=== PATIENT | male | born 1960 | race Caucasian/White ===

== ENCOUNTER → 2018-05-11 14:03 | Outpatient (CLI) | payer OTHER, SELFPAY | PROVIDERS: Family Provider Family Medicine; PCP Family Medicine; Visit Provider Orthopaedic Surgery | DX: Z01.818 Encounter for other preprocedural examination (principal) | CPT/HCPCS: 93005 ==

== ENCOUNTER → 2018-05-26 17:20 | Outpatient (CLI) | payer OTHER, SELFPAY ==
--- NOTE | 2018-05-26 17:26 | DI.MRI.S_ITS ---
PROCEDURE: MR KNEE RT WO CON INDICATIONS: Osteoarthritis. TECHNIQUE: Noncontrast sagittal PD fast spin echo and T2 fast spin echo with fat saturation, sagittal 3-D FLASH with fat saturation; coronal T1 spin echo and PD fast spin echo with fat saturation, and axial PD fast spin echo with fat saturation through the knee. COMPARISON: [facility] [place], CR, XR KNEE ARTHRITIC SERIES RT, 11/16/2017, 15:07. FINDINGS: Image quality: Excellent. Menisci: The medial meniscus appears to have been nearly completely resected, with a small suboptimally visualized meniscal remnant. Lateral extrusion of the lateral meniscus is present. Amorphous high signal intensity within the anterior horn lateral meniscus is present, demonstrating superior articular surface extension, indicating degenerative tearing. Degenerative fraying of the free edge of the anterior horn lateral meniscus is present. Cruciate ligaments: Anterior cruciate ligament is not seen. Posterior cruciate ligament is intact. Medial structures: The medial collateral ligament appears intact but demonstrates mild surrounding T2 signal elevation. Visualized portions of the pes anserinus tendons appear normal. Small amount of medial bursal fluid. Lateral structures: The lateral collateral ligament demonstrates mild fluid signal within its femoral insertion site. The long and short heads of the biceps femoris tendon appear intact. The popliteus tendon appears normal. Iliotibial band appears normal. Anterior structures: The quadriceps and patellar tendons appear intact. Mild lateral patellar subluxation. No femoral trochlear dysplasia or ventral trochlear prominence. Mild edema in the infrapatellar fat pad. Bones and cartilage: No bone marrow contusions or fractures. Severe tricompartmental periarticular osteophyte formation. Mild ill-defined degenerative marrow edema within the subchondral aspects of the medial and lateral compartments. Severe diffuse articular cartilage loss overlies the weightbearing aspects of the medial femoral condyle and medial tibial plateau. Severe articular cartilage loss overlies the mid weightbearing aspect of the lateral femoral condyle, as well as the weightbearing aspect of the lateral tibial plateau. A focal 5 mm diameter region of full-thickness articular cartilage loss overlies the lateral patellar facet adjacent to the patellar apex. Joint space: There is a moderate knee joint effusion and a trace Contreras's cyst. Multiple intra-articular loose bodies are present. Ganglion cyst along the popliteus is present, containing intra-articular loose bodies. There is a ganglion cyst at the posterior midportion of the knee joint posterior to the intercondylar notch measuring roughly 50 mm diameter, containing intra-articular loose bodies. Normal appearing synovial plicae are incidentally noted. IMPRESSION: 1. Severe tricompartmental osteoarthritis with associated articular cartilage loss. 2. Presumed postsurgical sequelae involving the medial meniscus. Degenerative tearing of the lateral meniscus. 3. Full-thickness anterior cruciate ligament tear. 4. Partial-thickness lateral collateral ligament tear. MCL strain. 5. Knee joint effusion and multiple intra-articular loose bodies. Ganglion cysts adjacent to the intercondylar notch and along the popliteus. 6. Mild medial bursitis. Dictated by: Edilma Schultz M.D. on 05/27/2018 at 8:45 Approved by: Edilma Schultz M.D. on 05/27/2018 at 8:51
== END ==
PROVIDERS: Family Provider Family Medicine; PCP Family Medicine; Visit Provider Orthopaedic Surgery
DX: S83.511A Sprain of anterior cruciate ligament of right knee, initial encounter (principal); S83.421A Sprain of lateral collateral ligament of right knee, initial encounter; S83.411A Sprain of medial collateral ligament of right knee, initial encounter; M17.11 Unilateral primary osteoarthritis, right knee; M23.241 Derangement of anterior horn of lateral meniscus due to old tear or injury, right knee; M25.461 Effusion, right knee; M67.461 Ganglion, right knee; M71.561 Other bursitis, not elsewhere classified, right knee
CPT/HCPCS: 73721

== ENCOUNTER → 2019-06-13 11:30 | Outpatient (CLI) | payer OTHER, SELFPAY ==
--- NOTE | 2019-06-13 | DI.RAD.S_ITS ---
PROCEDURE: XR FOOT LT MIN 3V INDICATIONS: ACHILLES BUMP TECHNIQUE: 3 views of the foot were acquired. COMPARISON: None. FINDINGS: Bones: No fractures or dislocations but there is a finding of calcific tendinitis at the Achilles tendon insertion and also a significant sized bone spur at the lateral fascia insertion on the posterior calcaneus. No suspicious bony lesions. Soft tissues: No tibiotalar joint effusion. Achilles tendon appears normal. IMPRESSION: Achilles tendon and plantar fascia spurring on the insertion sites for the 2 structures, posterior calcaneus. No acute trauma. Dictated by: Amrit Menendez M.D. on 06/13/2019 at 13:14 Approved by: Amrit Menendez M.D. on 06/13/2019 at 13:15
== END ==
PROVIDERS: PCP Student in an Organized Health Care Education/Training Program; Visit Provider Student in an Organized Health Care Education/Training Program
DX: M76.62 Achilles tendinitis, left leg (principal); M77.32 Calcaneal spur, left foot
CPT/HCPCS: 73630

== ENCOUNTER → 2019-06-23 15:40 | Outpatient (CLI) | payer OTHER, SELFPAY ==
--- NOTE | 2019-06-23 | DI.US.S_ITS ---
PROCEDURE: US EXTREMITY NONVASC LOWER LT INDICATIONS: LOCALIZED SWELLING, MASS AND LUMP, LEFT LOWER EXTR TECHNIQUE: Real-time scanning was performed of the left posterior foot, with image documentation. COMPARISON: None. FINDINGS: 0.9 x 0.5 x 0.8 cm small soft tissue fluid collection is present of unclear etiology. IMPRESSION: Small fluid collection. Etiology is unclear and if indicated MRI could be performed for further assessment. Dictated by: Brent VILLA Interpreted: Amrit Menendez MD on 06/24/2019 at 9:37 Approved by: Amrit Menendez M.D. on 06/24/2019 at 19:46
== END ==
PROVIDERS: PCP Student in an Organized Health Care Education/Training Program; Visit Provider Student in an Organized Health Care Education/Training Program
DX: R22.42 Localized swelling, mass and lump, left lower limb (principal)
CPT/HCPCS: 76882

== ENCOUNTER → 2020-09-28 12:30 | Outpatient (CLI) | payer OTHER, SELFPAY ==
[2020-09-28 12:59] LABS: COVID19 -Nasal RAPID Negative (Negative)
== END ==
PROVIDERS: PCP Student in an Organized Health Care Education/Training Program; Visit Provider Physician Assistant
DX: Z20.822 Contact with and (suspected) exposure to COVID-19 (principal)
CPT/HCPCS: 87635

== ENCOUNTER → 2020-10-30 15:15 | Outpatient (CLI) | payer OTHER, SELFPAY ==
--- NOTE | 2020-10-30 15:20 | DI.RAD.S_ITS ---
PROCEDURE: XR HIP W PEL IF DONE LT 2V INDICATIONS: LT HIP PAIN TECHNIQUE: 2 views of the hip were acquired. COMPARISON: None. FINDINGS: Bones: No fractures or dislocations. No suspicious bony lesions. The visualized pelvic ring appears intact. Soft tissues: No suspicious soft tissue calcifications or masses. IMPRESSION: A small degree of joint space narrowing is present, no trauma is found. Mild osteoarthritis appears present as the underlying cause. Dictated by: Amrit Menendez M.D. on 10/30/2020 at 16:46 Approved by: Amrit Menendez M.D. on 10/30/2020 at 16:46
== END ==
PROVIDERS: PCP Student in an Organized Health Care Education/Training Program; Referring Provider Student in an Organized Health Care Education/Training Program; Visit Provider Student in an Organized Health Care Education/Training Program
DX: M25.552 Pain in left hip (principal)
CPT/HCPCS: 73502

== ENCOUNTER → 2020-11-21 06:38 | Outpatient (CLI) | payer OTHER, SELFPAY ==
--- NOTE | 2020-11-21 | DI.MRI.S_ITS ---
PROCEDURE: MR HIP LT WO CON INDICATIONS: Pain in left hip TECHNIQUE: Noncontrast coronal T1 spin echo and STIR through the bony pelvis. Coronal and axial T2 fast spin echo with fat saturation, sagittal T1 spin echo, and oblique axial T2 fast spin echo with fat saturation through the hip. COMPARISON: None. FINDINGS: Image quality: Excellent. Bones and joints: Bone marrow of the pelvic ring and proximal femurs show normal signal throughout. No intraosseous lesions or fractures. No avascular necrosis of the femoral heads. The visualized lower lumbar spine appears normally aligned. Tendons and ligaments: The gluteus medius and minimus tendons appear intact, without associated muscle atrophy. Mild T2 signal elevation at the femoral origins of the gluteus medius and minimus tendons bilaterally. The nearby proximal iliotibial band also appears intact. The iliopsoas tendon appears intact, without adjacent bursal fluid collections or evidence for impingement syndrome. The origin of the hamstring tendon is intact at the ischial tuberosity, as well as the associated sacrotuberous ligament. There is mild T2 signal elevation within the proximal hamstring tendon at the ischial origin. The straight and reflected heads of the rectus femoris muscle origin appear intact, as well as the conjoint tendon. The ligamentum teres appears intact where visualized. Labrum and cartilage: Amorphous high signal intensity within the superolateral and anterosuperior labrum is present, indicating degenerative tearing. Cartilage surface of the femoral head appears of normal thickness. The alpha angle of the femur is within normal limits at less than 55 degrees. Soft tissues: Visualized muscles demonstrate normal bulk and internal signal. Quadratus femoris muscle demonstrates no internal edema to suggest ischiofemoral impingement. The proximal sciatic neurovascular bundle appears normal adjacent to the hamstring tendons. No free pelvic fluid. Bladder wall thickness is normal. Genitourinary structures and bowel loops appear normal where visualized. IMPRESSION: 1. Mild insertional tendinitis of the bilateral gluteus medius and minimus tendons. 2. Left hip osteoarthritis with associated degenerative labral tearing. 3. Mild left ischitis. Dictated by: Edilma Schultz M.D. on 11/21/2020 at 9:02 Approved by: Edilma Schultz M.D. on 11/21/2020 at 9:16
== END ==
PROVIDERS: PCP Student in an Organized Health Care Education/Training Program; Referring Provider Student in an Organized Health Care Education/Training Program; Visit Provider Student in an Organized Health Care Education/Training Program
DX: M25.552 Pain in left hip (principal); M16.12 Unilateral primary osteoarthritis, left hip; S73.192A Other sprain of left hip, initial encounter
CPT/HCPCS: 73721

== ENCOUNTER → 2021-01-18 12:35 | Outpatient (CLI) | payer OTHER, SELFPAY ==
--- NOTE | 2021-01-18 13:02 | DI.CT.S_ITS ---
PROCEDURE: CT LUMBAR SPINE WO CON INDICATIONS: Spondylosis without myelopathy or radiculopathy TECHNIQUE: Noncontrast 3 mm thick sections acquired from the T12 level to the sacrum. Sagittal and coronal reformats were constructed. For radiation dose reduction, the following was used: automated exposure control. COMPARISON: [facility] [place], CR, XR LUMBAR SPINE WITH OLBIQUES PLUS FLEXION EXTENSION, 11/27/2020, 9:00. [facility] [place], MR, MR LUMBAR SPINE WITHOUT CONTRAST, 12/04/2020, 8:09. FINDINGS: Image quality: Excellent. Bones: No acute vertebral body compression fractures. No suspicious lytic or blastic bony lesions. No pars defects. Mild levoconvex scoliotic curvature is noted. No focal AP alignment abnormality is seen. T12-L1: The disc height is well preserved. Moderate generalized disc bulge is seen. Mild bilateral neural foraminal narrowing is seen. Moderate central canal narrowing is seen. L1-L2: Moderate loss of disc height is seen. Vacuum disc phenomenon is seen at this level. At least moderate disc bulge is seen, which is eccentric to the left. There is moderate to severe bilateral neural foraminal narrowing seen. At least moderate central canal narrowing can be seen. L2-L3: At least moderate loss of disc height is seen. Vacuum disc phenomenon is seen at this level. Bridging endplate osteophytes are seen. At least moderate disc bulge is seen. There is moderate to severe right-sided and at least moderate left-sided neural foraminal narrowing seen. At least moderate central canal narrowing is seen at this level. L3-L4: Agem-si-adkpdedc loss of disc height is seen. At least moderate disc bulge is seen. Moderate facet hypertrophy is seen, right worse than left. There is moderate to severe bilateral neural foraminal narrowing seen, right worse than left. Moderate central canal narrowing is seen. L4-L5: Moderate to severe loss of disc height is seen on the left side. Endplate irregularity and sclerosis can be seen. Vacuum disc phenomenon is seen at this level. Posteriorly projected endplate osteophytes are seen. There is moderate to severe bilateral neural foraminal narrowing seen at this level. Moderate central canal narrowing is seen. L5-S1: There is mild loss of disc height. Mild generalized disc bulge is seen. Mild bilateral neural foraminal narrowing is seen. No significant central canal narrowing is seen. The sacroiliac joints demonstrate bony bridging, left worse than right. Soft tissues: No retroperitoneal masses or hematomas. Visualized aorta is normal in caliber. Atherosclerotic calcification is noted. IMPRESSION: Multiple levels of lumbar spine degenerative change are seen, which are overall worst at the L4-L5 level. The degenerative changes are better seen on the recent prior MRI examination. Dictated by: Donte Tapia M.D. on 01/18/2021 at 14:22 Approved by: Donte Tapia M.D. on 01/18/2021 at 14:25
== END ==
PROVIDERS: PCP Student in an Organized Health Care Education/Training Program; Referring Provider Orthopaedic Surgery Orthopaedic Surgery of the Spine; Visit Provider Orthopaedic Surgery Orthopaedic Surgery of the Spine
DX: M47.816 Spondylosis without myelopathy or radiculopathy, lumbar region (principal); M51.37 Other intervertebral disc degeneration, lumbosacral region; M48.07 Spinal stenosis, lumbosacral region; M51.36 Other intervertebral disc degeneration, lumbar region; M48.061 Spinal stenosis, lumbar region without neurogenic claudication
CPT/HCPCS: 72131

== ENCOUNTER → 2021-01-22 07:43 | Outpatient (CLI) | payer OTHER, SELFPAY ==
[2021-01-22 09:03] LABS: Add Manual Diff / Slide Review NO; Basophils Absolute Auto 0 /uL (0-100); Basophils Percent Auto 0.4 % (0-2); Eosinophils Absolute Auto 200 /uL (0-450); Eosinophils Percent Auto 2.5 % (2-4); Hematocrit 40.8 % (41-53); Hemoglobin 13.9 g/dL (13.5-17.5); Lymphocytes Absolute Auto 1000 /uL (1100-4500); Lymphocytes Percent Auto 15.1 % (25-40); Mean Corpuscular Hemoglobin 31.9 PG (26-34); Mean Corpuscular Volume 93.8 fL (80-100); Monocytes Absolute Auto 400 /uL (0-900); Monocytes Percent Auto 6.4 % (3-14); Neutrophils Absolute Auto 5100 /uL (1500-7000); Neutrophils Percent Auto 75.6 % (50-75); Platelet Count 247 X10^3/uL (150-400); Red Blood Cell Count 4.35 X10^6/uL (4.5-5.9); White Blood Cell Count 6.7 X10^3/uL (4.5-11.0)
[2021-01-22 09:16] LABS: INR 1.1 (0.9-1.3); Prothrombin Time 11.7 SECONDS (10.1-12.7)
[2021-01-22 09:19] LABS: PTT Partial Thromboplastin Tim 33 SECONDS (26.4-36.2)
[2021-01-22 09:31] LABS: Hemoglobin A1C% w Est Avg Glu 5.1 % (4.0-6.0)
[2021-01-22 09:32] LABS: BUN Creatinine Ratio 18.1 (6-22); Blood Urea Nitrogen 15 mg/dL (9-20); Calcium 9.5 mg/dL (8.4-10.2); Carbon Dioxide 28 mmol/L (22-32); Chloride 102 mmol/L (98-107); Estimated Glomerular Filt Rate > 60.0 mL/min (>60); Glucose 157 mg/dL (80-110); HEMOLYSIS < 15 (0-50); Potassium 4.5 mmol/L (3.4-5.1); Sodium 138 mmol/L (137-145)
== END ==
PROVIDERS: PCP Student in an Organized Health Care Education/Training Program; Referring Provider Orthopaedic Surgery Orthopaedic Surgery of the Spine; Visit Provider Orthopaedic Surgery Orthopaedic Surgery of the Spine
DX: Z01.818 Encounter for other preprocedural examination (principal); Z01.812 Encounter for preprocedural laboratory examination; R73.9 Hyperglycemia, unspecified; Z51.81 Encounter for therapeutic drug level monitoring
CPT/HCPCS: 36415; 80048; 83036; 85025; 85610; 85730; 93005

== ENCOUNTER → 2021-02-01 09:18 | Outpatient (CLI) | payer OTHER, SELFPAY ==
[2021-02-01 09:27] LABS: Bacteria Urine None Seen; RBC Urine None Seen (0-5/HPF); WBC Urine None Seen (0-5/HPF)
[2021-02-01 10:02] LABS: Appearance Urine UA CLEAR; Bilirubin Urine UA NEGATIVE (NEGATIVE); Color Urine UA YELLOW; Glucose Urine UA TRACE g/dL (Negative); Ketones Urine UA TRACE (NEGATIVE); Leukocyte Esterase Urine UA NEGATIVE (NEGATIVE); Nitrite Urine UA NEGATIVE (Negative); Occult Blood Urine UA NEGATIVE (Negative); Protein Urine UA TRACE (Negative); Specific Gravity Urine UA 1.025 (1.000-1.035); Urobilinogen Urine UA 0.2 E.U./dL (0.2)
[2021-02-01 10:10] LABS: Culture Indicated Urine Cult Not Indicated; Urine Comments Microscopic Normal
== END ==
PROVIDERS: PCP Student in an Organized Health Care Education/Training Program; Referring Provider Orthopaedic Surgery Orthopaedic Surgery of the Spine; Visit Provider Orthopaedic Surgery Orthopaedic Surgery of the Spine
DX: N39.0 Urinary tract infection, site not specified (principal)
CPT/HCPCS: 81001

== ENCOUNTER → 2021-02-09 09:00 | Outpatient (CLI) | payer OTHER, SELFPAY ==
[2021-02-09 10:14] LABS: COVID19 -Nasal RAPID Negative (Negative)
== END ==
PROVIDERS: PCP Student in an Organized Health Care Education/Training Program; Visit Provider Physician Assistant
DX: Z01.812 Encounter for preprocedural laboratory examination (principal); Z20.822 Contact with and (suspected) exposure to COVID-19
CPT/HCPCS: 87635

== ENCOUNTER 2021-02-12 09:18 | Observation (INO) | payer OTHER, SELFPAY ==
[2021-02-04 08:46] VITALS: BMI 32.5
[2021-02-11] VITALS (14 sets, daily range): BP systolic 113–155; BP diastolic 70–104; PULSE 65–96; RESP 10–18; TEMP 36.1–36.8; O2SAT 92–98; BMI 32.5
[2021-02-11] MEDS: ACETAMINOPHEN 325 MG TABLET 975 MG PO (12:41)
[2021-02-11] MEDS: GABAPENTIN 300 MG CAPSULE PO (12:42)
[2021-02-11] MEDS: LACTATED RINGERS 1,000 ML 42 ML IV ×2 (13:01→15:42)
--- NOTE | 2021-02-11 13:02 | SUR.PREOP ---
Low back clipped. 3 min chlorhexadine wipe done.
--- NOTE | 2021-02-11 13:25 | PM.PREOP ---
Pre-operative Note COVID-19 COVID-19 status: Negative Result date/Date tested (Pos, Neg/Pending): 02/09/21 Interval Note History & Physical reviewed/Exam performed by Physician: Yes Changes to H&P: No
[2021-02-11] MEDS: CEFAZOLIN 1 GM VIAL 2 GM IV ×2 (13:56→21:25)
--- NOTE | 2021-02-11 14:09 | SUR.OPER ---
Prone on spine table, head in foam head support, padded chest and pelvic supports, gel pad at knees, lower legs supported by pillows; nipples, genitalia and toes free of pressure, arms secured on foam padded arm boards at <90 degrees abduction. Tape over blanket at thigh secured to table.
[2021-02-11] MEDS: BUPIVACAINE 0.25% W/ EPI 30 ML VIAL INJ (14:15)
[2021-02-11] MEDS: BUPIVACAINE LIPOSOME 266 MG/20 ML VIAL INJ (14:16)
--- NOTE | 2021-02-11 16:19 | P.OP_ITS ---
Operative Date/Time/Diagnoses Date of procedure: 02/11/21 Time of procedure: 13:00 Pre-op diagnosis: 1. L4-5 spinal stenosis with radiculopathy 2. L4-5 spondylolisthesis Post-op diagnosis: same Procedure & Clinicians Procedure: 1. L4-5 Postero-lateral and posterior interbody fusion 2. L4-5 interbody cage placement. 3. L4-5 decompressive laminectomy with bilateral facetecomies 4. L4-5 Posterior non-segmental instrumentation 5. [place] of bone marrow from iliac crest 6. Utilization of microsurgical technique and operating microscope 7. Robotic navigation assisted surgery Same procedure as scheduled: Yes Indications: Patient has been having chronic back pain and worsening lumbar radiculopathy. Patient failed multiple conservative management with worsening pain weakness and numbness in her lower extremity. Patient has been having difficulty performing activity of daily living. After discussing risks benefits of treatment options, patient elected proceed with surgery. Surgeon: Malachi Whitmore Manuscript Editor: Eric Marina Click Yes if Unassisted: No Anesthesia Type: General Operative Notes Closure Type: primary Specimen(s): none sent Prosthetic devices, grafts, tissues, transplants, or devices: Globus revolve screws, Rise cage Estimated Blood Loss (mL): 50 Blood products transfused: none Procedure in detail: Patient was seen in the preoperative area. Risks and benefits of the surgery was discussed with the patient. Informed consent was obtained from the patient and placed in the chart. Surgical site was marked. Patient was taken to the operative room. General anesthesia was administered. Prophylactic antibiotic was given to the patient less than 30 min before the incision was made. Patient was placed into a prone position on the Dickson table. Patient's back was then prepped and draped in the sterile fashion. Time- out was performed at this time. After patient was prepped and draped, patient's PSIS was palpated and marked bilaterally. Small 1 cm incision was made over the PSIS for placement of the reference probes. Two trocar was placed into the PSIS 1 on each side. The reference probe was attached to the trocar of the reference apparatus. At this time the C-arm imaging was used to confirm AP and lateral of L4-L5 vertebrae and merged the C-arm imaging using the [employer] robotic navigation system with the CT of the lumbar spine. After successful merging was completed and confirmed, skin marker was used to cecilia out the skin incision using the [employer] robotic arm. Bilateral incision was made at this time. Pre templated trajectory was used and guided using the [employer] robotic navigation system for bilateral L4, L5 pedicle screw placement. This was done by using the robotic arm to guide the high-speed bur to make a cortical entry point. Next a drill was placed also using the robotic arm and guided using the navigation system drilling partially through bilateral L4, L5 pedicles. Next L4, L5 pedicle screws it was pre templated and measured was placed onto the power driver lifter of sanitation truck and inserted into the pedicles bilaterally. After all 4 screws were placed C-arm imaging was taken of both AP and lateral to confirm the placement. Excellent placement of the screws were confirmed and a matched precisely with the pre planned screw placement using the navigation system. MARs retractor was inserted using [employer]aker guidence. Globus MARS retractors was placed inside the incision and docked onto the L4 lamina. Using microsurgical technique and operating microscope, a L4 laminectomy and L4-5 facetectomy was performed using a Kerrison rongeur. Patient was found have severe lateral recess and neural foramen stenosis which was fully decompressed after the laminectomy facetectomy. More than 75% of the facets were removed during the process of decompression rendering L4-5 level grossly unstable and required a fusion procedure at the same time. The disc space at L4-5 was identified, and a total diskectomy was performed at L4-5 level. The endplates were decorticated using a rasp and shaver. The total diskectomy and decortication was performed at L4-5 level in order to to accomplish a L4-5 fusion. The local bone from the laminectomy and facetectomy was saved for local bone grafting. After the total diskectomy and decortication was completed, Trifecta bone graft material was combined with local bone that was harvested earlier. At this time, a separate skin is incision was made over the iliac crest. A Jamshidi needle was inserted into the iliac crest through a separate skin incision. 5 cc of bone marrow aspiration was obtained through the separate skin incision using a Jamshidi needle from the iliac crest. The bone marrow aspiration was combined with local bone and the Tr[employer]ect[employer] bone grafting material. The bone grafting material was placed into the L4-5 interbody space along with a expandable cage. The cage was expanded to its maximum height using the torque limiting screwdriver. The disc preparation as well as the cage insertion were also performed under navigation guidance. After the cage was placed, AP and lateral C-arm imaging was taken to confirm placement of the cage and excellent position was confirmed. Globus MARS retractor was inserted and docked onto the L4-5 posterolateral gutter on the right side. Using the power drill, posterior-lateral decortication was performed at L4-5 level until bleeding cortical bone was identified. The remaining bone grafting material was placed into the L4-5 posterior lateral gutter he order to accomplish posterolateral fusion at the L4- 5 level. At this time the tulips were attached to the L4-L5 pedicle screw shanks. After measuring the length of the rods, they were inserted into the tulips of the pedicle screws and locked in place using locking caps and torque limiting screwdriver bilaterally. Total 4 caps and 2 titanium rods was used in order to complete the posterior instrumentation construct. After all the hardware was placed, and confirmed with AP and lateral C-arm imaging, the wound was then irrigated with sterile normal saline and packed with Ray-Wilbert gauze for 3 min to accomplish hemostasis. After the gauze was removed the deep fascia was closed with #1 Vicryl suture. The subcutaneous layer was closed with 2-0 Vicryl. The skin was closed with skin asuncion. Patient tolerated the procedure well. There were no complications. Neuro monitoring system was used to monitor patient's neurologic status throughout entire procedure. There was no disturbance of the neural monitoring signals throughout the case. Complications: none Post-operative Condition: stable Disposition: PACU Plan for aftercare: Admit to inpatient hospital
--- NOTE | 2021-02-11 16:23 | DI.RAD.S_ITS ---
PROCEDURE: XR LUMBAR SPINE 2-3V INDICATIONS: L4-5 TLIF TECHNIQUE: 2 views of the lumbar spine were acquired. COMPARISON: [facility], CT, CT LUMBAR SPINE WO CON, 01/18/2021, 12:55. [facility] [place], CR, XR LUMBAR SPINE 2 OR 3 VIEWS, 01/31/2021, 15:27. FINDINGS: Bones: Postsurgical changes compatible with L4-L5 TLIF. Orthopedic hardware is in expected position. Orthopedic hardware is intact. There is normal bony alignment. No vertebral body compression fractures. No suspicious bony lesions. Soft tissues: Overlying bowel gas pattern is normal. No suspicious soft tissue calcifications. IMPRESSION: Expected postsurgical change for L4-L5 TLIF. Dictated by: Ann-Marie Wong MD, PhD on 02/11/2021 at 16:52 Approved by: Ann-Marie Wong MD, PhD on 02/11/2021 at 16:53
[2021-02-11] MEDS: OXYCODONE IR 5 MG TABLET PO (16:43)
[2021-02-11] MEDS: SODIUM CHLORIDE 0.9% 1,000 ML 100 ML IV (18:50)
[2021-02-11] MEDS: ACETAMINOPHEN 325 MG TABLET 650 MG PO (18:56)
[2021-02-11] MEDS: ONDANSETRON 4 MG/2 ML INJ IV (18:56)
[2021-02-11] MEDS: OXYCODONE IR 5 MG TABLET 10 MG PO ×2 (19:48→23:37)
[2021-02-11] MEDS: hydrOXYzine pamoate 25 MG CAPSULE PO (19:48)
[2021-02-11] MEDS: CARBIDOPA-LEVODOPA 25/100 TABLET 3 EACH PO (20:08)
[2021-02-11] MEDS: SENNOSIDES 8.6 MG TABLET 17.2 MG PO (20:08)
[2021-02-11] MEDS: lisinopriL 20 MG TABLET 40 MG PO (20:09)
[2021-02-11] MEDS: DOCUSATE 100 MG CAPSULE PO (20:11)
[2021-02-11] MEDS: METFORMIN XR 500 MG TABLET 1000 MG PO (21:23)
--- NOTE | 2021-02-11 21:48 | PC.NURSE ---
Pt arrived on unit at 1740 with spouse. Pt denied pain but struggled to find a comfortable position. Later in shift he c/o pain, found good relief with 10 mg oxycodone po and 25 mg Visteril po. His Metformin Xr, comes out of pyxis at Metformin ER and would not scan. [facility] could not correct and explained the two meds are the same. Coordinator Ammy advised to give. Pt had slight nausea initially and decreased appetite. Nausea later resolved but appetites has not returned. Dsg C/D/I. Using urinal and voiding clear yellow qs. A and O x 4.
--- NOTE | 2021-02-12 02:55 | PC.NURSE ---
Patient is alert and oriented. Breath sounds CTA with RA sat of 95%; using home CPAP for sleep. HRR w/BP of 140/78 which is improved from earlier readings. Denies nausea. BT present but denies passing flatus since return from surgery. Denies dysuria, frequency or urgency with urination; using urinal at bedside. Is able to turn with assistance but wanting to sleep on back. Dressing to back is CDI. Medicated earlier with Oxycodone for back pain and repositioned but declined use of ice pack. Has good pedal pulses bilaterally and denies tingling/numbness. CBG checked and was 180. Wearing bilateral foot SCD's. Gait not assessed as has not yet been out of bed since surgery. Fall risk score is moderate and bed alarm is activated.
[2021-02-12 04:20] VITALS: BP 105/60; PULSE 79; RESP 16; TEMP 36.3; O2SAT 97
[2021-02-12] MEDS: SODIUM CHLORIDE 0.9% 1,000 ML 100 ML IV (05:18)
[2021-02-12] MEDS: CEFAZOLIN 1 GM VIAL 2 GM IV (05:51)
--- NOTE | 2021-02-12 07:41 | PM.PNPO.1 ---
Subjective Subjective Date Patient Seen: 02/12/21 Time Patient Seen: 07:41 Interval history: Pain moderate to severe. Denies fever or chills. No nausea vomiting. Patient has not worked with physical therapy yet. Patient does have his home to assist him. Exam Vital Signs (past 8 hours): - 02/12/21 04:20 Temperature 97.4 F L Pulse Rate 79 Respiratory Rate 16 Blood Pressure 105/60 Pulse Oximetry 97 Oxygen Delivery Method Room Air,CPAP Oxygen Flow Rate 0 Narrative Exam Narrative: 60-year-old male resting comfortably in bed in no apparent distress. Lumbar dressing is Clean, dry, intact.. Motor functions intact bilateral lower extremities. Sensation grossly intact to light touch bilateral lower extremities. [facility] Medical History Anesthesia complication Arthritis Diabetes Gout [place], bilateral HLD (hyperlipidemia) HTN (hypertension) TAMI on CPAP Parkinson disease (12/2020) Surgical History History of arthroplasty of right knee Hx of colonoscopy Social History household members: spouse Smoking Status: Never smoker alcohol intake: current Assessment & Plan Post-op Postoperative Procedures: Procedures Operation Date: 02/11/21 14:45 Actual Procedure Side Surgeon p L4-5 TLIF Malachi Whitmore MD Postoperative day: 1 Postoperative status narrative: Stable Postoperative plan narrative: Patient status post lumbar fusion. Mobilize with physical therapy. Limit bending, twisting, lifting. Disposition 1-2 days home. Quality VTE Deep Vein Thrombosis/Pulmonary Embolism Present on Admission: No
[2021-02-12] MEDS: DOCUSATE 100 MG CAPSULE PO ×2 (08:33→21:13)
[2021-02-12] MEDS: CARBIDOPA-LEVODOPA 25/100 TABLET 3 EACH PO ×3 (08:33→17:20)
[2021-02-12] MEDS: hydroCHLOROthiazide 25 MG TABLET 12.5 MG PO (08:34)
[2021-02-12] MEDS: ACETAMINOPHEN 325 MG TABLET 650 MG PO (08:35)
[2021-02-12] MEDS: OXYCODONE IR 5 MG TABLET 10 MG PO ×4 (08:35→21:13)
[2021-02-12] MEDS: glyBURIDE 2.5 MG TABLET PO (08:43)
[2021-02-12] MEDS: METFORMIN XR 500 MG TABLET 1000 MG PO ×2 (08:49→17:20)
--- NOTE | 2021-02-12 09:35 | CM.DANOTE ---
Addendum entered by STEPHANIE Trujillo 02/12/21 15:31: ADD: Msg from An at [facility] at end of shift stating pt seems to have benefits for SNF in and out of network with likely a 10% out of pocket expense and max of 60 days at SNF. An faxing over the insurance coverage to review and discuss with pt and MAYELA Carias will print off for SW tomorrow. No further discussion with pt regarding SNF at this time due to end of shift. BF Addendum entered by STEPHANIE Trujillo 02/12/21 13:54: ADD: SW spoke to PT after initial eval and pt has new recent dx of Parkinsons which is a barrier to quick recovery post surgery and pt currently Max A and PT feels SNF may be likely needed at d/c. Pt with [employer] for insurance and called [facility] admissions An who states she is willing to run his insurance to determine his coverage for SNF but unsure if they will have bed availability when pt stable for d/c but will at least be able to help determine if pt will have any out of pocket expense. MAYELA Carias kindly faxed facesheet and H&P to [facility] to review. BF Original Note: Patient is a 60 yo male who was admitted on 02/11/21 for TLIF. Pt has [employer] for insurance and his PCP is Dr. Lashon Grider. EMR was reviewed. Per Mame HERNANDEZ, pt with some significant pain today and to work with PT and possible d/c in the next 1-2 days pending progress. PT/OT ordered and pending. SW met bedside with pt and explained role and pt confirms he lives in [place] with his spouse and spouse is not working and available for assist if needed. Pt worked at [employer] and is active and independent at baseline and drives and no DME typically for ambulation. Pt has home CPAP at baseline. Pt denies any hx of HH or SNF and his spouse is informally his DPOA. Pt does not anticipate needs at d/c but currently not independent for bed mobility and he is hoping to learn how to properly do bed and chair mobility for safe d/c home. Plan: SW to follow closely for PT/OT eval and recommendations to confirm safe plan of home with spouse at d/c and any further identified needs. STEPHANIE Trujillo Discharge Planning/Care Management Advanced directive, confirm from FAMILY Start: 02/11/21 18:22 Freq: Q24H Status: Active Protocol: Document 02/11/21 18:43 SL (Rec: 02/11/21 18:43 SL [id number]) Advance Directive, confirm on record Time 18:43 Person contacted spouse Copy received No CM Discharge Assessment Start: 02/12/21 09:34 Freq: Status: Active Protocol: Document 02/12/21 09:34 BF (Rec: 02/12/21 09:35 BF [id number]) Discharge Planning Assessment Assigned Sap Technical Architect STEPHANIE Lema DPOA/Assigned Designee Name spouse informally Contact Information [phone] Advance Directives? Yes Advance Directives on File No History Provided By Patient,Medical Record Has Patient been admitted in last 30 No days? Prior Living Arrangements House Household Members spouse Type of transporation used prior to Drives own vehicle admit Independent with ADL's Yes Is patient alert and oriented? Yes Caregiver for Another No Patient/Family Preference OP PT Therapy,OP OT Therapy Barriers to Discharge No Discharge Plan Home Transportation Arrangement Spouse available for transport at d/c Referrals Initiated None needed Additional Comment Pending PT/OT eval and recommendations Whiteboard Updated in Patient Room with Yes name and ext. # of Sap Technical Architect Review Status In Process Please Provide Date Initial DC 02/12/21 Assessment Was Performed Next Review Type Continued Stay Review Pre-Anesthesia Assessment Start: 02/04/21 08:46 Freq: Status: Complete Protocol: Document 02/04/21 08:46 CAB (Rec: 02/04/21 09:26 CAB [id number]) Pre-Anesthesia Assessment Preferred Name Enrique Vaz Patient Information Reviewed Via Phone Assessment Assessment Completed With Patient Diagnostic Results BMP/CMP,CBC,EKG,Urinalysis Comment Labs/EKG @ [facility] COVID screen @ [facility] 02/09/21 Primary Care Provider Lashon Grider Seen Specialist in Last 12 Months Yes Specialist Seen Orthopedist,Refining Machine Operator,Other Comment Neurology Primary Language Wolof Software Tester Required No Height 182.88 cm Weight 108.862 kg Body Mass Index (BMI) 32.5 Hearing Ability Normal Visual Assist Magnifying Glass Dentition Type Teeth, Natural Present Barriers to Learning None Other Aids Yes: CPAP Hx Anesthesia Reactions Yes: PONV Hx Family Anesthesia Reaction Unknown, pt is adopted Hx Malignant Hyperthermia No Hx Blood Transfusions No Anesthesia Review Requested No alcohol intake current alcohol intake frequency a few times a week Smoking Status Never smoker Substance Use Type does not use Pain Present Pain Reported Musculoskeletal Symptoms Abnormal Gait,Back Pain, Difficulty Walking History of Falling (Recent or History of No ) Patient is completely paralyzed or No completely immobile Prosthesis or Orthotic Device Cane Mental Status Oriented to own ability Is patient on oxygen? No Does patient have MOY/SOB No Hx Sleep Apnea Yes CPAP/BIPAP use prescribed and used routinely Will Bring CPAP/BIPAP DOS Yes Currently Taking a Beta [place] No Can You Climb a Flight of Stairs Without Yes SOB Hx Chest Pain No Hx SOB No Hx Syncope or Dizziness No Anti-Coagulant Therapy No Has a Trucker Hand No Cardiac Testing No Hx Pacemaker/ICD No Pacemaker Rep Required? No Cardiac Clearance Received Not Applicable Diet Type At Home Low Carb dysphagia No Gastrointestinal Symptoms Constipation Bladder Pattern Frequency,Urgency Urinary Catheter Present No Hx Urinary Self Catheterization No Diabetes Yes HgbA1C 5.1 Date 01/22/21 Hx Drug Resistant Organism No Presence of External or Internal Medical Yes: CPAP, right knee Devices Have you had any close contact with No someone diagnosed with COVID-19? Marital Status Lives With spouse Prior Living Arrangements House Number of Floors (Floors) One Floor Support System Spouse Does the Patient Have Assistance After Yes Surgery Patient Discharge Plan Description Return Home Comment Pt advised 1 day length of stay per surgeon Feels Safe in Current Environment Yes Been Physically Hurt or Threatened By a No Person in Current Environment Do you have thoughts of harming yourself None or others? Are you currently considering suicide? No Do you have a plan to hurt yourself or No Plan others? Do You Have Any Spiritual Beliefs That No May Affect Your HC Choices? Do You Have Any Cultural Practices That No May Affect Your HC Choices? Comment Spiritism Who Can We Speak to About Patient's Care Family, friends Identifying Code for Release of Patient Declines to issue Information Health Care Proxy/Next of Kin Destinee Grady () Health Care Proxy Emergency Contact Name Destinee Grady () Emergency Contact Advance Directives? Yes Power of Heating And Ventilation Engineer Yes Power of Heating And Ventilation Engineer Name Destinee Grady () Power of Heating And Ventilation Engineer PAC Instructions Bring CPAP/BIPAP,Diabetes instructions,Durable medical equipment,Medications to take/ avoid,Nasal antibiotic,No ETOH /petroleum product on skin DOS ,NPO,Post-op transportation, Pre-surgical wash,Sturdy shoes /comfortable clothes,Do not bring valuables and remove jewelry
--- NOTE | 2021-02-12 09:48 | OT.IP.EVAL ---
Current Diagnoses Foot drop, left foot (02/12/21) Other spondylosis with radiculopathy, lumbosacral region (02/12/21) Spinal stenosis, lumbar region with neurogenic claudication (02/12/21) Surgery Performed Operation Date: 02/11/21 14:45 Actual Procedures p L4-5 TLIF - Malachi Whitmore MD Past Medical History (Last Reviewed 02/12/21 @ 07:42 by Camron Berrios PA-C) Anesthesia complication Arthritis Diabetes Gout Hammertoe, bilateral History of arthroplasty of right knee HLD (hyperlipidemia) HTN (hypertension) Hx of colonoscopy TAMI on CPAP Parkinson disease (12/2020) Surgical History (Last Reviewed 02/12/21 @ 07:42 by Camron Berrios PA-C) History of arthroplasty of right knee Hx of colonoscopy Occupational Therapy Inpatient Evaluation/Re-Eval M1 PT/OT-IP Prior Functional Status Start: 02/12/21 12:00 Freq: NEEDED Status: Active Protocol: Document 02/12/21 12:03 CCC (Rec: 02/12/21 12:23 [facility] [id number]) Medical Review Prior Functional Status Communication Independent to state his needs . Mobility and Gait Per pt had to use a shopping cart to help get around the store. Pt states could only stand for 5-10 minutes before having to sit down due to his pain. Activities of Daily Living and IADL's Pt states was completely independent with all his ADl and IADL needs. Pt took his own medications and paid the bills. Prior Functional Level (Other details) Per pt , his will only be able to physically assist him minimally. Social History Household Members spouse Living Arrangements House Number of Floors (Floors) One Floor Number of Stairs To Enter/Railing? 2 steps with left hand rail going into the house. Home Environment Standard Height Toilet,Tub/ Shower Home Equipment Front Wheel Walker,Quad Cane, Shower Seat without Backrest, Long Handled Sponge,Long Handled Shoe Horn,Lacemaker,Sock Aid,Grab Bars In Shower Additional Social History Comment Pt states has recently been diagnosed with Parkinson's. Pt states also has a toilet paper aid at home. M2 OT-IP Current Condition Start: 02/12/21 12:02 Freq: Status: Active Protocol: Document 02/12/21 12:03 [facility] (Rec: 02/12/21 12:23 [facility] [id number]) Occupational Therapy Current Condition Current Condition Evaluation Date 02/12/21 Treatment Diagnosis S/p L4-5 TLIF, decreased mobility Diagnosis Onset Date 02/11/21 Post Operative Precautions Lumbar Precautions Log Roll,No Twisting,Limit Bending,Lifting Restriction of 10 lbs,Gait Belt above Incisional Area M3 OT- IP Subjective and Pain Start: 02/12/21 12:02 Freq: Status: Active Protocol: Document 02/12/21 12:03 [facility] (Rec: 02/12/21 12:23 [facility] [id number]) OT- Subjective Occupational Therapy Visit Type Type Initial Evaluation Visit Start Time 09:10 Visit Stop Time 09:48 Total Visit Minutes 38 Occupational Therapy Visit Comments Patient Comments Pt agreed to get up for OT eval. Patient/Caregiver Goals TO go home. OT Pain Assessment Pain When Pain Assessed At Rest Pain Present Pain Present Pain Reported Location Back Intensity 2 M4 OT- IP ADL's Start: 02/12/21 12:02 Freq: Status: Active Protocol: Document 02/12/21 12:03 [facility] (Rec: 02/12/21 12:23 [facility] [id number]) OT LHD-Mwlb-Azgbpau Comments OT Self-Feeding Comments Not at meal time. OT ADL-Grooming Comments OT Grooming Comments NOt performed. Able to educate pt best to sip into a cup versus bend at his back to spit. OT ADL-Dressing General Eval Lower Body Dressing Ability Maximum Assistance Comments OT Dressing Comments Assist for socks and assist to help pull up his shorts while pt using FWW to stand with. Able to practice use of grain sacker and sock aid for needs . OT ADL-Toileting General Evaluation Toileting Ability Standby Assistance Devices Toileting Assistive Devices Urinal Comments OT Toileting Comments Pt able to use urinal while seated on the edge of the bed. Suggested would be beneficial to use urinal at night. Pt's sleeps in the next room over. OT ADL-Bathing Comments OT Bathing Comments Not at this time. M5 OT- IP IADL's Start: 02/12/21 12:02 Freq: Status: Active Protocol: Document 02/12/21 12:03 [facility] (Rec: 02/12/21 12:23 [facility] [id number]) OT-Instrumental Activities of Daily Living Home Safety Awareness Awareness of Need for Assistance at Home Good Awareness Ability to Problem Solve Emergency Able to Problem Solve Situations Medication Management Medication Management Comments Pt's able to assist for IADl needs as needed. Money Management Money Management Comments Pt's able to assist for IADl needs as needed. Meal Preparation Meal Preparation Comments Pt's able to assist for IADl needs as needed. Medical Office Scheduler Medical Office Scheduler Comments Pt's able to assist for IADl needs as needed. M6 OT- IP Functional Cognition Start: 02/12/21 12:02 Freq: Status: Active Protocol: Document 02/12/21 12:03 [facility] (Rec: 02/12/21 12:23 [facility] [id number]) Cognitive Factors Limiting Selfcare Function Cognitive Ability Level of Alertness Alert Patient Orientation Name,Age,Birthday,Month,Date, Year,Day of Week,Place, Situation Attention Span Ability Capable of Focused Attention, Capable of Sustained Attention Ability to Follow Commands Able to Follow One Step Commands with Increased Time, Able to Follow One Step Commands with Repetition Cognitive Comments Cognitive Assessment Comments Pt able to follow commands for bed mobility and ADL needs during OT eval. Continue to assess cognition needs. OT- Vision and Hearing OT- Hearing Assessment OT- Hearing Assessment WFL OT- Vision Assessment Visual Acuity Glasses For Reading M7 OT- IP Mobility and Balance Start: 02/12/21 12:02 Freq: Status: Active Protocol: Document 02/12/21 12:03 [facility] (Rec: 02/12/21 12:23 [facility] [id number]) OT- Bed Mobility Assessment Rolling Level of Assistance Minimal Assistance Supine to Sit Supine to Sit Assist Minimal Assistance OT-Transfer Assessment Sit to and From Stand Sit to and from Stand Minimal Assistance,Moderate Assistance Transfers Transfer Ability Minimal Assistance Technique Transfer Destination Bed,Chair Transfer Technique Stand Step Pivot Devices Transfer Assistive Devices Gait Belt,Front Wheeled Walker Comments Mobility Comments Pt KRISTA to help roll and assist to get up to sidelying. Pt having to use grab bar to assist at this time. Sit to stand from KRISTA to MODA x1 to FWW. Pt tends to walk to grab the FWW in order to stand. KRISTA with FWW to walk around to the bed to the recliner and GILBERT to help lower to the recliner. OT- Balance Assessment Sitting Balance and Reactions Static Sitting Balance Ability Normal Dynamic Sitting Balance Ability Good Standing Balance and Reactions Static Standing Balance Ability Fair M8 OT- IP Objective Assessments Start: 02/12/21 12:02 Freq: Status: Active Protocol: Document 02/12/21 12:03 [facility] (Rec: 02/12/21 12:23 [facility] [id number]) OT Gross Range of Motion Upper Extremity Range of Motion ROM Impairments AROM limited by back pain per pt. OT Strength Upper Extremity Strength Assessment Within Functional Limits M9 OT- IP Assessment and Plan Start: 02/12/21 12:02 Freq: Status: Active Protocol: Document 02/12/21 12:03 [facility] (Rec: 02/12/21 12:23 [facility] [id number]) OT Summary Assessment and Plan Potential Rehabilitation Potential Good Analytic Complexity at Evaluation Low Summary OT Impairments Pain,Strength,Balance, Functional Mobility,Grooming, Dressing,Toileting,Bathing, Toilet Transfers,Shower Transfers,Activity Tolerance Progress Towards Goals Slow Progress due to Pain Assessment Summary Pt low complexity and main barriers are steps, pain, and now relying on assist and use of LB dressing equipment to assist for ADl needs. Pt's able to provide minimal physical assist. Therefore pending caregiver training home with assist versus SNF. Goals Grooming Goal Independent Dressing Goal Independent Toileting Goal Independent Bathing Goal Independent Toilet Transfer Goal Independent Shower Transfer Goal Independent Patient/Caregiver Education Goal Demonstrate Post-Op Precautions,Caregiver Independent Assisting Patient Days to Meet Goals 10 Frequency of Treatment Frequency Of Treatment Once a Day Treatment Plan OT Treatment Plan ADL Training,Functional Mobility,Patient/Family Education,Discharge Planning Other Treatment Recommendations and Next traffic coordinator front of sink for Treatment Focus grooming/ shower if appropriate Discharge Recommendations OT Discharge Recommendations Home with Assistance,SNF Rehab ,Home vs SNF Transportation Needs at Discharge Private Vehicle,Wheelchair/ Cabulance
--- NOTE | 2021-02-12 09:50 | PT.IIE ---
Current Diagnoses Foot drop, left foot (02/12/21) Other spondylosis with radiculopathy, lumbosacral region (02/12/21) Spinal stenosis, lumbar region with neurogenic claudication (02/12/21) Surgery Performed Operation Date: 02/11/21 14:45 Actual Procedures p L4-5 TLIF - Malachi Whitmore MD Medical History (Last Reviewed 02/12/21 @ 07:42 by Camron Berrios PA-C) Anesthesia complication Arthritis Diabetes Gout Hammertoe, bilateral HLD (hyperlipidemia) HTN (hypertension) TAMI on CPAP Parkinson disease (12/2020) Physical Therapy Inpatient Evaluation/Re-Eval M1 PT/OT-IP Prior Functional Status Start: 02/12/21 12:00 Freq: NEEDED Status: Active Protocol: Document 02/12/21 12:03 [facility] (Rec: 02/12/21 12:23 [facility] [id number]) Medical Review Prior Functional Status Communication Independent to state his needs . Mobility and Gait Per pt had to use a shopping cart to help get around the store. Pt states could only stand for 5-10 minutes before having to sit down due to his pain. Activities of Daily Living and IADL's Pt states was completely independent with all his ADl and IADL needs. Pt took his own medicaitons and paid the bills. Prior Functional Level (Other details) Per pt , his will only be able to physically assist him minimally. Social History Household Members spouse Living Arrangements House Number of Floors (Floors) One Floor Number of Stairs To Enter/Railing? 2 steps with left hand rail going into the house. Home Environment Standard Height Toilet,Tub/ Shower Home Equipment Front Wheel Walker,Quad Cane, Shower Seat without Backrest, Long Handled Sponge,Long Handled Shoe Horn,Heel Boom Operator,Sock Aid,Grab Bars In Shower Additional Social History Comment Pt states has recently been diagnosed with Parkinson's. Pt states also has a toilet paper aid at home. M2 PT-IP Current Condition Start: 02/12/21 12:00 Freq: NEEDED Status: Active Protocol: Document 02/12/21 09:50 AB (Rec: 02/12/21 12:38 AB [id number]) Physical Therapy Current Condition Current Condition Evaluation Date 02/12/21 Treatment Diagnosis s/p L4-5 fusion/lami; difficulty in walking Onset Date 02/11/21 Precautions Lumbar Precautions Log Roll,No Twisting,Limit Bending,Lifting Restriction of 10 lbs,Gait Belt above Incisional Area M3 PT-IP Subjective Start: 02/12/21 12:00 Freq: NEEDED Status: Active Protocol: Document 02/12/21 09:50 AB (Rec: 02/12/21 12:38 AB [id number]) Subjective Physical Therapy Visit Type Type Initial Evaluation Visit Start Time 09:50 Visit Stop Time 10:20 Total Visit Minutes 30 Number of NEEDLE GRINDER Visits 0 Physical Therapy Visit Comments Patient Comments agreeable to do PT Therapy Pain Assessment Pain When Pain Assessed At Rest Pain Present Pain Present Pain Reported Location Back Intensity 4 Scale Used increases with mobility Pain Behaviors Guarding,Wincing Pain Management Techniques Distraction,Modification of Treatment,Re-positioning, Timing of Activity with Medications M4 PT-IP Mobility and Gait Start: 02/12/21 12:00 Freq: NEEDED Status: Active Protocol: Document 02/12/21 09:50 AB (Rec: 02/12/21 12:38 AB [id number]) PT-Bed Mobility Assessment Sit to Supine Sit to Supine Maximum Assistance,1 Person Assistance PT-Transfer Assessment Sit to and From Stand Sit to and from Stand Maximum Assistance,1 Person Assistance,Use of Upper Extremities Equipment Transfer Assistive Device Gait Belt,Front Wheeled Walker Orthotic/Prosthetic Devices or Brace: No Transfers Transfer Destination Bed Transfer Technique ambulated Transfer Ability Level of Assist Maximum Assistance,1 Person Assistance,Use of Upper Extremities Comments Mobility Comments pt sitting on chair. requires cues to recall back precautions. completed sit to stand from the chair x 2 attempts max A and max cues. ambulated ~ 10 ft using FWW and has to sit down. pt sat on EOB. presents with R knee slight buckling and dragging gait requiring assist stabilize and weight shift. pt also has forward head/trunk posture. pt stated that he has early onset PD. pt completed sit to stand from EOB max A and cues and ambulated ~ 10 ft again using FWW max A and max cues. pt requested to go back to bed. completed log roll sit to supine max A and max cues. positioned pt in bed. call light and table placed wtihin reach. informed NAC regarding pt's mobility and assistance needed. Gait Assessment Gait Gait Assistance Required: Maximum Assistance Distance (Feet) 10 Able to Maintain Weight Bearing Status Yes During Gait Assistive Devices Assistive Device Gait Belt,Front Wheeled Walker Orthotic/Prosthetic Devices or Brace: No Gait Deviations General Gait Pattern Antalgic,Decreased Stride Length,Decreased Feet Clearance,Flexed Trunk,Step-to Gait Factors Limiting Gait Function Factors Limiting Gait Function Decreased Activity Tolerance, Decreased Strength,Difficulty Following Directions,Limited Range of Motion,Pain,Poor Balance,Poor Safety Awareness PT-Balance Assessment Sitting Balance and Reactions Static Sitting Balance Ability Good Dynamic Sitting Balance Ability Fair Standing Balance and Reactions Static Standing Balance Ability Poor Dynamic Standing Balance Ability Poor Device Used FWW M5 PT-IP Objective Assessments Start: 02/12/21 12:00 Freq: NEEDED Status: Active Protocol: Document 02/12/21 09:50 AB (Rec: 02/12/21 12:38 AB [id number]) Orientation Orientation/Cognition Level of Alertness Alert Orientation Name,Situation Safety Awareness Decreased Safety Awareness Memory Description Short Term Impaired Gross Range of Motion Lower Extremity ROM Assessment Within Functional Limits Strength Lower Extremity Strength Assessment Bilaterally Impaired Comments Strength Comments LLE: 4-/5 RLE: 3+/5 Muscle Tone Muscle Tone WNL Yes M6 PT-IP Treatment Start: 02/12/21 12:00 Freq: NEEDED Status: Active Protocol: Document 02/12/21 09:50 AB (Rec: 02/12/21 12:38 AB [id number]) Physical Therapy Treatment Education Education Provided Precautions,Weight Bearing Status,Safety M7 PT-IP Assessment and Plan Start: 02/12/21 12:00 Freq: NEEDED Status: Active Protocol: Document 02/12/21 09:50 AB (Rec: 02/12/21 12:38 AB [id number]) PT Summary Assessment and Plan Potential Rehabilitation Potential Fair Status of Condition at Evaluation Evolving Summary Impairments Pain,ROM,Strength,Balance, Coordination,Sensation,Tone, Cognition,Bed Mobility, Transfers,Gait,Activity Tolerance Assessment Summary pt requiring max A with mobility using FWW. pt has PD limiting mobility and progress. Will assess progress but at this time, pt will require SNF rehab. pt stated that his spouse can assist him but also will be limited on assistance she can provide to pt. will conduct caregiver training when appropriate. Goals Bed Mobility Goal Standby Assistance Transfer Goal Standby Assistance,Front Wheeled Walker Gait Goal Standby Assistance,Front Wheel Walker Gait Distance 150 Other Goals up/down 2 steps L rail SBA Days to Meet Goals 10 Frequency of Treatment Frequency Of Treatment Twice a Day Treatment Plan Physical Therapy Treatment Plan Bed Mobility Training,Transfer Training,Gait Training, Therapeutic Exercise,Balance Retraining,Post Op Education, Discharge Planning,Hot or Cold Pack,Neuromuscular Re-ed, Coordination Retraining,Manual Therapy Precautions Lumbar Precautions Log Roll,No Twisting,Limit Bending,Lifting Restriction of 10 lbs,Gait Belt above Incisional Area Recommendations To Nursing Amount of Assist Needed 1 Person Assist Discharge Recommendations PT Discharge Recommendations Home Health,SNF Rehab,Home vs SNF Transportation Needs at Discharge Private Vehicle,Wheelchair/ Cabulance
[2021-02-12 11:43] VITALS: BP 110/70; PULSE 95; RESP 16; TEMP 36.5; O2SAT 94
--- NOTE | 2021-02-12 13:00 | PT.IPTN ---
Current Diagnoses Foot drop, left foot (02/12/21) Other spondylosis with radiculopathy, lumbosacral region (02/12/21) Spinal stenosis, lumbar region with neurogenic claudication (02/12/21) Surgery Performed Operation Date: 02/11/21 14:45 Actual Procedures p L4-5 TLIF - Malachi Whitmore MD Physical Therapy Treatment Note M2 PT-IP Current Condition Start: 02/12/21 12:00 Freq: NEEDED Status: Active Protocol: Document 02/12/21 09:50 AB (Rec: 02/12/21 12:38 AB [id number]) Physical Therapy Current Condition Current Condition Evaluation Date 02/12/21 Treatment Diagnosis s/p L4-5 fusion/lami; difficulty in walking Onset Date 02/11/21 Precautions Lumbar Precautions Log Roll,No Twisting,Limit Bending,Lifting Restriction of 10 lbs,Gait Belt above Incisional Area M3 PT-IP Subjective Start: 02/12/21 12:00 Freq: NEEDED Status: Active Protocol: Document 02/12/21 13:00 AB (Rec: 02/12/21 15:13 AB [id number]) Subjective Physical Therapy Visit Type Type Treatment Note Visit Start Time 13:00 Visit Stop Time 13:25 Total Visit Minutes 25 Number of DIRECTOR DIGITAL STRATEGY Visits 0 Physical Therapy Visit Comments Patient Comments pt is agreeable to do PT Therapy Pain Assessment Pain When Pain Assessed At Rest Pain Present Pain Present Pain Reported Location Back Intensity 4 Scale Used increases with mobility Pain Management Techniques Modification of Treatment,Re- positioning,Timing of Activity with Medications M4 PT-IP Mobility and Gait Start: 02/12/21 12:00 Freq: NEEDED Status: Active Protocol: Document 02/12/21 13:00 AB (Rec: 02/12/21 15:13 AB [id number]) PT-Bed Mobility Assessment Rolling Type of Rolling Log Rolling Level of Assist Maximal Assistance Sit to Supine Sit to Supine Maximum Assistance PT-Transfer Assessment Sit to and From Stand Sit to and from Stand Moderate Assistance,Maximum Assistance,1 Person Assistance ,Use of Upper Extremities Equipment Transfer Assistive Device Gait Belt,Front Wheeled Walker Orthotic/Prosthetic Devices or Brace: No Transfers Transfer Technique ambulated Transfer Ability Level of Assist Moderate Assistance,Maximum Assistance,1 Person Assistance ,Use of Upper Extremities Comments Mobility Comments pt sitting on chair. completed sit to stand max A and cues. instructed to sit back down. educated pt on sit <>stand techniques. pt completed sit<>stand x 3 reps and max cues requiring mod to max A and max cues. pt ambulated ~ 20 ft using FWW mod to max A and max cues. requires due for R quads activation with slight buckling requiring assist to stabilize, also tends to drag RLE and requires cues to increase LE elevation . pt rested and agreed to walk again and completed another 20 ft using FWW mod to max A and max cues. requested to go back to bed. completed log roll sit to supine max A and max cues. positioned pt in bed. call light and table placed within reach. informed pt to obtain a taller FWW and agreed. informed shoe caser regarding pt's current mobility and possibility of needing SNF. Gait Assessment Gait Gait Assistance Required: Moderate Assistance,Maximum Assistance,1 Person Assist Distance (Feet) 20 Able to Maintain Weight Bearing Status Yes During Gait Assistive Devices Assistive Device Gait Belt,Front Wheeled Walker Orthotic/Prosthetic Devices or Brace: No Gait Deviations General Gait Pattern Decreased Stride Length, Decreased Feet Clearance, Flexed Trunk,Step-to Gait Factors Limiting Gait Function Factors Limiting Gait Function Decreased Activity Tolerance, Decreased Strength,Difficulty Following Directions,Pain,Poor Balance,Poor Safety Awareness M5 PT-IP Objective Assessments Start: 02/12/21 12:00 Freq: NEEDED Status: Active Protocol: Document 02/12/21 09:50 AB (Rec: 02/12/21 12:38 AB [id number]) Orientation Orientation/Cognition Level of Alertness Alert Orientation Name,Situation Safety Awareness Decreased Safety Awareness Memory Description Short Term Impaired Gross Range of Motion Lower Extremity ROM Assessment Within Functional Limits Strength Lower Extremity Strength Assessment Bilaterally Impaired Comments Strength Comments LLE: 4-/5 RLE: 3+/5 Muscle Tone Muscle Tone WNL Yes M6 PT-IP Treatment Start: 02/12/21 12:00 Freq: NEEDED Status: Active Protocol: Document 02/12/21 13:00 AB (Rec: 02/12/21 15:13 AB [id number]) Physical Therapy Treatment Education Education Provided Precautions,Safety M7 PT-IP Assessment and Plan Start: 02/12/21 12:00 Freq: NEEDED Status: Active Protocol: Document 02/12/21 13:00 AB (Rec: 02/12/21 15:13 AB [id number]) PT Summary Assessment and Plan Potential Rehabilitation Potential Fair Summary Impairments Pain,ROM,Strength,Balance, Coordination,Sensation,Tone, Cognition,Bed Mobility, Transfers,Gait,Activity Tolerance Progress Towards Goals Slow Progress due to Pain,Slow Progress due to Medical Issues Assessment Summary pt requiring mod to max A and max cues with all tasks and unable to tolerate much activity. Pt will require SNF rehab at this time. will continue to assess progress for safe d/c plan. Goals Bed Mobility Goal Standby Assistance Transfer Goal Standby Assistance,Front Wheeled Walker Gait Goal Standby Assistance,Front Wheel Walker Gait Distance 150 Other Goals up/down 2 steps L rail SBA Days to Meet Goals 10 Frequency of Treatment Frequency Of Treatment Twice a Day Treatment Plan Physical Therapy Treatment Plan Bed Mobility Training,Transfer Training,Gait Training, Therapeutic Exercise,Balance Retraining,Post Op Education, Discharge Planning,Hot or Cold Pack,Neuromuscular Re-ed, Coordination Retraining,Manual Therapy Precautions Lumbar Precautions Log Roll,No Twisting,Limit Bending,Lifting Restriction of 10 lbs,Gait Belt above Incisional Area Recommendations To Nursing Amount of Assist Needed 1 Person Assist Discharge Recommendations PT Discharge Recommendations SNF Rehab Transportation Needs at Discharge Wheelchair/Cabulance
--- NOTE | 2021-02-12 14:01 | CM.DPNOTE ---
Faxed H&P & FS to [facility] at [facility]'s request. Received fax conf. Aretha Murcia CM Asst.
[2021-02-12 15:30] VITALS: BP 116/60; PULSE 96; RESP 16; TEMP 36.8; O2SAT 92
[2021-02-12 19:45] VITALS: BP 105/58; RESP 18; TEMP 36.4; O2SAT 94
[2021-02-12] MEDS: SENNOSIDES 8.6 MG TABLET 17.2 MG PO (21:21)
[2021-02-12 21:22] VITALS: BP 105/58; PULSE 96
[2021-02-12 23:35] VITALS: BP 102/59; PULSE 80; RESP 16; TEMP 36.4; O2SAT 96
[2021-02-13] MEDS: OXYCODONE IR 5 MG TABLET 10 MG PO ×3 (04:28→13:05)
[2021-02-13] MEDS: ACETAMINOPHEN 325 MG TABLET 650 MG PO (04:28)
[2021-02-13 04:48] VITALS: BP 122/68; PULSE 93; RESP 16; TEMP 36.6; O2SAT 94
[2021-02-13 07:07] VITALS: BP 111/61; PULSE 85; RESP 15; TEMP 36.6; O2SAT 96
--- NOTE | 2021-02-13 08:18 | PM.PNPO.1 ---
Subjective Subjective Date Patient Seen: 02/13/21 Time Patient Seen: 08:18 Interval history: Patient's pain is moderate to severe this morning. Denies fever or chills. No nausea or vomiting. Exam Vital Signs (past 8 hours): - 02/13/21 04:48 Temperature 97.8 F Pulse Rate 93 H Respiratory Rate 16 Blood Pressure 122/68 Pulse Oximetry 94 Oxygen Delivery Method Room Air,CPAP Oxygen Flow Rate 0 Narrative Exam Narrative: Pleasant 60-year-old male resting comfortably in bed in no apparent distress. Dressing is Clean, dry, intact.. Motor functions intact distally bilateral lower extremities. Sensation grossly intact bilateral lower extremities. [facility] Medical History Anesthesia complication Arthritis Diabetes Gout Hammertoe, bilateral HLD (hyperlipidemia) HTN (hypertension) TAMI on CPAP Parkinson disease (12/2020) Surgical History History of arthroplasty of right knee Hx of colonoscopy Social History household members: spouse Smoking Status: Never smoker alcohol intake: current Assessment & Plan Post-op Postoperative Procedures: Procedures Operation Date: 02/11/21 14:45 Actual Procedure Side Surgeon p L4-5 TLIF Malachi Whitmore MD Postoperative plan narrative: Patient progressing as expected. Patient will mobilize with physical therapy this morning. Expected disposition home later this morning or this afternoon. Quality VTE Deep Vein Thrombosis/Pulmonary Embolism Present on Admission: No
[2021-02-13] MEDS: glyBURIDE 2.5 MG TABLET PO (09:00)
[2021-02-13] MEDS: DOCUSATE 100 MG CAPSULE PO (09:07)
[2021-02-13] MEDS: CARBIDOPA-LEVODOPA 25/100 TABLET 3 EACH PO ×2 (09:07→13:15)
[2021-02-13] MEDS: hydroCHLOROthiazide 25 MG TABLET 12.5 MG PO (09:08)
[2021-02-13] MEDS: METFORMIN XR 500 MG TABLET 1000 MG PO (09:08)
--- NOTE | 2021-02-13 11:21 | PT.IPTN ---
Current Diagnoses Foot drop, left foot (02/12/21) Other spondylosis with radiculopathy, lumbosacral region (02/12/21) Spinal stenosis, lumbar region with neurogenic claudication (02/12/21) Surgery Performed Operation Date: 02/11/21 14:45 Actual Procedures p L4-5 TLIF - Malachi Whitmore MD Physical Therapy Treatment Note M2 PT-IP Current Condition Start: 02/12/21 12:00 Freq: NEEDED Status: Active Protocol: Document 02/12/21 09:50 AB (Rec: 02/12/21 12:38 AB [id number]) Physical Therapy Current Condition Current Condition Evaluation Date 02/12/21 Treatment Diagnosis s/p L4-5 fusion/lami; difficulty in walking Onset Date 02/11/21 Precautions Lumbar Precautions Log Roll,No Twisting,Limit Bending,Lifting Restriction of 10 lbs,Gait Belt above Incisional Area M3 PT-IP Subjective Start: 02/12/21 12:00 Freq: NEEDED Status: Active Protocol: Document 02/13/21 10:34 SP (Rec: 02/13/21 15:24 SP [id number]) Subjective Physical Therapy Visit Type Type Treatment Note Visit Start Time 10:34 Visit Stop Time 11:21 Total Visit Minutes 47 Number of RN OUTPATIENT SURGERY Visits 1 Physical Therapy Visit Comments Patient Comments pt is agreeable to do PT Therapy Pain Assessment Pain When Pain Assessed At Rest Pain Present Pain Present Pain Reported Location Back Intensity 3 Scale Used 3/10 at rest, 6/10 with mobility, premedicated Description With Movement Pain Behaviors Facial Grimacing Pain Management Techniques Distraction,Re-positioning, Timing of Activity with Medications M4 PT-IP Mobility and Gait Start: 02/12/21 12:00 Freq: NEEDED Status: Active Protocol: Document 02/13/21 10:34 SP (Rec: 02/13/21 15:24 SP [id number]) PT-Bed Mobility Assessment Rolling Type of Rolling Log Rolling,Roll to Left Level of Assist Contact Guard Assistance,1 Person Assistance Supine to Sit Supine to Sit Moderate Assistance,1 Person Assistance,Bedrails Sit to Supine Sit to Supine Moderate Assistance,1 Person Assistance Scooting Scooting to Edge of Bed Standby Assistance PT-Transfer Assessment Sit to and From Stand Sit to and from Stand Minimal Assistance,Moderate Assistance,1 Person Assistance ,Use of Upper Extremities Equipment Transfer Assistive Device Gait Belt,Front Wheeled Walker Orthotic/Prosthetic Devices or Brace: No Transfers Transfer Destination Bed,Chair,Wheelchair Transfer Technique Stand Step Pivot Transfer Ability Level of Assist Contact Guard Assistance, Minimal Assistance,1 Person Assistance,Use of Upper Extremities Comments Mobility Comments Pt recalled 3/3 back precautions and maintained throughout tx. Pt able to don shorts over LEs while supine in bed, required assist for pulling up rest way while rolling side to side use of bed rails. Completed LR L and R using bed rail CGA no twisting. L SR>sitting Mod A x1 for trunk righting support, scoot to EOB SBA. Pt able to sit EOB unsupported and self use of urinal and RN OUTPATIENT SURGERY emptied substancial amount. Sit>stand with cues for proper hand placement push from bed x1 during tx, Mod A initially to stand from EOB cues for B quad facilitation and heavy UE WB on FWW. SPT bed > chair with cues for foot clearance and centering back up to chair, MIn> CGA, stand>sit Min A slow descent hip hinge straight back. Pt rested in chair 2 min . Sit>stand 1 UE on FWW one push from chair Mod A, noted B knees bent and able to straighten with cues. Pt able to walk further into hallway approx 25 ft w/c follow CGA cues for tall posture increase foot clearance and stride length to decrease noted shuffle gait around end of bed in room, as distance progressed into hallway improved receiprocal patterning and foot clearance pt tired w/c follow required sit rest, slow descent into wc Min A. RN OUTPATIENT SURGERY pushed pt to stairs. Sit>stand Min A pushing from wc chair arms, few steps to stairs. Ascended/ descended 3 stairs L HR and SPC in RUE, CG- Min A with support for stabilizing SPCon R, cues for sequencing SPC and LE positioning as needed. Post stairs pt walked further back to room 100ft and returned to bed with improved step over step wc follow not needed. Pt good side step EOB closer to pillow, stand>sit CGA with good hand placement, Sit> L SL>supine holding mattress Mod A for LEs into bed support then able to LR self and center self in bed using BUE mattress and LE bridging locomotion. Pt in bed with call light and all needs in reach. RN OUTPATIENT SURGERY asked if available for caregiver training in afternoon to assess if able to assist him. Pt called and she will be here for 130 pm caregiver training. Will continue to assess progress pm tx. Gait Assessment Gait Gait Assistance Required: Contact Guard Assist,1 Person Assist Distance (Feet) 100 Able to Maintain Weight Bearing Status Yes During Gait Assistive Devices Assistive Device Gait Belt,Front Wheeled Walker Orthotic/Prosthetic Devices or Brace: No Gait Deviations General Gait Pattern Decreased Stride Length, Decreased Feet Clearance, Flexed Trunk,Step-to Gait Factors Limiting Gait Function Factors Limiting Gait Function Decreased Activity Tolerance, Decreased Strength,Difficulty Following Directions,Pain,Poor Balance,Poor Safety Awareness Comments Gait Comments See mobility comments Stair Climbing Assessment Evaluation Level of Assist On Stairs Contact Guard Assistance, Minimal Assistance,1 Person Assistance Devices Stair Climbing Assistive Devices Straight Cane,Left Railing Technique/Endurance Stair Climbing Direction Ascend and Descend Stair Climbing Technique Step to Step Number of Steps Climbed 3 Stair Climbing Set # Repetitions (reps) 1 Comments Stair Climbing Comments See mobility comments PT-Balance Assessment Sitting Balance and Reactions Static Sitting Balance Ability Good Dynamic Sitting Balance Ability Good Standing Balance and Reactions Static Standing Balance Ability Fair Dynamic Standing Balance Ability Fair Device Used FWW M5 PT-IP Objective Assessments Start: 02/12/21 12:00 Freq: NEEDED Status: Active Protocol: Document 02/12/21 09:50 AB (Rec: 02/12/21 12:38 AB [id number]) Orientation Orientation/Cognition Level of Alertness Alert Orientation Name,Situation Safety Awareness Decreased Safety Awareness Memory Description Short Term Impaired Gross Range of Motion Lower Extremity ROM Assessment Within Functional Limits Strength Lower Extremity Strength Assessment Bilaterally Impaired Comments Strength Comments LLE: 4-/5 RLE: 3+/5 Muscle Tone Muscle Tone WNL Yes M6 PT-IP Treatment Start: 02/12/21 12:00 Freq: NEEDED Status: Active Protocol: Document 02/13/21 10:34 SP (Rec: 02/13/21 15:24 SP [id number]) Physical Therapy Treatment Education Education Provided Precautions,Safety M7 PT-IP Assessment and Plan Start: 02/12/21 12:00 Freq: NEEDED Status: Active Protocol: Document 02/13/21 10:34 SP (Rec: 02/13/21 15:24 SP [id number]) PT Summary Assessment and Plan Potential Rehabilitation Potential Fair Status of Condition at Evaluation Evolving Summary Impairments Pain,ROM,Strength,Balance, Coordination,Sensation,Tone, Cognition,Bed Mobility, Transfers,Gait,Activity Tolerance Progress Towards Goals Progressing Toward Goals,Slow Progress due to Pain,Slow Progress due to Activity Tolerance Assessment Summary Pt required increased time to mobilize due to pain and decreased strength/activitiy tolerance. Mod A for bed mobility, Mod>Min A sit<> stand, gait CGA wc follow using fWW 25 ft, 100ft. Completed 3 stair mgt CG-Min A L HR and SPC on R. Pt would benefit from continued acute therapy, set up caregiver training with for 130 this afternoon to assist if she is able to assist pt at home. Will continue to assess progress. Goals Bed Mobility Goal Standby Assistance Transfer Goal Standby Assistance,Front Wheeled Walker Gait Goal Standby Assistance,Front Wheel Walker Gait Distance 150 Other Goals up/down 2 steps L rail SBA Days to Meet Goals 10 Frequency of Treatment Frequency Of Treatment Twice a Day Treatment Plan Physical Therapy Treatment Plan Bed Mobility Training,Transfer Training,Gait Training, Therapeutic Exercise,Balance Retraining,Post Op Education, Discharge Planning,Hot or Cold Pack,Neuromuscular Re-ed, Coordination Retraining,Manual Therapy Other Recommendations and Next Treatment bed mob, transfers, gait, Focus stair mgt and caregiver traininng at 130 with . Precautions Lumbar Precautions Log Roll,No Twisting,Limit Bending,Lifting Restriction of 10 lbs,Gait Belt above Incisional Area Recommendations To Nursing Amount of Assist Needed 1 Person Assist Discharge Recommendations PT Discharge Recommendations Home with 24/7 Assist Available,Home Health,SNF Rehab,Home vs SNF Transportation Needs at Discharge Wheelchair/Cabulance
--- NOTE | 2021-02-13 12:08 | OT.IP.TRT ---
Current Diagnoses Foot drop, left foot (02/12/21) Other spondylosis with radiculopathy, lumbosacral region (02/12/21) Spinal stenosis, lumbar region with neurogenic claudication (02/12/21) Surgery Performed Operation Date: 02/11/21 14:45 Actual Procedures p L4-5 TLIF - Malachi Whitmore MD Occupational Therapy Treatment Note M2 OT-IP Current Condition Start: 02/12/21 12:02 Freq: Status: Active Protocol: Document 02/12/21 12:03 [facility] (Rec: 02/12/21 12:23 [facility] [id number]) Occupational Therapy Current Condition Current Condition Evaluation Date 02/12/21 Treatment Diagnosis S/p L4-5 TLIF, decreased mobility Diagnosis Onset Date 02/11/21 Post Operative Precautions Lumbar Precautions Log Roll,No Twisting,Limit Bending,Lifting Restriction of 10 lbs,Gait Belt above Incisional Area M3 OT- IP Subjective and Pain Start: 02/12/21 12:02 Freq: Status: Active Protocol: Document 02/13/21 12:13 [facility] (Rec: 02/13/21 12:23 [facility] [id number]) OT- Subjective Occupational Therapy Visit Type Type Treatment Note Visit Start Time 11:52 Visit Stop Time 12:08 Total Visit Minutes 16 Occupational Therapy Visit Comments Patient Comments Pt agreed to get up to the recliner for lunch. Patient/Caregiver Goals TO go home. OT Pain Assessment Pain When Pain Assessed At Rest Pain Present Pain Present Denied Pain M6 OT- IP Functional Cognition Start: 02/12/21 12:02 Freq: Status: Active Protocol: Document 02/13/21 12:13 [facility] (Rec: 02/13/21 12:23 [facility] [id number]) Cognitive Factors Limiting Selfcare Function Cognitive Ability Level of Alertness Alert Patient Orientation Name,Age,Birthday,Month,Date, Year,Day of Week,Place, Situation Attention Span Ability Capable of Focused Attention, Capable of Sustained Attention Ability to Follow Commands Able to Follow One Step Commands with Increased Time, Able to Follow One Step Commands with Repetition Safety Awareness Decreased Ability to Apply Precautions,Underestimates Need for Assistance Cognitive Comments Cognitive Assessment Comments Pt a little groggy and needing step by step commands to follow for bed mobility needs. In addition pt needing vc to incorporate his back precautions for needs. M7 OT- IP Mobility and Balance Start: 02/12/21 12:02 Freq: Status: Active Protocol: Document 02/13/21 12:13 [facility] (Rec: 02/13/21 12:23 [facility] [id number]) OT- Bed Mobility Assessment Rolling Type of Rolling Roll to Left Supine to Sit Supine to Sit Assist Standby Assistance,Minimal Assistance,Bedrails OT-Transfer Assessment Sit to and From Stand Sit to and from Stand Contact Guard Assistance Transfers Transfer Ability Contact Guard Assistance Technique Transfer Destination Bed,Chair Transfer Technique Stand Step Pivot Devices Transfer Assistive Devices Gait Belt,Front Wheeled Walker Comments Mobility Comments If not using bed rail, pt needing KRISTA from supine to sit. Educated may be easier to sleep in a recliner initially , or but a bed rail of that his is able to hold the FWW in place so that he can us it to help get up easier. Pt prefers to press up from the FWW to stand and therefore his will have to be present to assist to hold the FWW in place. OT- Gait Assessment Comments Gait Ability Comments CGA with FWW transfer to the recliner. OT- Balance Assessment Sitting Balance and Reactions Static Sitting Balance Ability Normal Dynamic Sitting Balance Ability Good Standing Balance and Reactions Static Standing Balance Ability Fair M8 OT- IP Objective Assessments Start: 02/12/21 12:02 Freq: Status: Active Protocol: Document 02/12/21 12:03 [facility] (Rec: 02/12/21 12:23 [facility] [id number]) OT Gross Range of Motion Upper Extremity Range of Motion ROM Impairments AROM limited by back pain per pt. OT Strength Upper Extremity Strength Assessment Within Functional Limits M9 OT- IP Assessment and Plan Start: 02/12/21 12:02 Freq: Status: Active Protocol: Document 02/13/21 12:13 [facility] (Rec: 02/13/21 12:23 [facility] [id number]) OT Summary Assessment and Plan Potential Rehabilitation Potential Good Analytic Complexity at Evaluation Low Summary OT Impairments Pain,Strength,Balance, Functional Mobility,Grooming, Dressing,Toileting,Bathing, Toilet Transfers,Shower Transfers,Activity Tolerance Progress Towards Goals Progressing Toward Goals Assessment Summary Pt moving much better today and feels would be able to go home. Pt's to come in for caregiver training with [employer] this afternoon. Suggested for pt to either sleep in a recliner initially or buy a bed rail or have his hold the FWW in place to increased his ease to get up. When medically stable pending caregiver training home with or short skilled rehab. Goals Grooming Goal Independent Dressing Goal Independent Toileting Goal Independent Bathing Goal Independent Toilet Transfer Goal Independent Shower Transfer Goal Independent Patient/Caregiver Education Goal Demonstrate Post-Op Precautions,Caregiver Independent Assisting Patient Days to Meet Goals 9 Frequency of Treatment Frequency Of Treatment Once a Day Treatment Plan OT Treatment Plan ADL Training,Functional Mobility,Patient/Family Education,Discharge Planning Discharge Recommendations OT Discharge Recommendations Home with Assistance, ,SNF Rehab ,Home vs SNF Transportation Needs at Discharge Private Vehicle,Wheelchair/ Cabulance
--- NOTE | 2021-02-13 12:21 | P.DS_ITS ---
History of Present Illness History of Present Illness Date Patient Seen: 02/13/21 Time Patient Seen: 12:21 Chief complaint: Back pain Narrative: See progress note Discharge Providers Provider Date of admission: 02/12/21 09:18 Discharge Date: 02/13/21 Primary care physician: Lashon Grider MD Consults: 02/11/21 17:23 Consult to Occupational Therapy Evaluate & Treat Comment: Physician Instructions: Evaluate and treat Consult to Physical Therapy Evaluate & Treat Comment: Physician Instructions: Evaluate and Treat Discharge provider: Camron Berrios PA-C Summary Hospital Course Discharge Diagnosis: 1. L4-5 spinal stenosis with radiculopathy 2. L4-5 spondylolisthesis Hospital Course: Procedure & Clinicians Procedure: 1. L4-5 Postero-lateral and posterior interbody fusion 2. L4-5 interbody cage placement. 3. L4-5 decompressive laminectomy with bilateral facetecomies 4. L4-5 Posterior non-segmental instrumentation 5. [place] of bone marrow from iliac crest 6. Utilization of microsurgical technique and operating microscope 7. Robotic navigation assisted surgery Same procedure as scheduled: Yes Indications: Patient has been having chronic back pain and worsening lumbar radiculopathy. Patient failed multiple conservative management with worsening pain weakness and numbness in her lower extremity. Patient has been having difficulty performing activity of daily living. After discussing risks benefits of treatment options, patient elected proceed with surgery. Surgeon: Malachi Whitmore Director Of Cardiac Rehabilitation: Eric Marina Click Yes if Unassisted: No Anesthesia Type: General Operative Notes Closure Type: primary Specimen(s): none sent Prosthetic devices, grafts, tissues, transplants, or devices: Globus revolve screws, Rise cage Estimated Blood Loss (mL): 50 Blood products transfused: none Patient admitted the above-mentioned procedure. Patient consented to the same. Patient taken to the operating room underwent lumbar fusion. Patient back in his room recovering well as in stable condition. Patient to be discharged home today in stable condition. Status at Discharge Cognitive/behavioral status at discharge: at baseline, oriented Functional status at discharge: uses cane/walker Overall status at discharge: patient is progressing back to baseline Exam Vital Signs (past 8 hours): - 02/13/21 04:48 02/13/21 07:07 Temperature 97.8 F 97.8 F Pulse Rate 93 H 85 Respiratory Rate 16 15 Blood Pressure 122/68 111/61 Pulse Oximetry 94 96 Oxygen Delivery Method Room Air,CPAP Oxygen Flow Rate 0 Narrative Exam Narrative: See progress note [facility] Medical History Anesthesia complication Arthritis Diabetes Gout [place], bilateral HLD (hyperlipidemia) HTN (hypertension) TAMI on CPAP Parkinson disease (12/2020) Surgical History History of arthroplasty of right knee Hx of colonoscopy Social History household members: spouse Smoking Status: Never smoker alcohol intake: current Discharge Assessment & Plan Assessment and Plan Assessment: Progressing as expected status post lumbar fusion Plan of Treatment: Limit bending, twisting, lifting. Discharge home today in stable condition. Discharge Plan Discharge Plan Patient Disposition: Home Discharge orders & Medications Prescriptions: New acetaminophen 325 mg Tablet 650 mg PO Q6HR PRN (Reason: Pain, Mild (1-3)) Qty: 60 RF: 0 sennosides [senna] 8.6 mg Tablet 17.2 mg PO BEDTIME Qty: 20 RF: 0 oxycodone 5 mg Tablet 10 mg PO Q3HR PRN (Reason: Pain, Severe (7-10)) Qty: 60 RF: 0 Continued ondansetron 4 mg tablet,disintegrating 4 mg PO Q6-8H PRN (Reason: nausea and vomiting) Qty: 30 RF: 0 metformin [Glucophage XR] 500 MG tablet extended release 24 hr 1,000 mg PO BID Qty: 0 RF: 0 aspirin 325 MG tablet,delayed release (DR/EC) 325 mg PO QDAY Qty: 0 RF: 0 glyburide 5 MG tablet 2.5 mg PO QDAY Qty: 0 RF: 0 carbidopa-levodopa 25-100 mg Tablet 3 tab PO TID RF: 0 lisinopril 40 mg Tablet 40 mg PO BEDTIME RF: 0 hydrochlorothiazide 12.5 mg Tablet 12.5 mg PO QAM RF: 0 Follow up/Referrals: Lashon Grider MD [Primary Care Provider] - Malachi Whitmore MD [Physician] - (Two weeks) Diet/Activity/Treatments Diet: Diet as Tolerated and Carb-consistent/Diabetic Activity: Limit bending, twisting, lifting Cold/Heat Therapy: Ice to low back as needed Skin/Wound/Dressing Care Report to your healthcare provider any signs of infection, such as:: chills, fever, increased pain, unusual drainage and unusual redness Dressing: Keep clean and dry Visit Report/Discharge Packet Instructions: DI for Prescription Opioid Use, DI for Transforaminal Lumbar Interbody Fusion Stand Alone Forms: Surgery Discharge Discharge Data Primary Care Provider: Lashon Grider Attending Provider: Malachi Whitmore VTE Deep Vein Thrombosis/Pulmonary Embolism Present on Admission: No
[2021-02-13 13:22] VITALS: BP 125/65; PULSE 84; RESP 15; TEMP 36.6; O2SAT 95
--- NOTE | 2021-02-13 14:02 | PT.IPTN ---
Current Diagnoses Foot drop, left foot (02/12/21) Other spondylosis with radiculopathy, lumbosacral region (02/12/21) Spinal stenosis, lumbar region with neurogenic claudication (02/12/21) Surgery Performed Operation Date: 02/11/21 14:45 Actual Procedures p L4-5 TLIF - Malachi Whitmore MD Physical Therapy Treatment Note M2 PT-IP Current Condition Start: 02/12/21 12:00 Freq: NEEDED Status: Active Protocol: Document 02/12/21 09:50 [facility] (Rec: 02/12/21 12:38 AB [id number]) Physical Therapy Current Condition Current Condition Evaluation Date 02/12/21 Treatment Diagnosis s/p L4-5 fusion/lami; difficulty in walking Onset Date 02/11/21 Precautions Lumbar Precautions Log Roll,No Twisting,Limit Bending,Lifting Restriction of 10 lbs,Gait Belt above Incisional Area M3 PT-IP Subjective Start: 02/12/21 12:00 Freq: NEEDED Status: Active Protocol: Document 02/13/21 13:32 [facility] (Rec: 02/13/21 16:03 SP [id number]) Subjective Physical Therapy Visit Type Type Treatment Note Visit Start Time 13:32 Visit Stop Time 14:02 Total Visit Minutes 30 Notes completed caregiver training including donning gait belt and physical assist required throughout tx. Number of PLATE STACKER Visits 2 Physical Therapy Visit Comments Patient Comments pt is agreeable to do PT Patient Goals To return home with to assist him. Therapy Pain Assessment Pain When Pain Assessed During Mobility Pain Present Pain Present Pain Reported Location Back Intensity 4 Scale Used Numeric (0 - 10) Description With Movement Pain Behaviors Facial Grimacing Pain Management Techniques Distraction,Re-positioning, Timing of Activity with Medications M4 PT-IP Mobility and Gait Start: 02/12/21 12:00 Freq: NEEDED Status: Active Protocol: Document 02/13/21 13:32 [facility] (Rec: 02/13/21 16:03 SP [id number]) PT-Bed Mobility Assessment Rolling Type of Rolling Log Rolling,Roll to Left Level of Assist Standby Assistance Supine to Sit Supine to Sit Contact Guard Assistance, Minimal Assistance,1 Person Assistance Scooting Scooting to Edge of Bed Standby Assistance PT-Transfer Assessment Sit to and From Stand Sit to and from Stand Contact Guard Assistance, Minimal Assistance,1 Person Assistance,Use of Upper Extremities Equipment Transfer Assistive Device Gait Belt,Front Wheeled Walker Orthotic/Prosthetic Devices or Brace: No Transfers Transfer Destination Chair Transfer Technique pt ambulated using FWW Transfer Ability Level of Assist Contact Guard Assistance,1 Person Assistance,Use of Upper Extremities Comments Mobility Comments Pt completed LR L using mattress and FWW stabilized by at side of bed for self mobility assist, L SL> supine 5%A for trunk righting support at L shld and use stabilized FWW. Scoot to EOB SBA. donned gait belt. Sit>stand Min A by w/ cue x1 for 1 UE on FWW and pushing from bed , cued for B quad facilitation then stable tall upright posture. Pt ambulated further distance to stairs w/c follow, seated rest 3 min at stairs in w/c CGA for slow descent to w/c. sit>stand CGA with proper hand placement use of FWW. Pt walked 2 ft to stairs, repositioned fWW CGA and provided SPC in RUE and pt use of L HR ascended and descended 3 stairs CGA at trunk and occasional stabililzation support [place] on SPC for stability. Pt required occasional cuing for body and hand placement for safe support and giving pt sequencing cues for LEs and SPC. Pt walked back to room using fWW wc follow but not needed 100ft x2 total, occasional cues for body closer and foot clearance and increase stride L>RLE. Pt returned to chair when arrived in room. Gait Assessment Gait Gait Assistance Required: Contact Guard Assist,1 Person Assist Distance (Feet) 100 Able to Maintain Weight Bearing Status Yes During Gait Assistive Devices Assistive Device Gait Belt,Front Wheeled Walker Orthotic/Prosthetic Devices or Brace: No Gait Deviations General Gait Pattern Decreased Stride Length, Decreased Feet Clearance, Flexed Trunk,Step-to Gait Factors Limiting Gait Function Factors Limiting Gait Function Decreased Activity Tolerance, Decreased Strength,Pain,Poor Balance,Poor Safety Awareness Comments Gait Comments see mobility comments Stair Climbing Assessment Evaluation Level of Assist On Stairs Contact Guard Assistance, Minimal Assistance,1 Person Assistance Devices Stair Climbing Assistive Devices Straight Cane,Left Railing Technique/Endurance Stair Climbing Direction Ascend and Descend Stair Climbing Technique Step to Step Number of Steps Climbed 3 Stair Climbing Set # Repetitions (reps) 1 Comments Stair Climbing Comments See mobility comments PT-Balance Assessment Sitting Balance and Reactions Static Sitting Balance Ability Normal Dynamic Sitting Balance Ability Good Standing Balance and Reactions Static Standing Balance Ability Fair Dynamic Standing Balance Ability Fair Device Used FWW M5 PT-IP Objective Assessments Start: 02/12/21 12:00 Freq: NEEDED Status: Active Protocol: Document 02/12/21 09:50 [facility] (Rec: 02/12/21 12:38 [facility] [id number]) Orientation Orientation/Cognition Level of Alertness Alert Orientation Name,Situation Safety Awareness Decreased Safety Awareness Memory Description Short Term Impaired Gross Range of Motion Lower Extremity ROM Assessment Within Functional Limits Strength Lower Extremity Strength Assessment Bilaterally Impaired Comments Strength Comments LLE: 4-/5 RLE: 3+/5 Muscle Tone Muscle Tone WNL Yes M6 PT-IP Treatment Start: 02/12/21 12:00 Freq: NEEDED Status: Active Protocol: Document 02/13/21 13:32 SP (Rec: 02/13/21 16:03 SP [id number]) Physical Therapy Treatment Education Education Provided Precautions,Safety M7 PT-IP Assessment and Plan Start: 02/12/21 12:00 Freq: NEEDED Status: Active Protocol: Document 02/13/21 13:32 SP (Rec: 02/13/21 16:03 SP [id number]) PT Summary Assessment and Plan Potential Rehabilitation Potential Fair Status of Condition at Evaluation Evolving Summary Impairments Pain,ROM,Strength,Balance, Coordination,Sensation,Tone, Cognition,Bed Mobility, Transfers,Gait,Activity Tolerance Progress Towards Goals Progressing Toward Goals,Slow Progress due to Pain,Slow Progress due to Activity Tolerance Assessment Summary Pt required Min A during sup> sit, Min>CGA during sit>stand and CGA during transfers, gait using FWW, completed caregiver training with with statement and ability to assist at home. Pt stated has a reclined and might sleep in recliner for few days until builds up strength to use bed again with improved strength. Pt is ok to return home with to assist him 19/01 when medically cleared. PLATE STACKER recommending pt would benefit from HHPT to progress strength and functional mobility with pt and in agreement. PLATE STACKER discussed progress and DC plan HHPT with nurse and care mgt. Goals Bed Mobility Goal Standby Assistance Transfer Goal Standby Assistance,Front Wheeled Walker Gait Goal Standby Assistance,Front Wheel Walker Gait Distance 150 Other Goals up/down 2 steps L rail SBA Days to Meet Goals 10 Frequency of Treatment Frequency Of Treatment Twice a Day Treatment Plan Physical Therapy Treatment Plan Bed Mobility Training,Transfer Training,Gait Training, Therapeutic Exercise,Balance Retraining,Post Op Education, Discharge Planning,Hot or Cold Pack,Neuromuscular Re-ed, Coordination Retraining,Manual Therapy Other Recommendations and Next Treatment bed mob, transfers, gait Focus distance, stair mgt for strengthening. Precautions Lumbar Precautions Log Roll,No Twisting,Limit Bending,Lifting Restriction of 10 lbs,Gait Belt above Incisional Area Recommendations To Nursing Amount of Assist Needed 1 Person Assist Discharge Recommendations PT Discharge Recommendations Home with 24/7 Assist Available,Home Health Other Discharge Recommendations Pt has borrowed FWW, to low for him but stated can get longer extensions from pharmacy store. Transportation Needs at Discharge Private Vehicle
--- NOTE | 2021-02-13 14:53 | OT.IP.TRT ---
Current Diagnoses Foot drop, left foot (02/12/21) Other spondylosis with radiculopathy, lumbosacral region (02/12/21) Spinal stenosis, lumbar region with neurogenic claudication (02/12/21) Surgery Performed Operation Date: 02/11/21 14:45 Actual Procedures p L4-5 TLIF - Malachi Whitmore MD Occupational Therapy Treatment Note M2 OT-IP Current Condition Start: 02/12/21 12:02 Freq: Status: Active Protocol: Document 02/12/21 12:03 [facility] (Rec: 02/12/21 12:23 [facility] [id number]) Occupational Therapy Current Condition Current Condition Evaluation Date 02/12/21 Treatment Diagnosis S/p L4-5 TLIF, decreased mobility Diagnosis Onset Date 02/11/21 Post Operative Precautions Lumbar Precautions Log Roll,No Twisting,Limit Bending,Lifting Restriction of 10 lbs,Gait Belt above Incisional Area M3 OT- IP Subjective and Pain Start: 02/12/21 12:02 Freq: Status: Active Protocol: Document 02/13/21 15:01 [facility] (Rec: 02/13/21 15:10 [facility] [id number]) OT- Subjective Occupational Therapy Visit Type Type Treatment Note Visit Start Time 14:15 Visit Stop Time 14:53 Total Visit Minutes 38 Notes Pt seen a second time due to caregiver training with as pt now wanting to go home. Occupational Therapy Visit Comments Patient Comments Pt's wanting pt to shower . Patient/Caregiver Goals TO go home. OT Pain Assessment Pain When Pain Assessed At Rest Pain Present Pain Present Denied Pain M4 OT- IP ADL's Start: 02/12/21 12:02 Freq: Status: Active Protocol: Document 02/13/21 15:01 [facility] (Rec: 02/13/21 15:10 [facility] [id number]) OT ADL-Dressing General Eval Lower Body Dressing Ability Moderate Assistance Comments OT Dressing Comments Per pt able to comfortable cross his legs over in order to do LB dressing needs. Pt encouraged him to use LB dressing equipment to increase his ease. OT ADL-Toileting General Evaluation Toileting Ability Standby Assistance Comments OT Toileting Comments Pt will need assist from his to wipe after a bowel movement. OT ADL-Bathing Bathing Type Bathing Type Shower General Evaluation Bathing Ability Moderate Assistance Areas Needing Assistance Wash/Dry Back,Wash/Dry Perineal Area,Wash/Dry Lower Extremities Comments OT Bathing Comments Pt needing assist to wash/dry his bottom and assist for LE. Pt's not wanting to assist but agreed that she will assist pt at home. M5 OT- IP IADL's Start: 02/12/21 12:02 Freq: Status: Active Protocol: Document 02/12/21 12:03 [facility] (Rec: 02/12/21 12:23 [facility] [id number]) OT-Instrumental Activities of Daily Living Home Safety Awareness Awareness of Need for Assistance at Home Good Awareness Ability to Problem Solve Emergency Able to Problem Solve Situations Medication Management Medication Management Comments Pt's able to assist for IADl needs as needed. Money Management Money Management Comments Pt's able to assist for IADl needs as needed. Meal Preparation Meal Preparation Comments Pt's able to assist for IADl needs as needed. Office Helper Clerical Office Helper Clerical Comments Pt's able to assist for IADl needs as needed. M6 OT- IP Functional Cognition Start: 02/12/21 12:02 Freq: Status: Active Protocol: Document 02/13/21 15:01 [facility] (Rec: 02/13/21 15:10 [facility] [id number]) Cognitive Factors Limiting Selfcare Function Cognitive Comments Cognitive Assessment Comments Pt still needing safety cues for back precautions. M7 OT- IP Mobility and Balance Start: 02/12/21 12:02 Freq: Status: Active Protocol: Document 02/13/21 15:01 [facility] (Rec: 02/13/21 15:10 [facility] [id number]) OT-Transfer Assessment Sit to and From Stand Sit to and from Stand Contact Guard Assistance, Minimal Assistance Transfers Transfer Ability Contact Guard Assistance, Minimal Assistance Technique Transfer Destination Bed,Chair,Shower Stall Devices Transfer Assistive Devices Gait Belt,Front Wheeled Walker Comments Mobility Comments pt's able to jaycob/doff the gait belt and able to assist pt safely to walk into the bathroom. Educated his that is is okay to change hands and hand placement on the belt as needed. Educated if pt using fww to stand to be sure to hold it in place, otherwise pt need occasional KRISTA to MODA to stand. Pt has a tendency to shuttle his right LE and needing cues to slat pickler and move his RLE at times. His Parkinson's may be affecting his movements. OT- Balance Assessment Sitting Balance and Reactions Static Sitting Balance Ability Normal Dynamic Sitting Balance Ability Good Standing Balance and Reactions Static Standing Balance Ability Fair M8 OT- IP Objective Assessments Start: 02/12/21 12:02 Freq: Status: Active Protocol: Document 02/12/21 12:03 [facility] (Rec: 02/12/21 12:23 [facility] [id number]) OT Gross Range of Motion Upper Extremity Range of Motion ROM Impairments AROM limited by back pain per pt. OT Strength Upper Extremity Strength Assessment Within Functional Limits M9 OT- IP Assessment and Plan Start: 02/12/21 12:02 Freq: Status: Active Protocol: Document 02/13/21 15:01 [facility] (Rec: 02/13/21 15:10 [facility] [id number]) OT Summary Assessment and Plan Potential Rehabilitation Potential Good Analytic Complexity at Evaluation Low Summary OT Impairments Pain,Strength,Balance, Functional Mobility,Grooming, Dressing,Toileting,Bathing, Toilet Transfers,Shower Transfers,Activity Tolerance Progress Towards Goals Progressing Toward Goals Assessment Summary Pt's present for caregiver training and able to assist for mobility needs with FWW, however not wanting to assist for showering needs. Therefore OT assisted pt and able to educated pt's how to best help. Pt's states feels comfortable to be able to assist pt at home. Therefore pt to go home with assist. Goals Grooming Goal Independent Dressing Goal Independent Toileting Goal Independent Bathing Goal Independent Toilet Transfer Goal Independent Shower Transfer Goal Independent Patient/Caregiver Education Goal Demonstrate Post-Op Precautions,Caregiver Independent Assisting Patient Days to Meet Goals 7 Frequency of Treatment Frequency Of Treatment twice a Day Treatment Plan OT Treatment Plan ADL Training,Functional Mobility,Patient/Family Education,Discharge Planning Discharge Recommendations OT Discharge Recommendations Home with Assistance,SNF Rehab ,Home vs SNF Transportation Needs at Discharge Private Vehicle,Wheelchair/ Cabulance
--- NOTE | 2021-02-13 14:56 | CM.DPNOTE ---
Faxed referral packet to [facility] per Elli and received fax conf. Aretha Murcia CM Asst.
--- NOTE | 2021-02-14 09:05 | CM.DPNOTE ---
DC Note Late Entry DC order home placed yesterday; patient cleared from a therapy standpoint, therapy recommended HH to assist patient and spouse. Discussed w/patient who was agreeable w/no agency preference. [facility] was able to f/u the soonest and was given the referral for RN/PT/OT Patient/spouse provided w/ [facility] brochure and both appeared appreciative Requested KEYONNA Carias fax this referral w/completed HH order and completed and signed (Dr Whitmore) F2F, Aretha kindly agreed Plan: DC home yesterday w/spouse and [facility] RN/PT/OT JW
== END 2021-02-13 15:09 | disposition home or self-care (01) ==
LOC: OR 09:23 → AC 09:23
PROVIDERS: Admitting Provider Orthopaedic Surgery Orthopaedic Surgery of the Spine; PCP Student in an Organized Health Care Education/Training Program; Referring Provider Student in an Organized Health Care Education/Training Program; Visit Provider Orthopaedic Surgery Orthopaedic Surgery of the Spine
PROC: (CPT 22633; principal; 2021-02-11 14:45)
DX: M48.062 Spinal stenosis, lumbar region with neurogenic claudication (principal); M43.16 Spondylolisthesis, lumbar region; M21.372 Foot drop, left foot; G47.33 Obstructive sleep apnea (adult) (pediatric); E78.5 Hyperlipidemia, unspecified; I10 Essential (primary) hypertension; G20 Parkinson's disease; E11.9 Type 2 diabetes mellitus without complications; Z79.84 Long term (current) use of oral hypoglycemic drugs; E66.9 Obesity, unspecified; Z68.33 Body mass index [BMI] 33.0-33.9, adult; M54.16 Radiculopathy, lumbar region
CPT/HCPCS: 22633; 63047; 22853; 20939; 22840; 72100; 76000; 82962; 97116; 97162; 97165; 97530; 97535; C1776; G0378; C9290; J0330; J0690; J2405; J2704; J3010

== ENCOUNTER 2022-04-29 14:15 | Outpatient (RCR) | payer OTHER, SELFPAY ==
[2021-02-11 12:26] VITALS: BMI 32.5
--- NOTE | 2022-03-25 20:53 | PT.OIE ---
Current Diagnoses Parkinson's disease (03/25/22) Past Medical History (Last Reviewed 02/12/21 @ 07:42 by Camron Berrois PA-C) Anesthesia complication Arthritis Diabetes Gout Hammertoe, bilateral HLD (hyperlipidemia) HTN (hypertension) TAMI on CPAP Parkinson disease (12/2020) Past Surgical History (Last Reviewed 02/12/21 @ 07:42 by Camron Berrios PA-C) History of arthroplasty of right knee Hx of colonoscopy Visit Care Team Role Provider Type Thee Lanza MD Family Provider Physician Primary Care Provider Specialty: Family Practice Address: [address] [place] [address], [facility] [place], [address] Email: [email or web address] Dwight Olivares MD Attending Provider Non-Staff Referring Provider Specialty: Neurology Address: [address] [place] [address], [phone] Email: Physical Therapy Initial Evaluation PT-OP-A Visit Information Start: 03/23/22 19:06 Freq: Status: Active Protocol: Document 03/25/22 09:45 AMB (Rec: 03/25/22 10:02 AMB [id number]) Out-Patient Physical Therapy Visit Information Visit Information Visit Type Initial Evaluation Visit Start Time 09:45 Visit Stop Time 10:30 Total Visit Minutes 45 Visit Number 1 PT-OP-B Current Condition Start: 03/23/22 19:06 Freq: Status: Active Protocol: Document 03/25/22 09:45 AMB (Rec: 03/25/22 10:02 AMB [id number]) Current Condition History of Current Condition Onset Date October 2020 Current Complaints Parkinsons History of Current Condition Was working at the [employer], now retired. Walks on the [place] does use walking sticks, and sits on the benches. 3 steps to enter single level home with a railing lives with his . No falls in last 6 months, did fall when working. Has given up riding his bike due to PD sx. Reports he does 98% of the cooking and cleaning, does yardwork. Before medication would freeze when walking through doorways, getting out of chairs, but that has improved. Treatment Goals Patient/Caregiver Goals Difficulty describing goals of PT, wants to keep moving as much as possible. Personal Factors Other Personal Factors That May Effect L45 fusion in January 2021. R Therapy/Recovery TKA 2017. L achiles tendon tear (not surgically fixed 2019). Diabetic neuropathy in bilateral feet PT-OP-D Balance Start: 03/23/22 19:06 Freq: Status: Active Protocol: Document 03/25/22 09:45 AMB (Rec: 03/29/22 20:52 AMB [id number]-) Balance Tests mCTSIB mCTSIB Position 1 30 sec mCTSIB Position 2 15 sec- ankle sway uncomfortable PT-OP-E Functional Tests Start: 03/23/22 19:06 Freq: Status: Active Protocol: Document 03/25/22 09:45 AMB (Rec: 03/28/22 13:00 AMB [id number]) Functional Tests 6 Minute Walk Test Distance 1,289 Device Used no AD Comments no R UE swing, trendelenburg, reduced dorsiflexion on R 10 Meter Walk Test Distance 8 sec. 1.25m/sec Device Used no AD Five Times Sit to Stand Test Score 16 Comments standard height chair, no UE PT-OP-G Mobility & Gait Start: 03/23/22 19:06 Freq: Status: Active Protocol: Document 03/25/22 09:45 AMB (Rec: 03/29/22 20:52 AMB [id number]) OP Mobility Evaluation Bed Mobility Rolling Denies difficulty with bed mobility, transfers including car and floor transfers but these could be assessed at a later date OP Gait Assessment Comments Gait Comments Ambulates with reduced arm swing and ankle dorsiflexion R moreso than left. Reduced trunk rotation, WBOS, trendelenburg gait. PT-OP-H Neuro Start: 03/23/22 19:06 Freq: Status: Active Protocol: Document 03/25/22 09:45 AMB (Rec: 03/29/22 20:52 AMB [id number]) Sensation Evaluation Comments Summary Comments Reduced light touch sensation throughout bilateral feet into ankles PT-OP-J Posture/Palpation/Skin Start: 03/23/22 19:06 Freq: Status: Active Protocol: Document 03/25/22 09:45 AMB (Rec: 03/29/22 20:52 AMB [id number]) Posture Evaluation Comments Posture Comments Flat spine PT-OP-T Assessment and Plan Start: 03/23/22 19:06 Freq: Status: Active Protocol: Document 03/25/22 09:45 [facility] (Rec: 03/29/22 20:52 [facility] [id number]) Physical Therapy Assessment Rehab Potential Rehabilitation Potential Good Evaluation Complexity Number of Personal Factors/Comorbidities 3 or More Number of Body Systems Impaired 3 Clinical Presentation at Evaluation Evolving Impairments Impairments Balance,Functional Activities, Gait Goals Balance Short Term Goal (STG) Enrique will show improved balance by balancing with a NBOS and eyes closed for 30 seconds. STG Duration 2 weeks Long-Term Goal (LTG) Enrique will ambulate over grass , gravel and hills with trekking poles without being uncomfortable or having a fear of falling. LTG Duration 5 weeks Gait Short Term Goal (STG) Enrique will improve his 10MWT score to 10 seconds or less to meet age/gender norms. STG Duration 2 weeks Sales Representative Cash Registers Goal (LTG) Enrique will ambulate 1,600 feet or greater in 6 minutes. LTG Duration 5 weeks Assessment Summary Assessment Enrique attends physical therapy with 1.5 year history of Parkinsons diagnosis with comorbidities of diabetic neuropathy and history of lumbar fusion. He is motivated to maintain his community mobility and currently ambulates in the community with trekking poles multiple times per week. His gait speed is not equal to age /gender norms, and he displays reduced amplitude more significantly on the right. He will benefit from physical therapy to improve his gait and functional mobility. Physical Therapy Plan Frequency and Duration Frequency of Treatment 4x/Week Duration of treatment (weeks) 5 Plan of Care Start Date 03/25/22 Plan of Care End Date 04/29/22 Therapeutic Interventions Therapeutic Interventions Balance Training,Gait Training ,Home Exercise Program,Manual Therapy,Neuromuscular Re- education,Self-Care/Home Management,Therapeutic Activities,Therapeutic Exercises Next Visit Focus/Plan Next Note Type Treatment Note Next Visit Plan Begin standard LSVT, may need to adapt some exercises for safety at home, review functional activity list.
--- NOTE | 2022-03-25 20:54 | PT.OPPOC ---
Physical, Occupational & Speech Therapy At [facility] Current Diagnoses Parkinson's disease (03/25/22) Visit Care Team Role Provider Type Thee Lanza MD Family Provider Physician Primary Care Provider Specialty: Family Practice Address: [address] [place] [address], [place], [address] Email: [email or web address] Dwight Olivares MD Attending Provider Non-Staff Referring Provider Specialty: Neurology Address: [address] [place], [address] Email: Plan Of Care PT-OP-T Assessment and Plan Start: 03/23/22 19:06 Freq: Status: Active Protocol: Document 03/25/22 09:45 AMB (Rec: 03/29/22 20:52 AMB [id number]) Physical Therapy Assessment Rehab Potential Rehabilitation Potential Good Evaluation Complexity Number of Personal Factors/Comorbidities 3 or More Number of Body Systems Impaired 3 Clinical Presentation at Evaluation Evolving Impairments Impairments Balance,Functional Activities, Gait Goals Balance Short Term Goal (STG) Enrique will show improved balance by balancing with a NBOS and eyes closed for 30 seconds. STG Duration 2 weeks Mexican Food Maker Goal (LTG) Enrique will ambulate over grass , gravel and hills with trekking poles without being uncomfortable or having a fear of falling. LTG Duration 5 weeks Gait Short Term Goal (STG) Enrique will improve his 10MWT score to 10 seconds or less to meet age/gender norms. STG Duration 2 weeks Mexican Food Maker Goal (LTG) Enrique will ambulate 1,600 feet or greater in 6 minutes. LTG Duration 5 weeks Assessment Summary Assessment Enrique attends physical therapy with 1.5 year history of Parkinsons diagnosis with comorbidities of diabetic neuropathy and history of lumbar fusion. He is motivated to maintain his community mobility and currently ambulates in the community with trekking poles multiple times per week. His gait speed is not equal to age /gender norms, and he displays reduced amplitude more significantly on the right. He will benefit from physical therapy to improve his gait and functional mobility. Physical Therapy Plan Frequency and Duration Frequency of Treatment 4x/Week Duration of treatment (weeks) 5 Plan of Care Start Date 03/25/22 Plan of Care End Date 04/29/22 Therapeutic Interventions Therapeutic Interventions Balance Training,Gait Training ,Home Exercise Program,Manual Therapy,Neuromuscular Re- education,Self-Care/Home Management,Therapeutic Activities,Therapeutic Exercises Next Visit Focus/Plan Next Note Type Treatment Note Next Visit Plan Begin standard LSVT, may need to adapt some exercises for safety at home, review functional activity list. Plan of Care Dates Plan of Care Start Date 03/25/22 Plan of Care End Date 04/29/22 Electronically Signed by: Rachell Holder, PT 03/29/222053 If you are in agreement with this Plan of Care, please return a signed and dated copy. I have reviewed this Plan of Care and certify that the skilled therapy services above are required to meet the patient?s needs. Physician Signature Date Printed Name and Credentials Clinical Instructor Signature Printed Name and Credentials
--- NOTE | 2022-03-31 16:09 | PT.OTN ---
Current Diagnoses Parkinson's disease (03/31/22) Physical Therapy Treatment Note PT-OP-A Visit Information Start: 03/23/22 19:06 Freq: Status: Active Protocol: Document 03/31/22 11:00 AMB (Rec: 03/31/22 12:06 AMB [id number]) Out-Patient Physical Therapy Visit Information Visit Information Visit Type Treatment Note Visit Start Time 11:00 Visit Stop Time 12:00 Total Visit Minutes 60 Visit Number 2 PT-OP-B Current Condition Start: 03/23/22 19:06 Freq: Status: Active Protocol: Document 03/25/22 09:45 AMB (Rec: 03/25/22 10:02 AMB [id number]) Current Condition History of Current Condition Onset Date October 2020 Current Complaints Parkinsons History of Current Condition Was working at the [employer], now retired. Walks on the [place] does use walking sticks, and sits on the benches. 3 steps to enter single level home with a railing lives with his . No falls in last 6 months, did fall when working. Has given up riding his bike due to PD sx. Reports he does 98% of the cooking and cleaning, does yardwork. Before medication would freeze when walking through doorways, getting out of chairs, but that has improved. Treatment Goals Patient/Caregiver Goals Difficulty describing goals of PT, wants to keep moving as much as possible. Personal Factors Other Personal Factors That May Effect L45 fusion in January 2021. R Therapy/Recovery TKA 2017. L achiles tendon tear (not surgically fixed 2019). Diabetic neuropathy in bilateral feet PT-OP-C Subjective Start: 03/23/22 19:06 Freq: Status: Active Protocol: Document 03/31/22 11:00 AMB (Rec: 03/31/22 16:07 AMB [id number]) OP-PT Subjective Patient Comments Patient Comments Pt brings in functional task form: sit to stand, walking, balance, standing all rated at 2 PT-OP-D Balance Start: 03/23/22 19:06 Freq: Status: Active Protocol: Document 03/25/22 09:45 AMB (Rec: 03/29/22 20:52 AMB [id number]) Balance Tests mCTSIB mCTSIB Position 1 30 sec mCTSIB Position 2 15 sec- ankle sway uncomfortable PT-OP-E Functional Tests Start: 03/23/22 19:06 Freq: Status: Active Protocol: Document 03/25/22 09:45 AMB (Rec: 03/28/22 13:00 AMB [id number]) Functional Tests 6 Minute Walk Test Distance 1,289 Device Used no AD Comments no R UE swing, trendelenburg, reduced dorsiflexion on R 10 Meter Walk Test Distance 8 sec. 1.25m/sec Device Used no AD Five Times Sit to Stand Test Score 16 Comments standard height chair, no UE PT-OP-G Mobility & Gait Start: 03/23/22 19:06 Freq: Status: Active Protocol: Document 03/25/22 09:45 AMB (Rec: 03/29/22 20:52 AMB [id number]) OP Mobility Evaluation Bed Mobility Rolling Denies difficulty with bed mobility, transfers including car and floor transfers but these could be assessed at a later date OP Gait Assessment Comments Gait Comments Ambulates with reduced arm swing and ankle dorsiflexion R moreso than left. Reduced trunk rotation, WBOS, trendelenburg gait. PT-OP-H Neuro Start: 03/23/22 19:06 Freq: Status: Active Protocol: Document 03/25/22 09:45 AMB (Rec: 03/29/22 20:52 AMB [id number]) Sensation Evaluation Comments Summary Comments Reduced light touch sensation throughout bilateral feet into ankles PT-OP-J Posture/Palpation/Skin Start: 03/23/22 19:06 Freq: Status: Active Protocol: Document 03/25/22 09:45 AMB (Rec: 03/29/22 20:52 AMB [id number]) Posture Evaluation Comments Posture Comments Flat spine PT-OP-Q Treatments Start: 03/23/22 19:06 Freq: Status: Active Protocol: Document 03/31/22 11:00 AMB (Rec: 03/31/22 12:06 AMB [id number]) Gait Training Gait Activity 1 Description outdoor Device Used none Treatment Focus R arm swing Comments pavement, up hill Neuro Re-Education Treatment Other Activities Sit to stand Details blue foam under feet Reps/Duration 2x5 Comments cued forward lean Sideways rock and reach Details 10 Comments standard no UE support, alternating sides Forward rock and reach Reps/Duration 10 Comments cued upright posture, bigger weightshift Backward step Details intermittent CGA Reps/Duration 10 Comments cued hip hinge Sideways Step Details standard Reps/Duration 10 Forward step Details standard Reps/Duration 10 Comments cued stomp Side to side Details 10 Floor to ceiling Details 10 PT-OP-T Assessment and Plan Start: 03/23/22 19:06 Freq: Status: Active Protocol: Document 03/31/22 11:00 AMB (Rec: 03/31/22 12:06 AMB [id number]) Physical Therapy Assessment Goals Balance Short Term Goal (STG) Enrique will show improved balance by balancing with a NBOS and eyes closed for 30 seconds. STG Duration 2 weeks Environmental Engineering Technician Goal (LTG) Enrique will ambulate over grass , gravel and hills with trekking poles without being uncomfortable or having a fear of falling. LTG Duration 5 weeks Gait Short Term Goal (STG) Enrique will improve his 10MWT score to 10 seconds or less to meet age/gender norms. STG Duration 2 weeks Environmental Engineering Technician Goal (LTG) Enrique will ambulate 1,600 feet or greater in 6 minutes. LTG Duration 5 weeks Assessment Summary Assessment Enrique notes that when he is aware of his R UE he is able to swing it more. Liked sit to stands on foam. Did well with standard BIG exercises, did need occ. CGA with backward stepping Physical Therapy Plan Frequency and Duration Frequency of Treatment 4x/Week Duration of treatment (weeks) 5 Plan of Care Start Date 03/25/22 Plan of Care End Date 04/29/22 Next Visit Focus/Plan Next Note Type Treatment Note Next Visit Plan Progress challenge with standard exercise, focus on gait/balance per pt request
--- NOTE | 2022-04-01 14:06 | PT.OTN ---
Current Diagnoses Parkinson's disease (04/01/22) Physical Therapy Treatment Note PT-OP-A Visit Information Start: 03/23/22 19:06 Freq: Status: Active Protocol: Document 03/31/22 11:00 AMB (Rec: 03/31/22 12:06 AMB [id number]) Out-Patient Physical Therapy Visit Information Visit Information Visit Type Treatment Note Visit Start Time 11:00 Visit Stop Time 12:00 Total Visit Minutes 60 Visit Number 2 PT-OP-B Current Condition Start: 03/23/22 19:06 Freq: Status: Active Protocol: Document 03/25/22 09:45 AMB (Rec: 03/25/22 10:02 AMB [id number]) Current Condition History of Current Condition Onset Date October 2020 Current Complaints Parkinsons History of Current Condition Was working at the [employer], now retired. Walks on the [place] does use walking sticks, and sits on the benches. 3 steps to enter single level home with a railing lives with his . No falls in last 6 months, did fall when working. Has given up riding his bike due to PD sx. Reports he does 98% of the cooking and cleaning, does yardwork. Before medication would freeze when walking through doorways, getting out of chairs, but that has improved. Treatment Goals Patient/Caregiver Goals Difficulty describing goals of PT, wants to keep moving as much as possible. Personal Factors Other Personal Factors That May Effect L45 fusion in January 2021. R Therapy/Recovery TKA 2017. L achiles tendon tear (not surgically fixed 2019). Diabetic neuropathy in bilateral feet PT-OP-C Subjective Start: 03/23/22 19:06 Freq: Status: Active Protocol: Document 03/31/22 11:00 AMB (Rec: 03/31/22 16:07 AMB [id number]) OP-PT Subjective Patient Comments Patient Comments Pt brings in functional task form: sit to stand, walking, balance, standing all rated at 2 PT-OP-D Balance Start: 03/23/22 19:06 Freq: Status: Active Protocol: Document 03/25/22 09:45 AMB (Rec: 03/29/22 20:52 AMB [id number]) Balance Tests mCTSIB mCTSIB Position 1 30 sec mCTSIB Position 2 15 sec- ankle sway uncomfortable PT-OP-E Functional Tests Start: 03/23/22 19:06 Freq: Status: Active Protocol: Document 03/25/22 09:45 AMB (Rec: 03/28/22 13:00 AMB [id number]) Functional Tests 6 Minute Walk Test Distance 1,289 Device Used no AD Comments no R UE swing, trendelenburg, reduced dorsiflexion on R 10 Meter Walk Test Distance 8 sec. 1.25m/sec Device Used no AD Five Times Sit to Stand Test Score 16 Comments standard height chair, no UE PT-OP-G Mobility & Gait Start: 03/23/22 19:06 Freq: Status: Active Protocol: Document 03/25/22 09:45 AMB (Rec: 03/29/22 20:52 AMB [id number]) OP Mobility Evaluation Bed Mobility Rolling Denies difficulty with bed mobility, transfers including car and floor transfers but these could be assessed at a later date OP Gait Assessment Comments Gait Comments Ambulates with reduced arm swing and ankle dorsiflexion R moreso than left. Reduced trunk rotation, WBOS, trendelenburg gait. PT-OP-H Neuro Start: 03/23/22 19:06 Freq: Status: Active Protocol: Document 03/25/22 09:45 AMB (Rec: 03/29/22 20:52 AMB [id number]) Sensation Evaluation Comments Summary Comments Reduced light touch sensation throughout bilateral feet into ankles PT-OP-J Posture/Palpation/Skin Start: 03/23/22 19:06 Freq: Status: Active Protocol: Document 03/25/22 09:45 AMB (Rec: 03/29/22 20:52 AMB [id number]) Posture Evaluation Comments Posture Comments Flat spine PT-OP-Q Treatments Start: 03/23/22 19:06 Freq: Status: Active Protocol: Document 03/31/22 11:00 AMB (Rec: 03/31/22 12:06 AMB [id number]) Gait Training Gait Activity 1 Description outdoor Device Used none Treatment Focus R arm swing Comments pavement, up hill Neuro Re-Education Treatment Other Activities Sit to stand Details blue foam under feet Reps/Duration 2x5 Comments cued forward lean Sideways rock and reach Details 10 Comments standard no UE support, alternating sides Forward rock and reach Reps/Duration 10 Comments cued upright posture, bigger weightshift Backward step Details intermittent CGA Reps/Duration 10 Comments cued hip hinge Sideways Step Details standard Reps/Duration 10 Forward step Details standard Reps/Duration 10 Comments cued stomp Side to side Details 10 Floor to ceiling Details 10 PT-OP-T Assessment and Plan Start: 03/23/22 19:06 Freq: Status: Active Protocol: Document 03/31/22 11:00 AMB (Rec: 03/31/22 12:06 AMB [id number]) Physical Therapy Assessment Goals Balance Short Term Goal (STG) Enrique will show improved balance by balancing with a NBOS and eyes closed for 30 seconds. STG Duration 2 weeks Cap Maker Goal (LTG) Enrique will ambulate over grass , gravel and hills with trekking poles without being uncomfortable or having a fear of falling. LTG Duration 5 weeks Gait Short Term Goal (STG) Enrique will improve his 10MWT score to 10 seconds or less to meet age/gender norms. STG Duration 2 weeks Cap Maker Goal (LTG) Enrique will ambulate 1,600 feet or greater in 6 minutes. LTG Duration 5 weeks Assessment Summary Assessment Enrique notes that when he is aware of his R UE he is able to swing it more. Liked sit to stands on foam. Did well with standard BIG exercises, did need occ. CGA with backward stepping Physical Therapy Plan Frequency and Duration Frequency of Treatment 4x/Week Duration of treatment (weeks) 5 Plan of Care Start Date 03/25/22 Plan of Care End Date 04/29/22 Next Visit Focus/Plan Next Note Type Treatment Note Next Visit Plan Progress challenge with standard exercise, focus on gait/balance per pt request
--- NOTE | 2022-04-01 15:14 | PT.OTN ---
Current Diagnoses Parkinson's disease (04/01/22) Physical Therapy Treatment Note PT-OP-A Visit Information Start: 03/23/22 19:06 Freq: Status: Active Protocol: Document 04/01/22 12:56 AW (Rec: 04/01/22 15:14 AW [id number]) Out-Patient Physical Therapy Visit Information Visit Information Visit Type Treatment Note Visit Start Time 14:15 Visit Stop Time 15:15 Total Visit Minutes 60 Visit Number 3 PT-OP-B Current Condition Start: 03/23/22 19:06 Freq: Status: Active Protocol: Document 03/25/22 09:45 AMB (Rec: 03/25/22 10:02 AMB [id number]) Current Condition History of Current Condition Onset Date October 2020 Current Complaints Parkinsons History of Current Condition Was working at the [employer], now retired. Walks on the [place] does use walking sticks, and sits on the benches. 3 steps to enter single level home with a railing lives with his . No falls in last 6 months, did fall when working. Has given up riding his bike due to PD sx. Reports he does 98% of the cooking and cleaning, does yardwork. Before medication would freeze when walking through doorways, getting out of chairs, but that has improved. Treatment Goals Patient/Caregiver Goals Difficulty describing goals of PT, wants to keep moving as much as possible. Personal Factors Other Personal Factors That May Effect L45 fusion in January 2021. R Therapy/Recovery TKA 2017. L achiles tendon tear (not surgically fixed 2019). Diabetic neuropathy in bilateral feet PT-OP-C Subjective Start: 03/23/22 19:06 Freq: Status: Active Protocol: Document 04/01/22 12:56 AW (Rec: 04/01/22 15:14 AW [id number]) OP-PT Subjective Patient Comments Patient Comments Went to the [employer] football game last night. Did not do exercises. I forgot. PT-OP-D Balance Start: 03/23/22 19:06 Freq: Status: Active Protocol: Document 03/25/22 09:45 AMB (Rec: 03/29/22 20:52 AMB [id number]) Balance Tests mCTSIB mCTSIB Position 1 30 sec mCTSIB Position 2 15 sec- ankle sway uncomfortable PT-OP-E Functional Tests Start: 03/23/22 19:06 Freq: Status: Active Protocol: Document 03/25/22 09:45 AMB (Rec: 03/28/22 13:00 AMB [id number]) Functional Tests 6 Minute Walk Test Distance 1,289 Device Used no AD Comments no R UE swing, trendelenburg, reduced dorsiflexion on R 10 Meter Walk Test Distance 8 sec. 1.25m/sec Device Used no AD Five Times Sit to Stand Test Score 16 Comments standard height chair, no UE PT-OP-G Mobility & Gait Start: 03/23/22 19:06 Freq: Status: Active Protocol: Document 03/25/22 09:45 AMB (Rec: 03/29/22 20:52 AMB [id number]) OP Mobility Evaluation Bed Mobility Rolling Denies difficulty with bed mobility, transfers including car and floor transfers but these could be assessed at a later date OP Gait Assessment Comments Gait Comments Ambulates with reduced arm swing and ankle dorsiflexion R moreso than left. Reduced trunk rotation, WBOS, trendelenburg gait. PT-OP-H Neuro Start: 03/23/22 19:06 Freq: Status: Active Protocol: Document 03/25/22 09:45 AMB (Rec: 03/29/22 20:52 AMB [id number]) Sensation Evaluation Comments Summary Comments Reduced light touch sensation throughout bilateral feet into ankles PT-OP-J Posture/Palpation/Skin Start: 03/23/22 19:06 Freq: Status: Active Protocol: Document 03/25/22 09:45 AMB (Rec: 03/29/22 20:52 AMB [id number]) Posture Evaluation Comments Posture Comments Flat spine PT-OP-Q Treatments Start: 03/23/22 19:06 Freq: Status: Active Protocol: Document 04/01/22 12:56 AW (Rec: 04/01/22 15:14 AW [id number]) Gait Training Gait Activity indoor Description indoor Device Used none Treatment Focus R arm swing, R foot clearance Comments tile, carpet 1 Description outdoor Device Used none Treatment Focus R arm swing, R foot clearance Comments pavement, up hill, grass, crosswalks Neuro Re-Education Treatment Other Activities Sit to stand Details blue foam under feet Reps/Duration 2x5 Comments cued forward lean, tall posture in standing Sideways rock and reach Details 10 Comments standard no UE support, alternating sides Forward rock and reach Reps/Duration 10 Comments cued upright posture, bigger weightshift Backward step Details intermittent CGA Reps/Duration 10 Comments cued hip hinge, big arm swing Sideways Step Details standard Reps/Duration 10 Forward step Details standard Reps/Duration 10 Comments cued stomp Side to side Details 10 Comments cued bigger hip extension Floor to ceiling Details 10 PT-OP-T Assessment and Plan Start: 03/23/22 19:06 Freq: Status: Active Protocol: Document 04/01/22 12:56 AW (Rec: 04/01/22 15:14 AW [id number]) Physical Therapy Assessment Goals Balance Short Term Goal (STG) Enrique will show improved balance by balancing with a NBOS and eyes closed for 30 seconds. STG Duration 2 weeks Law Professor Goal (LTG) Enrique will ambulate over grass , gravel and hills with trekking poles without being uncomfortable or having a fear of falling. LTG Duration 5 weeks Gait Short Term Goal (STG) Enrique will improve his 10MWT score to 10 seconds or less to meet age/gender norms. STG Duration 2 weeks Law Professor Goal (LTG) Enrique will ambulate 1,600 feet or greater in 6 minutes. LTG Duration 5 weeks Assessment Summary Assessment Enrique tends to keep his weight in his heels during exercises , requires cues for better weight shifting. Reinforced education on dose for BIG therapy and importance of doing exercises independently at home. Physical Therapy Plan Frequency and Duration Frequency of Treatment 4x/Week Duration of treatment (weeks) 5 Plan of Care Start Date 03/25/22 Plan of Care End Date 04/29/22 Therapeutic Interventions Therapeutic Interventions Balance Training,Gait Training ,Home Exercise Program,Manual Therapy,Neuromuscular Re- education,Self-Care/Home Management,Therapeutic Activities,Therapeutic Exercises Next Visit Focus/Plan Next Note Type Treatment Note Next Visit Plan Progress challenge with standard exercise, focus on gait/balance per pt request
--- NOTE | 2022-04-02 12:45 | PT.OTN ---
Current Diagnoses Parkinson's disease (04/02/22) Physical Therapy Treatment Note PT-OP-A Visit Information Start: 03/23/22 19:06 Freq: Status: Active Protocol: Document 04/02/22 10:46 AMB (Rec: 04/02/22 11:31 AMB [id number]) Out-Patient Physical Therapy Visit Information Visit Information Visit Type Treatment Note Visit Start Time 11:00 Visit Stop Time 12:00 Total Visit Minutes 60 Visit Number 4 PT-OP-B Current Condition Start: 03/23/22 19:06 Freq: Status: Active Protocol: Document 03/25/22 09:45 AMB (Rec: 03/25/22 10:02 AMB [id number]) Current Condition History of Current Condition Onset Date October 2020 Current Complaints Parkinsons History of Current Condition Was working at the [employer], now retired. Walks on the [place] does use walking sticks, and sits on the benches. 3 steps to enter single level home with a railing lives with his . No falls in last 6 months, did fall when working. Has given up riding his bike due to PD sx. Reports he does 98% of the cooking and cleaning, does yardwork. Before medication would freeze when walking through doorways, getting out of chairs, but that has improved. Treatment Goals Patient/Caregiver Goals Difficulty describing goals of PT, wants to keep moving as much as possible. Personal Factors Other Personal Factors That May Effect L45 fusion in January 2021. R Therapy/Recovery TKA 2017. L achiles tendon tear (not surgically fixed 2019). Diabetic neuropathy in bilateral feet PT-OP-C Subjective Start: 03/23/22 19:06 Freq: Status: Active Protocol: Document 04/02/22 10:46 AMB (Rec: 04/02/22 11:31 AMB [id number]) OP-PT Subjective Patient Comments Patient Comments Yesterday did the exercises at home. Put the exercises on the TV tray so he could see them as he was doing them. PT-OP-D Balance Start: 03/23/22 19:06 Freq: Status: Active Protocol: Document 03/25/22 09:45 AMB (Rec: 03/29/22 20:52 AMB [id number]) Balance Tests mCTSIB mCTSIB Position 1 30 sec mCTSIB Position 2 15 sec- ankle sway uncomfortable PT-OP-E Functional Tests Start: 03/23/22 19:06 Freq: Status: Active Protocol: Document 03/25/22 09:45 AMB (Rec: 03/28/22 13:00 AMB [id number]) Functional Tests 6 Minute Walk Test Distance 1,289 Device Used no AD Comments no R UE swing, trendelenburg, reduced dorsiflexion on R 10 Meter Walk Test Distance 8 sec. 1.25m/sec Device Used no AD Five Times Sit to Stand Test Score 16 Comments standard height chair, no UE PT-OP-G Mobility & Gait Start: 03/23/22 19:06 Freq: Status: Active Protocol: Document 03/25/22 09:45 AMB (Rec: 03/29/22 20:52 AMB [id number]) OP Mobility Evaluation Bed Mobility Rolling Denies difficulty with bed mobility, transfers including car and floor transfers but these could be assessed at a later date OP Gait Assessment Comments Gait Comments Ambulates with reduced arm swing and ankle dorsiflexion R moreso than left. Reduced trunk rotation, WBOS, trendelenburg gait. PT-OP-H Neuro Start: 03/23/22 19:06 Freq: Status: Active Protocol: Document 03/25/22 09:45 AMB (Rec: 03/29/22 20:52 AMB [id number]) Sensation Evaluation Comments Summary Comments Reduced light touch sensation throughout bilateral feet into ankles PT-OP-J Posture/Palpation/Skin Start: 03/23/22 19:06 Freq: Status: Active Protocol: Document 03/25/22 09:45 AMB (Rec: 03/29/22 20:52 AMB [id number]) Posture Evaluation Comments Posture Comments Flat spine PT-OP-Q Treatments Start: 03/23/22 19:06 Freq: Status: Active Protocol: Document 04/02/22 10:46 AMB (Rec: 04/02/22 11:31 AMB [id number]) Gait Training Gait Activity indoor Description indoor Device Used none Treatment Focus R arm swing, R foot clearance Comments tile, carpet Neuro Re-Education Treatment Other Activities Sit to stand Details blue foam under feet Reps/Duration 2x5 Comments cued forward lean, tall posture in standing Sideways rock and reach Details 10 Comments standard no UE support, alternating sides Forward rock and reach Reps/Duration 10 Comments cued upright posture, bigger weightshift Backward step Details with UE support Reps/Duration 10 Comments cued hip hinge, big arm swing Sideways Step Details standard Reps/Duration 10 Forward step Details with UE support Reps/Duration 10 Comments cued stomp Side to side Details 10 Comments cued bigger hip extension Floor to ceiling Details 10 PT-OP-T Assessment and Plan Start: 03/23/22 19:06 Freq: Status: Active Protocol: Document 04/02/22 11:45 AMB (Rec: 04/02/22 12:02 [facility] [id number]) Physical Therapy Assessment Assessment Summary Assessment Did adjust a couple exercises to be more adapted with UE support to allow pt to have bigger step. Pt was able to display more amplitude with this adaptation. Physical Therapy Plan Next Visit Focus/Plan Next Note Type Treatment Note Next Visit Plan Progress challenge with standard exercise, focus on gait/balance per pt request.
--- NOTE | 2022-04-03 15:16 | PT.OTN ---
Current Diagnoses Parkinson's disease (04/03/22) Physical Therapy Treatment Note PT-OP-A Visit Information Start: 03/23/22 19:06 Freq: Status: Active Protocol: Document 04/03/22 14:14 AW (Rec: 04/03/22 15:16 AW [id number]) Out-Patient Physical Therapy Visit Information Visit Information Visit Type Treatment Note Visit Start Time 14:15 Visit Stop Time 15:15 Total Visit Minutes 60 Visit Number 5 PT-OP-B Current Condition Start: 03/23/22 19:06 Freq: Status: Active Protocol: Document 03/25/22 09:45 AMB (Rec: 03/25/22 10:02 AMB [id number]) Current Condition History of Current Condition Onset Date October 2020 Current Complaints Parkinsons History of Current Condition Was working at the [employer], now retired. Walks on the [place] does use walking sticks, and sits on the benches. 3 steps to enter single level home with a railing lives with his . No falls in last 6 months, did fall when working. Has given up riding his bike due to PD sx. Reports he does 98% of the cooking and cleaning, does yardwork. Before medication would freeze when walking through doorways, getting out of chairs, but that has improved. Treatment Goals Patient/Caregiver Goals Difficulty describing goals of PT, wants to keep moving as much as possible. Personal Factors Other Personal Factors That May Effect L45 fusion in January 2021. R Therapy/Recovery TKA 2017. L achiles tendon tear (not surgically fixed 2019). Diabetic neuropathy in bilateral feet PT-OP-C Subjective Start: 03/23/22 19:06 Freq: Status: Active Protocol: Document 04/03/22 14:14 AW (Rec: 04/03/22 15:16 AW [id number]) OP-PT Subjective Patient Comments Patient Comments Just came from foot PT and [facility]. PT-OP-D Balance Start: 03/23/22 19:06 Freq: Status: Active Protocol: Document 03/25/22 09:45 AMB (Rec: 03/29/22 20:52 AMB [id number]) Balance Tests mCTSIB mCTSIB Position 1 30 sec mCTSIB Position 2 15 sec- ankle sway uncomfortable PT-OP-E Functional Tests Start: 03/23/22 19:06 Freq: Status: Active Protocol: Document 03/25/22 09:45 AMB (Rec: 03/28/22 13:00 AMB [id number]) Functional Tests 6 Minute Walk Test Distance 1,289 Device Used no AD Comments no R UE swing, trendelenburg, reduced dorsiflexion on R 10 Meter Walk Test Distance 8 sec. 1.25m/sec Device Used no AD Five Times Sit to Stand Test Score 16 Comments standard height chair, no UE PT-OP-G Mobility & Gait Start: 03/23/22 19:06 Freq: Status: Active Protocol: Document 03/25/22 09:45 AMB (Rec: 03/29/22 20:52 AMB [id number]) OP Mobility Evaluation Bed Mobility Rolling Denies difficulty with bed mobility, transfers including car and floor transfers but these could be assessed at a later date OP Gait Assessment Comments Gait Comments Ambulates with reduced arm swing and ankle dorsiflexion R moreso than left. Reduced trunk rotation, WBOS, trendelenburg gait. PT-OP-H Neuro Start: 03/23/22 19:06 Freq: Status: Active Protocol: Document 03/25/22 09:45 AMB (Rec: 03/29/22 20:52 AMB [id number]) Sensation Evaluation Comments Summary Comments Reduced light touch sensation throughout bilateral feet into ankles PT-OP-J Posture/Palpation/Skin Start: 03/23/22 19:06 Freq: Status: Active Protocol: Document 03/25/22 09:45 AMB (Rec: 03/29/22 20:52 AMB [id number]) Posture Evaluation Comments Posture Comments Flat spine PT-OP-Q Treatments Start: 03/23/22 19:06 Freq: Status: Active Protocol: Document 04/03/22 14:14 AW (Rec: 04/03/22 15:16 AW [id number]) Gait Training Gait Activity hurdles Description hurdles Device Used none Level of Assistance SBA Treatment Focus foot clearance Comments fwd and lateral. More success with lateral indoor Description indoor Device Used none Treatment Focus R arm swing, R foot clearance Comments tile, carpet. Trialed 2# wrist weights for arm swing with minimal appreciable difference 1 Description outdoor Device Used none Treatment Focus R arm swing, R foot clearance Comments pavement, up hill, grass, crosswalks Neuro Re-Education Treatment Other Activities Sit to stand Details blue foam under feet Reps/Duration 2x5 Comments cued forward lean, tall posture in standing Sideways rock and reach Details 10 Comments standard no UE support, alternating sides Forward rock and reach Reps/Duration 10 Comments cued upright posture, bigger weightshift Backward step Details with UE support Reps/Duration 10 Comments cued hip hinge, big arm swing Sideways Step Details standard Reps/Duration 10 Forward step Details with UE support Reps/Duration 10 Comments cued weight shift Side to side Details 10 Comments cued bigger hip extension Floor to ceiling Details 10 PT-OP-T Assessment and Plan Start: 03/23/22 19:06 Freq: Status: Active Protocol: Document 04/03/22 14:14 AW (Rec: 04/03/22 15:16 AW [id number]) Physical Therapy Assessment Goals Balance Short Term Goal (STG) Enrique will show improved balance by balancing with a NBOS and eyes closed for 30 seconds. STG Duration 2 weeks Human Resources Project Manager Goal (LTG) Enrique will ambulate over grass , gravel and hills with trekking poles without being uncomfortable or having a fear of falling. LTG Duration 5 weeks Gait Short Term Goal (STG) Enrique will improve his 10MWT score to 10 seconds or less to meet age/gender norms. STG Duration 2 weeks Human Resources Project Manager Goal (LTG) Enrique will ambulate 1,600 feet or greater in 6 minutes. LTG Duration 5 weeks Assessment Summary Assessment Rocaels on board with using UE support for some of his stepping exercises. He does have better amplitude with this modification. Educated pt to continue with exercises twice daily over the weekend. Physical Therapy Plan Frequency and Duration Frequency of Treatment 4x/Week Duration of treatment (weeks) 5 Plan of Care Start Date 03/25/22 Plan of Care End Date 04/29/22 Therapeutic Interventions Therapeutic Interventions Balance Training,Gait Training ,Home Exercise Program,Manual Therapy,Neuromuscular Re- education,Self-Care/Home Management,Therapeutic Activities,Therapeutic Exercises Next Visit Focus/Plan Next Note Type Treatment Note Next Visit Plan Progress challenge with standard exercise, focus on gait/balance per pt request.
--- NOTE | 2022-04-07 12:04 | PT.OTN ---
Current Diagnoses Parkinson's disease (04/07/22) Physical Therapy Treatment Note PT-OP-A Visit Information Start: 03/23/22 19:06 Freq: Status: Active Protocol: Document 04/07/22 10:23 AMB (Rec: 04/07/22 12:03 AMB [id number]) Out-Patient Physical Therapy Visit Information Visit Information Visit Type Treatment Note Visit Start Time 11:00 Visit Stop Time 12:00 Total Visit Minutes 60 Visit Number 6 PT-OP-B Current Condition Start: 03/23/22 19:06 Freq: Status: Active Protocol: Document 03/25/22 09:45 AMB (Rec: 03/25/22 10:02 AMB [id number]) Current Condition History of Current Condition Onset Date October 2020 Current Complaints Parkinsons History of Current Condition Was working at the [employer], now retired. Walks on the [place] does use walking sticks, and sits on the benches. 3 steps to enter single level home with a railing lives with his . No falls in last 6 months, did fall when working. Has given up riding his bike due to PD sx. Reports he does 98% of the cooking and cleaning, does yardwork. Before medication would freeze when walking through doorways, getting out of chairs, but that has improved. Treatment Goals Patient/Caregiver Goals Difficulty describing goals of PT, wants to keep moving as much as possible. Personal Factors Other Personal Factors That May Effect L45 fusion in January 2021. R Therapy/Recovery TKA 2017. L achiles tendon tear (not surgically fixed 2019). Diabetic neuropathy in bilateral feet PT-OP-C Subjective Start: 03/23/22 19:06 Freq: Status: Active Protocol: Document 04/07/22 10:23 AMB (Rec: 04/07/22 12:03 AMB [id number]) OP-PT Subjective Patient Comments Patient Comments Milind did his exercises 2x/ day all weekend except . PT-OP-D Balance Start: 03/23/22 19:06 Freq: Status: Active Protocol: Document 03/25/22 09:45 AMB (Rec: 03/29/22 20:52 AMB [id number]) Balance Tests mCTSIB mCTSIB Position 1 30 sec mCTSIB Position 2 15 sec- ankle sway uncomfortable PT-OP-E Functional Tests Start: 03/23/22 19:06 Freq: Status: Active Protocol: Document 03/25/22 09:45 AMB (Rec: 03/28/22 13:00 AMB [id number]) Functional Tests 6 Minute Walk Test Distance 1,289 Device Used no AD Comments no R UE swing, trendelenburg, reduced dorsiflexion on R 10 Meter Walk Test Distance 8 sec. 1.25m/sec Device Used no AD Five Times Sit to Stand Test Score 16 Comments standard height chair, no UE PT-OP-G Mobility & Gait Start: 03/23/22 19:06 Freq: Status: Active Protocol: Document 03/25/22 09:45 AMB (Rec: 03/29/22 20:52 AMB [id number]) OP Mobility Evaluation Bed Mobility Rolling Denies difficulty with bed mobility, transfers including car and floor transfers but these could be assessed at a later date OP Gait Assessment Comments Gait Comments Ambulates with reduced arm swing and ankle dorsiflexion R moreso than left. Reduced trunk rotation, WBOS, trendelenburg gait. PT-OP-H Neuro Start: 03/23/22 19:06 Freq: Status: Active Protocol: Document 03/25/22 09:45 AMB (Rec: 03/29/22 20:52 AMB [id number]) Sensation Evaluation Comments Summary Comments Reduced light touch sensation throughout bilateral feet into ankles PT-OP-J Posture/Palpation/Skin Start: 03/23/22 19:06 Freq: Status: Active Protocol: Document 03/25/22 09:45 AMB (Rec: 03/29/22 20:52 AMB [id number]) Posture Evaluation Comments Posture Comments Flat spine PT-OP-Q Treatments Start: 03/23/22 19:06 Freq: Status: Active Protocol: Document 04/07/22 10:23 AMB (Rec: 04/07/22 12:03 AMB [id number]) Gait Training Gait Activity hurdles Description hurdles Device Used none Level of Assistance SBA Treatment Focus foot clearance Comments fwd and lateral. More success with lateral 1 Description outdoor Device Used none Distance/Duration 15 min Treatment Focus R arm swing, R foot clearance Comments pavement, up hill, grass, crosswalks, gravel Neuro Re-Education Treatment Other Activities Sit to stand Details blue foam under feet Reps/Duration 2x5 Comments cued forward lean, tall posture in standing Sideways rock and reach Details 10 Comments standard no UE support, alternating sides Forward rock and reach Reps/Duration 10 Comments cued upright posture, bigger weightshift Backward step Details with UE support Reps/Duration 10 Comments cued hip hinge, big arm swing Sideways Step Details standard Reps/Duration 10 Forward step Details without UE support Reps/Duration 10 Comments cued weight shift Side to side Details 10 Comments cued bigger hip extension Floor to ceiling Details 10 PT-OP-T Assessment and Plan Start: 03/23/22 19:06 Freq: Status: Active Protocol: Document 04/07/22 10:23 AMB (Rec: 04/07/22 12:03 AMB [id number]) Physical Therapy Assessment Goals Balance Short Term Goal (STG) Enrique will show improved balance by balancing with a NBOS and eyes closed for 30 seconds. STG Duration 2 weeks Reg[employer] Intern Goal (LTG) Enrique will ambulate over grass , gravel and hills with trekking poles without being uncomfortable or having a fear of falling. LTG Duration 5 weeks Gait Short Term Goal (STG) Enrique will improve his 10MWT score to 10 seconds or less to meet age/gender norms. STG Duration 2 weeks Regulatory Intern Goal (LTG) Enrique will ambulate 1,600 feet or greater in 6 minutes. LTG Duration 5 weeks Assessment Summary Assessment Enrique is wanting to do exercises without UE support, did encourage UE support with backwards stepping, but was able to maintain amplitude with forward and side stepping . Did need repeat cues for R sided amplitude with gait outdoors. Better hurdles today. Physical Therapy Plan Next Visit Focus/Plan Next Note Type Treatment Note Next Visit Plan Progress challenge with standard exercise, focus on gait/balance per pt request.
--- NOTE | 2022-04-08 15:14 | PT.OTN ---
Current Diagnoses Parkinson's disease (04/08/22) Physical Therapy Treatment Note PT-OP-A Visit Information Start: 03/23/22 19:06 Freq: Status: Active Protocol: Document 04/08/22 14:15 AW (Rec: 04/08/22 15:14 AW [id number]) Out-Patient Physical Therapy Visit Information Visit Information Visit Type Treatment Note Visit Start Time 14:15 Visit Stop Time 15:15 Total Visit Minutes 60 Visit Number 7 PT-OP-B Current Condition Start: 03/23/22 19:06 Freq: Status: Active Protocol: Document 03/25/22 09:45 AMB (Rec: 03/25/22 10:02 AMB [id number]) Current Condition History of Current Condition Onset Date October 2020 Current Complaints Parkinsons History of Current Condition Was working at the [employer], now retired. Walks on the [place] does use walking sticks, and sits on the benches. 3 steps to enter single level home with a railing lives with his . No falls in last 6 months, did fall when working. Has given up riding his bike due to PD sx. Reports he does 98% of the cooking and cleaning, does yardwork. Before medication would freeze when walking through doorways, getting out of chairs, but that has improved. Treatment Goals Patient/Caregiver Goals Difficulty describing goals of PT, wants to keep moving as much as possible. Personal Factors Other Personal Factors That May Effect L45 fusion in January 2021. R Therapy/Recovery TKA 2017. L achiles tendon tear (not surgically fixed 2019). Diabetic neuropathy in bilateral feet PT-OP-C Subjective Start: 03/23/22 19:06 Freq: Status: Active Protocol: Document 04/08/22 14:15 AW (Rec: 04/08/22 15:14 AW [id number]) OP-PT Subjective Patient Comments Patient Comments Just feeling ok today. Finds the exercises are like a little meditation. PT-OP-D Balance Start: 03/23/22 19:06 Freq: Status: Active Protocol: Document 03/25/22 09:45 AMB (Rec: 03/29/22 20:52 AMB [id number]) Balance Tests mCTSIB mCTSIB Position 1 30 sec mCTSIB Position 2 15 sec- ankle sway uncomfortable PT-OP-E Functional Tests Start: 03/23/22 19:06 Freq: Status: Active Protocol: Document 03/25/22 09:45 AMB (Rec: 03/28/22 13:00 AMB [id number]) Functional Tests 6 Minute Walk Test Distance 1,289 Device Used no AD Comments no R UE swing, trendelenburg, reduced dorsiflexion on R 10 Meter Walk Test Distance 8 sec. 1.25m/sec Device Used no AD Five Times Sit to Stand Test Score 16 Comments standard height chair, no UE PT-OP-G Mobility & Gait Start: 03/23/22 19:06 Freq: Status: Active Protocol: Document 03/25/22 09:45 AMB (Rec: 03/29/22 20:52 AMB [id number]) OP Mobility Evaluation Bed Mobility Rolling Denies difficulty with bed mobility, transfers including car and floor transfers but these could be assessed at a later date OP Gait Assessment Comments Gait Comments Ambulates with reduced arm swing and ankle dorsiflexion R moreso than left. Reduced trunk rotation, WBOS, trendelenburg gait. PT-OP-H Neuro Start: 03/23/22 19:06 Freq: Status: Active Protocol: Document 03/25/22 09:45 AMB (Rec: 03/29/22 20:52 AMB [id number]) Sensation Evaluation Comments Summary Comments Reduced light touch sensation throughout bilateral feet into ankles PT-OP-J Posture/Palpation/Skin Start: 03/23/22 19:06 Freq: Status: Active Protocol: Document 03/25/22 09:45 AMB (Rec: 03/29/22 20:52 AMB [id number]) Posture Evaluation Comments Posture Comments Flat spine PT-OP-Q Treatments Start: 03/23/22 19:06 Freq: Status: Active Protocol: Document 04/08/22 14:15 AW (Rec: 04/08/22 15:14 AW [id number]) Gait Training Gait Activity hurdles Description 4 hurdles Device Used none Level of Assistance SBA Surface firm, yoga mat Treatment Focus foot clearance Comments 6 passes on firm, 6 passes with yoga mat under hurdles 1 Description outdoor Device Used none Treatment Focus R arm swing, R foot clearance Comments pavement, up hill, grass, crosswalks, gravel Neuro Re-Education Treatment Other Activities Sit to stand Details rocker board under feet Reps/Duration 2x5 Comments 1 - A/P 2 - lateral Sideways rock and reach Details 10 Comments standard no UE support, alternating sides Forward rock and reach Reps/Duration 10 Comments cued upright posture, bigger weightshift Backward step Details with UE support Reps/Duration 10 Comments cued hip hinge, big arm swing Sideways Step Details standard Reps/Duration 10 Forward step Details without UE support Reps/Duration 10 Comments cued weight shift Side to side Details 10 Comments improved posture/hip extension . Floor to ceiling Details 10 PT-OP-T Assessment and Plan Start: 03/23/22 19:06 Freq: Status: Active Protocol: Document 04/08/22 14:15 AW (Rec: 04/08/22 15:14 AW [id number]) Physical Therapy Assessment Goals Balance Short Term Goal (STG) Enrique will show improved balance by balancing with a NBOS and eyes closed for 30 seconds. STG Duration 2 weeks Formula Checker Goal (LTG) Enrique will ambulate over grass , gravel and hills with trekking poles without being uncomfortable or having a fear of falling. LTG Duration 5 weeks Gait Short Term Goal (STG) Enrique will improve his 10MWT score to 10 seconds or less to meet age/gender norms. STG Duration 2 weeks Fpc Goal (LTG) Enrique will ambulate 1,600 feet or greater in 6 minutes. LTG Duration 5 weeks Assessment Summary Assessment Milidn's weight shifting is improving in stepping exercises. He has good movement strategies/amplitude with sit to stand challenges ( rocker board under feet). He improved his foot clearance over hurdles on firm and yoga mat surfaces but needs better carry over to gait. Physical Therapy Plan Frequency and Duration Frequency of Treatment 4x/Week Duration of treatment (weeks) 5 Plan of Care Start Date 03/25/22 Plan of Care End Date 04/29/22 Therapeutic Interventions Therapeutic Interventions Balance Training,Gait Training ,Home Exercise Program,Manual Therapy,Neuromuscular Re- education,Self-Care/Home Management,Therapeutic Activities,Therapeutic Exercises Next Visit Focus/Plan Next Note Type Treatment Note Next Visit Plan Progress challenge with standard exercise, focus on gait/balance per pt request.
--- NOTE | 2022-04-09 12:35 | PT.OTN ---
Current Diagnoses Parkinson's disease (04/09/22) Physical Therapy Treatment Note PT-OP-A Visit Information Start: 03/23/22 19:06 Freq: Status: Active Protocol: Document 04/09/22 11:00 AMB (Rec: 04/09/22 12:29 AMB [id number]) Out-Patient Physical Therapy Visit Information Visit Information Visit Type Treatment Note Visit Start Time 11:00 Visit Stop Time 12:00 Total Visit Minutes 60 Visit Number 8 PT-OP-B Current Condition Start: 03/23/22 19:06 Freq: Status: Active Protocol: Document 03/25/22 09:45 AMB (Rec: 03/25/22 10:02 AMB [id number]) Current Condition History of Current Condition Onset Date October 2020 Current Complaints Parkinsons History of Current Condition Was working at the [employer], now retired. Walks on the [place] does use walking sticks, and sits on the benches. 3 steps to enter single level home with a railing lives with his . No falls in last 6 months, did fall when working. Has given up riding his bike due to PD sx. Reports he does 98% of the cooking and cleaning, does yardwork. Before medication would freeze when walking through doorways, getting out of chairs, but that has improved. Treatment Goals Patient/Caregiver Goals Difficulty describing goals of PT, wants to keep moving as much as possible. Personal Factors Other Personal Factors That May Effect L45 fusion in January 2021. R Therapy/Recovery TKA 2017. L achiles tendon tear (not surgically fixed 2019). Diabetic neuropathy in bilateral feet PT-OP-C Subjective Start: 03/23/22 19:06 Freq: Status: Active Protocol: Document 04/09/22 11:00 AMB (Rec: 04/09/22 12:29 AMB [id number]) OP-PT Subjective Patient Comments Patient Comments Feeling good, wants to continue with exercises at least once a day for a long time. PT-OP-D Balance Start: 03/23/22 19:06 Freq: Status: Active Protocol: Document 03/25/22 09:45 AMB (Rec: 03/29/22 20:52 AMB [id number]) Balance Tests mCTSIB mCTSIB Position 1 30 sec mCTSIB Position 2 15 sec- ankle sway uncomfortable PT-OP-E Functional Tests Start: 03/23/22 19:06 Freq: Status: Active Protocol: Document 03/25/22 09:45 AMB (Rec: 03/28/22 13:00 AMB [id number]) Functional Tests 6 Minute Walk Test Distance 1,289 Device Used no AD Comments no R UE swing, trendelenburg, reduced dorsiflexion on R 10 Meter Walk Test Distance 8 sec. 1.25m/sec Device Used no AD Five Times Sit to Stand Test Score 16 Comments standard height chair, no UE PT-OP-G Mobility & Gait Start: 03/23/22 19:06 Freq: Status: Active Protocol: Document 03/25/22 09:45 AMB (Rec: 03/29/22 20:52 AMB [id number]) OP Mobility Evaluation Bed Mobility Rolling Denies difficulty with bed mobility, transfers including car and floor transfers but these could be assessed at a later date OP Gait Assessment Comments Gait Comments Ambulates with reduced arm swing and ankle dorsiflexion R moreso than left. Reduced trunk rotation, WBOS, trendelenburg gait. PT-OP-H Neuro Start: 03/23/22 19:06 Freq: Status: Active Protocol: Document 03/25/22 09:45 AMB (Rec: 03/29/22 20:52 AMB [id number]) Sensation Evaluation Comments Summary Comments Reduced light touch sensation throughout bilateral feet into ankles PT-OP-J Posture/Palpation/Skin Start: 03/23/22 19:06 Freq: Status: Active Protocol: Document 03/25/22 09:45 AMB (Rec: 03/29/22 20:52 AMB [id number]) Posture Evaluation Comments Posture Comments Flat spine PT-OP-Q Treatments Start: 03/23/22 19:06 Freq: Status: Active Protocol: Document 04/09/22 11:17 AMB (Rec: 04/09/22 11:59 AMB [id number]) Gym Equipment Shuttle Balance BLUE Details a/p and m/l Reps/Duration 10 Comments mini squats, modified tandem stance Gait Training Gait Activity hurdles Description 4 hurdles Device Used none Level of Assistance SBA Surface firm, blue balance pods Treatment Focus foot clearance Comments 6 passes forward, 4 m/l without pods 1 Description outdoor Device Used none Treatment Focus R arm swing, R foot clearance Comments pavement, up hill, grass, crosswalks, gravel Neuro Re-Education Treatment Other Activities Sit to stand Details rocker board under feet Reps/Duration 2x5 Comments 1 - A/P 2 - lateral on yoga mat Sideways rock and reach Details 10 Comments standard no UE support, alternating sides on yoga mat Forward rock and reach Reps/Duration 10 Comments cued upright posture, bigger weightshift on yoga mat Backward step Details with UE support Reps/Duration 10 Comments cued hip hinge, big arm swing on yoga mat Sideways Step Details standard Reps/Duration 10 Comments on yoga mat Forward step Details without UE support Reps/Duration 10 Comments cued weight shift on yoga mat Side to side Details 10 Comments 1# weights on wrists Floor to ceiling Details 10 Comments 1# weights on wrists PT-OP-T Assessment and Plan Start: 03/23/22 19:06 Freq: Status: Active Protocol: Document 04/09/22 11:17 AMB (Rec: 04/09/22 11:59 AMB [id number]) Physical Therapy Assessment Goals Balance Short Term Goal (STG) Enrique will show improved balance by balancing with a NBOS and eyes closed for 30 seconds. STG Duration 2 weeks Care Home Goal (LTG) Enrique will ambulate over grass , gravel and hills with trekking poles without being uncomfortable or having a fear of falling. LTG Duration 5 weeks Gait Short Term Goal (STG) Enrique will improve his 10MWT score to 10 seconds or less to meet age/gender norms. STG Duration 2 weeks Care Home Goal (LTG) Enrique will ambulate 1,600 feet or greater in 6 minutes. LTG Duration 5 weeks Assessment Summary Assessment Milind continues to need cues for attention to R side with gait, but was able to tolerate increased challenge with uneven surfaces well, especially considering neuropathy. Physical Therapy Plan Frequency and Duration Frequency of Treatment 4x/Week Duration of treatment (weeks) 5 Plan of Care Start Date 03/25/22 Plan of Care End Date 04/29/22 Therapeutic Interventions Therapeutic Interventions Balance Training,Gait Training ,Home Exercise Program,Manual Therapy,Neuromuscular Re- education,Self-Care/Home Management,Therapeutic Activities,Therapeutic Exercises Next Visit Focus/Plan Next Note Type Progress Note Next Visit Plan Recheck gait speed for progress
--- NOTE | 2022-04-10 15:17 | PT.OTN ---
Current Diagnoses Parkinson's disease (04/10/22) Physical Therapy Treatment Note PT-OP-A Visit Information Start: 03/23/22 19:06 Freq: Status: Active Protocol: Document 04/10/22 13:46 AW (Rec: 04/10/22 15:16 AW [id number]) Out-Patient Physical Therapy Visit Information Visit Information Visit Type Progress Note Visit Start Time 14:15 Visit Stop Time 15:15 Total Visit Minutes 60 Visit Number 9 PT-OP-B Current Condition Start: 03/23/22 19:06 Freq: Status: Active Protocol: Document 03/25/22 09:45 AMB (Rec: 03/25/22 10:02 AMB [id number]) Current Condition History of Current Condition Onset Date October 2020 Current Complaints Parkinsons History of Current Condition Was working at the [employer], now retired. Walks on the [place] does use walking sticks, and sits on the benches. 3 steps to enter single level home with a railing lives with his . No falls in last 6 months, did fall when working. Has given up riding his bike due to PD sx. Reports he does 98% of the cooking and cleaning, does yardwork. Before medication would freeze when walking through doorways, getting out of chairs, but that has improved. Treatment Goals Patient/Caregiver Goals Difficulty describing goals of PT, wants to keep moving as much as possible. Personal Factors Other Personal Factors That May Effect L45 fusion in January 2021. R Therapy/Recovery TKA 2017. L achiles tendon tear (not surgically fixed 2019). Diabetic neuropathy in bilateral feet PT-OP-C Subjective Start: 03/23/22 19:06 Freq: Status: Active Protocol: Document 04/10/22 13:46 AW (Rec: 04/10/22 15:16 AW [id number]) OP-PT Subjective Patient Comments Patient Comments Starting to feel more benefit from therapy. PT-OP-D Balance Start: 03/23/22 19:06 Freq: Status: Active Protocol: Document 03/25/22 09:45 AMB (Rec: 03/29/22 20:52 AMB [id number]) Balance Tests mCTSIB mCTSIB Position 1 30 sec mCTSIB Position 2 15 sec- ankle sway uncomfortable PT-OP-E Functional Tests Start: 03/23/22 19:06 Freq: Status: Active Protocol: Document 03/25/22 09:45 AMB (Rec: 03/28/22 13:00 AMB [id number]) Functional Tests 6 Minute Walk Test Distance 1,289 Device Used no AD Comments no R UE swing, trendelenburg, reduced dorsiflexion on R 10 Meter Walk Test Distance 8 sec. 1.25m/sec Device Used no AD Five Times Sit to Stand Test Score 16 Comments standard height chair, no UE PT-OP-G Mobility & Gait Start: 03/23/22 19:06 Freq: Status: Active Protocol: Document 03/25/22 09:45 AMB (Rec: 03/29/22 20:52 AMB [id number]) OP Mobility Evaluation Bed Mobility Rolling Denies difficulty with bed mobility, transfers including car and floor transfers but these could be assessed at a later date OP Gait Assessment Comments Gait Comments Ambulates with reduced arm swing and ankle dorsiflexion R moreso than left. Reduced trunk rotation, WBOS, trendelenburg gait. PT-OP-H Neuro Start: 03/23/22 19:06 Freq: Status: Active Protocol: Document 03/25/22 09:45 AMB (Rec: 03/29/22 20:52 AMB [id number]) Sensation Evaluation Comments Summary Comments Reduced light touch sensation throughout bilateral feet into ankles PT-OP-J Posture/Palpation/Skin Start: 03/23/22 19:06 Freq: Status: Active Protocol: Document 03/25/22 09:45 AMB (Rec: 03/29/22 20:52 AMB [id number]) Posture Evaluation Comments Posture Comments Flat spine PT-OP-Q Treatments Start: 03/23/22 19:06 Freq: Status: Active Protocol: Document 04/10/22 13:46 AW (Rec: 04/10/22 15:16 AW [id number]) Gym Equipment Shuttle Balance BLUE Details a/p and m/l Reps/Duration 10 Comments mini squats, modified tandem stance, NBOS EO and EC Gait Training Gait Activity hurdles Description 6 hurdles Device Used none Level of Assistance SBA Surface yoga mat Treatment Focus foot clearance Comments 6 passes forward, 6 passes m/l with yoga mat under hurdles 1 Description outdoor Device Used none Treatment Focus R arm swing, R foot clearance Comments pavement, up hill, grass, gravel Neuro Re-Education Treatment Other Activities Sit to stand Details rocker board under feet Reps/Duration 2x5 Comments 1 - A/P 2 - lateral on yoga mat Sideways rock and reach Details 10 Comments standard no UE support, alternating sides on yoga mat Forward rock and reach Reps/Duration 10 Comments cued upright posture, bigger weightshift on yoga mat Backward step Details with UE support Reps/Duration 10 Comments cued hip hinge, big arm swing on yoga mat Sideways Step Details standard Reps/Duration 10 Comments on yoga mat; alternating Forward step Details without UE support Reps/Duration 10 Comments cued weight shift on yoga mat Side to side Details 10 Comments 1# weights on wrists Floor to ceiling Details 10 Comments 1# weights on wrists PT-OP-T Assessment and Plan Start: 03/23/22 19:06 Freq: Status: Active Protocol: Document 04/10/22 13:46 AW (Rec: 04/10/22 15:16 AW [id number]) Physical Therapy Assessment Goals Balance Short Term Goal (STG) Enrique will show improved balance by balancing with a NBOS and eyes closed for 30 seconds. 04/10 - Goal met. Slight sway, no LOB STG Duration 2 weeks GOAL MET Recyclable Materials Collector Goal (LTG) Enrique will ambulate over grass , gravel and hills with trekking poles without being uncomfortable or having a fear of falling. LTG Duration 5 weeks Gait Short Term Goal (STG) Enrique will improve his 10MWT score to 10 seconds or less to meet age/gender norms. 04/10 - Multiple trials pt completes 10MWT in 9.4-9.6 seconds STG Duration 2 weeks GOAL MET Mcfp Goal (LTG) Enrique will ambulate 1,600 feet or greater in 6 minutes. LTG Duration 5 weeks Progress Towards Goals Progress Towards Goals Progressing Toward Goals Progress Comments Milind's met short term goals. Gait speed on 10MWT is 1.05 m /s and pt is able to maintain balance in NBOS with eyes closed for >30 seconds. Pt feels he is making good progress with gait and balance . Will continue toward ferry terminal agent goals with focus on improving amplitude in RUE which continues to lag. Assessment Summary Assessment Milind does well with uneven surfaces for gait and sit to stand. Single leg stance is > 10 seconds bilaterally. Physical Therapy Plan Frequency and Duration Frequency of Treatment 4x/Week Duration of treatment (weeks) 5 Plan of Care Start Date 03/25/22 Plan of Care End Date 04/29/22 Therapeutic Interventions Therapeutic Interventions Balance Training,Gait Training ,Home Exercise Program,Manual Therapy,Neuromuscular Re- education,Self-Care/Home Management,Therapeutic Activities,Therapeutic Exercises Next Visit Focus/Plan Next Note Type Treatment Note Next Visit Plan Progress challenge with standard exercise, focus on gait/balance per pt request.
--- NOTE | 2022-04-14 12:07 | PT.OTN ---
Current Diagnoses Parkinson's disease (04/14/22) Physical Therapy Treatment Note PT-OP-A Visit Information Start: 03/23/22 19:06 Freq: Status: Active Protocol: Document 04/14/22 11:05 AMB (Rec: 04/14/22 12:07 AMB [id number]) Out-Patient Physical Therapy Visit Information Visit Information Visit Type Treatment Note Visit Start Time 11:00 Visit Stop Time 12:00 Total Visit Minutes 60 Visit Number 10 PT-OP-B Current Condition Start: 03/23/22 19:06 Freq: Status: Active Protocol: Document 03/25/22 09:45 AMB (Rec: 03/25/22 10:02 AMB [id number]) Current Condition History of Current Condition Onset Date October 2020 Current Complaints Parkinsons History of Current Condition Was working at the [employer], now retired. Walks on the [place] does use walking sticks, and sits on the benches. 3 steps to enter single level home with a railing lives with his . No falls in last 6 months, did fall when working. Has given up riding his bike due to PD sx. Reports he does 98% of the cooking and cleaning, does yardwork. Before medication would freeze when walking through doorways, getting out of chairs, but that has improved. Treatment Goals Patient/Caregiver Goals Difficulty describing goals of PT, wants to keep moving as much as possible. Personal Factors Other Personal Factors That May Effect L45 fusion in January 2021. R Therapy/Recovery TKA 2017. L achiles tendon tear (not surgically fixed 2019). Diabetic neuropathy in bilateral feet PT-OP-C Subjective Start: 03/23/22 19:06 Freq: Status: Active Protocol: Document 04/14/22 11:05 AMB (Rec: 04/14/22 12:07 AMB [id number]) OP-PT Subjective Patient Comments Patient Comments Pt states he likes the exercises PT-OP-D Balance Start: 03/23/22 19:06 Freq: Status: Active Protocol: Document 03/25/22 09:45 AMB (Rec: 03/29/22 20:52 AMB [id number]) Balance Tests mCTSIB mCTSIB Position 1 30 sec mCTSIB Position 2 15 sec- ankle sway uncomfortable PT-OP-E Functional Tests Start: 03/23/22 19:06 Freq: Status: Active Protocol: Document 03/25/22 09:45 AMB (Rec: 03/28/22 13:00 AMB [id number]) Functional Tests 6 Minute Walk Test Distance 1,289 Device Used no AD Comments no R UE swing, trendelenburg, reduced dorsiflexion on R 10 Meter Walk Test Distance 8 sec. 1.25m/sec Device Used no AD Five Times Sit to Stand Test Score 16 Comments standard height chair, no UE PT-OP-G Mobility & Gait Start: 03/23/22 19:06 Freq: Status: Active Protocol: Document 03/25/22 09:45 AMB (Rec: 03/29/22 20:52 AMB [id number]) OP Mobility Evaluation Bed Mobility Rolling Denies difficulty with bed mobility, transfers including car and floor transfers but these could be assessed at a later date OP Gait Assessment Comments Gait Comments Ambulates with reduced arm swing and ankle dorsiflexion R moreso than left. Reduced trunk rotation, WBOS, trendelenburg gait. PT-OP-H Neuro Start: 03/23/22 19:06 Freq: Status: Active Protocol: Document 03/25/22 09:45 AMB (Rec: 03/29/22 20:52 AMB [id number]) Sensation Evaluation Comments Summary Comments Reduced light touch sensation throughout bilateral feet into ankles PT-OP-J Posture/Palpation/Skin Start: 03/23/22 19:06 Freq: Status: Active Protocol: Document 03/25/22 09:45 AMB (Rec: 03/29/22 20:52 AMB [id number]) Posture Evaluation Comments Posture Comments Flat spine PT-OP-Q Treatments Start: 03/23/22 19:06 Freq: Status: Active Protocol: Document 04/14/22 11:05 AMB (Rec: 04/14/22 12:07 AMB [id number]) Gym Equipment Shuttle Balance BLUE Details a/p and m/l Reps/Duration 10 Comments mini squats, modified tandem stance, NBOS EO and EC Gait Training Gait Activity 1 Description outdoor Device Used none Treatment Focus R arm swing, R foot clearance Comments pavement, up hill, grass, gravel, cross walks, curbs, curb cuts Neuro Re-Education Treatment Other Activities Sit to stand Details rocker board under feet Reps/Duration 2x5 Comments 1 - A/P 2 - lateral on yoga mat Sideways rock and reach Details 10 Comments standard no UE support, alternating sides on yoga mat Forward rock and reach Reps/Duration 10 Comments cued upright posture, bigger weightshift on yoga mat Backward step Details standard Reps/Duration 10 Comments cued hip hinge, big arm swing on yoga mat Sideways Step Details standard Reps/Duration 10 Comments on yoga mat; alternating Forward step Details without UE support Reps/Duration 10 Comments cued weight shift on yoga mat Side to side Details 10 Floor to ceiling Details 10 PT-OP-T Assessment and Plan Start: 03/23/22 19:06 Freq: Status: Active Protocol: Document 04/14/22 11:05 AMB (Rec: 04/14/22 12:07 [facility] [id number]) Physical Therapy Assessment Goals Balance Short Term Goal (STG) Enrique will show improved balance by balancing with a NBOS and eyes closed for 30 seconds. 04/10 - Goal met. Slight sway, no LOB STG Duration 2 weeks GOAL MET Figure Skater Goal (LTG) Enrique will ambulate over grass , gravel and hills with trekking poles without being uncomfortable or having a fear of falling. LTG Duration 5 weeks Gait Short Term Goal (STG) Enrique will improve his 10MWT score to 10 seconds or less to meet age/gender norms. 04/10 - Multiple trials pt completes 10MWT in 9.4-9.6 seconds STG Duration 2 weeks GOAL MET Figure Skater Goal (LTG) Enrique will ambulate 1,600 feet or greater in 6 minutes. LTG Duration 5 weeks Assessment Summary Assessment Milind is doing well with dynamic balance activities, continues to have more difficulty with R UE/LE but attention is improving.
--- NOTE | 2022-04-15 15:16 | PT.OTN ---
Current Diagnoses Parkinson's disease (04/15/22) Physical Therapy Treatment Note PT-OP-A Visit Information Start: 03/23/22 19:06 Freq: Status: Active Protocol: Document 04/15/22 14:00 AW (Rec: 04/15/22 15:16 AW [id number]) Out-Patient Physical Therapy Visit Information Visit Information Visit Type Treatment Note Visit Start Time 14:15 Visit Stop Time 15:15 Total Visit Minutes 60 Visit Number 11 PT-OP-B Current Condition Start: 03/23/22 19:06 Freq: Status: Active Protocol: Document 03/25/22 09:45 AMB (Rec: 03/25/22 10:02 AMB [id number]) Current Condition History of Current Condition Onset Date October 2020 Current Complaints Parkinsons History of Current Condition Was working at the [employer], now retired. Walks on the [place] does use walking sticks, and sits on the benches. 3 steps to enter single level home with a railing lives with his . No falls in last 6 months, did fall when working. Has given up riding his bike due to PD sx. Reports he does 98% of the cooking and cleaning, does yardwork. Before medication would freeze when walking through doorways, getting out of chairs, but that has improved. Treatment Goals Patient/Caregiver Goals Difficulty describing goals of PT, wants to keep moving as much as possible. Personal Factors Other Personal Factors That May Effect L45 fusion in January 2021. R Therapy/Recovery TKA 2017. L achiles tendon tear (not surgically fixed 2019). Diabetic neuropathy in bilateral feet PT-OP-C Subjective Start: 03/23/22 19:06 Freq: Status: Active Protocol: Document 04/15/22 14:00 AW (Rec: 04/15/22 15:16 AW [id number]) OP-PT Subjective Patient Comments Patient Comments Was able to plant some bulbs over the weekend and felt good about his balance. PT-OP-D Balance Start: 03/23/22 19:06 Freq: Status: Active Protocol: Document 03/25/22 09:45 AMB (Rec: 03/29/22 20:52 AMB [id number]) Balance Tests mCTSIB mCTSIB Position 1 30 sec mCTSIB Position 2 15 sec- ankle sway uncomfortable PT-OP-E Functional Tests Start: 03/23/22 19:06 Freq: Status: Active Protocol: Document 03/25/22 09:45 AMB (Rec: 03/28/22 13:00 AMB [id number]) Functional Tests 6 Minute Walk Test Distance 1,289 Device Used no AD Comments no R UE swing, trendelenburg, reduced dorsiflexion on R 10 Meter Walk Test Distance 8 sec. 1.25m/sec Device Used no AD Five Times Sit to Stand Test Score 16 Comments standard height chair, no UE PT-OP-G Mobility & Gait Start: 03/23/22 19:06 Freq: Status: Active Protocol: Document 03/25/22 09:45 AMB (Rec: 03/29/22 20:52 AMB [id number]) OP Mobility Evaluation Bed Mobility Rolling Denies difficulty with bed mobility, transfers including car and floor transfers but these could be assessed at a later date OP Gait Assessment Comments Gait Comments Ambulates with reduced arm swing and ankle dorsiflexion R moreso than left. Reduced trunk rotation, WBOS, trendelenburg gait. PT-OP-H Neuro Start: 03/23/22 19:06 Freq: Status: Active Protocol: Document 03/25/22 09:45 AMB (Rec: 03/29/22 20:52 AMB [id number]) Sensation Evaluation Comments Summary Comments Reduced light touch sensation throughout bilateral feet into ankles PT-OP-J Posture/Palpation/Skin Start: 03/23/22 19:06 Freq: Status: Active Protocol: Document 03/25/22 09:45 AMB (Rec: 03/29/22 20:52 AMB [id number]) Posture Evaluation Comments Posture Comments Flat spine PT-OP-Q Treatments Start: 03/23/22 19:06 Freq: Status: Active Protocol: Document 04/15/22 14:00 AW (Rec: 04/15/22 15:16 AW [id number]) Therapeutic Activity Therapeutic Activity floor recovery Name floor recovery Comments assessment: Pt able to descend to floor with use of UE on chair. Able to ascend without external support. Gait Training Gait Activity hurdles Description 6 hurdles Device Used none Level of Assistance SBA Surface 6 step, blue foam, rocker board Treatment Focus foot clearance Comments 1. multiple passes with hurdles only and added cog load (counting bwd by 3's) 2. multiple passes with unstable elements; emphasis on smooth transition from surface to surface 1 Description outdoor Device Used none Treatment Focus R arm swing, R foot clearance Comments pavement, up hill, grass, gravel, cross walks, curbs, curb cuts Neuro Re-Education Treatment Other Activities Sit to stand Details rocker board under feet Reps/Duration 3x5 Comments 1 - A/P 2 - lateral 3 - perturbations at pelvis Sideways rock and reach Details 10 Comments standard no UE support, alternating sideson blue tumbling mat Forward rock and reach Reps/Duration 10 Comments cued upright posture, bigger weightshift on blue tumbling mat Backward step Details standard Reps/Duration 10 Comments cued hip hinge, big arm swing on blue tumbling mat Sideways Step Details standard Reps/Duration 10 Comments on blue tumbling mat; alternating Forward step Details without UE support Reps/Duration 10 Comments cued weight shift on blue tumbling mat Side to side Details 10 Comments 1# weights on wrists. Improved hip extension noted today Floor to ceiling Details 10 Comments 1# weights on wrists PT-OP-T Assessment and Plan Start: 03/23/22 19:06 Freq: Status: Active Protocol: Document 04/15/22 14:00 AW (Rec: 04/15/22 15:16 AW [id number]) Physical Therapy Assessment Goals Balance Short Term Goal (STG) Enrique will show improved balance by balancing with a NBOS and eyes closed for 30 seconds. 04/10 - Goal met. Slight sway, no LOB STG Duration 2 weeks GOAL MET Custodial Goal (LTG) Enrique will ambulate over grass , gravel and hills with trekking poles without being uncomfortable or having a fear of falling. LTG Duration 5 weeks Gait Short Term Goal (STG) Enrique will improve his 10MWT score to 10 seconds or less to meet age/gender norms. 04/10 - Multiple trials pt completes 10MWT in 9.4-9.6 seconds STG Duration 2 weeks GOAL MET Custodial Goal (LTG) Enrique will ambulate 1,600 feet or greater in 6 minutes. LTG Duration 5 weeks Assessment Summary Assessment Milind is meeting balance challenges well but definitely loses amplitude with addition of cognitive task. Physical Therapy Plan Frequency and Duration Frequency of Treatment 4x/Week Duration of treatment (weeks) 5 Plan of Care Start Date 03/25/22 Plan of Care End Date 04/29/22 Therapeutic Interventions Therapeutic Interventions Balance Training,Gait Training ,Home Exercise Program,Manual Therapy,Neuromuscular Re- education,Self-Care/Home Management,Therapeutic Activities,Therapeutic Exercises Next Visit Focus/Plan Next Note Type Treatment Note Next Visit Plan Progress challenge with standard exercise, focus on gait/balance per pt request. Increase cog load as able.
--- NOTE | 2022-04-16 12:55 | PT.OTN ---
Current Diagnoses Parkinson's disease (04/16/22) Physical Therapy Treatment Note PT-OP-A Visit Information Start: 03/23/22 19:06 Freq: Status: Active Protocol: Document 04/16/22 11:01 AMB (Rec: 04/16/22 11:59 AMB [id number]) Out-Patient Physical Therapy Visit Information Visit Information Visit Type Treatment Note Visit Start Time 11:00 Visit Stop Time 11:55 Total Visit Minutes 55 Visit Number 12 PT-OP-B Current Condition Start: 03/23/22 19:06 Freq: Status: Active Protocol: Document 03/25/22 09:45 AMB (Rec: 03/25/22 10:02 AMB [id number]) Current Condition History of Current Condition Onset Date October 2020 Current Complaints Parkinsons History of Current Condition Was working at the [email or web address], now retired. Walks on the [place] does use walking sticks, and sits on the benches. 3 steps to enter single level home with a railing lives with his . No falls in last 6 months, did fall when working. Has given up riding his bike due to PD sx. Reports he does 98% of the cooking and cleaning, does yardwork. Before medication would freeze when walking through doorways, getting out of chairs, but that has improved. Treatment Goals Patient/Caregiver Goals Difficulty describing goals of PT, wants to keep moving as much as possible. Personal Factors Other Personal Factors That May Effect L45 fusion in January 2021. R Therapy/Recovery TKA 2017. L achiles tendon tear (not surgically fixed 2019). Diabetic neuropathy in bilateral feet PT-OP-C Subjective Start: 03/23/22 19:06 Freq: Status: Active Protocol: Document 04/15/22 14:00 AW (Rec: 04/15/22 15:16 AW [id number]) OP-PT Subjective Patient Comments Patient Comments Was able to plant some bulbs over the weekend and felt good about his balance. PT-OP-D Balance Start: 03/23/22 19:06 Freq: Status: Active Protocol: Document 03/25/22 09:45 AMB (Rec: 03/29/22 20:52 AMB [id number]) Balance Tests mCTSIB mCTSIB Position 1 30 sec mCTSIB Position 2 15 sec- ankle sway uncomfortable PT-OP-E Functional Tests Start: 03/23/22 19:06 Freq: Status: Active Protocol: Document 03/25/22 09:45 AMB (Rec: 03/28/22 13:00 AMB [id number]) Functional Tests 6 Minute Walk Test Distance 1,289 Device Used no AD Comments no R UE swing, trendelenburg, reduced dorsiflexion on R 10 Meter Walk Test Distance 8 sec. 1.25m/sec Device Used no AD Five Times Sit to Stand Test Score 16 Comments standard height chair, no UE PT-OP-G Mobility & Gait Start: 03/23/22 19:06 Freq: Status: Active Protocol: Document 03/25/22 09:45 AMB (Rec: 03/29/22 20:52 AMB [id number]) OP Mobility Evaluation Bed Mobility Rolling Denies difficulty with bed mobility, transfers including car and floor transfers but these could be assessed at a later date OP Gait Assessment Comments Gait Comments Ambulates with reduced arm swing and ankle dorsiflexion R moreso than left. Reduced trunk rotation, WBOS, trendelenburg gait. PT-OP-H Neuro Start: 03/23/22 19:06 Freq: Status: Active Protocol: Document 03/25/22 09:45 AMB (Rec: 03/29/22 20:52 AMB [id number]) Sensation Evaluation Comments Summary Comments Reduced light touch sensation throughout bilateral feet into ankles PT-OP-J Posture/Palpation/Skin Start: 03/23/22 19:06 Freq: Status: Active Protocol: Document 03/25/22 09:45 AMB (Rec: 03/29/22 20:52 AMB [id number]) Posture Evaluation Comments Posture Comments Flat spine PT-OP-Q Treatments Start: 03/23/22 19:06 Freq: Status: Active Protocol: Document 04/16/22 11:01 AMB (Rec: 04/16/22 11:59 AMB [id number]) Gait Training Gait Activity hurdles Description 6 hurdles Device Used none Level of Assistance SBA Surface 6 step, blue foam, Treatment Focus foot clearance Comments 1. multiple passes with hurdles only and added cog load (remembering grocery list , 7-8 items before challenged by memory) 2. multiple passes with unstable elements; emphasis on smooth transition from surface to surface indoor Description 6MWT Comments Decreased R amplitude increases throughout testing Neuro Re-Education Treatment Other Activities Sit to stand Details rocker board under feet Reps/Duration 3x5 Comments 1 - A/P 2 - lateral 3 - perturbations at pelvis Sideways rock and reach Details 10 Comments standard no UE support, alternating sideson blue tumbling mat Forward rock and reach Reps/Duration 10 Comments cued upright posture, bigger weightshift on blue tumbling mat Backward step Details standard Reps/Duration 10 Comments cued hip hinge, big arm swing on blue tumbling mat Sideways Step Details standard Reps/Duration 10 Comments on blue tumbling mat; alternating Forward step Details without UE support Reps/Duration 10 Comments cued weight shift on blue tumbling mat Side to side Details 10 Comments 1# weights on wrists. Improved hip extension noted today Floor to ceiling Details 10 PT-OP-T Assessment and Plan Start: 03/23/22 19:06 Freq: Status: Active Protocol: Document 04/16/22 11:01 AMB (Rec: 04/16/22 11:59 [facility] [id number]) Physical Therapy Assessment Goals Balance Short Term Goal (STG) Enrique will show improved balance by balancing with a NBOS and eyes closed for 30 seconds. 04/10 - Goal met. Slight sway, no LOB STG Duration 2 weeks GOAL MET [employer]isher Goal (LTG) Enrique will ambulate over grass , gravel and hills with trekking poles without being uncomfortable or having a fear of falling. LTG Duration 5 weeks Gait Short Term Goal (STG) Enrique will improve his 10MWT score to 10 seconds or less to meet age/gender norms. 04/10 - Multiple trials pt completes 10MWT in 9.4-9.6 seconds STG Duration 2 weeks GOAL MET [employer] Finisher Goal (LTG) Enrique will ambulate 1,600 feet or greater in 6 minutes. LTG Duration 5 weeks Assessment Summary Assessment 1,357-- does feel L side of low back with 6MWT. Slight improvement since eval. Does feel like gait speed is difficult to improve. Did better today with dual tasking , but amplitude does decrease. Physical Therapy Plan Frequency and Duration Frequency of Treatment 4x/Week Duration of treatment (weeks) 5 Plan of Care Start Date 03/25/22 Plan of Care End Date 04/29/22 Next Visit Focus/Plan Next Note Type Treatment Note Next Visit Plan Progress challenge with standard exercise, focus on gait/balance per pt request. Increase cog load as able.
--- NOTE | 2022-04-17 15:15 | PT.OTN ---
Current Diagnoses Parkinson's disease (04/17/22) Physical Therapy Treatment Note PT-OP-A Visit Information Start: 03/23/22 19:06 Freq: Status: Active Protocol: Document 04/17/22 14:23 AW (Rec: 04/17/22 15:15 AW [id number]) Out-Patient Physical Therapy Visit Information Visit Information Visit Type Treatment Note Visit Start Time 14:20 Visit Stop Time 15:15 Total Visit Minutes 55 Visit Number 13 PT-OP-B Current Condition Start: 03/23/22 19:06 Freq: Status: Active Protocol: Document 03/25/22 09:45 AMB (Rec: 03/25/22 10:02 AMB [id number]) Current Condition History of Current Condition Onset Date October 2020 Current Complaints Parkinsons History of Current Condition Was working at the [employer], now retired. Walks on the [place] does use walking sticks, and sits on the benches. 3 steps to enter single level home with a railing lives with his . No falls in last 6 months, did fall when working. Has given up riding his bike due to PD sx. Reports he does 98% of the cooking and cleaning, does yardwork. Before medication would freeze when walking through doorways, getting out of chairs, but that has improved. Treatment Goals Patient/Caregiver Goals Difficulty describing goals of PT, wants to keep moving as much as possible. Personal Factors Other Personal Factors That May Effect L45 fusion in January 2021. R Therapy/Recovery TKA 2017. L achiles tendon tear (not surgically fixed 2019). Diabetic neuropathy in bilateral feet PT-OP-C Subjective Start: 03/23/22 19:06 Freq: Status: Active Protocol: Document 04/17/22 14:23 AW (Rec: 04/17/22 15:15 AW [id number]) OP-PT Subjective Patient Comments Patient Reported Progress Improving PT-OP-D Balance Start: 03/23/22 19:06 Freq: Status: Active Protocol: Document 03/25/22 09:45 AMB (Rec: 03/29/22 20:52 AMB [id number]) Balance Tests mCTSIB mCTSIB Position 1 30 sec mCTSIB Position 2 15 sec- ankle sway uncomfortable PT-OP-E Functional Tests Start: 03/23/22 19:06 Freq: Status: Active Protocol: Document 03/25/22 09:45 AMB (Rec: 03/28/22 13:00 AMB [id number]) Functional Tests 6 Minute Walk Test Distance 1,289 Device Used no AD Comments no R UE swing, trendelenburg, reduced dorsiflexion on R 10 Meter Walk Test Distance 8 sec. 1.25m/sec Device Used no AD Five Times Sit to Stand Test Score 16 Comments standard height chair, no UE PT-OP-G Mobility & Gait Start: 03/23/22 19:06 Freq: Status: Active Protocol: Document 03/25/22 09:45 AMB (Rec: 03/29/22 20:52 AMB [id number]) OP Mobility Evaluation Bed Mobility Rolling Denies difficulty with bed mobility, transfers including car and floor transfers but these could be assessed at a later date OP Gait Assessment Comments Gait Comments Ambulates with reduced arm swing and ankle dorsiflexion R moreso than left. Reduced trunk rotation, WBOS, trendelenburg gait. PT-OP-H Neuro Start: 03/23/22 19:06 Freq: Status: Active Protocol: Document 03/25/22 09:45 AMB (Rec: 03/29/22 20:52 AMB [id number]) Sensation Evaluation Comments Summary Comments Reduced light touch sensation throughout bilateral feet into ankles PT-OP-J Posture/Palpation/Skin Start: 03/23/22 19:06 Freq: Status: Active Protocol: Document 03/25/22 09:45 AMB (Rec: 03/29/22 20:52 AMB [id number]) Posture Evaluation Comments Posture Comments Flat spine PT-OP-Q Treatments Start: 03/23/22 19:06 Freq: Status: Active Protocol: Document 04/17/22 14:23 AW (Rec: 04/17/22 15:15 AW [id number]) Gym Equipment Sport Cord fwd, bwd, lateral Exercise Details fwd, bwd, lateral, step up Cord/Resistance red Comments focus on maintaining amplitude under load Gait Training Gait Activity 1 Description outdoor Device Used none Treatment Focus R arm swing, R foot clearance Comments pavement, up hill, grass, gravel, cross walks, curbs, curb cuts Neuro Re-Education Treatment Balance Activities SLS Details SLS Surface firm Equipment balance pods - red, ylw, green Comments PT calls out sequence right - yellow - green - red and pt taps pods in sequence with the correct limb. Other Activities Sit to stand Details 16 block Reps/Duration 3x5 Sideways rock and reach Details 10 Comments standard no UE support, alternating sideson blue tumbling mat Forward rock and reach Reps/Duration 10 Comments on blue tumbling mat Backward step Details standard Reps/Duration 10 Comments cued hip hinge, big arm swing on blue tumbling mat; 1# weights on wrists Sideways Step Details standard Reps/Duration 10 Comments on blue tumbling mat; alternating; 1# weights on wrists Forward step Details without UE support Reps/Duration 10 Comments cued weight shift on blue tumbling mat. 1# weights on wrists Side to side Details 10 Comments 1# weights on wrists. Floor to ceiling Details 10 Comments 1# weights on wrists PT-OP-T Assessment and Plan Start: 03/23/22 19:06 Freq: Status: Active Protocol: Document 04/17/22 14:23 AW (Rec: 04/17/22 15:15 AW [id number]) Physical Therapy Assessment Goals Balance Short Term Goal (STG) Enrique will show improved balance by balancing with a NBOS and eyes closed for 30 seconds. 04/10 - Goal met. Slight sway, no LOB STG Duration 2 weeks GOAL MET Phot[employer] Screwmaker Goal (LTG) Enrique will ambulate over grass , gravel and hills with trekking poles without being uncomfortable or having a fear of falling. LTG Duration 5 weeks Gait Short Term Goal (STG) Enrique will improve his 10MWT score to 10 seconds or less to meet age/gender norms. 04/10 - Multiple trials pt completes 10MWT in 9.4-9.6 seconds STG Duration 2 weeks GOAL MET [employer] Goal (LTG) Enrique will ambulate 1,600 feet or greater in 6 minutes. LTG Duration 5 weeks Assessment Summary Assessment Added cognitive load to single -leg balance work today and pt did show increased bradykinesia with this challenge. Milind did well with sit to stand from lower surface. Physical Therapy Plan Frequency and Duration Frequency of Treatment 4x/Week Duration of treatment (weeks) 5 Plan of Care Start Date 03/25/22 Plan of Care End Date 04/29/22 Therapeutic Interventions Therapeutic Interventions Balance Training,Gait Training ,Home Exercise Program,Manual Therapy,Neuromuscular Re- education,Self-Care/Home Management,Therapeutic Activities,Therapeutic Exercises Next Visit Focus/Plan Next Note Type Treatment Note Next Visit Plan Progress challenge with standard exercise, focus on gait/balance per pt request. Increase cog load as able.
--- NOTE | 2022-04-21 12:40 | PT.OTN ---
Current Diagnoses Parkinson's disease (04/21/22) Physical Therapy Treatment Note PT-OP-A Visit Information Start: 03/23/22 19:06 Freq: Status: Active Protocol: Document 04/21/22 11:07 AMB (Rec: 04/21/22 12:00 AMB [id number]) Out-Patient Physical Therapy Visit Information Visit Information Visit Type Treatment Note Visit Start Time 11:00 Visit Stop Time 12:00 Total Visit Minutes 60 Visit Number 14 PT-OP-B Current Condition Start: 03/23/22 19:06 Freq: Status: Active Protocol: Document 03/25/22 09:45 AMB (Rec: 03/25/22 10:02 AMB [id number]) Current Condition History of Current Condition Onset Date October 2020 Current Complaints Parkinsons History of Current Condition Was working at the [employer], now retired. Walks on the [place] does use walking sticks, and sits on the benches. 3 steps to enter single level home with a railing lives with his . No falls in last 6 months, did fall when working. Has given up riding his bike due to PD sx. Reports he does 98% of the cooking and cleaning, does yardwork. Before medication would freeze when walking through doorways, getting out of chairs, but that has improved. Treatment Goals Patient/Caregiver Goals Difficulty describing goals of PT, wants to keep moving as much as possible. Personal Factors Other Personal Factors That May Effect L45 fusion in January 2021. R Therapy/Recovery TKA 2017. L achiles tendon tear (not surgically fixed 2019). Diabetic neuropathy in bilateral feet PT-OP-C Subjective Start: 03/23/22 19:06 Freq: Status: Active Protocol: Document 04/21/22 11:07 AMB (Rec: 04/21/22 12:00 AMB [id number]) OP-PT Subjective Patient Comments Patient Comments Pt head a headache yesterday so didn't do as much. PT-OP-D Balance Start: 03/23/22 19:06 Freq: Status: Active Protocol: Document 03/25/22 09:45 AMB (Rec: 03/29/22 20:52 AMB [id number]) Balance Tests mCTSIB mCTSIB Position 1 30 sec mCTSIB Position 2 15 sec- ankle sway uncomfortable PT-OP-E Functional Tests Start: 03/23/22 19:06 Freq: Status: Active Protocol: Document 03/25/22 09:45 AMB (Rec: 03/28/22 13:00 AMB [id number]) Functional Tests 6 Minute Walk Test Distance 1,289 Device Used no AD Comments no R UE swing, trendelenburg, reduced dorsiflexion on R 10 Meter Walk Test Distance 8 sec. 1.25m/sec Device Used no AD Five Times Sit to Stand Test Score 16 Comments standard height chair, no UE PT-OP-G Mobility & Gait Start: 03/23/22 19:06 Freq: Status: Active Protocol: Document 03/25/22 09:45 AMB (Rec: 03/29/22 20:52 AMB [id number]) OP Mobility Evaluation Bed Mobility Rolling Denies difficulty with bed mobility, transfers including car and floor transfers but these could be assessed at a later date OP Gait Assessment Comments Gait Comments Ambulates with reduced arm swing and ankle dorsiflexion R moreso than left. Reduced trunk rotation, WBOS, trendelenburg gait. PT-OP-H Neuro Start: 03/23/22 19:06 Freq: Status: Active Protocol: Document 03/25/22 09:45 AMB (Rec: 03/29/22 20:52 AMB [id number]) Sensation Evaluation Comments Summary Comments Reduced light touch sensation throughout bilateral feet into ankles PT-OP-J Posture/Palpation/Skin Start: 03/23/22 19:06 Freq: Status: Active Protocol: Document 03/25/22 09:45 AMB (Rec: 03/29/22 20:52 AMB [id number]) Posture Evaluation Comments Posture Comments Flat spine PT-OP-Q Treatments Start: 03/23/22 19:06 Freq: Status: Active Protocol: Document 04/21/22 11:07 AMB (Rec: 04/21/22 12:00 AMB [id number]) Gait Training Gait Activity 1 Description outdoor Device Used none Treatment Focus R arm swing, R foot clearance Comments pavement, up hill, grass, gravel, cross walks, curbs, curb cuts Neuro Re-Education Treatment Balance Activities SLS Details SLS Surface firm Equipment balance pods - red, ylw, green Comments PT calls out sequence right - yellow - green - red and pt taps pods in sequence with the correct limb. Other Activities Sit to stand Details 16 block Reps/Duration 3x5 Sideways rock and reach Details 10 Comments standard no UE support, alternating sideson blue tumbling mat Forward rock and reach Reps/Duration 10 Comments on blue tumbling mat Backward step Details standard Reps/Duration 10 Comments cued hip hinge, big arm swing on blue tumbling mat; Sideways Step Details standard Reps/Duration 10 Comments on blue tumbling mat; alternating; Forward step Details without UE support Reps/Duration 10 Comments cued weight shift on blue tumbling mat. Side to side Details 10 Floor to ceiling Details 10 PT-OP-T Assessment and Plan Start: 03/23/22 19:06 Freq: Status: Active Protocol: Document 04/21/22 11:07 AMB (Rec: 04/21/22 12:00 AMB [id number]) Physical Therapy Assessment Goals Balance Short Term Goal (STG) Enrique will show improved balance by balancing with a NBOS and eyes closed for 30 seconds. 04/10 - Goal met. Slight sway, no LOB STG Duration 2 weeks GOAL MET Asset Manager Goal (LTG) Enrique will ambulate over grass , gravel and hills with trekking poles without being uncomfortable or having a fear of falling. LTG Duration 5 weeks Gait Short Term Goal (STG) Enrique will improve his 10MWT score to 10 seconds or less to meet age/gender norms. 04/10 - Multiple trials pt completes 10MWT in 9.4-9.6 seconds STG Duration 2 weeks GOAL MET Asset Manager Goal (LTG) Enrique will ambulate 1,600 feet or greater in 6 minutes. LTG Duration 5 weeks Assessment Summary Assessment Continues to do well with sit to stand, needed cues for attention to R UE/LE during gait with cognitive tasks. Didn't use weights today due to increased UT tension yesterday. Physical Therapy Plan Frequency and Duration Frequency of Treatment 4x/Week Duration of treatment (weeks) 5 Plan of Care Start Date 03/25/22 Plan of Care End Date 04/29/22 Therapeutic Interventions Therapeutic Interventions Balance Training,Gait Training ,Home Exercise Program,Manual Therapy,Neuromuscular Re- education,Self-Care/Home Management,Therapeutic Activities,Therapeutic Exercises Next Visit Focus/Plan Next Note Type Treatment Note Next Visit Plan Progress challenge with standard exercise, focus on gait/balance per pt request. Increase cog load as able.
--- NOTE | 2022-04-22 15:14 | PT.OTN ---
Current Diagnoses Parkinson's disease (04/22/22) Physical Therapy Treatment Note PT-OP-A Visit Information Start: 03/23/22 19:06 Freq: Status: Active Protocol: Document 04/22/22 13:28 AW (Rec: 04/22/22 15:14 AW [id number]) Out-Patient Physical Therapy Visit Information Visit Information Visit Type Treatment Note Visit Start Time 14:15 Visit Stop Time 15:15 Total Visit Minutes 60 Visit Number 15 PT-OP-B Current Condition Start: 03/23/22 19:06 Freq: Status: Active Protocol: Document 03/25/22 09:45 AMB (Rec: 03/25/22 10:02 AMB [id number]) Current Condition History of Current Condition Onset Date October 2020 Current Complaints Parkinsons History of Current Condition Was working at the [employer], now retired. Walks on the [place] does use walking sticks, and sits on the benches. 3 steps to enter single level home with a railing lives with his . No falls in last 6 months, did fall when working. Has given up riding his bike due to PD sx. Reports he does 98% of the cooking and cleaning, does yardwork. Before medication would freeze when walking through doorways, getting out of chairs, but that has improved. Treatment Goals Patient/Caregiver Goals Difficulty describing goals of PT, wants to keep moving as much as possible. Personal Factors Other Personal Factors That May Effect L45 fusion in January 2021. R Therapy/Recovery TKA 2017. L achiles tendon tear (not surgically fixed 2019). Diabetic neuropathy in bilateral feet PT-OP-C Subjective Start: 03/23/22 19:06 Freq: Status: Active Protocol: Document 04/22/22 13:28 AW (Rec: 04/22/22 15:14 AW [id number]) OP-PT Subjective Patient Comments Patient Comments Pt stood on a stepstool to change a lightbulb in the ceiling last weekend. [place] ~70 % confident with the task. PT-OP-D Balance Start: 03/23/22 19:06 Freq: Status: Active Protocol: Document 03/25/22 09:45 AMB (Rec: 03/29/22 20:52 AMB [id number]) Balance Tests mCTSIB mCTSIB Position 1 30 sec mCTSIB Position 2 15 sec- ankle sway uncomfortable PT-OP-E Functional Tests Start: 03/23/22 19:06 Freq: Status: Active Protocol: Document 03/25/22 09:45 AMB (Rec: 03/28/22 13:00 AMB [id number]) Functional Tests 6 Minute Walk Test Distance 1,289 Device Used no AD Comments no R UE swing, trendelenburg, reduced dorsiflexion on R 10 Meter Walk Test Distance 8 sec. 1.25m/sec Device Used no AD Five Times Sit to Stand Test Score 16 Comments standard height chair, no UE PT-OP-G Mobility & Gait Start: 03/23/22 19:06 Freq: Status: Active Protocol: Document 03/25/22 09:45 AMB (Rec: 03/29/22 20:52 AMB [id number]-) OP Mobility Evaluation Bed Mobility Rolling Denies difficulty with bed mobility, transfers including car and floor transfers but these could be assessed at a later date OP Gait Assessment Comments Gait Comments Ambulates with reduced arm swing and ankle dorsiflexion R moreso than left. Reduced trunk rotation, WBOS, trendelenburg gait. PT-OP-H Neuro Start: 03/23/22 19:06 Freq: Status: Active Protocol: Document 03/25/22 09:45 AMB (Rec: 03/29/22 20:52 AMB [id number]-) Sensation Evaluation Comments Summary Comments Reduced light touch sensation throughout bilateral feet into ankles PT-OP-J Posture/Palpation/Skin Start: 03/23/22 19:06 Freq: Status: Active Protocol: Document 03/25/22 09:45 AMB (Rec: 03/29/22 20:52 AMB [id number]-) Posture Evaluation Comments Posture Comments Flat spine PT-OP-Q Treatments Start: 03/23/22 19:06 Freq: Status: Active Protocol: Document 04/22/22 13:28 AW (Rec: 04/22/22 15:14 AW [id number]) Gait Training Gait Activity hurdles Description 6 hurdles Device Used none Level of Assistance SBA Surface 6 step, blue foam, Treatment Focus foot clearance Comments 1. multiple passes with hurdles only and added cog load (remembering grocery list , 7-8 items before challenged by memory) 2. multiple passes with unstable elements; emphasis on smooth transition from surface to surface indoor Comments stairs and multiple passes through [place] with cog load (grocery list game) Neuro Re-Education Treatment Balance Activities step-up - uneven Details step-up - uneven Equipment BOSU, rails prn SLS Details SLS Surface firm Equipment balance pods - red, ylw, green Comments PT calls out sequence right - yellow - green - red and pt taps pods in sequence with the correct limb. Other Activities Sit to stand Details 16 block Reps/Duration 2x10 Comments 2nd set with oval blue pads under feet Sideways rock and reach Details 10 Comments standard no UE support, alternating sideson blue tumbling mat Forward rock and reach Reps/Duration 10 Comments on blue tumbling mat Backward step Details standard Reps/Duration 10 Comments cued hip hinge, big arm swing on blue tumbling mat; Sideways Step Details standard Reps/Duration 10 Comments on blue tumbling mat; alternating; Forward step Details without UE support Reps/Duration 10 Comments cued weight shift on blue tumbling mat. Side to side Details 10 Floor to ceiling Details 10 PT-OP-T Assessment and Plan Start: 03/23/22 19:06 Freq: Status: Active Protocol: Document 04/22/22 13:28 AW (Rec: 04/22/22 15:14 AW [id number]) Physical Therapy Assessment Goals Balance Short Term Goal (STG) Enriqeu will show improved balance by balancing with a NBOS and eyes closed for 30 seconds. 04/10 - Goal met. Slight sway, no LOB STG Duration 2 weeks GOAL MET Trade Sales Assistant Goal (LTG) Enrique will ambulate over grass , gravel and hills with trekking poles without being uncomfortable or having a fear of falling. LTG Duration 5 weeks Gait Short Term Goal (STG) Enrique will improve his 10MWT score to 10 seconds or less to meet age/gender norms. 04/10 - Multiple trials pt completes 10MWT in 9.4-9.6 seconds STG Duration 2 weeks GOAL MET Trade Sales Assistant Goal (LTG) Enrique will ambulate 1,600 feet or greater in 6 minutes. LTG Duration 5 weeks Assessment Summary Assessment Amplitude with sit to stand is maintained with all sorts of challenges. During gait, however, Milind continues to need regular cues for right side amplitude. He is observed walking out of the clinic with better arm swing than before therapy. Physical Therapy Plan Frequency and Duration Frequency of Treatment 4x/Week Duration of treatment (weeks) 5 Plan of Care Start Date 03/25/22 Plan of Care End Date 04/29/22 Therapeutic Interventions Therapeutic Interventions Balance Training,Gait Training ,Home Exercise Program,Manual Therapy,Neuromuscular Re- education,Self-Care/Home Management,Therapeutic Activities,Therapeutic Exercises Next Visit Focus/Plan Next Note Type Discharge Summary Next Visit Plan Progress challenge with standard exercise, focus on gait/balance per pt request. Increase cog load as able.
--- NOTE | 2022-04-24 15:14 | PT.OTN ---
Current Diagnoses Parkinson's disease (04/24/22) Physical Therapy Treatment Note PT-OP-A Visit Information Start: 03/23/22 19:06 Freq: Status: Active Protocol: Document 04/24/22 13:58 AW (Rec: 04/24/22 15:12 AW [id number]) Out-Patient Physical Therapy Visit Information Visit Information Visit Type Treatment Note Visit Start Time 14:15 Visit Stop Time 15:10 Total Visit Minutes 55 Visit Number 16 PT-OP-B Current Condition Start: 03/23/22 19:06 Freq: Status: Active Protocol: Document 03/25/22 09:45 AMB (Rec: 03/25/22 10:02 AMB [id number]) Current Condition History of Current Condition Onset Date October 2020 Current Complaints Parkinsons History of Current Condition Was working at the [employer], now retired. Walks on the [place] does use walking sticks, and sits on the benches. 3 steps to enter single level home with a railing lives with his . No falls in last 6 months, did fall when working. Has given up riding his bike due to PD sx. Reports he does 98% of the cooking and cleaning, does yardwork. Before medication would freeze when walking through doorways, getting out of chairs, but that has improved. Treatment Goals Patient/Caregiver Goals Difficulty describing goals of PT, wants to keep moving as much as possible. Personal Factors Other Personal Factors That May Effect L45 fusion in January 2021. R Therapy/Recovery TKA 2017. L achiles tendon tear (not surgically fixed 2019). Diabetic neuropathy in bilateral feet PT-OP-C Subjective Start: 03/23/22 19:06 Freq: Status: Active Protocol: Document 04/24/22 13:58 AW (Rec: 04/24/22 15:14 AW [id number]) OP-PT Subjective Patient Comments Patient Reported Progress Improving PT-OP-D Balance Start: 03/23/22 19:06 Freq: Status: Active Protocol: Document 03/25/22 09:45 AMB (Rec: 03/29/22 20:52 AMB [id number]) Balance Tests mCTSIB mCTSIB Position 1 30 sec mCTSIB Position 2 15 sec- ankle sway uncomfortable PT-OP-E Functional Tests Start: 03/23/22 19:06 Freq: Status: Active Protocol: Document 03/25/22 09:45 AMB (Rec: 03/28/22 13:00 AMB [id number]) Functional Tests 6 Minute Walk Test Distance 1,289 Device Used no AD Comments no R UE swing, trendelenburg, reduced dorsiflexion on R 10 Meter Walk Test Distance 8 sec. 1.25m/sec Device Used no AD Five Times Sit to Stand Test Score 16 Comments standard height chair, no UE PT-OP-G Mobility & Gait Start: 03/23/22 19:06 Freq: Status: Active Protocol: Document 03/25/22 09:45 AMB (Rec: 03/29/22 20:52 AMB [id number]) OP Mobility Evaluation Bed Mobility Rolling Denies difficulty with bed mobility, transfers including car and floor transfers but these could be assessed at a later date OP Gait Assessment Comments Gait Comments Ambulates with reduced arm swing and ankle dorsiflexion R moreso than left. Reduced trunk rotation, WBOS, trendelenburg gait. PT-OP-H Neuro Start: 03/23/22 19:06 Freq: Status: Active Protocol: Document 03/25/22 09:45 AMB (Rec: 03/29/22 20:52 AMB [id number]) Sensation Evaluation Comments Summary Comments Reduced light touch sensation throughout bilateral feet into ankles PT-OP-J Posture/Palpation/Skin Start: 03/23/22 19:06 Freq: Status: Active Protocol: Document 03/25/22 09:45 AMB (Rec: 03/29/22 20:52 AMB [id number]) Posture Evaluation Comments Posture Comments Flat spine PT-OP-Q Treatments Start: 03/23/22 19:06 Freq: Status: Active Protocol: Document 04/24/22 13:58 AW (Rec: 04/24/22 15:12 AW [id number]) Gym Equipment Shuttle Balance BLUE Details RED: a/p and m/l Reps/Duration 10 Comments modified tandem stance, NBOS EO and EC Gait Training Gait Activity indoor Comments stairs and multiple passes through ED breezeway with cog load (grocery list game) 1 Description outdoor Device Used none Treatment Focus R arm swing, R foot clearance Comments pavement, up hill Neuro Re-Education Treatment Balance Activities step-up - uneven Details step-up - uneven Equipment BOSU, rails prn Other Activities Sit to stand Details 16 block Reps/Duration 2x10 Comments 2nd set with oval blue pads under feet Sideways rock and reach Details 10 Comments standard no UE support, alternating sides on blue tumbling mat Forward rock and reach Reps/Duration 10 Comments on blue tumbling mat Backward step Details standard Reps/Duration 10 Comments cued hip hinge, big arm swing on blue tumbling mat with 2# ankle weights Sideways Step Details standard Reps/Duration 10 Comments on blue tumbling mat with 2# ankle weights; alternating; Forward step Details without UE support Reps/Duration 10 Comments alternating; on blue tumbling mat with 2# ankle weights Side to side Details 10 Comments on kwabena stool Floor to ceiling Details 10 Comments on kwabena stool PT-OP-T Assessment and Plan Start: 03/23/22 19:06 Freq: Status: Active Protocol: Document 04/24/22 13:58 AW (Rec: 04/24/22 15:12 AW [id number]) Physical Therapy Assessment Goals Balance Short Term Goal (STG) Enrique will show improved balance by balancing with a NBOS and eyes closed for 30 seconds. 04/10 - Goal met. Slight sway, no LOB STG Duration 2 weeks GOAL MET Insole Department Worker Goal (LTG) Enrique will ambulate over grass , gravel and hills with trekking poles without being uncomfortable or having a fear of falling. LTG Duration 5 weeks Gait Short Term Goal (STG) Enrique will improve his 10MWT score to 10 seconds or less to meet age/gender norms. 04/10 - Multiple trials pt completes 10MWT in 9.4-9.6 seconds STG Duration 2 weeks GOAL MET Insole Department Worker Goal (LTG) Enrique will ambulate 1,600 feet or greater in 6 minutes. LTG Duration 5 weeks Assessment Summary Assessment Enrique maintained RUE amplitude better today during gait with cognitive task. Carryover and recalibration appears good when observing pt walking in and out of clinic. Physical Therapy Plan Frequency and Duration Frequency of Treatment 4x/Week Duration of treatment (weeks) 5 Plan of Care Start Date 03/25/22 Plan of Care End Date 04/29/22 Therapeutic Interventions Therapeutic Interventions Balance Training,Gait Training ,Home Exercise Program,Manual Therapy,Neuromuscular Re- education,Self-Care/Home Management,Therapeutic Activities,Therapeutic Exercises Next Visit Focus/Plan Next Note Type Discharge Summary
--- NOTE | 2022-04-29 15:12 | PT.OTN ---
Current Diagnoses Parkinson's disease (04/29/22) Physical Therapy Treatment Note PT-OP-A Visit Information Start: 03/23/22 19:06 Freq: Status: Active Protocol: Document 04/29/22 14:18 AW (Rec: 04/29/22 15:12 AW [id number]) Out-Patient Physical Therapy Visit Information Visit Information Visit Type Discharge Summary Visit Start Time 14:15 Visit Stop Time 15:15 Total Visit Minutes 60 Visit Number 17 PT-OP-B Current Condition Start: 03/23/22 19:06 Freq: Status: Active Protocol: Document 03/25/22 09:45 AMB (Rec: 03/25/22 10:02 AMB [id number]) Current Condition History of Current Condition Onset Date October 2020 Current Complaints Parkinsons History of Current Condition Was working at the [employer], now retired. Walks on the [place] does use walking sticks, and sits on the benches. 3 steps to enter single level home with a railing lives with his . No falls in last 6 months, did fall when working. Has given up riding his bike due to PD sx. Reports he does 98% of the cooking and cleaning, does yardwork. Before medication would freeze when walking through doorways, getting out of chairs, but that has improved. Treatment Goals Patient/Caregiver Goals Difficulty describing goals of PT, wants to keep moving as much as possible. Personal Factors Other Personal Factors That May Effect L45 fusion in January 2021. R Therapy/Recovery TKA 2017. L achiles tendon tear (not surgically fixed 2019). Diabetic neuropathy in bilateral feet PT-OP-C Subjective Start: 03/23/22 19:06 Freq: Status: Active Protocol: Document 04/29/22 14:18 AW (Rec: 04/29/22 15:12 AW [id number]) OP-PT Subjective Patient Comments Patient Comments Pleased with progress. Feels looser after doing exercises. Will follow up with neurologist today. PT-OP-D Balance Start: 03/23/22 19:06 Freq: Status: Active Protocol: Document 03/25/22 09:45 AMB (Rec: 03/29/22 20:52 AMB [id number]) Balance Tests mCTSIB mCTSIB Position 1 30 sec mCTSIB Position 2 15 sec- ankle sway uncomfortable PT-OP-E Functional Tests Start: 03/23/22 19:06 Freq: Status: Active Protocol: Document 03/25/22 09:45 AMB (Rec: 03/28/22 13:00 AMB [id number]) Functional Tests 6 Minute Walk Test Distance 1,289 Device Used no AD Comments no R UE swing, trendelenburg, reduced dorsiflexion on R 10 Meter Walk Test Distance 8 sec. 1.25m/sec Device Used no AD Five Times Sit to Stand Test Score 16 Comments standard height chair, no UE PT-OP-G Mobility & Gait Start: 03/23/22 19:06 Freq: Status: Active Protocol: Document 03/25/22 09:45 AMB (Rec: 03/29/22 20:52 AMB [id number]) OP Mobility Evaluation Bed Mobility Rolling Denies difficulty with bed mobility, transfers including car and floor transfers but these could be assessed at a later date OP Gait Assessment Comments Gait Comments Ambulates with reduced arm swing and ankle dorsiflexion R moreso than left. Reduced trunk rotation, WBOS, trendelenburg gait. PT-OP-H Neuro Start: 03/23/22 19:06 Freq: Status: Active Protocol: Document 03/25/22 09:45 AMB (Rec: 03/29/22 20:52 AMB [id number]) Sensation Evaluation Comments Summary Comments Reduced light touch sensation throughout bilateral feet into ankles PT-OP-J Posture/Palpation/Skin Start: 03/23/22 19:06 Freq: Status: Active Protocol: Document 03/25/22 09:45 AMB (Rec: 03/29/22 20:52 AMB [id number]-) Posture Evaluation Comments Posture Comments Flat spine PT-OP-Q Treatments Start: 03/23/22 19:06 Freq: Status: Active Protocol: Document 04/29/22 14:18 AW (Rec: 04/29/22 15:12 AW [id number]) Gait Training Gait Activity indoor Description 6MWT Device Used none Level of Assistance IND Surface tile, carpet Distance/Duration 1448 feet/6 min Treatment Focus assessment Comments Average gait speed 1.23 m/s. Good consistency in lap times. 1 Description outdoor Device Used B trek poles Level of Assistance SBA Treatment Focus R arm swing, R foot clearance Comments pavement, up hill, grassy hills, cross walks, curbs, curb cuts. Assessing comfort on varied terrain with poles Neuro Re-Education Treatment Other Activities Sit to stand Details 16 block Reps/Duration 2x10 Comments 2nd set with oval blue pads under feet Sideways rock and reach Details 10 Comments standard no UE support, alternating sides on blue tumbling mat Forward rock and reach Reps/Duration 10 Comments on blue tumbling mat Backward step Details standard Reps/Duration 10 Comments cued hip hinge, big arm swing on blue tumbling mat with 2# ankle weights Sideways Step Details standard Reps/Duration 10 Comments on blue tumbling mat with 2# ankle weights; alternating; Forward step Details without UE support Reps/Duration 10 Comments alternating; on blue tumbling mat with 2# ankle weights Side to side Details 10 Floor to ceiling Details 10 PT-OP-T Assessment and Plan Start: 03/23/22 19:06 Freq: Status: Active Protocol: Document 04/29/22 14:18 AW (Rec: 04/29/22 15:12 AW [id number]) Physical Therapy Assessment Goals Balance Short Term Goal (STG) Enrique will show improved balance by balancing with a NBOS and eyes closed for 30 seconds. 04/10 - Goal met. Slight sway, no LOB STG Duration 2 weeks GOAL MET Precise Winder Goal (LTG) Enrique will ambulate over grass , gravel and hills with trekking poles without being uncomfortable or having a fear of falling. 04/29/22 PROGRESSING LTG Duration 5 weeks Gait Short Term Goal (STG) Ernique will improve his 10MWT score to 10 seconds or less to meet age/gender norms. 04/10 - Multiple trials pt completes 10MWT in 9.4-9.6 seconds STG Duration 2 weeks GOAL MET Precise Winder Goal (LTG) Enrique will ambulate 1,600 feet or greater in 6 minutes. 04/29/22 - 1448 feet today = 1. 23 m/s LTG Duration 5 weeks Progress Towards Goals Progress Comments Milind progressed his gait speed from 1 m/s two weeks ago to 1.23 m/s today and was able to maintain speed during 6MWT. His comfort with trekking poles has increased even on uneven terrain. Assessment Summary Assessment Discussed outcomes with pt who agrees he has improved his balance and gait. Discussed potential referral to BIG for [employer] program once up and running; pt is interested. Pt is agreeable to continuing with daily exercises and understands that his level of recalibration depends on regular activity and continued engagement with BIG exercises . Physical Therapy Plan Frequency and Duration Frequency of Treatment 4x/Week Duration of treatment (weeks) 5 Plan of Care Start Date 03/25/22 Plan of Care End Date 04/29/22 Therapeutic Interventions Therapeutic Interventions Balance Training,Gait Training ,Home Exercise Program,Manual Therapy,Neuromuscular Re- education,Self-Care/Home Management,Therapeutic Activities,Therapeutic Exercises Discharge Physical Therapy Discharge Reasons Goals Met Discharge Comments Pt has completed the prescribed dose of LSVT BIG and understands the importance of continued engagement with BIG daily exercises and regular activity. He will be discharged from PT at this time.
== END 2022-04-30 14:23 | disposition home or self-care (01) ==
LOC: PHYS 14:15
PROVIDERS: Family Provider Family Medicine; PCP Family Medicine; Referring Provider Psychiatry & Neurology Neurology; Visit Provider Psychiatry & Neurology Neurology
DX: G20 Parkinson's disease (principal)
CPT/HCPCS: 97112; 97116; 97161; 97530

== ENCOUNTER → 2023-05-08 07:56 | Outpatient (CLI) | payer MEDICARE, OTHER, SELFPAY ==
[2021-02-11 12:26] VITALS: BMI 32.5
[2023-05-18 15:38] LABS: 1,25-Dihydroxy, Vitamin D-2 <10 pg/mL (.)
== END ==
PROVIDERS: Family Provider Family Medicine; PCP Family Medicine; Referring Provider Psychiatry & Neurology Neurology; Visit Provider Psychiatry & Neurology Neurology
DX: E55.9 Vitamin D deficiency, unspecified (principal)
CPT/HCPCS: 36415; 82652

== ENCOUNTER → 2023-09-18 09:23 | Outpatient (CLI) | payer MEDICARE, OTHER, SELFPAY ==
[2021-02-11 12:26] VITALS: BMI 32.5
[2023-10-04 15:10] LABS: 1,25-Dihydroxy, Vitamin D-2 <10 pg/mL (.)
== END ==
PROVIDERS: Family Provider Family Medicine; PCP Family Medicine; Referring Provider Psychiatry & Neurology Neurology; Visit Provider Psychiatry & Neurology Neurology
DX: E55.9 Vitamin D deficiency, unspecified (principal)
CPT/HCPCS: 36415; 82652

== ENCOUNTER → 2023-09-25 08:34 | Outpatient (CLI) | payer MEDICARE, OTHER, SELFPAY ==
[2021-02-11 12:26] VITALS: BMI 32.5
--- NOTE | 2023-09-25 08:36 | DI.US.S_ITS ---
PROCEDURE: US ABD AORTA ANEURYSM SCREEN INDICATIONS: SCREENING TECHNIQUE: Real-time scanning was performed of the aorta and proximal common iliac arteries, with image documentation. COMPARISON: None. FINDINGS: Aorta: Proximal aorta measures 2.6 cm. Somewhat limited visualization due to bowel gas. Mid aorta measures 2.4 cm. Distal aorta measures 2.1 cm. Iliacs: Proximal common iliac arteries are normal in caliber. Right common iliac artery measures 1.7 cm. Left common iliac artery measures 1.8 cm. Incidental mobile gallstone. Liver appears echogenic. IMPRESSION: No abdominal aortic aneurysm. Proximal aorta measures 2.6 cm. Gallstone. Increased hepatic echogenicity most consistent with hepatic steatosis. Other forms of hepatocellular disease could have similar appearance. Dictated by: Deejay Coon M.D. on 09/25/2023 at 12:38 Approved by: Deejay Coon M.D. on 09/25/2023 at 12:41
== END ==
PROVIDERS: Family Provider Family Medicine; PCP Family Medicine; Referring Provider Family Medicine; Visit Provider Family Medicine
DX: Z13.6 Encounter for screening for cardiovascular disorders (principal); K80.20 Calculus of gallbladder without cholecystitis without obstruction
CPT/HCPCS: 76706

== ENCOUNTER → 2024-01-29 11:09 | Outpatient (CLI) | payer MEDICARE, OTHER, SELFPAY ==
[2021-02-11 12:26] VITALS: BMI 32.5
== END ==
PROVIDERS: Family Provider Family Medicine; PCP Family Medicine; Referring Provider Psychiatry & Neurology Neurology; Visit Provider Psychiatry & Neurology Neurology
DX: E55.9 Vitamin D deficiency, unspecified (principal)
CPT/HCPCS: 36415; 82652

== ENCOUNTER 2024-05-23 08:15 | Outpatient (RCR) | payer MEDICARE, OTHER, SELFPAY ==
[2021-02-11 12:26] VITALS: BMI 32.5
--- NOTE | 2024-03-22 12:51 | PT.OIE ---
Current Diagnoses Other intervertebral disc degeneration, lumbar region (03/22/24) Past Medical History (Last Reviewed 02/12/21 @ 07:42 by Camron Berrios PA-C) Anesthesia complication Arthritis Diabetes Gout Hammertoe, bilateral HLD (hyperlipidemia) HTN (hypertension) TAMI on CPAP Parkinson disease (12/2020) Past Surgical History (Last Reviewed 02/12/21 @ 07:42 by Camron Berrios PA-C) History of arthroplasty of right knee Hx of colonoscopy Visit Care Team Role Provider Type Thee Lanza MD Family Provider Physician Primary Care Provider Specialty: Family Practice Address: [address] [place] [address], [facility] [place] [place], [address] Email: [email or web address] Malachi Whitmore MD Attending Provider Physician Referring Provider Specialty: Orthopedics Orthopedic Surgery Address: [address] [place] [address], [address] Email: [email or web address] [facility] Initial Evaluation PT-OP-A Visit Information Start: 03/21/24 13:59 Freq: Status: Active Protocol: Document 03/22/24 11:15 MB (Rec: 03/22/24 11:56 MB [id number]) Out-Patient Physical Therapy Visit Information Visit Information Visit Type Initial Evaluation Visit Note Medicare Visit Start Time 11:15 Visit Stop Time 11:55 Visit Number 1 Number of LIQUID SUGAR FORTIFIER Visits 0 Evaluation Information Evaluation Date 03/22/24 PT-OP-B Current Condition Start: 03/21/24 13:59 Freq: Status: Active Protocol: Document 03/22/24 11:15 MB (Rec: 03/22/24 11:56 MB [id number]) Current Condition History of Current Condition Onset Date 1 year Current Complaints L LBP History of Current Condition Pt has L LBP after 15 minutes of standing doing dishes and after walking about 10 minutes . He can tolerate 10-15 minutes on his feet before he needs a sitting rest break. Pt denies paresthesias and pain down the leg. He is sleeping okay. PMH includes L4-5 PLIF 02/16, LSVT BIG in 2021 for PD, left achilles and plantar fascia spurring, right knee with many changes and s/p TKA 06/15, left hip tendinitis and OA, abdominal hepatic steatosis/ hepatocellular disease found on aterial US, B foot neuropathy and hammer toes, DM . Pt had previous back pain symptoms before his back surgery. He will have another injection 04/04/24. Pt is doing [employer] once a week, was doing [place] and did not sign up again, and walks once a week with friend. Prior Treatments and Tests See above Treatment Goals Patient/Caregiver Goals Decrease pain and improve endurance PT-OP-C Subjective Start: 03/21/24 13:59 Freq: Status: Active Protocol: Document 03/22/24 11:15 MB (Rec: 03/22/24 11:56 MB [id number]) OP-PT Subjective Patient Comments Patient Comments See history of current condition Patient Questionnaires Oswestry Low Back Index Oswestry Score 14 Oswestry Impairment 20 to 39% Impaired (Score 20- 39) PT-OP-G Mobility & Gait Start: 03/21/24 13:59 Freq: Status: Active Protocol: Document 03/22/24 11:15 MB (Rec: 03/22/24 11:56 MB [id number]) OP Gait Assessment Comments Gait Comments Right lean and right leg tends to hit hard and have flexion at hip and knee and adduction with stepping and appears less stable and functionally shorter than left with gait. Added short full length cork wedge for shoe and gait is better. PT-OP-J Posture/Palpation/Skin Start: 03/21/24 13:59 Freq: Status: Active Protocol: Document 03/22/24 11:15 MB (Rec: 03/22/24 11:56 MB [id number]) Posture Evaluation Comments Posture Comments Standing posture with shoes and socks off: head rests in mild right SB, left shoulder higher than the right, mild Dowager's hump, straightened spine from posterior view and spinal column pronounced on left, possibly d/t rotated vertebrae, left iliac crest higher than the right, right knee flexion and increased functional Q ankle in standing with weight shifted to functionally longer left leg. Forward head. Standing posture: flexion with fingers 10 from floor, hip flexion pattern in standing and extension with hands on hips to neutral, limited lumbar SB B in standing, more to the left. Overall stiffness in spine. L SI joint stiffer than the right in standing with SB and with overpressure in supine. B SLR tight and grossly equal to 70 deg. PT-OP-K Range of Motion Start: 03/21/24 13:59 Freq: Status: Active Protocol: Document 03/22/24 11:15 MB (Rec: 03/22/24 11:56 MB [id number]) Ankle and Foot Goniometric Range of Motion Ankle and Foot ROM Limitations Comments Right ankle DF and knee extension are reduced in supine and he has increased hip flexor shortening on the right compared to left as well . Decreased right great toe extension. PT-OP-M Strength Start: 03/21/24 13:59 Freq: Status: Active Protocol: Document 03/22/24 11:15 MB (Rec: 03/22/24 11:56 MB [id number]) Hip Strength Hip Manual Muscle Testing Left Flexion (L2) 4+ Good+ Abduction 4 Good Right Flexion (L2) 4+ Good+ Abduction 4+ Good+ Knee Strength Knee Manual Muscle Testing Left Flexion (S2) 5 Normal Extension (L3) 5 Normal Right Flexion (S2) 5 Normal Extension (L3) 5 Normal Ankle/Foot Strength Ankle and Foot Manual Muscle Testing Left Dorsiflexion (L4) 4+ Good+ Right Dorsiflexion (L4) 4- Good- Toe Strength Toe Manual Muscle Testing Left Great Toe Extension 4 Good Right Great Toe Extension 4- Good- PT-OP-Q Treatments Start: 03/21/24 13:59 Freq: Status: Active Protocol: Document 03/22/24 11:15 MB (Rec: 03/22/24 11:56 MB [id number]) Therapeutic Exercises Supine Exercises Pelvic realignment exercises Side bilateral Equipment Used Blue ball Reps/Minutes 5 reps, 3 sec hold all exercises Comments Feet together ball squeeze iso , knee opp ankle iso, thigh press down iso Self-Care/Home Management Treatment Education Other Education Benefits of pillow between knees in side lying, cut out cork to put under shoe liner to help with right leg functionally shorter and ed to wear in shoes at home PT-OP-T Assessment and Plan Start: 03/21/24 13:59 Freq: Status: Active Protocol: Document 03/22/24 11:15 MB (Rec: 03/22/24 12:49 MB [id number]) Physical Therapy Assessment Rehab Potential Rehabilitation Potential Fair Evaluation Complexity Number of Personal Factors/Comorbidities 1-2 Number of Body Systems Impaired 3 Clinical Presentation at Evaluation Evolving Impairments Impairments Activity Tolerance,Balance, Coordination,Functional Activities,Functional Mobility ,Gait,Pain,Posture,ROM, Sensation,Soft Tissue Mobility ,Strength,Transfers Goals 4 Impairment Evidence of imbalance Fpc Goal (LTG) Pt will perform TUG without AD in no more than 10 sec to improve balance and decrease fall risk. LTG Duration 8 weeks 3 Impairment Lack of HEP Fpc Goal (LTG) Pt will perform progressive HEP with I including pelvic realignment, flexibility, breathing, balance and strengthening exercises to improve movement and pain. LTG Duration 8 weeks 2 Impairment LE weakness Tool And Die Repairer Goal (LTG) Pt will present with B hip flexion and abduction to at least 4+/5 to improve functional mobility and gait pattern. LTG Duration 8 weeks 1 Impairment Oswestry score 14/50, reflecting 28% impairment Tool And Die Repairer Goal (LTG) Pt will present with an Oswestry score reflecting no more than 20% impairment to improve pain and quality of life. LTG Duration 8 weeks Assessment Summary Assessment Pt is a 63 y/o male presenting with history of PD, DM, neuropathy in feet and toe changes, long history of back pain and s/p spinal injection and L4-5 PLIF. Pt has experienced worsening left sided back and SI pain over the past year that starts after 10-15 minutes of standing or walking and requires him to sit down. He has an injection scheduled for 04/04/24. Pt prefers flexion and presents with spinal changes that are severe in his lumbar spine with left side of spine very pronounced, possibly d/t rotated vertebrae . He presents with right LE changes including functional weakness with weight acceptance with gait and knee falls into valgus and flexion with each step. Right leg appears functionally shorter with gait and PT adds small cork lift to full shoe today and gait improves mildly and pt states he likes it. Initiated pelvic realignment exercises today to improve pelvic oliquities. Pt will benefit from ongoing PT for manual interventions and progressive exercises. Physical Therapy Plan Frequency and Duration Frequency of Treatment 2x/Week Duration of treatment (weeks) 8 Plan of Care Start Date 03/22/24 Plan of Care End Date 05/23/24 Therapeutic Interventions Therapeutic Interventions Balance Training,Canalithic Repositioning,Coordination Training,Gait Training,Home Exercise Program,Joint Mobilizations,Manual Therapy, Neuromuscular Re-education, Patient/Caregiver Education, Self-Care/Home Management,Soft Tissue Mobilization,Taping, Therapeutic Activities, Therapeutic Exercises, Vestibular Rehabilitation Modalities Cold Pack/Ice Massage,Electric Stimulation,Hot Packs, Ultrasound Next Visit Focus/Plan Next Note Type Treatment Note Next Visit Plan Review pelvic realignment exercises and check in about cork lift to see how it feels Initiate thoracic mobility such as sitting rotation and/ or open book Initiate manual work Progress flexibility for hip flexors, hamstrings, hip rotators and PFs of ankles Progress core progression, balance and strengthening Will want to work on hip strengthening
--- NOTE | 2024-03-22 12:51 | PT.OPPOC ---
Physical, Occupational & Speech Therapy At [facility] Current Diagnoses Other intervertebral disc degeneration, lumbar region (03/22/24) Visit Care Team Role Provider Type Thee Lanza MD Family Provider Physician Primary Care Provider Specialty: Family Practice Address: [address] [place] [address], [facility] [place], [address] Email: [email or web address] Malachi Whitmore MD Attending Provider Physician Referring Provider Specialty: Orthopedics Orthopedic Surgery Address: [address] [place] [address], [address] Email: [email or web address] Plan Of Care PT-OP-B Current Condition Start: 03/21/24 13:59 Freq: Status: Active Protocol: Document 03/22/24 11:15 MB (Rec: 03/22/24 11:56 MB [id number]) Current Condition History of Current Condition Onset Date 1 year Current Complaints L LBP History of Current Condition Pt has L LBP after 15 minutes of standing doing dishes and after walking about 10 minutes . He can tolerate 10-15 minutes on his feet before he needs a sitting rest break. Pt denies paresthesias and pain down the leg. He is sleeping okay. PMH includes L4-5 PLIF 02/16, LSVT [facility] in 2021 for PD, left achilles and plantar fascia spurring, right knee with many changes and s/p TKA 06/15, left hip tendinitis and OA, abdominal hepatic steatosis/ hepatocellular disease found on aterial US, B foot neuropathy and hammer toes, DM . Pt had previous back pain symptoms before his back surgery. He will have another injection 04/04/24. Pt is doing [facility] [employer] [facility] once a week, was doing [place] and did not sign up again, and walks once a week with friend. Prior Treatments and Tests See above Treatment Goals Patient/Caregiver Goals Decrease pain and improve endurance PT-OP-T Assessment and Plan Start: 03/21/24 13:59 Freq: Status: Active Protocol: Document 03/22/24 11:15 MB (Rec: 03/22/24 12:49 MB [id number]) Physical Therapy Assessment Rehab Potential Rehabilitation Potential Fair Evaluation Complexity Number of Personal Factors/Comorbidities 1-2 Number of Body Systems Impaired 3 Clinical Presentation at Evaluation Evolving Impairments Impairments Activity Tolerance,Balance, Coordination,Functional Activities,Functional Mobility ,Gait,Pain,Posture,ROM, Sensation,Soft Tissue Mobility ,Strength,Transfers Goals 4 Impairment Evidence of imbalance Assisted Goal (LTG) Pt will perform TUG without AD in no more than 10 sec to improve balance and decrease fall risk. LTG Duration 8 weeks 3 Impairment Lack of HEP Assisted Goal (LTG) Pt will perform progressive HEP with I including pelvic realignment, flexibility, breathing, balance and strengthening exercises to improve movement and pain. LTG Duration 8 weeks 2 Impairment LE weakness Assisted Goal (LTG) Pt will present with B hip flexion and abduction to at least 4+/5 to improve functional mobility and gait pattern. 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 LTG Duration 8 weeks Assessment Summary Assessment Pt is a 63 y/o male presenting with history of PD, DM, neuropathy in feet and toe changes, long history of back pain and s/p spinal injection and L4-5 PLIF. Pt has experienced worsening left sided back and SI pain over the past year that starts after 10-15 minutes of standing or walking and requires him to sit down. He has an injection scheduled for 04/04/24. Pt prefers flexion and presents with spinal changes that are severe in his lumbar spine with left side of spine very pronounced, possibly d/t rotated vertebrae . He presents with right LE changes including functional weakness with weight acceptance with gait and knee falls into valgus and flexion with each step. Right leg appears functionally shorter with gait and PT adds small cork lift to full shoe today and gait improves mildly and pt states he likes it. Initiated pelvic realignment exercises today to improve pelvic oliquities. Pt will benefit from ongoing PT for manual interventions and progressive exercises. Physical Therapy Plan Frequency and Duration Frequency of Treatment 2x/Week Duration of treatment (weeks) 8 Plan of Care Start Date 03/22/24 Plan of Care End Date 05/23/24 Therapeutic Interventions Therapeutic Interventions Balance Training,Canalithic Repositioning,Coordination Training,Gait Training,Home Exercise Program,Joint Mobilizations,Manual Therapy, Neuromuscular Re-education, Patient/Caregiver Education, Self-Care/Home Management,Soft Tissue Mobilization,Taping, Therapeutic Activities, Therapeutic Exercises, Vestibular Rehabilitation Modalities Cold Pack/Ice Massage,Electric Stimulation,Hot Packs, Ultrasound Next Visit Focus/Plan Next Note Type Treatment Note Next Visit Plan Review pelvic realignment exercises and check in about cork lift to see how it feels Initiate thoracic mobility such as sitting rotation and/ or open book Initiate manual work Progress flexibility for hip flexors, hamstrings, hip rotators and PFs of ankles Progress core progression, balance and strengthening Will want to work on hip strengthening Plan of Care Dates Plan of Care Start Date 03/22/24 Plan of Care End Date 05/23/24 Electronically Signed by: Yazmin Escobedo, PT 03/22/24 1181 If you are in agreement with this Plan of Care, please return a signed and dated copy. I have reviewed this Plan of Care and certify that the skilled therapy services above are required to meet the patient?s needs. Physician Signature Date Printed Name and Credentials Clinical Instructor Signature Printed Name and Credentials
--- NOTE | 2024-03-30 08:15 | PT.OTN ---
Current Diagnoses Other intervertebral disc degeneration, lumbar region (03/30/24) Physical Therapy Treatment Note PT-OP-A Visit Information Start: 03/21/24 13:59 Freq: Status: Active Protocol: Document 03/30/24 07:33 MB (Rec: 03/30/24 07:54 MB [id number]) Out-Patient Physical Therapy Visit Information Visit Information Visit Type Treatment Note Visit Note Medicare Visit Start Time 07:33 Visit Stop Time 08:13 Visit Number 2 Number of BANDER HAND Visits 0 Evaluation Information Evaluation Date 03/22/24 PT-OP-B Current Condition Start: 03/21/24 13:59 Freq: Status: Active Protocol: Document 03/22/24 11:15 MB (Rec: 03/22/24 11:56 MB [id number]) Current Condition History of Current Condition Onset Date 1 year Current Complaints L LBP History of Current Condition Pt has L LBP after 15 minutes of standing doing dishes and after walking about 10 minutes . He can tolerate 10-15 minutes on his feet before he needs a sitting rest break. Pt denies paresthesias and pain down the leg. He is sleeping okay. PMH includes L4-5 PLIF 02/16, LSVT BIG in 2021 for PD, left achilles and plantar fascia spurring, right knee with many changes and s/p TKA 06/15, left hip tendinitis and OA, abdominal hepatic steatosis/ hepatocellular disease found on aterial US, B foot neuropathy and hammer toes, DM . Pt had previous back pain symptoms before his back surgery. He will have another injection 04/04/24. Pt is doing [employer] [facility] once a week, was doing [place] and did not sign up again, and walks once a week with friend. Prior Treatments and Tests See above Treatment Goals Patient/Caregiver Goals Decrease pain and improve endurance PT-OP-C Subjective Start: 03/21/24 13:59 Freq: Status: Active Protocol: Document 03/30/24 07:33 MB (Rec: 03/30/24 07:54 MB [id number]) OP-PT Subjective Patient Comments Patient Comments Pt added a little more more cork to his right shoe with an insert from [employer]. He went for a walk on [address] for 1.5 to 2 miles and he stopped 5 times. He stopped a couple of times for standing. PT-OP-G Mobility & Gait Start: 03/21/24 13:59 Freq: Status: Active Protocol: Document 03/22/24 11:15 MB (Rec: 03/22/24 11:56 MB [id number]) OP Gait Assessment Comments Gait Comments Right lean and right leg tends to hit hard and have flexion at hip and knee and adduction with stepping and appears less stable and functionally shorter than left with gait. Added short full length cork wedge for shoe and gait is better. PT-OP-J Posture/Palpation/Skin Start: 03/21/24 13:59 Freq: Status: Active Protocol: Document 03/22/24 11:15 MB (Rec: 03/22/24 11:56 MB [id number]) Posture Evaluation Comments Posture Comments Standing posture with shoes and socks off: head rests in mild right SB, left shoulder higher than the right, mild Dowager's hump, straightened spine from posterior view and spinal column pronounced on left, possibly d/t rotated vertebrae, left iliac crest higher than the right, right knee flexion and increased functional Q ankle in standing with weight shifted to functionally longer left leg. Forward head. Standing posture: flexion with fingers 10 from floor, hip flexion pattern in standing and extension with hands on hips to neutral, limited lumbar SB B in standing, more to the left. Overall stiffness in spine. L SI joint stiffer than the right in standing with SB and with overpressure in supine. B SLR tight and grossly equal to 70 deg. PT-OP-K Range of Motion Start: 03/21/24 13:59 Freq: Status: Active Protocol: Document 03/22/24 11:15 MB (Rec: 03/22/24 11:56 MB [id number]) Ankle and Foot Goniometric Range of Motion Ankle and Foot ROM Limitations Comments Right ankle DF and knee extension are reduced in supine and he has increased hip flexor shortening on the right compared to left as well . Decreased right great toe extension. PT-OP-M Strength Start: 03/21/24 13:59 Freq: Status: Active Protocol: Document 03/22/24 11:15 MB (Rec: 03/22/24 11:56 MB [id number]) Hip Strength Hip Manual Muscle Testing Left Flexion (L2) 4+ Good+ Abduction 4 Good Right Flexion (L2) 4+ Good+ Abduction 4+ Good+ Knee Strength Knee Manual Muscle Testing Left Flexion (S2) 5 Normal Extension (L3) 5 Normal Right Flexion (S2) 5 Normal Extension (L3) 5 Normal Ankle/Foot Strength Ankle and Foot Manual Muscle Testing Left Dorsiflexion (L4) 4+ Good+ Right Dorsiflexion (L4) 4- Good- Toe Strength Toe Manual Muscle Testing Left Great Toe Extension 4 Good Right Great Toe Extension 4- Good- PT-OP-Q Treatments Start: 03/21/24 13:59 Freq: Status: Active Protocol: Document 03/30/24 07:33 MB (Rec: 03/30/24 07:54 MB [id number]) Therapeutic Exercises Supine Exercises Pelvic realignment exercises Supine Exercise Name HEP Side bilateral Equipment Used Blue ball Reps/Minutes 5 reps, 3 sec hold all exercises Comments Feet together ball squeeze iso , knee opp ankle iso, thigh press down iso Sidelying Exercises Open book Sidelying Exercise Name HEP Side bilateral Equipment Used Pillow between knees Reps/Minutes 10 reps Standing Exercises Pect, hip flexor and QL stretches doorway Standing Exercise Name HEP Side bilateral Comments Several seconds and move from one stretch to the next, one side at a time Manual Therapy Treatment Consent Patient gave verbal consent for manual Yes treatment Other Other Manual Treatments Pt kneeling on wedge and leaning over the bed: STM B glutes, hip rotators, QL and thoracolumbar paraspinals PT-OP-T Assessment and Plan Start: 03/21/24 13:59 Freq: Status: Active Protocol: Document 03/30/24 07:33 MB (Rec: 03/30/24 07:54 MB [id number]) Physical Therapy Assessment Rehab Potential Rehabilitation Potential Fair Evaluation Complexity Number of Personal Factors/Comorbidities 1-2 Number of Body Systems Impaired 3 Clinical Presentation at Evaluation Evolving Impairments Impairments Activity Tolerance,Balance, Coordination,Functional Activities,Functional Mobility ,Gait,Pain,Posture,ROM, Sensation,Soft Tissue Mobility ,Strength,Transfers Goals 4 Impairment Evidence of imbalance Alf Goal (LTG) Pt will perform TUG without AD in no more than 10 sec to improve balance and decrease fall risk. 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 LTG Duration 8 weeks 2 Impairment LE weakness Alf Goal (LTG) Pt will present with B hip flexion and abduction to at least 4+/5 to improve functional mobility and gait pattern. LTG Duration 8 weeks 1 Impairment Oswestry score 14/50, reflecting 28% impairment Alf Goal (LTG) Pt will present with an Oswestry score reflecting no more than 20% impairment to improve pain and quality of life. LTG Duration 8 weeks Assessment Summary Assessment Progressed rib and thoracic mobility today and initiated manual work. Con't per plan. Physical Therapy Plan Frequency and Duration Frequency of Treatment 2x/Week Duration of treatment (weeks) 8 Plan of Care Start Date 03/22/24 Plan of Care End Date 05/23/24 Therapeutic Interventions Therapeutic Interventions Balance Training,Canalithic Repositioning,Coordination Training,Gait Training,Home Exercise Program,Joint Mobilizations,Manual Therapy, Neuromuscular Re-education, Patient/Caregiver Education, Self-Care/Home Management,Soft Tissue Mobilization,Taping, Therapeutic Activities, Therapeutic Exercises, Vestibular Rehabilitation Modalities Cold Pack/Ice Massage,Electric Stimulation,Hot Packs, Ultrasound Next Visit Focus/Plan Next Note Type Treatment Note Next Visit Plan Con't manual work Consider sitting thoracic rotation Progress core progression, balance and strengthening Will want to work on hip strengthening
--- NOTE | 2024-04-06 08:13 | PT.OTN ---
Current Diagnoses Other intervertebral disc degeneration, lumbar region without mention of lumbar back pain or lower extremity pain (04/06/24) Physical Therapy Treatment Note PT-OP-A Visit Information Start: 03/21/24 13:59 Freq: Status: Active Protocol: Document 04/06/24 07:33 SP (Rec: 04/06/24 08:15 SP [id number]) Out-Patient Physical Therapy Visit Information Visit Information Visit Type Treatment Note Visit Note Medicare 09/05 Visit Start Time 07:33 Visit Stop Time 08:13 Visit Number 3 Number of DOUGHNUT ICER Visits 1 Evaluation Information Evaluation Date 03/22/24 PT-OP-B Current Condition Start: 03/21/24 13:59 Freq: Status: Active Protocol: Document 03/22/24 11:15 MB (Rec: 03/22/24 11:56 MB [id number]) Current Condition History of Current Condition Onset Date 1 year Current Complaints L LBP History of Current Condition Pt has L LBP after 15 minutes of standing doing dishes and after walking about 10 minutes . He can tolerate 10-15 minutes on his feet before he needs a sitting rest break. Pt denies paresthesias and pain down the leg. He is sleeping okay. PMH includes L4-5 PLIF 02/16, LSVT BIG in 2021 for PD, left achilles and plantar fascia spurring, right knee with many changes and s/p TKA 06/15, left hip tendinitis and OA, abdominal hepatic steatosis/ hepatocellular disease found on aterial US, B foot neuropathy and hammer toes, DM . Pt had previous back pain symptoms before his back surgery. He will have another injection 04/04/24. Pt is doing [employer] [facility] once a week, was doing [place] and did not sign up again, and walks once a week with friend. Prior Treatments and Tests See above Treatment Goals Patient/Caregiver Goals Decrease pain and improve endurance PT-OP-C Subjective Start: 03/21/24 13:59 Freq: Status: Active Protocol: Document 04/06/24 07:33 SP (Rec: 04/06/24 08:15 SP [id number]) OP-PT Subjective Patient Comments Patient Comments Pt reports the manual and stretching helps. Still can only stand for 10-15 min in kitchen or walking with friends before back tightens and irritation so has to sit down for 10 min then ok to continue. Uses bilateral trek poles and can go about 1.5-2 miles total. PT-OP-G Mobility & Gait Start: 03/21/24 13:59 Freq: Status: Active Protocol: Document 03/22/24 11:15 MB (Rec: 03/22/24 11:56 MB [id number]) OP Gait Assessment Comments Gait Comments Right lean and right leg tends to hit hard and have flexion at hip and knee and adduction with stepping and appears less stable and functionally shorter than left with gait. Added short full length cork wedge for shoe and gait is better. PT-OP-J Posture/Palpation/Skin Start: 03/21/24 13:59 Freq: Status: Active Protocol: Document 03/22/24 11:15 MB (Rec: 03/22/24 11:56 MB [id number]) Posture Evaluation Comments Posture Comments Standing posture with shoes and socks off: head rests in mild right SB, left shoulder higher than the right, mild Dowager's hump, straightened spine from posterior view and spinal column pronounced on left, possibly d/t rotated vertebrae, left iliac crest higher than the right, right knee flexion and increased functional Q ankle in standing with weight shifted to functionally longer left leg. Forward head. Standing posture: flexion with fingers 10 from floor, hip flexion pattern in standing and extension with hands on hips to neutral, limited lumbar SB B in standing, more to the left. Overall stiffness in spine. L SI joint stiffer than the right in standing with SB and with overpressure in supine. B SLR tight and grossly equal to 70 deg. PT-OP-K Range of Motion Start: 03/21/24 13:59 Freq: Status: Active Protocol: Document 03/22/24 11:15 MB (Rec: 03/22/24 11:56 MB [id number]) Ankle and Foot Goniometric Range of Motion Ankle and Foot ROM Limitations Comments Right ankle DF and knee extension are reduced in supine and he has increased hip flexor shortening on the right compared to left as well . Decreased right great toe extension. PT-OP-M Strength Start: 03/21/24 13:59 Freq: Status: Active Protocol: Document 03/22/24 11:15 MB (Rec: 03/22/24 11:56 MB [id number]) Hip Strength Hip Manual Muscle Testing Left Flexion (L2) 4+ Good+ Abduction 4 Good Right Flexion (L2) 4+ Good+ Abduction 4+ Good+ Knee Strength Knee Manual Muscle Testing Left Flexion (S2) 5 Normal Extension (L3) 5 Normal Right Flexion (S2) 5 Normal Extension (L3) 5 Normal Ankle/Foot Strength Ankle and Foot Manual Muscle Testing Left Dorsiflexion (L4) 4+ Good+ Right Dorsiflexion (L4) 4- Good- Toe Strength Toe Manual Muscle Testing Left Great Toe Extension 4 Good Right Great Toe Extension 4- Good- PT-OP-Q Treatments Start: 03/21/24 13:59 Freq: Status: Active Protocol: Document 04/06/24 07:33 SP (Rec: 04/06/24 08:15 SP [id number]) Therapeutic Exercises Sitting Exercises TS Rotation Sitting Exercise Name added to HEP Side bilateral Equipment Used arms across chest vs locked finger front chest then rotation pnfreerange Reps/Minutes 2x10, Comments Cued for set up and Standing Exercises Pect, hip flexor and QL stretches doorway Standing Exercise Name reviewedpec, hip flexor, QL, added calf /c HO Side bilateral Reps/Minutes 30 seconds and move from one stretch to the next, one side at a time Comments cues for set up each, tall posture and head retracted neutral Manual Therapy Treatment Consent Patient gave verbal consent for manual Yes treatment Other Other Manual Treatments Pt kneeling on wedge and leaning over the bed: STM B glutes, hip rotators, QL and thoracolumbar paraspinals Hookyling: TFL, prox quad, psoas. Self-Care/Home Management Treatment Education Other Education Discussed use pillows under thighs sleeping in supine and between BLEs and BUEs sidesleeping. ALso eccentric heel strike for decreased foot slap awareness LLE. PT-OP-T Assessment and Plan Start: 03/21/24 13:59 Freq: Status: Active Protocol: Document 04/06/24 07:33 SP (Rec: 04/06/24 08:15 SP [id number]) Physical Therapy Assessment Goals 4 Impairment Evidence of imbalance Longterm Goal (LTG) Pt will perform TUG without AD in no more than 10 sec to improve balance and decrease fall risk. LTG Duration 8 weeks 3 Impairment Lack of HEP Longterm Goal (LTG) Pt will perform progressive HEP with I including pelvic realignment, flexibility, breathing, balance and strengthening exercises to improve movement and pain. LTG Duration 8 weeks 2 Impairment LE weakness Longterm Goal (LTG) Pt will present with B hip flexion and abduction to at least 4+/5 to improve functional mobility and gait pattern. LTG Duration 8 weeks 1 Impairment Oswestry score 14/50, reflecting 28% impairment [employer] Goal (LTG) Pt will present with an Oswestry score reflecting no more than 20% impairment to improve pain and quality of life. LTG Duration 8 weeks Assessment Summary Assessment Pt improved thoracic and lumbar mobility post manual and stretching. Requires cues for set up and proper alignment during stretching ther ex. Incorporated hipflexor manual to assist facilitate hip extension. Cued slower heel LLE eccentric heel strike. Physical Therapy Plan Frequency and Duration Frequency of Treatment 2x/Week Duration of treatment (weeks) 8 Plan of Care Start Date 03/22/24 Plan of Care End Date 05/23/24 Therapeutic Interventions Therapeutic Interventions Balance Training,Canalithic Repositioning,Coordination Training,Gait Training,Home Exercise Program,Joint Mobilizations,Manual Therapy, Neuromuscular Re-education, Patient/Caregiver Education, Self-Care/Home Management,Soft Tissue Mobilization,Taping, Therapeutic Activities, Therapeutic Exercises, Vestibular Rehabilitation Modalities Cold Pack/Ice Massage,Electric Stimulation,Hot Packs, Ultrasound Next Visit Focus/Plan Next Note Type Treatment Note Next Visit Plan Recheck thoracic rotation seated and form stretches. POC: Con't manual work Progress core progression, balance and strengthening Will want to work on hip strengthening
--- NOTE | 2024-04-08 10:35 | PT.OTN ---
Current Diagnoses Other intervertebral disc degeneration, lumbar region without mention of lumbar back pain or lower extremity pain (04/08/24) Physical Therapy Treatment Note PT-OP-A Visit Information Start: 03/21/24 13:59 Freq: Status: Active Protocol: Document 04/08/24 09:55 SP (Rec: 04/08/24 10:42 SP [id number]) Out-Patient Physical Therapy Visit Information Visit Information Visit Type Treatment Note Visit Note Medicare 10/06 Visit Start Time 09:55 Visit Stop Time 10:35 Visit Number 4 Number of CLOTH MERCERIZER OPERATOR Visits 2 Evaluation Information Evaluation Date 03/22/24 PT-OP-B Current Condition Start: 03/21/24 13:59 Freq: Status: Active Protocol: Document 03/22/24 11:15 MB (Rec: 03/22/24 11:56 MB [id number]) Current Condition History of Current Condition Onset Date 1 year Current Complaints L LBP History of Current Condition Pt has L LBP after 15 minutes of standing doing dishes and after walking about 10 minutes . He can tolerate 10-15 minutes on his feet before he needs a sitting rest break. Pt denies paresthesias and pain down the leg. He is sleeping okay. PMH includes L4-5 PLIF 02/16, LSVT [facility] in 2021 for PD, left achilles and plantar fascia spurring, right knee with many changes and s/p TKA 06/15, left hip tendinitis and OA, abdominal hepatic steatosis/ hepatocellular disease found on aterial US, B foot neuropathy and hammer toes, DM . Pt had previous back pain symptoms before his back surgery. He will have another injection 04/04/24. Pt is doing [employer] [facility] once a week, was doing [place] and did not sign up again, and walks once a week with friend. Prior Treatments and Tests See above Treatment Goals Patient/Caregiver Goals Decrease pain and improve endurance PT-OP-C Subjective Start: 03/21/24 13:59 Freq: Status: Active Protocol: Document 04/08/24 09:55 SP (Rec: 04/08/24 10:42 SP [id number]) OP-PT Subjective Patient Comments Patient Comments Pt reports he felt ok after last tx. But still gets the pain, stiffness, achiness after standing still and walking activities for 10-20 min needs then ok. His walking group good with him stopping and sitting but wants to get better at longer distance. PT-OP-G Mobility & Gait Start: 03/21/24 13:59 Freq: Status: Active Protocol: Document 03/22/24 11:15 MB (Rec: 03/22/24 11:56 MB [id number]) OP Gait Assessment Comments Gait Comments Right lean and right leg tends to hit hard and have flexion at hip and knee and adduction with stepping and appears less stable and functionally shorter than left with gait. Added short full length cork wedge for shoe and gait is better. PT-OP-J Posture/Palpation/Skin Start: 03/21/24 13:59 Freq: Status: Active Protocol: Document 03/22/24 11:15 MB (Rec: 03/22/24 11:56 MB [id number]) Posture Evaluation Comments Posture Comments Standing posture with shoes and socks off: head rests in mild right SB, left shoulder higher than the right, mild Dowager's hump, straightened spine from posterior view and spinal column pronounced on left, possibly d/t rotated vertebrae, left iliac crest higher than the right, right knee flexion and increased functional Q ankle in standing with weight shifted to functionally longer left leg. Forward head. Standing posture: flexion with fingers 10 from floor, hip flexion pattern in standing and extension with hands on hips to neutral, limited lumbar SB B in standing, more to the left. Overall stiffness in spine. L SI joint stiffer than the right in standing with SB and with overpressure in supine. B SLR tight and grossly equal to 70 deg. PT-OP-K Range of Motion Start: 03/21/24 13:59 Freq: Status: Active Protocol: Document 03/22/24 11:15 MB (Rec: 03/22/24 11:56 MB [id number]) Ankle and Foot Goniometric Range of Motion Ankle and Foot ROM Limitations Comments Right ankle DF and knee extension are reduced in supine and he has increased hip flexor shortening on the right compared to left as well . Decreased right great toe extension. PT-OP-M Strength Start: 03/21/24 13:59 Freq: Status: Active Protocol: Document 03/22/24 11:15 MB (Rec: 03/22/24 11:56 MB [id number]) Hip Strength Hip Manual Muscle Testing Left Flexion (L2) 4+ Good+ Abduction 4 Good Right Flexion (L2) 4+ Good+ Abduction 4+ Good+ Knee Strength Knee Manual Muscle Testing Left Flexion (S2) 5 Normal Extension (L3) 5 Normal Right Flexion (S2) 5 Normal Extension (L3) 5 Normal Ankle/Foot Strength Ankle and Foot Manual Muscle Testing Left Dorsiflexion (L4) 4+ Good+ Right Dorsiflexion (L4) 4- Good- Toe Strength Toe Manual Muscle Testing Left Great Toe Extension 4 Good Right Great Toe Extension 4- Good- PT-OP-Q Treatments Start: 03/21/24 13:59 Freq: Status: Active Protocol: Document 04/08/24 09:55 SP (Rec: 04/08/24 10:42 SP [id number]) Therapeutic Exercises Supine Exercises Pelvic realignment exercises Supine Exercise Name HEP Side bilateral Equipment Used Blue ball Reps/Minutes 5 reps, 3 sec hold all exercises Comments Feet together ball squeeze iso , knee opp ankle iso, thigh press down iso Sidelying Exercises Open book Sidelying Exercise Name HEP Side bilateral Equipment Used Pillow between knees Reps/Minutes 10 reps Sitting Exercises TS Rotation Sitting Exercise Name HEP Side bilateral Equipment Used arms across chest vs locked finger front chest then rotation pnfreerange Reps/Minutes x15 Comments Cued for lead with breast bone , TS rotation, pnfree range Standing Exercises Anti-Rotation resisted press out Standing Exercise Name paloff press initiated for HEP /c HO: core/back strengthening Side bilateral Resistance Tb #2 teal double Reps/Minutes x15 each side Comments Ed athletic stance, soft knee, neutral pelvis, good trunk effort reported Pect, hip flexor and QL stretches doorway Standing Exercise Name reviewedpec, hip flexor, QL, Calf Side bilateral Reps/Minutes 30 seconds and move from one stretch to the next, one side at a time Comments cues for set up each, tall posture and head retracted neutral Manual Therapy Treatment Consent Patient gave verbal consent for manual Yes treatment Other Other Manual Treatments Pt kneeling on wedge and leaning over the bed: STM B glutes, hip rotators, QL and thoracolumbar paraspinals PT-OP-T Assessment and Plan Start: 03/21/24 13:59 Freq: Status: Active Protocol: Document 04/08/24 09:55 SP (Rec: 04/08/24 10:42 SP [id number]) Physical Therapy Assessment Goals 4 Impairment Evidence of imbalance [employer] Goal (LTG) Pt will perform TUG without AD in no more than 10 sec to improve balance and decrease fall risk. LTG Duration 8 weeks 3 Impairment Lack of HEP Longterm Goal (LTG) Pt will perform progressive HEP with I including pelvic realignment, flexibility, breathing, balance and strengthening exercises to improve movement and pain. LTG Duration 8 weeks 2 Impairment LE weakness Longterm Goal (LTG) Pt will present with B hip flexion and abduction to at least 4+/5 to improve functional mobility and gait pattern. LTG Duration 8 weeks 1 Impairment Oswestry score 14/50, reflecting 28% impairment Longterm Goal (LTG) Pt will present with an Oswestry score reflecting no more than 20% impairment to improve pain and quality of life. LTG Duration 8 weeks Assessment Summary Assessment Pt reports improved back and hip mobility post manual and stretching. Cues for proper form seated TS rotation lead with breast bone to painfree fluid range comfortable. Initiated core/back contraction antirotation against resistance with improvement in posture corrections with occasional cues needed. Pt reports feel pretty good mobility end tx. Discussed briefly at end tx to incorporate standing hip flexor and calf stretch when stop at benches out for walk for improved elongated posture and hip extension ROM for progressed mobility. CLOTH MERCERIZER OPERATOR discussed will PT will focus on TrP soft tissue mobility with her next tx with pt. Physical Therapy Plan Frequency and Duration Frequency of Treatment 2x/Week Duration of treatment (weeks) 8 Plan of Care Start Date 03/22/24 Plan of Care End Date 05/23/24 Therapeutic Interventions Therapeutic Interventions Balance Training,Canalithic Repositioning,Coordination Training,Gait Training,Home Exercise Program,Joint Mobilizations,Manual Therapy, Neuromuscular Re-education, Patient/Caregiver Education, Self-Care/Home Management,Soft Tissue Mobilization,Taping, Therapeutic Activities, Therapeutic Exercises, Vestibular Rehabilitation Modalities Cold Pack/Ice Massage,Electric Stimulation,Hot Packs, Ultrasound Next Visit Focus/Plan Next Note Type Treatment Note Next Visit Plan Recheck HEP thoracic rotation seated and initiated resistaed antirotation core/back ex. Next start balance activities. POC: Con't manual work Progress core progression, balance and strengthening Will want to work on hip strengthening
--- NOTE | 2024-04-13 08:10 | PT.OTN ---
Current Diagnoses Other intervertebral disc degeneration, lumbar region without mention of lumbar back pain or lower extremity pain (04/13/24) Physical Therapy Treatment Note PT-OP-A Visit Information Start: 03/21/24 13:59 Freq: Status: Active Protocol: Document 04/13/24 07:27 MB (Rec: 04/13/24 08:10 MB [id number]) Out-Patient Physical Therapy Visit Information Visit Information Visit Type Treatment Note Visit Note Medicare Progress note by 04/21/24 Visit Start Time 07:27 Visit Stop Time 08:07 Visit Number 5 Number of CONTINUOUS IMPROVEMENT ANALYST Visits 0 Evaluation Information Evaluation Date 03/22/24 PT-OP-B Current Condition Start: 03/21/24 13:59 Freq: Status: Active Protocol: Document 03/22/24 11:15 MB (Rec: 03/22/24 11:56 MB [id number]) Current Condition History of Current Condition Onset Date 1 year Current Complaints L LBP History of Current Condition Pt has L LBP after 15 minutes of standing doing dishes and after walking about 10 minutes . He can tolerate 10-15 minutes on his feet before he needs a sitting rest break. Pt denies paresthesias and pain down the leg. He is sleeping okay. PMH includes L4-5 PLIF 02/16, LSVT BIG in 2021 for PD, left achilles and plantar fascia spurring, right knee with many changes and s/p TKA 06/15, left hip tendinitis and OA, abdominal hepatic steatosis/ hepatocellular disease found on aterial US, B foot neuropathy and hammer toes, DM . Pt had previous back pain symptoms before his back surgery. He will have another injection 04/04/24. Pt is doing [facility] once a week, was doing [place] and did not sign up again, and walks once a week with friend. Prior Treatments and Tests See above Treatment Goals Patient/Caregiver Goals Decrease pain and improve endurance PT-OP-C Subjective Start: 03/21/24 13:59 Freq: Status: Active Protocol: Document 04/13/24 07:27 MB (Rec: 04/13/24 08:10 MB [id number]) OP-PT Subjective Patient Comments Patient Comments Pt states his exercises are good and that he has 50% less pain after the injection. He walked yesterday and was able to walk slightly further without a sitting rest break. PT-OP-G Mobility & Gait Start: 03/21/24 13:59 Freq: Status: Active Protocol: Document 03/22/24 11:15 MB (Rec: 03/22/24 11:56 MB [id number]) OP Gait Assessment Comments Gait Comments Right lean and right leg tends to hit hard and have flexion at hip and knee and adduction with stepping and appears less stable and functionally shorter than left with gait. Added short full length cork wedge for shoe and gait is better. PT-OP-J Posture/Palpation/Skin Start: 03/21/24 13:59 Freq: Status: Active Protocol: Document 03/22/24 11:15 MB (Rec: 03/22/24 11:56 MB [id number]) Posture Evaluation Comments Posture Comments Standing posture with shoes and socks off: head rests in mild right SB, left shoulder higher than the right, mild Dowager's hump, straightened spine from posterior view and spinal column pronounced on left, possibly d/t rotated vertebrae, left iliac crest higher than the right, right knee flexion and increased functional Q ankle in standing with weight shifted to functionally longer left leg. Forward head. Standing posture: flexion with fingers 10 from floor, hip flexion pattern in standing and extension with hands on hips to neutral, limited lumbar SB B in standing, more to the left. Overall stiffness in spine. L SI joint stiffer than the right in standing with SB and with overpressure in supine. B SLR tight and grossly equal to 70 deg. PT-OP-K Range of Motion Start: 03/21/24 13:59 Freq: Status: Active Protocol: Document 03/22/24 11:15 MB (Rec: 03/22/24 11:56 MB [id number]) Ankle and Foot Goniometric Range of Motion Ankle and Foot ROM Limitations Comments Right ankle DF and knee extension are reduced in supine and he has increased hip flexor shortening on the right compared to left as well . Decreased right great toe extension. PT-OP-M Strength Start: 03/21/24 13:59 Freq: Status: Active Protocol: Document 03/22/24 11:15 MB (Rec: 03/22/24 11:56 MB [id number]) Hip Strength Hip Manual Muscle Testing Left Flexion (L2) 4+ Good+ Abduction 4 Good Right Flexion (L2) 4+ Good+ Abduction 4+ Good+ Knee Strength Knee Manual Muscle Testing Left Flexion (S2) 5 Normal Extension (L3) 5 Normal Right Flexion (S2) 5 Normal Extension (L3) 5 Normal Ankle/Foot Strength Ankle and Foot Manual Muscle Testing Left Dorsiflexion (L4) 4+ Good+ Right Dorsiflexion (L4) 4- Good- Toe Strength Toe Manual Muscle Testing Left Great Toe Extension 4 Good Right Great Toe Extension 4- Good- PT-OP-Q Treatments Start: 03/21/24 13:59 Freq: Status: Active Protocol: Document 04/13/24 07:27 MB (Rec: 04/13/24 08:10 MB [id number]) Therapeutic Exercises Sitting Exercises TS Rotation Sitting Exercise Name HEP Side bilateral Equipment Used Arms across chest Reps/Minutes 10 reps each side Standing Exercises Calf stretch Standing Exercise Name HEP Side bilateral Reps/Minutes 30 sec x2 reps Comments Gastroc stretch with leg straight Anti-Rotation resisted press out Standing Exercise Name Core and multifidi press out Side bilateral Resistance Tb #2 teal Reps/Minutes 5 each side Comments Cues to wind up tension, draw belly button in Manual Therapy Treatment Consent Patient gave verbal consent for manual Yes treatment Other Other Manual Treatments Pt side lying with head and legs supported and pillow between ribs and pelvis: STM and positional release B PFs, hip rotators, QL and ilipsoas, also rib recoil, MWM B PFs, TrP treatment B QL, iliospoas and PFs PT-OP-T Assessment and Plan Start: 03/21/24 13:59 Freq: Status: Active Protocol: Document 04/13/24 07:27 MB (Rec: 04/13/24 08:10 [id number]) Physical Therapy Assessment Goals 4 Impairment Evidence of imbalance Mcfp Goal (LTG) Pt will perform TUG without AD in no more than 10 sec to improve balance and decrease fall risk. LTG Duration 8 weeks 3 Impairment Lack of HEP Mcfp Goal (LTG) Pt will perform progressive HEP with I including pelvic realignment, flexibility, breathing, balance and strengthening exercises to improve movement and pain. LTG Duration 8 weeks 2 Impairment LE weakness Mcfp Goal (LTG) Pt will present with B hip flexion and abduction to at least 4+/5 to improve functional mobility and gait pattern. LTG Duration 8 weeks 1 Impairment Oswestry score 14/50, reflecting 28% impairment Mcfp Goal (LTG) Pt will present with an Oswestry score reflecting no more than 20% impairment to improve pain and quality of life. LTG Duration 8 weeks Assessment Summary Assessment Increased myofascial tension left calf, right hip flexor and quad and further manual work today. Reviewed exercises and con't per plan below. Physical Therapy Plan Frequency and Duration Frequency of Treatment 2x/Week Duration of treatment (weeks) 8 Plan of Care Start Date 03/22/24 Plan of Care End Date 05/23/24 Therapeutic Interventions Therapeutic Interventions Balance Training,Canalithic Repositioning,Coordination Training,Gait Training,Home Exercise Program,Joint Mobilizations,Manual Therapy, Neuromuscular Re-education, Patient/Caregiver Education, Self-Care/Home Management,Soft Tissue Mobilization,Taping, Therapeutic Activities, Therapeutic Exercises, Vestibular Rehabilitation Modalities Cold Pack/Ice Massage,Electric Stimulation,Hot Packs, Ultrasound Next Visit Focus/Plan Next Note Type Treatment Note Next Visit Plan Recheck press outs in standing . Consider adding Cliff stretch and hook lying hamstring stretch with AP POC: Con't manual work Progress core progression, balance and strengthening including glute strengthening and quad strengthening, check SLS and other static standing balance.
--- NOTE | 2024-04-18 08:13 | PT.OTN ---
Current Diagnoses Other intervertebral disc degeneration, lumbar region without mention of lumbar back pain or lower extremity pain (04/18/24) Physical Therapy Treatment Note PT-OP-A Visit Information Start: 03/21/24 13:59 Freq: Status: Active Protocol: Document 04/18/24 07:33 SP (Rec: 04/18/24 08:16 SP [id number]) Out-Patient Physical Therapy Visit Information Visit Information Visit Type Treatment Note Visit Note Medicare Progress note by 04/21/24 Visit Start Time 07:33 Visit Stop Time 08:13 Visit Number 6 Number of DIRECTOR OF ACADEMIC SUPPORT Visits 1 Evaluation Information Evaluation Date 03/22/24 PT-OP-B Current Condition Start: 03/21/24 13:59 Freq: Status: Active Protocol: Document 03/22/24 11:15 MB (Rec: 03/22/24 11:56 MB [id number]) Current Condition History of Current Condition Onset Date 1 year Current Complaints L LBP History of Current Condition Pt has L LBP after 15 minutes of standing doing dishes and after walking about 10 minutes . He can tolerate 10-15 minutes on his feet before he needs a sitting rest break. Pt denies paresthesias and pain down the leg. He is sleeping okay. PMH includes L4-5 PLIF 02/16, LSVT [facility] in 2021 for PD, left achilles and plantar fascia spurring, right knee with many changes and s/p TKA 06/15, left hip tendinitis and OA, abdominal hepatic steatosis/ hepatocellular disease found on aterial US, B foot neuropathy and hammer toes, DM . Pt had previous back pain symptoms before his back surgery. He will have another injection 04/04/24. Pt is doing [employer] [facility] once a week, was doing [place] and did not sign up again, and walks once a week with friend. Prior Treatments and Tests See above Treatment Goals Patient/Caregiver Goals Decrease pain and improve endurance PT-OP-C Subjective Start: 03/21/24 13:59 Freq: Status: Active Protocol: Document 04/18/24 07:33 SP (Rec: 04/18/24 08:16 SP [id number]) OP-PT Subjective Patient Comments Patient Comments Pt reports felt little sore after TrP manual tx but went away next day. Compliant with HEP. Arrives decreased stance time on RLE, wearing heel lift in R shoe to help with walking. PT-OP-G Mobility & Gait Start: 03/21/24 13:59 Freq: Status: Active Protocol: Document 03/22/24 11:15 MB (Rec: 03/22/24 11:56 MB [id number]) OP Gait Assessment Comments Gait Comments Right lean and right leg tends to hit hard and have flexion at hip and knee and adduction with stepping and appears less stable and functionally shorter than left with gait. Added short full length cork wedge for shoe and gait is better. PT-OP-J Posture/Palpation/Skin Start: 03/21/24 13:59 Freq: Status: Active Protocol: Document 03/22/24 11:15 MB (Rec: 03/22/24 11:56 MB [id number]) Posture Evaluation Comments Posture Comments Standing posture with shoes and socks off: head rests in mild right SB, left shoulder higher than the right, mild Dowager's hump, straightened spine from posterior view and spinal column pronounced on left, possibly d/t rotated vertebrae, left iliac crest higher than the right, right knee flexion and increased functional Q ankle in standing with weight shifted to functionally longer left leg. Forward head. Standing posture: flexion with fingers 10 from floor, hip flexion pattern in standing and extension with hands on hips to neutral, limited lumbar SB B in standing, more to the left. Overall stiffness in spine. L SI joint stiffer than the right in standing with SB and with overpressure in supine. B SLR tight and grossly equal to 70 deg. PT-OP-K Range of Motion Start: 03/21/24 13:59 Freq: Status: Active Protocol: Document 03/22/24 11:15 MB (Rec: 03/22/24 11:56 MB [id number]) Ankle and Foot Goniometric Range of Motion Ankle and Foot ROM Limitations Comments Right ankle DF and knee extension are reduced in supine and he has increased hip flexor shortening on the right compared to left as well . Decreased right great toe extension. PT-OP-M Strength Start: 03/21/24 13:59 Freq: Status: Active Protocol: Document 03/22/24 11:15 MB (Rec: 03/22/24 11:56 MB [id number]) Hip Strength Hip Manual Muscle Testing Left Flexion (L2) 4+ Good+ Abduction 4 Good Right Flexion (L2) 4+ Good+ Abduction 4+ Good+ Knee Strength Knee Manual Muscle Testing Left Flexion (S2) 5 Normal Extension (L3) 5 Normal Right Flexion (S2) 5 Normal Extension (L3) 5 Normal Ankle/Foot Strength Ankle and Foot Manual Muscle Testing Left Dorsiflexion (L4) 4+ Good+ Right Dorsiflexion (L4) 4- Good- Toe Strength Toe Manual Muscle Testing Left Great Toe Extension 4 Good Right Great Toe Extension 4- Good- PT-OP-Q Treatments Start: 03/21/24 13:59 Freq: Status: Active Protocol: Document 04/18/24 07:33 SP (Rec: 04/18/24 08:16 SP [id number]) Therapeutic Exercises Supine Exercises Cliff stretch Supine Exercise Name added to HEP Side bilateral Reps/Minutes 60SH Active HS stretch /c AP Supine Exercise Name initiated in PT- added to HEP Side bilateral Equipment Used strap on foot Reps/Minutes x30 AP Comments cued TKE tolerant range with slow ankle pumps Sitting Exercises TS Rotation Sitting Exercise Name HEP Side bilateral Resistance Arms across chest- [place] TB Equipment Used seated on 65cm tball Reps/Minutes 10 reps each side Comments Cued posture TA, elbows tucked at side, rotation pnfree range Standing Exercises Anti-Rotation resisted press out Standing Exercise Name Core and multifidi press out Side bilateral Resistance Tb #3 [place] nonlatex in PT Reps/Minutes 15 each side Comments Cues to wind up tension, draw belly button in Manual Therapy Treatment Other Other Manual Treatments Pt side lying with head and legs supported and pillow between ribs and pelvis: STM and positional release B PFs, hip rotators, QL. PNF AAROM and against resistance anterior elevation, posterior depression for pelvic mobility with improved AROM post cues. PT-OP-T Assessment and Plan Start: 03/21/24 13:59 Freq: Status: Active Protocol: Document 04/18/24 07:33 SP (Rec: 04/18/24 08:16 SP [id number]) Physical Therapy Assessment Goals 4 Impairment Evidence of imbalance Solar Systems Designer Goal (LTG) Pt will perform TUG without AD in no more than 10 sec to improve balance and decrease fall risk. LTG Duration 8 weeks 3 Impairment Lack of HEP Correction Goal (LTG) Pt will perform progressive HEP with I including pelvic realignment, flexibility, breathing, balance and strengthening exercises to improve movement and pain. LTG Duration 8 weeks 2 Impairment LE weakness Correction Goal (LTG) Pt will present with B hip flexion and abduction to at least 4+/5 to improve functional mobility and gait pattern. LTG Duration 8 weeks 1 Impairment Oswestry score 14/50, reflecting 28% impairment Correction Goal (LTG) Pt will present with an Oswestry score reflecting no more than 20% impairment to improve pain and quality of life. LTG Duration 8 weeks Assessment Summary Assessment Pt improved low back and pelvic mobility post manual and ther ex. Not as tight in my back as when came in. Cues for TA engagement during resisted TS rotation small range, improved eccentric return with no reports of pain but good core engagement. Cues for TA, slight slower pacing with awareness of arm swing, R foot DF swing phase and eccentric heel strike and eccentric PF during gait end tx for safety. Physical Therapy Plan Frequency and Duration Frequency of Treatment 2x/Week Duration of treatment (weeks) 8 Plan of Care Start Date 03/22/24 Plan of Care End Date 05/23/24 Therapeutic Interventions Therapeutic Interventions Balance Training,Canalithic Repositioning,Coordination Training,Gait Training,Home Exercise Program,Joint Mobilizations,Manual Therapy, Neuromuscular Re-education, Patient/Caregiver Education, Self-Care/Home Management,Soft Tissue Mobilization,Taping, Therapeutic Activities, Therapeutic Exercises, Vestibular Rehabilitation Modalities Cold Pack/Ice Massage,Electric Stimulation,Hot Packs, Ultrasound Next Visit Focus/Plan Next Note Type Treatment Note Next Visit Plan Recheck added Cliff stretch and active HS /c APs. Next add core progression, balance and consider reintroduction [place] ex. POC: Con't manual work, including glute strengthening and quad strengthening, check SLS and other static standing balance.
--- NOTE | 2024-04-20 08:24 | PT.OTN ---
Current Diagnoses Other intervertebral disc degeneration, lumbar region without mention of lumbar back pain or lower extremity pain (04/20/24) Physical Therapy Treatment Note PT-OP-A Visit Information Start: 03/21/24 13:59 Freq: Status: Active Protocol: Document 04/20/24 07:29 MB (Rec: 04/20/24 08:23 MB [id number]) Out-Patient Physical Therapy Visit Information Visit Information Visit Type Progress Note Visit Note Medicare Next progress note by 05/21/24 Visit Start Time 07:29 Visit Stop Time 08:22 Visit Number 7 Number of DEV MANAGER Visits 0 Evaluation Information Evaluation Date 03/22/24 PT-OP-B Current Condition Start: 03/21/24 13:59 Freq: Status: Active Protocol: Document 03/22/24 11:15 MB (Rec: 03/22/24 11:56 MB [id number]) Current Condition History of Current Condition Onset Date 1 year Current Complaints L LBP History of Current Condition Pt has L LBP after 15 minutes of standing doing dishes and after walking about 10 minutes . He can tolerate 10-15 minutes on his feet before he needs a sitting rest break. Pt denies paresthesias and pain down the leg. He is sleeping okay. PMH includes L4-5 PLIF 02/16, LSVT BIG in 2021 for PD, left achilles and plantar fascia spurring, right knee with many changes and s/p TKA 06/15, left hip tendinitis and OA, abdominal hepatic steatosis/ hepatocellular disease found on aterial US, B foot neuropathy and hammer toes, DM . Pt had previous back pain symptoms before his back surgery. He will have another injection 04/04/24. Pt is doing [employer] once a week, was doing [place] and did not sign up again, and walks once a week with friend. Prior Treatments and Tests See above Treatment Goals Patient/Caregiver Goals Decrease pain and improve endurance PT-OP-C Subjective Start: 03/21/24 13:59 Freq: Status: Active Protocol: Document 04/20/24 07:29 MB (Rec: 04/20/24 08:23 MB [id number]) OP-PT Subjective Patient Comments Patient Comments Pt states that he saw Dr. Whitmore yesterday and he does think the back pain is some better. He con't to walk for exercise with friends and does stop. He is standing a little longer with the dishes before sitting . PT-OP-G Mobility & Gait Start: 03/21/24 13:59 Freq: Status: Active Protocol: Document 03/22/24 11:15 MB (Rec: 03/22/24 11:56 MB [id number]) OP Gait Assessment Comments Gait Comments Right lean and right leg tends to hit hard and have flexion at hip and knee and adduction with stepping and appears less stable and functionally shorter than left with gait. Added short full length cork wedge for shoe and gait is better. PT-OP-J Posture/Palpation/Skin Start: 03/21/24 13:59 Freq: Status: Active Protocol: Document 03/22/24 11:15 MB (Rec: 03/22/24 11:56 MB [id number]) Posture Evaluation Comments Posture Comments Standing posture with shoes and socks off: head rests in mild right SB, left shoulder higher than the right, mild Dowager's hump, straightened spine from posterior view and spinal column pronounced on left, possibly d/t rotated vertebrae, left iliac crest higher than the right, right knee flexion and increased functional Q ankle in standing with weight shifted to functionally longer left leg. Forward head. Standing posture: flexion with fingers 10 from floor, hip flexion pattern in standing and extension with hands on hips to neutral, limited lumbar SB B in standing, more to the left. Overall stiffness in spine. L SI joint stiffer than the right in standing with SB and with overpressure in supine. B SLR tight and grossly equal to 70 deg. PT-OP-K Range of Motion Start: 03/21/24 13:59 Freq: Status: Active Protocol: Document 03/22/24 11:15 MB (Rec: 03/22/24 11:56 MB [id number]) Ankle and Foot Goniometric Range of Motion Ankle and Foot ROM Limitations Comments Right ankle DF and knee extension are reduced in supine and he has increased hip flexor shortening on the right compared to left as well . Decreased right great toe extension. PT-OP-M Strength Start: 03/21/24 13:59 Freq: Status: Active Protocol: Document 03/22/24 11:15 MB (Rec: 03/22/24 11:56 MB [id number]) Hip Strength Hip Manual Muscle Testing Left Flexion (L2) 4+ Good+ Abduction 4 Good Right Flexion (L2) 4+ Good+ Abduction 4+ Good+ Knee Strength Knee Manual Muscle Testing Left Flexion (S2) 5 Normal Extension (L3) 5 Normal Right Flexion (S2) 5 Normal Extension (L3) 5 Normal Ankle/Foot Strength Ankle and Foot Manual Muscle Testing Left Dorsiflexion (L4) 4+ Good+ Right Dorsiflexion (L4) 4- Good- Toe Strength Toe Manual Muscle Testing Left Great Toe Extension 4 Good Right Great Toe Extension 4- Good- PT-OP-Q Treatments Start: 03/21/24 13:59 Freq: Status: Active Protocol: Document 04/20/24 07:29 MB (Rec: 04/20/24 08:23 MB [id number]) Therapeutic Exercises Supine Exercises Hip rotator stretch Supine Exercise Name HEP Side bilateral Equipment Used Towel behind opp knee Comments Several reps and 30 sec hold Cliff stretch Supine Exercise Name HEP Side bilateral Reps/Minutes 60SH Active HS stretch /c AP Supine Exercise Name HEP Side bilateral Equipment Used strap on foot Reps/Minutes x30 AP Comments [place] leg bent Pelvic realignment exercises Supine Exercise Name HEP Comments Verbally reviewed today Sidelying Exercises Open book Sidelying Exercise Name HEP Comments Verbally reviewed today Sitting Exercises TS Rotation Sitting Exercise Name HEP Comments Verbally reviewed today Standing Exercises Racquet ball massage Standing Exercise Name HEP Comments Massage glute against the wall Calf stretch Standing Exercise Name HEP Comments Verbally reviewed today Anti-Rotation resisted press out Standing Exercise Name HEP Comments Verbally reviewed today Pect, hip flexor and QL stretches doorway Standing Exercise Name HEP Comments Verbally reviewed today Manual Therapy Treatment Consent Patient gave verbal consent for manual Yes treatment Other Other Manual Treatments Pt supine with head and legs supported with pillow: STM left greater than right gastroc, hamstrings (middle hamstring more tight), vastus lateralis, hip rotators and QL , TFL PT-OP-T Assessment and Plan Start: 03/21/24 13:59 Freq: Status: Active Protocol: Document 04/20/24 07:29 MB (Rec: 04/20/24 08:23 MB [id number]) Physical Therapy Assessment Goals 4 Impairment Evidence of imbalance Dairy Lab Technician Goal (LTG) Pt will perform TUG without AD in no more than 10 sec to improve balance and decrease fall risk. 04/20/24: TUG in 10 sec, goal met LTG Duration 8 weeks 3 Impairment Lack of HEP Dairy Lab Technician Goal (LTG) Pt will perform progressive HEP with I including pelvic realignment, flexibility, breathing, balance and strengthening exercises to improve movement and pain. 04/20/24: Pt is performing exercises in folder, walking and going to community BIG class LTG Duration 8 weeks 2 Impairment LE weakness Half-Way Goal (LTG) Pt will present with B hip flexion and abduction to at least 4+/5 to improve functional mobility and gait pattern. 04/20/24: B hip flexion in supine 5/5 LTG Duration Met 1 Impairment Oswestry score 14/50, reflecting 28% impairment Dairy Lab Technician Goal (LTG) Pt will present with an Oswestry score reflecting no more than 20% impairment to improve pain and quality of life. 04/20/24 Oswestry score reflects 32% impairment and is slightly higher than the eval but PT suspects this is d/t doing together with pt today and he tends to under-report LTG Duration 8 weeks Assessment Summary Assessment Pt met TUG and hip flexion goals since starting PT and he is progressing with HEP. Oswestry score has not improved but pt reports feeling some better. Con't PT to maximize flexibility, strengthening and manual work. Physical Therapy Plan Frequency and Duration Frequency of Treatment 2x/Week Duration of treatment (weeks) 8 Plan of Care Start Date 03/22/24 Plan of Care End Date 05/23/24 Therapeutic Interventions Therapeutic Interventions Balance Training,Canalithic Repositioning,Coordination Training,Gait Training,Home Exercise Program,Joint Mobilizations,Manual Therapy, Neuromuscular Re-education, Patient/Caregiver Education, Self-Care/Home Management,Soft Tissue Mobilization,Taping, Therapeutic Activities, Therapeutic Exercises, Vestibular Rehabilitation Modalities Cold Pack/Ice Massage,Electric Stimulation,Hot Packs, Ultrasound Next Visit Focus/Plan Next Note Type Treatment Note Next Visit Plan Con't manual work, initiate gentle core progression in hook lying, then glute strengthening and quad strengthening (could do both with band in sitting), check SLS and add it or tandem for balance exercise at home
--- NOTE | 2024-04-25 08:12 | PT.OTN ---
Current Diagnoses Other intervertebral disc degeneration, lumbar region without mention of lumbar back pain or lower extremity pain (04/25/24) Physical Therapy Treatment Note PT-OP-A Visit Information Start: 03/21/24 13:59 Freq: Status: Active Protocol: Document 04/25/24 07:32 SP (Rec: 04/25/24 08:17 SP [id number]) Out-Patient Physical Therapy Visit Information Visit Information Visit Type Progress Note Visit Note Medicare Next progress note by 05/21/24 Visit Start Time 07:32 Visit Stop Time 08:12 Visit Number 8 Number of SPRING FORMER Visits 1 Evaluation Information Evaluation Date 03/22/24 PT-OP-B Current Condition Start: 03/21/24 13:59 Freq: Status: Active Protocol: Document 03/22/24 11:15 MB (Rec: 03/22/24 11:56 MB [id number]) Current Condition History of Current Condition Onset Date 1 year Current Complaints L LBP History of Current Condition Pt has L LBP after 15 minutes of standing doing dishes and after walking about 10 minutes . He can tolerate 10-15 minutes on his feet before he needs a sitting rest break. Pt denies paresthesias and pain down the leg. He is sleeping okay. PMH includes L4-5 PLIF 02/16, LSVT [facility] in 2021 for PD, left achilles and plantar fascia spurring, right knee with many changes and s/p TKA 06/15, left hip tendinitis and OA, abdominal hepatic steatosis/ hepatocellular disease found on aterial US, B foot neuropathy and hammer toes, DM . Pt had previous back pain symptoms before his back surgery. He will have another injection 04/04/24. Pt is doing [employer] once a week, was doing [place] and did not sign up again, and walks once a week with friend. Prior Treatments and Tests See above Treatment Goals Patient/Caregiver Goals Decrease pain and improve endurance PT-OP-C Subjective Start: 03/21/24 13:59 Freq: Status: Active Protocol: Document 04/25/24 07:32 SP (Rec: 04/25/24 08:17 SP [id number]) OP-PT Subjective Patient Comments Patient Comments Pt reports compliant with HEP, pain 07/08, doing better. The ball on wall is interesting. He reports is wearing the 2 cork lifts in his shoe but still has limp, increased R foot strike during advancement . PT-OP-G Mobility & Gait Start: 03/21/24 13:59 Freq: Status: Active Protocol: Document 03/22/24 11:15 MB (Rec: 03/22/24 11:56 MB [id number]) OP Gait Assessment Comments Gait Comments Right lean and right leg tends to hit hard and have flexion at hip and knee and adduction with stepping and appears less stable and functionally shorter than left with gait. Added short full length cork wedge for shoe and gait is better. PT-OP-J Posture/Palpation/Skin Start: 03/21/24 13:59 Freq: Status: Active Protocol: Document 03/22/24 11:15 MB (Rec: 03/22/24 11:56 MB [id number]) Posture Evaluation Comments Posture Comments Standing posture with shoes and socks off: head rests in mild right SB, left shoulder higher than the right, mild Dowager's hump, straightened spine from posterior view and spinal column pronounced on left, possibly d/t rotated vertebrae, left iliac crest higher than the right, right knee flexion and increased functional Q ankle in standing with weight shifted to functionally longer left leg. Forward head. Standing posture: flexion with fingers 10 from floor, hip flexion pattern in standing and extension with hands on hips to neutral, limited lumbar SB B in standing, more to the left. Overall stiffness in spine. L SI joint stiffer than the right in standing with SB and with overpressure in supine. B SLR tight and grossly equal to 70 deg. PT-OP-K Range of Motion Start: 03/21/24 13:59 Freq: Status: Active Protocol: Document 03/22/24 11:15 MB (Rec: 03/22/24 11:56 MB [id number]) Ankle and Foot Goniometric Range of Motion Ankle and Foot ROM Limitations Comments Right ankle DF and knee extension are reduced in supine and he has increased hip flexor shortening on the right compared to left as well . Decreased right great toe extension. PT-OP-M Strength Start: 03/21/24 13:59 Freq: Status: Active Protocol: Document 03/22/24 11:15 MB (Rec: 03/22/24 11:56 MB [id number]) Hip Strength Hip Manual Muscle Testing Left Flexion (L2) 4+ Good+ Abduction 4 Good Right Flexion (L2) 4+ Good+ Abduction 4+ Good+ Knee Strength Knee Manual Muscle Testing Left Flexion (S2) 5 Normal Extension (L3) 5 Normal Right Flexion (S2) 5 Normal Extension (L3) 5 Normal Ankle/Foot Strength Ankle and Foot Manual Muscle Testing Left Dorsiflexion (L4) 4+ Good+ Right Dorsiflexion (L4) 4- Good- Toe Strength Toe Manual Muscle Testing Left Great Toe Extension 4 Good Right Great Toe Extension 4- Good- PT-OP-Q Treatments Start: 03/21/24 13:59 Freq: Status: Active Protocol: Document 04/25/24 07:32 SP (Rec: 04/25/24 08:17 SP [id number]) Therapeutic Exercises Supine Exercises TA SLR Supine Exercise Name initiated in PT Side bilateral Resistance AROM 5 off table, opp LE bent Reps/Minutes 2x10 Comments cued TKE Cliff stretch Supine Exercise Name HEP Side bilateral Resistance LE off table, opp LE bent on table Reps/Minutes 60SH Active HS stretch /c AP Supine Exercise Name HEP Side bilateral Equipment Used strap on foot Reps/Minutes x30 AP Comments [place] leg bent Sidelying Exercises Open book Sidelying Exercise Name HEP Side bilateral Resistance AROM Reps/Minutes x10 reps Comments pnfree range reported feels good on his back Sitting Exercises LAQ Sitting Exercise Name reviewed a past [place] HEP Side bilateral Resistance 5 # leg wt Reps/Minutes 30 reps alternating Manual Therapy Treatment Consent Patient gave verbal consent for manual Yes treatment Other Other Manual Treatments Pt sidelying with head and legs supported with pillows: STM right gastroc, hamstrings (middle hamstring more tight), vastus lateralis, R>L hip rotators and QL, TFL, PNF pelvis anterior elevation and posterior depression for lumbar and pelvis mobility Neuro Re-Education Treatment Balance Activities Tandem stance Equipment contact chair set up Comments R ft fwd 60 L ft fwd 10, 37 SLS Comments R 10, 14 L 19, 15 PT-OP-T Assessment and Plan Start: 03/21/24 13:59 Freq: Status: Active Protocol: Document 04/25/24 07:32 SP (Rec: 04/25/24 08:17 SP [id number]) Physical Therapy Assessment Goals 3 Impairment 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 04/20/24: Pt is performing exercises in folder, walking and going to community BIG class LTG Duration 8 weeks 1 Impairment Oswestry score 14/50, reflecting 28% impairment Half-Way Goal (LTG) Pt will present with an Oswestry score reflecting no more than 20% impairment to improve pain and quality of life. 04/20/24 Oswestry score reflects 32% impairment and is slightly higher than the eval but PT suspects this is d/t doing together with pt today and he tends to under-report LTG Duration 8 weeks Assessment Summary Assessment Pt reports improved hip and back tension reduction post manual and stretching. Initiated SLR during tx for progression of core strengthening and reviewed a past resisted LAQ for quad strengthening to support gait, no significant reduction in limp end tx. Physical Therapy Plan Frequency and Duration Frequency of Treatment 2x/Week Duration of treatment (weeks) 8 Plan of Care Start Date 03/22/24 Plan of Care End Date 05/23/24 Therapeutic Interventions Therapeutic Interventions Balance Training,Canalithic Repositioning,Coordination Training,Gait Training,Home Exercise Program,Joint Mobilizations,Manual Therapy, Neuromuscular Re-education, Patient/Caregiver Education, Self-Care/Home Management,Soft Tissue Mobilization,Taping, Therapeutic Activities, Therapeutic Exercises, Vestibular Rehabilitation Modalities Cold Pack/Ice Massage,Electric Stimulation,Hot Packs, Ultrasound Next Visit Focus/Plan Next Note Type Treatment Note Next Visit Plan Con't manual work, recheck initiated TA SLR and resisted quad strengthening, continue initiate gentle core progression in hook lying, next tx start glute strengthening and continue quad strengthening (could do both with band in sitting), check SLS and add it or tandem for balance exercise at home
--- NOTE | 2024-04-27 08:08 | PT.OTN ---
Current Diagnoses Other intervertebral disc degeneration, lumbar region without mention of lumbar back pain or lower extremity pain (04/27/24) Physical Therapy Treatment Note PT-OP-A Visit Information Start: 03/21/24 13:59 Freq: Status: Active Protocol: Document 04/27/24 07:25 MB (Rec: 04/27/24 07:52 MB [id number]) Out-Patient Physical Therapy Visit Information Visit Information Visit Type Treatment Note Visit Note Medicare Next progress note by 05/21/24 Visit Start Time 07:25 Visit Stop Time 08:05 Visit Number 9 Number of ALLERGY SPECIALIST Visits 0 Evaluation Information Evaluation Date 03/22/24 PT-OP-B Current Condition Start: 03/21/24 13:59 Freq: Status: Active Protocol: Document 03/22/24 11:15 MB (Rec: 03/22/24 11:56 MB [id number]) Current Condition History of Current Condition Onset Date 1 year Current Complaints L LBP History of Current Condition Pt has L LBP after 15 minutes of standing doing dishes and after walking about 10 minutes . He can tolerate 10-15 minutes on his feet before he needs a sitting rest break. Pt denies paresthesias and pain down the leg. He is sleeping okay. PMH includes L4-5 PLIF 02/16, LSVT [employer] in 2021 for PD, left achilles and plantar fascia spurring, right knee with many changes and s/p TKA 06/15, left hip tendinitis and OA, abdominal hepatic steatosis/ hepatocellular disease found on aterial US, B foot neuropathy and hammer toes, DM . Pt had previous back pain symptoms before his back surgery. He will have another injection 04/04/24. Pt is doing [employer] [facility] once a week, was doing [place] and did not sign up again, and walks once a week with friend. Prior Treatments and Tests See above Treatment Goals Patient/Caregiver Goals Decrease pain and improve endurance PT-OP-C Subjective Start: 03/21/24 13:59 Freq: Status: Active Protocol: Document 04/27/24 07:25 MB (Rec: 04/27/24 07:52 MB [id number]) OP-PT Subjective Patient Comments Patient Comments Pt is doing his home exercises and he con't with walks. PT-OP-G Mobility & Gait Start: 03/21/24 13:59 Freq: Status: Active Protocol: Document 03/22/24 11:15 MB (Rec: 03/22/24 11:56 MB [id number]) OP Gait Assessment Comments Gait Comments Right lean and right leg tends to hit hard and have flexion at hip and knee and adduction with stepping and appears less stable and functionally shorter than left with gait. Added short full length cork wedge for shoe and gait is better. PT-OP-J Posture/Palpation/Skin Start: 03/21/24 13:59 Freq: Status: Active Protocol: Document 03/22/24 11:15 MB (Rec: 03/22/24 11:56 MB [id number]) Posture Evaluation Comments Posture Comments Standing posture with shoes and socks off: head rests in mild right SB, left shoulder higher than the right, mild Dowager's hump, straightened spine from posterior view and spinal column pronounced on left, possibly d/t rotated vertebrae, left iliac crest higher than the right, right knee flexion and increased functional Q ankle in standing with weight shifted to functionally longer left leg. Forward head. Standing posture: flexion with fingers 10 from floor, hip flexion pattern in standing and extension with hands on hips to neutral, limited lumbar SB B in standing, more to the left. Overall stiffness in spine. L SI joint stiffer than the right in standing with SB and with overpressure in supine. B SLR tight and grossly equal to 70 deg. PT-OP-K Range of Motion Start: 03/21/24 13:59 Freq: Status: Active Protocol: Document 03/22/24 11:15 MB (Rec: 03/22/24 11:56 MB [id number]) Ankle and Foot Goniometric Range of Motion Ankle and Foot ROM Limitations Comments Right ankle DF and knee extension are reduced in supine and he has increased hip flexor shortening on the right compared to left as well . Decreased right great toe extension. PT-OP-M Strength Start: 03/21/24 13:59 Freq: Status: Active Protocol: Document 03/22/24 11:15 MB (Rec: 03/22/24 11:56 MB [id number]) Hip Strength Hip Manual Muscle Testing Left Flexion (L2) 4+ Good+ Abduction 4 Good Right Flexion (L2) 4+ Good+ Abduction 4+ Good+ Knee Strength Knee Manual Muscle Testing Left Flexion (S2) 5 Normal Extension (L3) 5 Normal Right Flexion (S2) 5 Normal Extension (L3) 5 Normal Ankle/Foot Strength Ankle and Foot Manual Muscle Testing Left Dorsiflexion (L4) 4+ Good+ Right Dorsiflexion (L4) 4- Good- Toe Strength Toe Manual Muscle Testing Left Great Toe Extension 4 Good Right Great Toe Extension 4- Good- PT-OP-Q Treatments Start: 03/21/24 13:59 Freq: Status: Active Protocol: Document 04/27/24 07:25 MB (Rec: 04/27/24 07:52 MB [id number]) Therapeutic Exercises Supine Exercises Gentle core progression Supine Exercise Name HEP set position ed today: pelvic tilt, abd drawing in Comments Several reps today Clam with band Supine Exercise Name HEP Abd drawing in, pelvic tilt first Side bilateral Resistance Level 2 band Comments 10 reps Manual Therapy Treatment Consent Patient gave verbal consent for manual Yes treatment Other Other Manual Treatments Pt kneeling over wedge and STM B thoracolumbar paraspinals with cream, STM glutes through clothing and TFL PT-OP-T Assessment and Plan Start: 03/21/24 13:59 Freq: Status: Active Protocol: Document 04/27/24 07:25 MB (Rec: 04/27/24 07:52 MB [id number]) Physical Therapy Assessment Goals 3 Impairment Lack of HEP Mcc Goal (LTG) Pt will perform progressive HEP with I including pelvic realignment, flexibility, breathing, balance and strengthening exercises to improve movement and pain. 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 04/20/24 Oswestry score reflects 32% impairment and is slightly higher than the eval but PT suspects this is d/t doing together with pt today and he tends to under-report LTG Duration 8 weeks Assessment Summary Assessment D/cd SLR today and started core progression ed for gentle progression and added hook lying clam today for glute strengthening. Since pt has already done a lot of [place], he does not wish to perform this in this PT course and PT agrees to this. Physical Therapy Plan Frequency and Duration Frequency of Treatment 2x/Week Duration of treatment (weeks) 8 Plan of Care Start Date 03/22/24 Plan of Care End Date 05/23/24 Therapeutic Interventions Therapeutic Interventions Balance Training,Canalithic Repositioning,Coordination Training,Gait Training,Home Exercise Program,Joint Mobilizations,Manual Therapy, Neuromuscular Re-education, Patient/Caregiver Education, Self-Care/Home Management,Soft Tissue Mobilization,Taping, Therapeutic Activities, Therapeutic Exercises, Vestibular Rehabilitation Modalities Cold Pack/Ice Massage,Electric Stimulation,Hot Packs, Ultrasound Next Visit Focus/Plan Next Note Type Treatment Note Next Visit Plan Progress gentle core progression and DO NOT but in SLR. Con't manual work. In future, add hip extension training in standing and check SLS and other static standing . Pt does not feel like he needs to review [place].
--- NOTE | 2024-05-04 10:26 | PT.OTN ---
Current Diagnoses Other intervertebral disc degeneration, lumbar region without mention of lumbar back pain or lower extremity pain (05/04/24) Physical Therapy Treatment Note PT-OP-A Visit Information Start: 03/21/24 13:59 Freq: Status: Active Protocol: Document 05/04/24 09:41 MB (Rec: 05/04/24 10:26 MB [id number]) Out-Patient Physical Therapy Visit Information Visit Information Visit Type Treatment Note Visit Note Medicare Next progress note by 05/21/24 Visit Start Time 09:41 Visit Stop Time 10:21 Visit Number 10 Number of INTERNATIONAL SALES REPRESENTATIVE Visits 0 Evaluation Information Evaluation Date 03/22/24 PT-OP-B Current Condition Start: 03/21/24 13:59 Freq: Status: Active Protocol: Document 03/22/24 11:15 MB (Rec: 03/22/24 11:56 MB [id number]) Current Condition History of Current Condition Onset Date 1 year Current Complaints L LBP History of Current Condition Pt has L LBP after 15 minutes of standing doing dishes and after walking about 10 minutes . He can tolerate 10-15 minutes on his feet before he needs a sitting rest break. Pt denies paresthesias and pain down the leg. He is sleeping okay. PMH includes L4-5 PLIF 02/16, LSVT BIG in 2021 for PD, left achilles and plantar fascia spurring, right knee with many changes and s/p TKA 06/15, left hip tendinitis and OA, abdominal hepatic steatosis/ hepatocellular disease found on aterial US, B foot neuropathy and hammer toes, DM . Pt had previous back pain symptoms before his back surgery. He will have another injection 04/04/24. Pt is doing [employer] once a week, was doing [place] and did not sign up again, and walks once a week with friend. Prior Treatments and Tests See above Treatment Goals Patient/Caregiver Goals Decrease pain and improve endurance PT-OP-C Subjective Start: 03/21/24 13:59 Freq: Status: Active Protocol: Document 05/04/24 09:41 MB (Rec: 05/04/24 10:26 MB [id number]) OP-PT Subjective Patient Comments Patient Comments Pt notices a little needle stab pain in anterior distal right leg over the past couple of days. PT-OP-G Mobility & Gait Start: 03/21/24 13:59 Freq: Status: Active Protocol: Document 03/22/24 11:15 MB (Rec: 03/22/24 11:56 MB [id number]) OP Gait Assessment Comments Gait Comments Right lean and right leg tends to hit hard and have flexion at hip and knee and adduction with stepping and appears less stable and functionally shorter than left with gait. Added short full length cork wedge for shoe and gait is better. PT-OP-J Posture/Palpation/Skin Start: 03/21/24 13:59 Freq: Status: Active Protocol: Document 03/22/24 11:15 MB (Rec: 03/22/24 11:56 MB [id number]) Posture Evaluation Comments Posture Comments Standing posture with shoes and socks off: head rests in mild right SB, left shoulder higher than the right, mild Dowager's hump, straightened spine from posterior view and spinal column pronounced on left, possibly d/t rotated vertebrae, left iliac crest higher than the right, right knee flexion and increased functional Q ankle in standing with weight shifted to functionally longer left leg. Forward head. Standing posture: flexion with fingers 10 from floor, hip flexion pattern in standing and extension with hands on hips to neutral, limited lumbar SB B in standing, more to the left. Overall stiffness in spine. L SI joint stiffer than the right in standing with SB and with overpressure in supine. B SLR tight and grossly equal to 70 deg. PT-OP-K Range of Motion Start: 03/21/24 13:59 Freq: Status: Active Protocol: Document 03/22/24 11:15 MB (Rec: 03/22/24 11:56 MB [id number]) Ankle and Foot Goniometric Range of Motion Ankle and Foot ROM Limitations Comments Right ankle DF and knee extension are reduced in supine and he has increased hip flexor shortening on the right compared to left as well . Decreased right great toe extension. PT-OP-M Strength Start: 03/21/24 13:59 Freq: Status: Active Protocol: Document 03/22/24 11:15 MB (Rec: 03/22/24 11:56 MB [id number]) Hip Strength Hip Manual Muscle Testing Left Flexion (L2) 4+ Good+ Abduction 4 Good Right Flexion (L2) 4+ Good+ Abduction 4+ Good+ Knee Strength Knee Manual Muscle Testing Left Flexion (S2) 5 Normal Extension (L3) 5 Normal Right Flexion (S2) 5 Normal Extension (L3) 5 Normal Ankle/Foot Strength Ankle and Foot Manual Muscle Testing Left Dorsiflexion (L4) 4+ Good+ Right Dorsiflexion (L4) 4- Good- Toe Strength Toe Manual Muscle Testing Left Great Toe Extension 4 Good Right Great Toe Extension 4- Good- PT-OP-Q Treatments Start: 03/21/24 13:59 Freq: Status: Active Protocol: Document 05/04/24 09:41 MB (Rec: 05/04/24 10:26 MB [id number]) Manual Therapy Treatment Consent Patient gave verbal consent for manual Yes treatment Other Other Manual Treatments Pt hook lying with head supported and legs up on plinth: abdomen is not very tight and STM and positional release B iliopsoas, glutes, hamstrings, hip rotators, PFs and knee extensors and most tension medial right PFs and right rectus femoris, TrP right medial distal gastroc and rectus; right PF tone and tremor right ankle. Self-Care/Home Management Treatment Education Other Education Discussion about benefits of TENS for pain as a non- medicine and conservative self -treatment for pain management and PT shows pt photo o TENS 7000 as an example and pt to consider. Pt denies neurogenic overactive bladder and constipation in PD PT-OP-T Assessment and Plan Start: 03/21/24 13:59 Freq: Status: Active Protocol: Document 05/04/24 09:41 MB (Rec: 05/04/24 10:26 MB [id number]) Physical Therapy Assessment Goals 3 Impairment Lack of HEP B[employer] Goal (LTG) Pt will perform progressive HEP with I including pelvic realignment, flexibility, breathing, balance and strengthening exercises to improve movement and pain. 04/20/24: Pt is performing exercises in folder, walking and going to community BIG class LTG Duration 8 weeks 1 Impairment Oswestry score 14/50, reflecting 28% impairment Longterm Goal (LTG) Pt will present with an Oswestry score reflecting no more than 20% impairment to improve pain and quality of life. 04/20/24 Oswestry score reflects 32% impairment and is slightly higher than the eval but PT suspects this is d/t doing together with pt today and he tends to under-report LTG Duration 8 weeks Assessment Summary Assessment TENS discussion for pain management at home and will revisit after pt thinks about it. Pt has a few more PT treatments and then will d/c. Will progress gentle core progression and check hip strengthening and SLS in standing. Physical Therapy Plan Frequency and Duration Frequency of Treatment 2x/Week Duration of treatment (weeks) 8 Plan of Care Start Date 03/22/24 Plan of Care End Date 05/23/24 Therapeutic Interventions Therapeutic Interventions Balance Training,Canalithic Repositioning,Coordination Training,Gait Training,Home Exercise Program,Joint Mobilizations,Manual Therapy, Neuromuscular Re-education, Patient/Caregiver Education, Self-Care/Home Management,Soft Tissue Mobilization,Taping, Therapeutic Activities, Therapeutic Exercises, Vestibular Rehabilitation Modalities Cold Pack/Ice Massage,Electric Stimulation,Hot Packs, Ultrasound Next Visit Focus/Plan Next Note Type Treatment Note Next Visit Plan Revisit discussion about TENS. Progress gentle core progression and DO NOT but in SLR. Con't manual work. In future, add hip extension training in standing and check SLS and other static standing . Pt does not feel like he needs to review [place].
--- NOTE | 2024-05-10 11:28 | PT.OTN ---
Current Diagnoses Other intervertebral disc degeneration, lumbar region without mention of lumbar back pain or lower extremity pain (05/10/24) Physical Therapy Treatment Note PT-OP-A Visit Information Start: 03/21/24 13:59 Freq: Status: Active Protocol: Document 05/10/24 10:47 MB (Rec: 05/10/24 11:24 MB [id number]) Out-Patient Physical Therapy Visit Information Visit Information Visit Type Treatment Note Visit Note Medicare Next progress note by 05/21/24 Visit Start Time 10:47 Visit Stop Time 11:27 Visit Number 11 Number of CHILD CARE PROVIDER Visits 0 Evaluation Information Evaluation Date 03/22/24 PT-OP-B Current Condition Start: 03/21/24 13:59 Freq: Status: Active Protocol: Document 03/22/24 11:15 MB (Rec: 03/22/24 11:56 MB [id number]) Current Condition History of Current Condition Onset Date 1 year Current Complaints L LBP History of Current Condition Pt has L LBP after 15 minutes of standing doing dishes and after walking about 10 minutes . He can tolerate 10-15 minutes on his feet before he needs a sitting rest break. Pt denies paresthesias and pain down the leg. He is sleeping okay. PMH includes L4-5 PLIF 02/16, LSVT BIG in 2021 for PD, left achilles and plantar fascia spurring, right knee with many changes and s/p TKA 06/15, left hip tendinitis and OA, abdominal hepatic steatosis/ hepatocellular disease found on aterial US, B foot neuropathy and hammer toes, DM . Pt had previous back pain symptoms before his back surgery. He will have another injection 04/04/24. Pt is doing [employer] once a week, was doing [place] and did not sign up again, and walks once a week with friend. Prior Treatments and Tests See above Treatment Goals Patient/Caregiver Goals Decrease pain and improve endurance PT-OP-C Subjective Start: 03/21/24 13:59 Freq: Status: Active Protocol: Document 05/10/24 10:47 MB (Rec: 05/10/24 11:24 MB [id number]) OP-PT Subjective Patient Comments Patient Comments Pt states that he is about the same and he might be a little better. He is standing and walking a little longer. He bought a TENS and will bring in next treatment to go over use. PT-OP-G Mobility & Gait Start: 03/21/24 13:59 Freq: Status: Active Protocol: Document 03/22/24 11:15 MB (Rec: 03/22/24 11:56 MB [id number]) OP Gait Assessment Comments Gait Comments Right lean and right leg tends to hit hard and have flexion at hip and knee and adduction with stepping and appears less stable and functionally shorter than left with gait. Added short full length cork wedge for shoe and gait is better. PT-OP-J Posture/Palpation/Skin Start: 03/21/24 13:59 Freq: Status: Active Protocol: Document 03/22/24 11:15 MB (Rec: 03/22/24 11:56 MB [id number]) Posture Evaluation Comments Posture Comments Standing posture with shoes and socks off: head rests in mild right SB, left shoulder higher than the right, mild Dowager's hump, straightened spine from posterior view and spinal column pronounced on left, possibly d/t rotated vertebrae, left iliac crest higher than the right, right knee flexion and increased functional Q ankle in standing with weight shifted to functionally longer left leg. Forward head. Standing posture: flexion with fingers 10 from floor, hip flexion pattern in standing and extension with hands on hips to neutral, limited lumbar SB B in standing, more to the left. Overall stiffness in spine. L SI joint stiffer than the right in standing with SB and with overpressure in supine. B SLR tight and grossly equal to 70 deg. PT-OP-K Range of Motion Start: 03/21/24 13:59 Freq: Status: Active Protocol: Document 03/22/24 11:15 MB (Rec: 03/22/24 11:56 MB [id number]) Ankle and Foot Goniometric Range of Motion Ankle and Foot ROM Limitations Comments Right ankle DF and knee extension are reduced in supine and he has increased hip flexor shortening on the right compared to left as well . Decreased right great toe extension. PT-OP-M Strength Start: 03/21/24 13:59 Freq: Status: Active Protocol: Document 03/22/24 11:15 MB (Rec: 03/22/24 11:56 MB [id number]) Hip Strength Hip Manual Muscle Testing Left Flexion (L2) 4+ Good+ Abduction 4 Good Right Flexion (L2) 4+ Good+ Abduction 4+ Good+ Knee Strength Knee Manual Muscle Testing Left Flexion (S2) 5 Normal Extension (L3) 5 Normal Right Flexion (S2) 5 Normal Extension (L3) 5 Normal Ankle/Foot Strength Ankle and Foot Manual Muscle Testing Left Dorsiflexion (L4) 4+ Good+ Right Dorsiflexion (L4) 4- Good- Toe Strength Toe Manual Muscle Testing Left Great Toe Extension 4 Good Right Great Toe Extension 4- Good- PT-OP-Q Treatments Start: 03/21/24 13:59 Freq: Status: Active Protocol: Document 05/10/24 10:47 MB (Rec: 05/10/24 11:24 MB [id number]) Therapeutic Exercises Supine Exercises Gentle core progression Supine Exercise Name Performed from [facility] today: pelvic tilt, abd drawing in Comments Several reps today Clam with band Supine Exercise Name Verbally reviewed today Hip rotator stretch Supine Exercise Name Reviewed from [facility] today Side bilateral Reps/Minutes 30 sec hold, opp knee to chest Cliff stretch Supine Exercise Name Performed today for review Side bilateral Reps/Minutes 30 sec hold each leg Comments Noel knee to chest Active HS stretch /c AP Supine Exercise Name Performed today without strap Side bilateral Reps/Minutes 30 pumps each leg Pelvic realignment exercises Supine Exercise Name Verbally reviewed today Sidelying Exercises Open book Sidelying Exercise Name Reviewed today from HEP Side bilateral Reps/Minutes 10 reps Comments 1 pillow between knees and pillow doubled under head Sitting Exercises TS Rotation Sitting Exercise Name Reviewed HEP Comments 10 reps to each side, sitting in chair today Standing Exercises Racquet ball massage Standing Exercise Name Verbally reviewed today Calf stretch Standing Exercise Name Reviewed HEP Side bilateral Comments 1 rep each leg, grossly 30 sec Anti-Rotation resisted press out Side bilateral Resistance Green band Reps/Minutes 10 reps each leg Pect, hip flexor and QL stretches doorway Standing Exercise Name Reviewed today from [facility] Side bilateral Equipment Used Doorway Reps/Minutes Two reps each side PT-OP-T Assessment and Plan Start: 03/21/24 13:59 Freq: Status: Active Protocol: Document 05/10/24 10:47 MB (Rec: 05/10/24 11:24 MB [id number]) Physical Therapy Assessment Goals 3 Impairment Lack of HEP Correction Goal (LTG) Pt will perform progressive HEP with I including pelvic realignment, flexibility, breathing, balance and strengthening exercises to improve movement and pain. 04/20/24: Pt is performing exercises in folder, walking and going to community [employer] class LTG Duration 8 weeks 1 Impairment Oswestry score 14/50, reflecting 28% impairment Correction Goal (LTG) Pt will present with an Oswestry score reflecting no more than 20% impairment to improve pain and quality of life. 04/20/24 Oswestry score reflects 32% impairment and is slightly higher than the eval but PT suspects this is d/t doing together with pt today and he tends to under-report LTG Duration 8 weeks Assessment Summary Assessment Pt lost HEP handouts and so reviewed all current exercises today. Anticipate trying his TENS next treatment and gentle core progression. Physical Therapy Plan Frequency and Duration Frequency of Treatment 2x/Week Duration of treatment (weeks) 8 Plan of Care Start Date 03/22/24 Plan of Care End Date 05/23/24 Therapeutic Interventions Therapeutic Interventions Balance Training,Canalithic Repositioning,Coordination Training,Gait Training,Home Exercise Program,Joint Mobilizations,Manual Therapy, Neuromuscular Re-education, Patient/Caregiver Education, Self-Care/Home Management,Soft Tissue Mobilization,Taping, Therapeutic Activities, Therapeutic Exercises, Vestibular Rehabilitation Modalities Cold Pack/Ice Massage,Electric Stimulation,Hot Packs, Ultrasound Next Visit Focus/Plan Next Note Type Treatment Note Next Visit Plan Go over use of his TENS machine, see if he can place over low back or glutes if needed, gentle core progression (progress exercises and pt has handouts)
--- NOTE | 2024-05-18 13:42 | PT.OTN ---
Current Diagnoses Other intervertebral disc degeneration, lumbar region without mention of lumbar back pain or lower extremity pain (05/18/24) Physical Therapy Treatment Note PT-OP-A Visit Information Start: 03/21/24 13:59 Freq: Status: Active Protocol: Document 05/18/24 13:02 SP (Rec: 05/18/24 13:52 SP [id number]) Out-Patient Physical Therapy Visit Information Visit Information Visit Type Treatment Note Visit Note Medicare Next progress note by 05/21/24 Visit Start Time 13:02 Visit Stop Time 13:42 Visit Number 12 Number of CELL ATTENDANT Visits 1 Evaluation Information Evaluation Date 03/22/24 PT-OP-B Current Condition Start: 03/21/24 13:59 Freq: Status: Active Protocol: Document 03/22/24 11:15 MB (Rec: 03/22/24 11:56 MB [id number]) Current Condition History of Current Condition Onset Date 1 year Current Complaints L LBP History of Current Condition Pt has L LBP after 15 minutes of standing doing dishes and after walking about 10 minutes . He can tolerate 10-15 minutes on his feet before he needs a sitting rest break. Pt denies paresthesias and pain down the leg. He is sleeping okay. PMH includes L4-5 PLIF 02/16, LSVT BIG in 2021 for PD, left achilles and plantar fascia spurring, right knee with many changes and s/p TKA 06/15, left hip tendinitis and OA, abdominal hepatic steatosis/ hepatocellular disease found on aterial US, B foot neuropathy and hammer toes, DM . Pt had previous back pain symptoms before his back surgery. He will have another injection 04/04/24. Pt is doing [employer] once a week, was doing [place] and did not sign up again, and walks once a week with friend. Prior Treatments and Tests See above Treatment Goals Patient/Caregiver Goals Decrease pain and improve endurance PT-OP-C Subjective Start: 03/21/24 13:59 Freq: Status: Active Protocol: Document 05/18/24 13:02 SP (Rec: 05/18/24 13:52 SP [id number]) OP-PT Subjective Patient Comments Patient Comments Pt arrived with TENS Machine to assist proper set up and use. He reports forgot to bring his HOs today. PT-OP-G Mobility & Gait Start: 03/21/24 13:59 Freq: Status: Active Protocol: Document 03/22/24 11:15 MB (Rec: 03/22/24 11:56 MB [id number]) OP Gait Assessment Comments Gait Comments Right lean and right leg tends to hit hard and have flexion at hip and knee and adduction with stepping and appears less stable and functionally shorter than left with gait. Added short full length cork wedge for shoe and gait is better. PT-OP-J Posture/Palpation/Skin Start: 03/21/24 13:59 Freq: Status: Active Protocol: Document 03/22/24 11:15 MB (Rec: 03/22/24 11:56 MB [id number]) Posture Evaluation Comments Posture Comments Standing posture with shoes and socks off: head rests in mild right SB, left shoulder higher than the right, mild Dowager's hump, straightened spine from posterior view and spinal column pronounced on left, possibly d/t rotated vertebrae, left iliac crest higher than the right, right knee flexion and increased functional Q ankle in standing with weight shifted to functionally longer left leg. Forward head. Standing posture: flexion with fingers 10 from floor, hip flexion pattern in standing and extension with hands on hips to neutral, limited lumbar SB B in standing, more to the left. Overall stiffness in spine. L SI joint stiffer than the right in standing with SB and with overpressure in supine. B SLR tight and grossly equal to 70 deg. PT-OP-K Range of Motion Start: 03/21/24 13:59 Freq: Status: Active Protocol: Document 03/22/24 11:15 MB (Rec: 03/22/24 11:56 MB [id number]) Ankle and Foot Goniometric Range of Motion Ankle and Foot ROM Limitations Comments Right ankle DF and knee extension are reduced in supine and he has increased hip flexor shortening on the right compared to left as well . Decreased right great toe extension. PT-OP-M Strength Start: 03/21/24 13:59 Freq: Status: Active Protocol: Document 03/22/24 11:15 MB (Rec: 03/22/24 11:56 MB [id number]) Hip Strength Hip Manual Muscle Testing Left Flexion (L2) 4+ Good+ Abduction 4 Good Right Flexion (L2) 4+ Good+ Abduction 4+ Good+ Knee Strength Knee Manual Muscle Testing Left Flexion (S2) 5 Normal Extension (L3) 5 Normal Right Flexion (S2) 5 Normal Extension (L3) 5 Normal Ankle/Foot Strength Ankle and Foot Manual Muscle Testing Left Dorsiflexion (L4) 4+ Good+ Right Dorsiflexion (L4) 4- Good- Toe Strength Toe Manual Muscle Testing Left Great Toe Extension 4 Good Right Great Toe Extension 4- Good- PT-OP-Q Treatments Start: 03/21/24 13:59 Freq: Status: Active Protocol: Document 05/18/24 13:02 SP (Rec: 05/18/24 13:52 SP [id number]) Therapeutic Exercises Supine Exercises Gentle core progression Supine Exercise Name Performed from HEP today: pelvic tilt, abd drawing in /c heel slide Side bilateral Reps/Minutes x10 Pelvic tilts, 10 reps alternating Comments cued PPT and TA maintain during leg ext/flexion Cliff stretch Supine Exercise Name Performed today for review Side bilateral Equipment Used grasp behind thigh Reps/Minutes 30 sec hold each leg Comments [place] knee to chest Manual Therapy Treatment Consent Patient gave verbal consent for manual Yes treatment Other Other Manual Treatments Pt SL with head supported in STM and positional release B TFL, glutes, hamstrings, hip rotators, PFs and knee extensors and most tension medial right PFs and right rectus femoris, ITB. Self-Care/Home Management Treatment Education Patient Education Pain Management,Safety Other Education 23 min: Education about benefits, set up and positioning of pads TENS for pain as a non-medicine and conservative self-treatment for pain management. PT-OP-T Assessment and Plan Start: 03/21/24 13:59 Freq: Status: Active Protocol: Document 05/18/24 13:02 SP (Rec: 05/18/24 13:52 SP [id number]) Physical Therapy Assessment Goals 3 Impairment Lack of HEP Grant Coordinator Goal (LTG) Pt will perform progressive HEP with I including pelvic realignment, flexibility, breathing, balance and strengthening exercises to improve movement and pain. 04/20/24: Pt is performing exercises in folder, walking and going to community BIG class LTG Duration 8 weeks 1 Impairment Oswestry score 14/50, reflecting 28% impairment Assisted Goal (LTG) Pt will present with an Oswestry score reflecting no more than 20% impairment to improve pain and quality of life. 04/20/24 Oswestry score reflects 32% impairment and is slightly higher than the eval but PT suspects this is d/t doing together with pt today and he tends to under-report LTG Duration 8 weeks Assessment Summary Assessment Pt good feedback response to manual, TENS gentle contraction with instruction for support pain control, understood space between pads and jae cross 2 vs 4 pads each lead controlled. Good TA during review heelslide with maintain positioning and contraction with breath pnfree reported. Cues for arm swing during gait leaving. Physical Therapy Plan Frequency and Duration Frequency of Treatment 2x/Week Duration of treatment (weeks) 8 Plan of Care Start Date 03/22/24 Plan of Care End Date 05/23/24 Therapeutic Interventions Therapeutic Interventions Balance Training,Canalithic Repositioning,Coordination Training,Gait Training,Home Exercise Program,Joint Mobilizations,Manual Therapy, Neuromuscular Re-education, Patient/Caregiver Education, Self-Care/Home Management,Soft Tissue Mobilization,Taping, Therapeutic Activities, Therapeutic Exercises, Vestibular Rehabilitation Modalities Cold Pack/Ice Massage,Electric Stimulation,Hot Packs, Ultrasound Next Visit Focus/Plan Next Note Type Treatment Note Next Visit Plan Review TENS machine as needed and settings, TA heel slide gentle core progression ( progress exercises and pt has handouts).Bring HOs for recall /set up form.
--- NOTE | 2024-05-23 08:57 | PT.OTN ---
Current Diagnoses Other intervertebral disc degeneration, lumbar region without mention of lumbar back pain or lower extremity pain (05/23/24) Physical Therapy Treatment Note PT-OP-A Visit Information Start: 03/21/24 13:59 Freq: Status: Active Protocol: Document 05/23/24 08:16 MB (Rec: 05/23/24 08:52 MB [id number]) Out-Patient Physical Therapy Visit Information Visit Information Visit Type Treatment Note Visit Note Medicare Visit Start Time 08:16 Visit Stop Time 08:56 Visit Number 13 Number of WAREHOUSEMAN Visits 0 Evaluation Information Evaluation Date 03/22/24 PT-OP-B Current Condition Start: 03/21/24 13:59 Freq: Status: Active Protocol: Document 03/22/24 11:15 MB (Rec: 03/22/24 11:56 MB [id number]) Current Condition History of Current Condition Onset Date 1 year Current Complaints L LBP History of Current Condition Pt has L LBP after 15 minutes of standing doing dishes and after walking about 10 minutes . He can tolerate 10-15 minutes on his feet before he needs a sitting rest break. Pt denies paresthesias and pain down the leg. He is sleeping okay. PMH includes L4-5 PLIF 02/16, LSVT BIG in 2021 for PD, left achilles and plantar fascia spurring, right knee with many changes and s/p TKA 06/15, left hip tendinitis and OA, abdominal hepatic steatosis/ hepatocellular disease found on aterial US, B foot neuropathy and hammer toes, DM . Pt had previous back pain symptoms before his back surgery. He will have another injection 04/04/24. Pt is doing [employer] once a week, was doing [place] and did not sign up again, and walks once a week with friend. Prior Treatments and Tests See above Treatment Goals Patient/Caregiver Goals Decrease pain and improve endurance PT-OP-C Subjective Start: 03/21/24 13:59 Freq: Status: Active Protocol: Document 05/23/24 08:16 MB (Rec: 05/23/24 08:52 MB [id number]) OP-PT Subjective Patient Comments Patient Comments Pt had a busy weekend and he did not get to try the TENS. PT-OP-G Mobility & Gait Start: 03/21/24 13:59 Freq: Status: Active Protocol: Document 03/22/24 11:15 MB (Rec: 03/22/24 11:56 MB [id number]) OP Gait Assessment Comments Gait Comments Right lean and right leg tends to hit hard and have flexion at hip and knee and adduction with stepping and appears less stable and functionally shorter than left with gait. Added short full length cork wedge for shoe and gait is better. PT-OP-J Posture/Palpation/Skin Start: 03/21/24 13:59 Freq: Status: Active Protocol: Document 03/22/24 11:15 MB (Rec: 03/22/24 11:56 MB [id number]) Posture Evaluation Comments Posture Comments Standing posture with shoes and socks off: head rests in mild right SB, left shoulder higher than the right, mild Dowager's hump, straightened spine from posterior view and spinal column pronounced on left, possibly d/t rotated vertebrae, left iliac crest higher than the right, right knee flexion and increased functional Q ankle in standing with weight shifted to functionally longer left leg. Forward head. Standing posture: flexion with fingers 10 from floor, hip flexion pattern in standing and extension with hands on hips to neutral, limited lumbar SB B in standing, more to the left. Overall stiffness in spine. L SI joint stiffer than the right in standing with SB and with overpressure in supine. B SLR tight and grossly equal to 70 deg. PT-OP-K Range of Motion Start: 03/21/24 13:59 Freq: Status: Active Protocol: Document 03/22/24 11:15 MB (Rec: 03/22/24 11:56 MB [id number]) Ankle and Foot Goniometric Range of Motion Ankle and Foot ROM Limitations Comments Right ankle DF and knee extension are reduced in supine and he has increased hip flexor shortening on the right compared to left as well . Decreased right great toe extension. PT-OP-M Strength Start: 03/21/24 13:59 Freq: Status: Active Protocol: Document 03/22/24 11:15 MB (Rec: 03/22/24 11:56 MB [id number]) Hip Strength Hip Manual Muscle Testing Left Flexion (L2) 4+ Good+ Abduction 4 Good Right Flexion (L2) 4+ Good+ Abduction 4+ Good+ Knee Strength Knee Manual Muscle Testing Left Flexion (S2) 5 Normal Extension (L3) 5 Normal Right Flexion (S2) 5 Normal Extension (L3) 5 Normal Ankle/Foot Strength Ankle and Foot Manual Muscle Testing Left Dorsiflexion (L4) 4+ Good+ Right Dorsiflexion (L4) 4- Good- Toe Strength Toe Manual Muscle Testing Left Great Toe Extension 4 Good Right Great Toe Extension 4- Good- PT-OP-Q Treatments Start: 03/21/24 13:59 Freq: Status: Active Protocol: Document 05/23/24 08:16 MB (Rec: 05/23/24 08:52 MB [id number]) Gait Training Gait Activity 6MWT Comments Pt gait trains 1291 feet in 6 minutes and feels he could walk further d/t pain is manageable and this is close to the quarter mile walking distance that has been his time for need to break. Pt demonstrates decreased arm swing, worse on the right and decreased foot clearance, worse on the right, with gait Gait presentation throughout treatment is about the same Self-Care/Home Management Treatment Education Patient Education Pain Management,Safety Other Education Pt wishes to review TENS set- up and use and to try it today with 4 pads and so did this: set-up four pads with red wires and black wires across, requires min A for set-up and cues, normal pulse, width 50 uS, 15 min set. Pt wears during 6MWT Verbal review of exercises today, benefits of when to use TENS PT-OP-T Assessment and Plan Start: 03/21/24 13:59 Freq: Status: Active Protocol: Document 05/23/24 08:16 MB (Rec: 05/23/24 08:52 MB [id number]) Physical Therapy Assessment Goals 3 Impairment Lack of HEP [employer] Goal (LTG) Pt will perform progressive HEP with I including pelvic realignment, flexibility, breathing, balance and strengthening exercises to improve movement and pain. 04/20/24: Pt is performing exercises in folder, walking and going to community BIG class 05/23/24: Pt is performing BIG exercises at class once a week and he has not been performing his other exercises except walking LTG Duration Partially met, has HEP and has not been performing with guests 1 Impairment Oswestry score 14/50, reflecting 28% impairment Fdc Goal (LTG) Pt will present with an Oswestry score reflecting no more than 20% impairment to improve pain and quality of life. 04/20/24 Oswestry score reflects 32% impairment and is slightly higher than the eval but PT suspects this is d/t doing together with pt today and he tends to under-report 05/23/24: Oswestry score reflects 26% impairment, which is slightly better than the evaluation LTG Duration Partially met Assessment Summary Assessment Pt has met or partially met most goals since starting PT. He has not had significant improvement in back pain with washing dishes or with walking for exercise and he con't to have to take a break every 1/4 mile. Pt performs some exercises everyday when not having visiting family, he walks and he attends community [facility] [employer] class. Pt is ready to d/c PT. He will use TENs as appropriate.
== END 2024-05-30 13:49 | disposition home or self-care (01) ==
LOC: PHYS 08:15
PROVIDERS: Family Provider Family Medicine; PCP Family Medicine; Referring Provider Orthopaedic Surgery Orthopaedic Surgery of the Spine; Visit Provider Orthopaedic Surgery Orthopaedic Surgery of the Spine
DX: M51.369 Other intervertebral disc degeneration, lumbar region without mention of lumbar back pain or lower extremity pain (principal)
CPT/HCPCS: 97110; 97116; 97140; 97161; 97535

== ENCOUNTER → 2024-07-01 08:30 | Outpatient (CLI) | payer MEDICARE, OTHER, SELFPAY ==
[2021-02-11 12:26] VITALS: BMI 32.5
== END ==
PROVIDERS: Family Provider Family Medicine; PCP Family Medicine; Referring Provider Psychiatry & Neurology Neurology; Visit Provider Psychiatry & Neurology Neurology
DX: E55.9 Vitamin D deficiency, unspecified (principal)
CPT/HCPCS: 36415

== ENCOUNTER → 2024-08-29 12:10 | Outpatient (CLI) | payer MEDICARE, OTHER, SELFPAY ==
[2021-02-11 12:26] VITALS: BMI 32.5
--- NOTE | 2024-08-29 12:13 | DI.RAD.S_ITS ---
PROCEDURE: XR HIP W PEL IF DONE RT 2V INDICATIONS: Other chronic pain TECHNIQUE: 2 views of the hip and pelvis were acquired. COMPARISON: [facility], CR, XR HIP W PEL IF DONE LT 2V, 10/30/2020, 15:20. FINDINGS: Bones: No fractures or dislocations. Osteoarthritic degenerative changes of the right hip include mild joint space narrowing with marginal osteophytosis and acetabular subchondral sclerosis. Similar degenerative changes are noted within the left hip. Partially visualized hardware within the lower lumbar spine noted. No suspicious bony lesions. The visualized pelvic ring appears intact. Soft tissues: No suspicious soft tissue calcifications or masses. IMPRESSION: Degenerative change without evidence of acute osseous abnormality. Dictated by: Gerson Talley M.D. on 08/30/2024 at 5:19 Approved by: Gerson Talley M.D. on 08/30/2024 at 5:20
--- NOTE | 2024-08-29 12:13 | DI.RAD.S_ITS ---
PROCEDURE: XR KNEE RT 1TO2V INDICATIONS: Other chronic pain TECHNIQUE: 2 view(s) of the knee acquired. COMPARISON: None. FINDINGS: Bones: Patient is status post knee joint arthroplasty. Hardware components are in expected positions. Visualized bony structures are intact. There is no evidence of acute osseous abnormality. Soft tissues: There is a small joint effusion. IMPRESSION: Expected post-operative appearance of a knee arthroplasty without evidence of hardware complication or acute osseous abnormality. Dictated by: Gerson Talley M.D. on 08/30/2024 at 5:22 Approved by: Gerson Talley M.D. on 08/30/2024 at 5:23
--- NOTE | 2024-08-29 12:13 | DI.RAD.S_ITS ---
PROCEDURE: XR KNEE STANDING BI INDICATIONS: Other chronic pain TECHNIQUE: Single AP weight-bearing view of the knee(s) COMPARISON: None. FINDINGS: Bones: No acute fractures or dislocations. Patellar alignment is normal on the sunrise view. No suspicious bony lesions. No evidence of hardware complication status post total right knee arthroplasty. Moderate medial and lateral left tibiofemoral compartment narrowing with associated osteophytosis. Soft tissues: No knee joint effusions. No suspicious soft tissue calcification. IMPRESSION: Degenerative change of the left knee and stable uncomplicated post operative change of the right knee status post total knee arthroplasty. No evidence of acute osseous abnormality. Dictated by: Gerson Talley M.D. on 08/30/2024 at 5:21 Approved by: Gerson Talley M.D. on 08/30/2024 at 5:22
== END ==
PROVIDERS: Family Provider Family Medicine; PCP Family Medicine; Referring Provider Family Medicine; Visit Provider Family Medicine
DX: M79.604 Pain in right leg (principal); M25.561 Pain in right knee; M25.461 Effusion, right knee; G89.29 Other chronic pain; Z96.651 Presence of right artificial knee joint
CPT/HCPCS: 73502; 73560; 73565

== ENCOUNTER 2024-11-09 15:30 | Outpatient (RCR) | payer MEDICARE, OTHER, SELFPAY ==
[2021-02-11 12:26] VITALS: BMI 32.5
--- NOTE | 2024-09-27 16:56 | PT.OIE ---
Current Diagnoses Other chronic pain (09/27/24) Pain in left shoulder (09/27/24) Low back pain, unspecified (09/27/24) Past Medical History (Last Reviewed 08/14/24 @ 15:14 by BRENNON Arevalo) Anesthesia complication Arthritis Diabetes Gout [place]ertoe, bilateral HLD (hyperlipidemia) HTN (hypertension) TAMI on CPAP Parkinson disease (12/2020) Past Surgical History (Last Reviewed 08/14/24 @ 15:14 by BRENNON Arevalo) History of arthroplasty of right knee Hx of colonoscopy Visit Care Team Role Provider Type Thee Lanza MD Attending Provider Physician Family Provider Primary Care Provider Referring Provider Specialty: Family Practice Address: [address] [place] [address], [facility] Email: [email or web address] Physical Therapy Initial Evaluation PT-OP-A Visit Information Start: 09/26/24 16:37 Freq: Status: Active Protocol: Document 09/27/24 08:12 MB (Rec: 09/27/24 08:51 MB [id number]) Out-Patient Physical Therapy Visit Information Visit Information Visit Type Initial Evaluation Visit Note Medicare Progress note by 10/27/24 Visit Start Time 08:12 Visit Stop Time 08:52 Visit Number 1 Number of THERAPIST RRT Visits 0 Evaluation Information Evaluation Date 09/27/24 PT-OP-B Current Condition Start: 09/26/24 16:37 Freq: Status: Active Protocol: Document 09/27/24 08:12 MB (Rec: 09/27/24 08:51 MB [id number]) Current Condition History of Current Condition Onset Date 12 years ago in left shoulder Current Complaints Pain with using left arm, sleeping on it and flexibility reaching back History of Current Condition PMH includes left shoulder pain and PT treatment about 12 years ago, chronic back pain, lumbar fusions, PD, right TKR and ongoing dysfunction with recent tendnitis of the quadriceps. Pt reports increasing pain left shoulder recently. If he sleeps on it, he can feel the pain and he has trouble abducting and reaching arm up to the left. He is taking two Aleve in the morning and two Aleve at night . These seem to release the tension. He is not icing his shoulder but is icing his right shoulder. He also uses a patch on the right knee. He started using a QC intermittently that he did not bring into clinic. Occ, his left arm awakens him at night time. He denies numbness and tingling. He is seeing another manual PT who will con't to work on him. Pt rates his complaints as 1: right leg pain, 2: LB when walking, 3: Left shoulder Prior Treatments and Tests 08/29/24 left hip x-ray revealed mild OA and right knee x-ray revealed normal TKA Treatment Goals Patient/Caregiver Goals To decrease left shoulder, back and right leg pain. PT-OP-C Subjective Start: 09/26/24 16:37 Freq: Status: Active Protocol: Document 09/27/24 08:12 MB (Rec: 09/27/24 08:51 MB [id number]) OP-PT Subjective Patient Comments Patient Comments See history of current condition Patient Questionnaires Oswestry Low Back Index Oswestry Score 13 Oswestry Impairment 20 to 39% Impaired (Score 20- 39) Quick Dash- Upper Extremity Quick Dash UE Score 18 Quick Dash UE Impairment 1 to 19% Impaired (Score 1-19) PT-OP-G Mobility & Gait Start: 09/26/24 16:37 Freq: Status: Active Protocol: Document 09/27/24 08:12 MB (Rec: 09/27/24 08:51 MB [id number]) OP Gait Assessment Comments Gait Comments Gait in socks: Pt with right SB of head and mild left rotation of head, stiffness in head and shoulders with gait and decreased arm swing and he tends to lead his walking with his head. With stepping, his right knee medially gives way with each step and WB through the right leg and he presents with functional leg length difference with the right leg shorter with gait and he has increased cornelia angle and B supinated feet. PT-OP-J Posture/Palpation/Skin Start: 09/26/24 16:37 Freq: Status: Active Protocol: Document 09/27/24 08:12 MB (Rec: 09/27/24 08:51 MB [id number]) Posture Evaluation Comments Posture Comments Posture in socks: head rests in mild right SB, flattened thoracic kyphosis and convexity to the right lower thoracic spine with ribs/ spinous processes protruding to the left many levels, left iliac crest mildly higher than the right, right leg rests in front and he has mild right knee bend, right elbow with lump. Increased cornelia angle on the right, left tragus in front left AC joint. Lumbar flexion with posterior pelvic shift and knees bent and limited lumbar motion, lumbar extension 5 deg and he feels it in the right knee and in the left shoulder, limited SB 5 deg B and pt feels in left shoulder and right knee with hands on hips. PT-OP-K Range of Motion Start: 09/26/24 16:37 Freq: Status: Active Protocol: Document 09/27/24 08:12 MB (Rec: 09/27/24 08:51 MB [id number]) Cervical Spine Range of Motion Cervical Spine Active Testing Position Standing Flexion 35 Extension 14 Rotation Left 55 Rotation Right 58 Comments Head rests in 6 deg right SB and mild left rotation Shoulder Goniometric Range of Motion Shoulder Left Testing Position Standing Flexion 135 Extension 35 Abduction 140 Internal Rotation Behind Back (text) L3 Comments In supine, PROM left shoulder ER and IR in 90/90: tightness end-range ER to 70 deg and IR to neutral and AC joint c/o pain Right Testing Position Standing Flexion 135 Extension 38 Abduction 140 Internal Rotation Behind Back (text) L1 Comments Pt is right handed In supine, PROM right shoulder ER and IR in 90/90: normal PT-OP-M Strength Start: 09/26/24 16:37 Freq: Status: Active Protocol: Document 09/27/24 08:12 MB (Rec: 09/27/24 08:51 MB [id number]) Shoulder Strength Shoulder Manual Muscle Testing Left Flexion 4+ Good+ Abduction (C5) 5 Normal External Rotation 4+ Good+ Internal Rotation 4+ Good+ Right Flexion 4+ Good+ Abduction (C5) 4+ Good+ External Rotation 4+ Good+ Internal Rotation 4+ Good+ Elbow/Forearm Strength Elbow and Forearm Manual Muscle Testing Left Flexion (C6) 5 Normal Extension (C7) 5 Normal Pronation 4+ Good+ Supination 4+ Good+ Right Flexion (C6) 5 Normal Extension (C7) 5 Normal Pronation 4+ Good+ Supination 4+ Good+ Hip Strength Hip Manual Muscle Testing Left Flexion (L2) 4+ Good+ Abduction 4+ Good+ Right Flexion (L2) 4+ Good+ Abduction 4+ Good+ Knee Strength Knee Manual Muscle Testing Left Flexion (S2) 5 Normal Extension (L3) 5 Normal Comments AROM left knee 3-130 deg Right Flexion (S2) 4+ Good+ Extension (L3) 4+ Good+ Comments AROM right knee 11-112 deg Ankle/Foot Strength Ankle and Foot Manual Muscle Testing Left Dorsiflexion (L4) 5 Normal Right Dorsiflexion (L4) 5 Normal Toe Strength Toe Manual Muscle Testing Left Great Toe Extension 5 Normal Right Great Toe Extension 4+ Good+ PT-OP-Q Treatments Start: 09/26/24 16:37 Freq: Status: Active Protocol: Document 09/27/24 08:12 MB (Rec: 09/27/24 16:56 MB [id number]) Self-Care/Home Management Treatment Education Patient Education Body Mechanics,Joint Protection,Pain Management, Posture Other Education Proper sleeping position in bed, log rolling, use of frozen peas to ice shoulder, benefits of SPC over QC and pt currently favoring QC PT-OP-T Assessment and Plan Start: 09/26/24 16:37 Freq: Status: Active Protocol: Document 09/27/24 08:12 MB (Rec: 09/27/24 08:51 MB [id number]) Physical Therapy Assessment Rehab Potential Rehabilitation Potential Fair Evaluation Complexity Number of Personal Factors/Comorbidities 1-2 Number of Body Systems Impaired 3 Clinical Presentation at Evaluation Evolving Impairments Impairments Activity Tolerance,Balance, Coordination,Functional Activities,Functional Mobility ,Gait,Pain,Posture,ROM,Soft Tissue Mobility,Strength Goals 4 Impairment Lack of HEP [employer]els Manager Goal (LTG) Pt will perform progressive HEP with I including alignment , flexibility, range, postural , balance and strengthening exercises to improve mobility and pain. LTG Duration 8 weeks 3 Impairment Right greater than left LE weakness Group Home Goal (LTG) Pt will present with B hip flexion, abduction, extension and knee flexion and extension strength to at least 4+/5 to improve functional strength with transfers and gait. LTG Duration 8 weeks 2 Impairment Left shoulder pain [employer]fuels Manager Goal (LTG) Pt will report at least a 50% improvement in left shoulder pain to improve function and quality of life. LTG Duration 8 weeks 1 Impairment Evidence of imbalance Group Home Goal (LTG) Pt will perform TUG with or without LRAD in less than 10 sec to decrease fall risk. LTG Duration 8 weeks Assessment Summary Assessment Pt is a 64 y/o male who complete PT for his back at this clinic last year. He was previously seen for LSVT BIG. Current order is for chronic pain, back and left shoulder and so will address patient complaints at shoulder, back and right thigh since these are all chronic and leg is affecting his back pain, especially with c/o pain with walking. B left shoulder range is pretty similar to the right except for passive left shoulder ER and IR in supine and IR behind back in standing . He has tight end-feel and pain at AC joint with passive left ER and IR in 90/90 in supine. Will con't to assess the area to improve his complaints of pain with reaching back and overhead. Pt presents with significant changes in right knee ROM and presents with collapsing in of right knee with each step/ weight acceptance. He has significant degenerative spinal changes with right convexity mid thoracic to upper lumbar spine and history of lumbar fusion. Pt will benefit from PT to address findings. Physical Therapy Plan Frequency and Duration Frequency of Treatment 2x/Week Duration of treatment (weeks) 8 Plan of Care Start Date 09/27/24 Plan of Care End Date 11/27/24 Therapeutic Interventions Therapeutic Interventions Balance Training,Canalithic Repositioning,Coordination Training,Gait Training,Home Exercise Program,Joint Mobilizations,Manual Therapy, Neuromuscular Re-education, Orthotic/Prosthetic Management ,Patient/Caregiver Education, Self-Care/Home Management,Soft Tissue Mobilization,Taping, Therapeutic Activities, Therapeutic Exercises Modalities Cold Pack/Ice Massage,Electric Stimulation,Hot Packs, Ultrasound Next Visit Focus/Plan Next Note Type Treatment Note Next Visit Plan Further manual work and assessment, ask pt to bring in HEP handouts from recent OPPT course, consider pelvic realignment exercises, shoulder exercise, thoracic exercise
--- NOTE | 2024-09-27 16:56 | PT.OPPOC ---
Physical, Occupational & Speech Therapy At [facility] Current Diagnoses Other chronic pain (09/27/24) Pain in left shoulder (09/27/24) Low back pain, unspecified (09/27/24) Visit Care Team Role Provider Type Thee Lanza MD Attending Provider Physician Family Provider Primary Care Provider Referring Provider Specialty: Family Practice Address: [address] [place] [address], [facility] [place], [facility] Email: [email or web address] Plan Of Care PT-OP-B Current Condition Start: 09/26/24 16:37 Freq: Status: Active Protocol: Document 09/27/24 08:12 MB (Rec: 09/27/24 08:51 MB [id number]) Current Condition History of Current Condition Onset Date 12 years ago in left shoulder Current Complaints Pain with using left arm, sleeping on it and flexibility reaching back History of Current Condition PMH includes left shoulder pain and PT treatment about 12 years ago, chronic back pain, lumbar fusions, PD, right TKR and ongoing dysfunction with recent tendnitis of the quadriceps. Pt reports increasing pain left shoulder recently. If he sleeps on it, he can feel the pain and he has trouble abducting and reaching arm up to the left. He is taking two Aleve in the morning and two Aleve at night . These seem to release the tension. He is not icing his shoulder but is icing his right shoulder. He also uses a patch on the right knee. He started using a QC intermittently that he did not bring into clinic. Occ, his left arm awakens him at night time. He denies numbness and tingling. He is seeing another manual PT who will con't to work on him. Pt rates his complaints as 1: right leg pain, 2: LB when walking, 3: Left shoulder Prior Treatments and Tests 08/29/24 left hip x-ray revealed mild OA and right knee x-ray revealed normal TKA Treatment Goals Patient/Caregiver Goals To decrease left shoulder, back and right leg pain. PT-OP-T Assessment and Plan Start: 09/26/24 16:37 Freq: Status: Active Protocol: Document 09/27/24 08:12 MB (Rec: 09/27/24 08:51 [id number]) Physical Therapy Assessment Rehab Potential Rehabilitation Potential Fair Evaluation Complexity Number of Personal Factors/Comorbidities 1-2 Number of Body Systems Impaired 3 Clinical Presentation at Evaluation Evolving Impairments Impairments Activity Tolerance,Balance, Coordination,Functional Activities,Functional Mobility ,Gait,Pain,Posture,ROM,Soft Tissue Mobility,Strength Goals 4 Impairment Lack of HEP Warehouse Delivery Manager Goal (LTG) Pt will perform progressive HEP with I including alignment , flexibility, range, postural , balance and strengthening exercises to improve mobility and pain. LTG Duration 8 weeks 3 Impairment Right greater than left LE weakness Warehouse Delivery Manager Goal (LTG) Pt will present with B hip flexion, abduction, extension and knee flexion and extension strength to at least 4+/5 to improve functional strength with transfers and gait. LTG Duration 8 weeks 2 Impairment Left shoulder pain Warehouse Delivery Manager Goal (LTG) Pt will report at least a 50% improvement in left shoulder pain to improve function and quality of life. LTG Duration 8 weeks 1 Impairment Evidence of imbalance Intermediate Goal (LTG) Pt will perform TUG with or without LRAD in less than 10 sec to decrease fall risk. LTG Duration 8 weeks Assessment Summary Assessment Pt is a 64 y/o male who complete PT for his back at this clinic last year. He was previously seen for LSVT BIG. Current order is for chronic pain, back and left shoulder and so will address patient complaints at shoulder, back and right thigh since these are all chronic and leg is affecting his back pain, especially with c/o pain with walking. B left shoulder range is pretty similar to the right except for passive left shoulder ER and IR in supine and IR behind back in standing . He has tight end-feel and pain at AC joint with passive left ER and IR in 90/90 in supine. Will con't to assess the area to improve his complaints of pain with reaching back and overhead. Pt presents with significant changes in right knee ROM and presents with collapsing in of right knee with each step/ weight acceptance. He has significant degenerative spinal changes with right convexity mid thoracic to upper lumbar spine and history of lumbar fusion. Pt will benefit from PT to address findings. Physical Therapy Plan Frequency and Duration Frequency of Treatment 2x/Week Duration of treatment (weeks) 8 Plan of Care Start Date 09/27/24 Plan of Care End Date 11/27/24 Therapeutic Interventions Therapeutic Interventions Balance Training,Canalithic Repositioning,Coordination Training,Gait Training,Home Exercise Program,Joint Mobilizations,Manual Therapy, Neuromuscular Re-education, Orthotic/Prosthetic Management ,Patient/Caregiver Education, Self-Care/Home Management,Soft Tissue Mobilization,Taping, Therapeutic Activities, Therapeutic Exercises Modalities Cold Pack/Ice Massage,Electric Stimulation,Hot Packs, Ultrasound Next Visit Focus/Plan Next Note Type Treatment Note Next Visit Plan Further manual work and assessment, ask pt to bring in HEP handouts from recent OPPT course, consider pelvic realignment exercises, shoulder exercise, thoracic exercise Plan of Care Dates Plan of Care Start Date 09/27/24 Plan of Care End Date 11/27/24 Electronically Signed by: Yazmin Escobedo, PT 09/27/24 [id number] If you are in agreement with this Plan of Care, please return a signed and dated copy. I have reviewed this Plan of Care and certify that the skilled therapy services above are required to meet the patient?s needs. Physician Signature Date Printed Name and Credentials Clinical Instructor Signature Printed Name and Credentials
--- NOTE | 2024-10-04 08:13 | PT.OTN ---
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 Pt reports increasing pain left shoulder recently. If he sleeps on it, he can feel the pain and he has trouble abducting and reaching arm up to the left. He is taking two Aleve in the morning and two Aleve at night . These seem to release the tension. He is not icing his shoulder but is icing his right shoulder. He also uses a patch on the right knee. He started using a QC intermittently that he did not bring into clinic. Occ, his left arm awakens him at night time. He denies numbness and tingling. He is seeing another manual PT who will con't to work on him. Pt rates his complaints as 1: right leg pain, 2: LB when walking, 3: Left shoulder Prior Treatments and Tests 08/29/24 left hip x-ray revealed mild OA and right knee x-ray revealed normal TKA Treatment Goals Patient/Caregiver Goals To decrease left shoulder, back and right leg pain. PT-OP-C Subjective Start: 09/26/24 16:37 Freq: Status: Active Protocol: Document 10/04/24 07:27 MB (Rec: 10/04/24 08:13 MB Desktop) OP-PT Subjective Patient Comments Patient Comments Pt had doctor's appointment yesterday. A1C is good and they will recheck PSA in 3 months. It was 3 on testing. Pt has been taking Aleve for about a week d/t pain. PT-OP-G Mobility & Gait Start: 09/26/24 16:37 Freq: Status: Active Protocol: Document 09/27/24 08:12 MB (Rec: 09/27/24 08:51 MB [id number]) OP Gait Assessment Comments Gait Comments Gait in socks: Pt with right SB of head and mild left rotation of head, stiffness in head and shoulders with gait and decreased arm swing and he tends to lead his walking with his head. With stepping, his right knee medially gives way with each step and WB through the right leg and he presents with functional leg length difference with the right leg shorter with gait and he has increased cornelia angle and B supinated feet. PT-OP-J Posture/Palpation/Skin Start: 09/26/24 16:37 Freq: Status: Active Protocol: Document 09/27/24 08:12 MB (Rec: 09/27/24 08:51 MB [id number]) Posture Evaluation Comments Posture Comments Posture in socks: head rests in mild right SB, flattened thoracic kyphosis and convexity to the right lower thoracic spine with ribs/ spinous processes protruding to the left many levels, left iliac crest mildly higher than the right, right leg rests in front and he has mild right knee bend, right elbow with lump. Increased cornelia angle on the right, left tragus in front left AC joint. Lumbar flexion with posterior pelvic shift and knees bent and limited lumbar motion, lumbar extension 5 deg and he feels it in the right knee and in the left shoulder, limited SB 5 deg B and pt feels in left shoulder and right knee with hands on hips. PT-OP-K Range of Motion Start: 09/26/24 16:37 Freq: Status: Active Protocol: Document 09/27/24 08:12 MB (Rec: 09/27/24 08:51 MB [id number]) Cervical Spine Range of Motion Cervical Spine Active Testing Position Standing Flexion 35 Extension 14 Rotation Left 55 Rotation Right 58 Comments Head rests in 6 deg right SB and mild left rotation Shoulder Goniometric Range of Motion Shoulder Left Testing Position Standing Flexion 135 Extension 35 Abduction 140 Internal Rotation Behind Back (text) L3 Comments In supine, PROM left shoulder ER and IR in : tightness end-range ER to 70 deg and IR to neutral and AC joint c/o pain Right Testing Position Standing Flexion 135 Extension 38 Abduction 140 Internal Rotation Behind Back (text) L1 Comments Pt is right handed In supine, PROM right shoulder ER and IR in : normal PT-OP-M Strength Start: 09/26/24 16:37 Freq: Status: Active Protocol: Document 09/27/24 08:12 MB (Rec: 09/27/24 08:51 MB [id number]) Shoulder Strength Shoulder Manual Muscle Testing Left Flexion 4+ Good+ Abduction (C5) 5 Normal External Rotation 4+ Good+ Internal Rotation 4+ Good+ Right Flexion 4+ Good+ Abduction (C5) 4+ Good+ External Rotation 4+ Good+ Internal Rotation 4+ Good+ Elbow/Forearm Strength Elbow and Forearm Manual Muscle Testing Left Flexion (C6) 5 Normal Extension (C7) 5 Normal Pronation 4+ Good+ Supination 4+ Good+ Right Flexion (C6) 5 Normal Extension (C7) 5 Normal Pronation 4+ Good+ Supination 4+ Good+ Hip Strength Hip Manual Muscle Testing Left Flexion (L2) 4+ Good+ Abduction 4+ Good+ Right Flexion (L2) 4+ Good+ Abduction 4+ Good+ Knee Strength Knee Manual Muscle Testing Left Flexion (S2) 5 Normal Extension (L3) 5 Normal Comments AROM left knee 3-130 deg Right Flexion (S2) 4+ Good+ Extension (L3) 4+ Good+ Comments AROM right knee 11-112 deg Ankle/Foot Strength Ankle and Foot Manual Muscle Testing Left Dorsiflexion (L4) 5 Normal Right Dorsiflexion (L4) 5 Normal Toe Strength Toe Manual Muscle Testing Left Great Toe Extension 5 Normal Right Great Toe Extension 4+ Good+ PT-OP-Q Treatments Start: 09/26/24 16:37 Freq: Status: Active Protocol: Document 10/04/24 07:27 MB (Rec: 10/04/24 08:13 MB Desktop) Manual Therapy Treatment Consent Patient gave verbal consent for manual Yes treatment Other Other Manual Treatments Pt supine with head and legs supported: STM and positional release B iliopsoas, QL, anterior and posterior leg musculature, hamstrings, PFs. More tension left distal PFs and smaller muscle mass on the left. TrP right vastus lateralis and rectus femoris and STM as well. B rib recoil to improve rib, QL mobility. PT-OP-T Assessment and Plan Start: 09/26/24 16:37 Freq: Status: Active Protocol: Document 10/04/24 07:27 MB (Rec: 10/04/24 08:13 MB Desktop) Physical Therapy Assessment Rehab Potential Rehabilitation Potential Fair Evaluation Complexity Number of Personal Factors/Comorbidities 1-2 Number of Body Systems Impaired 3 Clinical Presentation at Evaluation Evolving Impairments Impairments Activity Tolerance,Balance, Coordination,Functional Activities,Functional Mobility ,Gait,Pain,Posture,ROM,Soft Tissue Mobility,Strength Goals 4 Impairment Lack of HEP Picker Packer Goal (LTG) Pt will perform progressive HEP with I including alignment , flexibility, range, postural , balance and strengthening exercises to improve mobility and pain. LTG Duration 8 weeks 3 Impairment Right greater than left LE weakness Fdc Goal (LTG) Pt will present with B hip flexion, abduction, extension and knee flexion and extension strength to at least 4+/5 to improve functional strength with transfers and gait. LTG Duration 8 weeks 2 Impairment Left shoulder pain Fdc Goal (LTG) Pt will report at least a 50% improvement in left shoulder pain to improve function and quality of life. LTG Duration 8 weeks 1 Impairment Evidence of imbalance Fdc Goal (LTG) Pt will perform TUG with or without LRAD in less than 10 sec to decrease fall risk. LTG Duration 8 weeks Assessment Summary Assessment PT is concerned that reports of shooting pain in anterior right leg may be coming from back given history, posture, reports of shooting pain when scooting in bed and reaching up with left arm in shower. Con't work on back, shoulders, legs as needed. Pt feels better after treatment today. Physical Therapy Plan Frequency and Duration Frequency of Treatment 2x/Week Duration of treatment (weeks) 8 Plan of Care Start Date 09/27/24 Plan of Care End Date 11/27/24 Therapeutic Interventions Therapeutic Interventions Balance Training,Canalithic Repositioning,Coordination Training,Gait Training,Home Exercise Program,Joint Mobilizations,Manual Therapy, Neuromuscular Re-education, Orthotic/Prosthetic Management ,Patient/Caregiver Education, Self-Care/Home Management,Soft Tissue Mobilization,Taping, Therapeutic Activities, Therapeutic Exercises Modalities Cold Pack/Ice Massage,Electric Stimulation,Hot Packs, Ultrasound Next Visit Focus/Plan Next Note Type Treatment Note Next Visit Plan Pt to bring in folder from last PT course and consider pelvic realignment exercises, shoulder exercise, thoracic exercise Manual work to include checking out left shoulder, supraspinatus, upper traps, etc Arm bike when ready, Fascial Counterstrain with primary PT
--- NOTE | 2024-10-07 09:43 | PT.OTN ---
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 Pt reports increasing pain left shoulder recently. If he sleeps on it, he can feel the pain and he has trouble abducting and reaching arm up to the left. He is taking two Aleve in the morning and two Aleve at night . These seem to release the tension. He is not icing his shoulder but is icing his right shoulder. He also uses a patch on the right knee. He started using a QC intermittently that he did not bring into clinic. Occ, his left arm awakens him at night time. He denies numbness and tingling. He is seeing another manual PT who will con't to work on him. Pt rates his complaints as 1: right leg pain, 2: LB when walking, 3: Left shoulder Prior Treatments and Tests 08/29/24 left hip x-ray revealed mild OA and right knee x-ray revealed normal TKA Treatment Goals Patient/Caregiver Goals To decrease left shoulder, back and right leg pain. PT-OP-C Subjective Start: 09/26/24 16:37 Freq: Status: Active Protocol: Document 10/07/24 09:03 SP (Rec: 10/07/24 09:49 SP Laptop) OP-PT Subjective Patient Comments Patient Comments He arrives using QC due to R knee bothering him for support . He reports R knee throbs when stands up. He uses shopping cart for support. He thinks the manual helped last tx. He sees Nanda a holistic professional as well. PT-OP-G Mobility & Gait Start: 09/26/24 16:37 Freq: Status: Active Protocol: Document 09/27/24 08:12 MB (Rec: 09/27/24 08:51 MB [id number]) OP Gait Assessment Comments Gait Comments Gait in socks: Pt with right SB of head and mild left rotation of head, stiffness in head and shoulders with gait and decreased arm swing and he tends to lead his walking with his head. With stepping, his right knee medially gives way with each step and WB through the right leg and he presents with functional leg length difference with the right leg shorter with gait and he has increased cornelia angle and B supinated feet. PT-OP-J Posture/Palpation/Skin Start: 09/26/24 16:37 Freq: Status: Active Protocol: Document 09/27/24 08:12 MB (Rec: 09/27/24 08:51 MB [id number]) Posture Evaluation Comments Posture Comments Posture in socks: head rests in mild right SB, flattened thoracic kyphosis and convexity to the right lower thoracic spine with ribs/ spinous processes protruding to the left many levels, left iliac crest mildly higher than the right, right leg rests in front and he has mild right knee bend, right elbow with lump. Increased cornelia angle on the right, left tragus in front left AC joint. Lumbar flexion with posterior pelvic shift and knees bent and limited lumbar motion, lumbar extension 5 deg and he feels it in the right knee and in the left shoulder, limited SB 5 deg B and pt feels in left shoulder and right knee with hands on hips. PT-OP-K Range of Motion Start: 09/26/24 16:37 Freq: Status: Active Protocol: Document 09/27/24 08:12 MB (Rec: 09/27/24 08:51 MB [id number]) Cervical Spine Range of Motion Cervical Spine Active Testing Position Standing Flexion 35 Extension 14 Rotation Left 55 Rotation Right 58 Comments Head rests in 6 deg right SB and mild left rotation Shoulder Goniometric Range of Motion Shoulder Left Testing Position Standing Flexion 135 Extension 35 Abduction 140 Internal Rotation Behind Back (text) L3 Comments In supine, PROM left shoulder ER and IR in : tightness end-range ER to 70 deg and IR to neutral and AC joint c/o pain Right Testing Position Standing Flexion 135 Extension 38 Abduction 140 Internal Rotation Behind Back (text) L1 Comments Pt is right handed In supine, PROM right shoulder ER and IR in : normal PT-OP-M Strength Start: 09/26/24 16:37 Freq: Status: Active Protocol: Document 09/27/24 08:12 MB (Rec: 09/27/24 08:51 MB [id number]) Shoulder Strength Shoulder Manual Muscle Testing Left Flexion 4+ Good+ Abduction (C5) 5 Normal External Rotation 4+ Good+ Internal Rotation 4+ Good+ Right Flexion 4+ Good+ Abduction (C5) 4+ Good+ External Rotation 4+ Good+ Internal Rotation 4+ Good+ Elbow/Forearm Strength Elbow and Forearm Manual Muscle Testing Left Flexion (C6) 5 Normal Extension (C7) 5 Normal Pronation 4+ Good+ Supination 4+ Good+ Right Flexion (C6) 5 Normal Extension (C7) 5 Normal Pronation 4+ Good+ Supination 4+ Good+ Hip Strength Hip Manual Muscle Testing Left Flexion (L2) 4+ Good+ Abduction 4+ Good+ Right Flexion (L2) 4+ Good+ Abduction 4+ Good+ Knee Strength Knee Manual Muscle Testing Left Flexion (S2) 5 Normal Extension (L3) 5 Normal Comments AROM left knee 3-130 deg Right Flexion (S2) 4+ Good+ Extension (L3) 4+ Good+ Comments AROM right knee 11-112 deg Ankle/Foot Strength Ankle and Foot Manual Muscle Testing Left Dorsiflexion (L4) 5 Normal Right Dorsiflexion (L4) 5 Normal Toe Strength Toe Manual Muscle Testing Left Great Toe Extension 5 Normal Right Great Toe Extension 4+ Good+ PT-OP-Q Treatments Start: 09/26/24 16:37 Freq: Status: Active Protocol: Document 10/07/24 09:03 SP (Rec: 10/07/24 09:49 SP Laptop) Therapeutic Exercises Supine Exercises ITB stretch Supine Exercise Name added with HEP with HO Side left Reps/Minutes 30-60 sec Comments good response Core Progression Supine Exercise Name reinitiated today: TA LTR full range can, Hip rolls (SKFO) Reps/Minutes 10 each, pause end feel for gentle rotational stretch Comments cued slow change directions pelvic realignment Supine Exercise Name ball knee press, SL pelvic lift, thigh ext press Equipment Used readded toHEP with his HO Reps/Minutes 3 SH x5 reps each Comments cued gentle pressure and movement Sidelying Exercises openbook Sidelying Exercise Name readded to HEP with his HO Side bilateral Resistance AROM Reps/Minutes x5-10 reps, pause for gentle stretch and TS rotation movement Comments pnfree range, feel tension in L knee when moving R arm, free movement on L Manual Therapy Treatment Consent Patient gave verbal consent for manual Yes treatment Other Other Manual Treatments Pt supine with head and legs supported: STM and positional release L vastus lateralis, ITB, quad. knee A<>P in various flexion range, prox fib AP, talocrual AP, calcaneal med/lat/ distraction . PT-OP-T Assessment and Plan Start: 09/26/24 16:37 Freq: Status: Active Protocol: Document 10/07/24 09:03 SP (Rec: 10/07/24 09:49 SP Laptop) Physical Therapy Assessment Goals 4 Impairment Lack of HEP Assisted Goal (LTG) Pt will perform progressive HEP with I including alignment , flexibility, range, postural , balance and strengthening exercises to improve mobility and pain. LTG Duration 8 weeks 3 Impairment Right greater than left LE weakness Egg Sorter Goal (LTG) Pt will present with B hip flexion, abduction, extension and knee flexion and extension strength to at least 4+/5 to improve functional strength with transfers and gait. LTG Duration 8 weeks 2 Impairment Left shoulder pain Assisted Goal (LTG) Pt will report at least a 50% improvement in left shoulder pain to improve function and quality of life. LTG Duration 8 weeks 1 Impairment Evidence of imbalance Assisted Goal (LTG) Pt will perform TUG with or without LRAD in less than 10 sec to decrease fall risk. LTG Duration 8 weeks Assessment Summary Assessment Pt good response to manual and review AROM LS, TS, hip rotation and pelvis realignment for increased mobility and decreased tightness. Good response leaving today, I can walk better. Physical Therapy Plan Frequency and Duration Frequency of Treatment 2x/Week Duration of treatment (weeks) 8 Plan of Care Start Date 09/27/24 Plan of Care End Date 11/27/24 Therapeutic Interventions Therapeutic Interventions Balance Training,Canalithic Repositioning,Coordination Training,Gait Training,Home Exercise Program,Joint Mobilizations,Manual Therapy, Neuromuscular Re-education, Orthotic/Prosthetic Management ,Patient/Caregiver Education, Self-Care/Home Management,Soft Tissue Mobilization,Taping, Therapeutic Activities, Therapeutic Exercises Modalities Cold Pack/Ice Massage,Electric Stimulation,Hot Packs, Ultrasound Next Visit Focus/Plan Next Note Type Treatment Note Next Visit Plan Continue reivew HEP previous with folder from last PT course, recheck pelvic realignment exercises/open book/hip rolls, LTR added lastx. NExt tx add shoulder exercise, thoracic exercise Manual work to include checking out left shoulder, supraspinatus, upper traps, etc Arm bike when ready, Fascial Counterstrain with primary PT
--- NOTE | 2024-10-11 15:48 | PT.OTN ---
Current Diagnoses Other chronic pain (10/11/24) Pain in left shoulder (10/11/24) Low back pain, unspecified (10/11/24) Physical Therapy Treatment Note PT-OP-A Visit Information Start: 09/26/24 16:37 Freq: Status: Active Protocol: Document 10/11/24 07:33 SP (Rec: 10/11/24 08:17 SP Laptop) Out-Patient Physical Therapy Visit Information Visit Information Visit Type Treatment Note Visit Note Medicare 08/17 before KX Prog note by 10/27/24 WALKER Porter provided manual and ther ex instruction while under direction supervision of ACCOUNTING PRACTICE MANAGER Zuleima and pt permission. Visit Start Time 07:33 Visit Stop Time 08:16 Visit Number 4 Number of ACCOUNTING PRACTICE MANAGER Visits 2 Evaluation Information Evaluation Date 09/27/24 PT-OP-B Current Condition Start: 09/26/24 16:37 Freq: Status: Active Protocol: Document 09/27/24 08:12 MB (Rec: 09/27/24 08:51 MB [id number]) Current Condition History of Current Condition Onset Date 12 years ago in left shoulder Current Complaints Pain with using left arm, sleeping on it and flexibility reaching back History of Current Condition PMH includes left shoulder pain and PT treatment about 12 years ago, chronic back pain, lumbar fusions, PD, right TKR and ongoing dysfunction with recent tendnitis of the quadriceps. Pt reports increasing pain left shoulder recently. If he sleeps on it, he can feel the pain and he has trouble abducting and reaching arm up to the left. He is taking two Aleve in the morning and two Aleve at night . These seem to release the tension. He is not icing his shoulder but is icing his right shoulder. He also uses a patch on the right knee. He started using a QC intermittently that he did not bring into clinic. Occ, his left arm awakens him at night time. He denies numbness and tingling. He is seeing another manual PT who will con't to work on him. Pt rates his complaints as 1: right leg pain, 2: LB when walking, 3: Left shoulder Prior Treatments and Tests 08/29/24 left hip x-ray revealed mild OA and right knee x-ray revealed normal TKA Treatment Goals Patient/Caregiver Goals To decrease left shoulder, back and right leg pain. PT-OP-C Subjective Start: 09/26/24 16:37 Freq: Status: Active Protocol: Document 10/11/24 07:33 SP (Rec: 10/11/24 08:17 SP Laptop) OP-PT Subjective Patient Comments Patient Comments Pt stated coming in with normal aches and pains. He stated would like to go for walks without irritation. He stated when reaches up to shower head with LUE not understanding why R knee causes pain, seems weird how related. PT-OP-G Mobility & Gait Start: 09/26/24 16:37 Freq: Status: Active Protocol: Document 09/27/24 08:12 MB (Rec: 09/27/24 08:51 MB [id number]) OP Gait Assessment Comments Gait Comments Gait in socks: Pt with right SB of head and mild left rotation of head, stiffness in head and shoulders with gait and decreased arm swing and he tends to lead his walking with his head. With stepping, his right knee medially gives way with each step and WB through the right leg and he presents with functional leg length difference with the right leg shorter with gait and he has increased cornelia angle and B supinated feet. PT-OP-J Posture/Palpation/Skin Start: 09/26/24 16:37 Freq: Status: Active Protocol: Document 09/27/24 08:12 MB (Rec: 09/27/24 08:51 MB [id number]) Posture Evaluation Comments Posture Comments Posture in socks: head rests in mild right SB, flattened thoracic kyphosis and convexity to the right lower thoracic spine with ribs/ spinous processes protruding to the left many levels, left iliac crest mildly higher than the right, right leg rests in front and he has mild right knee bend, right elbow with lump. Increased cornelia angle on the right, left tragus in front left AC joint. Lumbar flexion with posterior pelvic shift and knees bent and limited lumbar motion, lumbar extension 5 deg and he feels it in the right knee and in the left shoulder, limited SB 5 deg B and pt feels in left shoulder and right knee with hands on hips. PT-OP-K Range of Motion Start: 09/26/24 16:37 Freq: Status: Active Protocol: Document 09/27/24 08:12 MB (Rec: 09/27/24 08:51 MB [id number]) Cervical Spine Range of Motion Cervical Spine Active Testing Position Standing Flexion 35 Extension 14 Rotation Left 55 Rotation Right 58 Comments Head rests in 6 deg right SB and mild left rotation Shoulder Goniometric Range of Motion Shoulder Left Testing Position Standing Flexion 135 Extension 35 Abduction 140 Internal Rotation Behind Back (text) L3 Comments In supine, PROM left shoulder ER and IR in : tightness end-range ER to 70 deg and IR to neutral and AC joint c/o pain Right Testing Position Standing Flexion 135 Extension 38 Abduction 140 Internal Rotation Behind Back (text) L1 Comments Pt is right handed In supine, PROM right shoulder ER and IR in : normal PT-OP-M Strength Start: 09/26/24 16:37 Freq: Status: Active Protocol: Document 09/27/24 08:12 MB (Rec: 09/27/24 08:51 MB [id number]) Shoulder Strength Shoulder Manual Muscle Testing Left Flexion 4+ Good+ Abduction (C5) 5 Normal External Rotation 4+ Good+ Internal Rotation 4+ Good+ Right Flexion 4+ Good+ Abduction (C5) 4+ Good+ External Rotation 4+ Good+ Internal Rotation 4+ Good+ Elbow/Forearm Strength Elbow and Forearm Manual Muscle Testing Left Flexion (C6) 5 Normal Extension (C7) 5 Normal Pronation 4+ Good+ Supination 4+ Good+ Right Flexion (C6) 5 Normal Extension (C7) 5 Normal Pronation 4+ Good+ Supination 4+ Good+ Hip Strength Hip Manual Muscle Testing Left Flexion (L2) 4+ Good+ Abduction 4+ Good+ Right Flexion (L2) 4+ Good+ Abduction 4+ Good+ Knee Strength Knee Manual Muscle Testing Left Flexion (S2) 5 Normal Extension (L3) 5 Normal Comments AROM left knee 3-130 deg Right Flexion (S2) 4+ Good+ Extension (L3) 4+ Good+ Comments AROM right knee 11-112 deg Ankle/Foot Strength Ankle and Foot Manual Muscle Testing Left Dorsiflexion (L4) 5 Normal Right Dorsiflexion (L4) 5 Normal Toe Strength Toe Manual Muscle Testing Left Great Toe Extension 5 Normal Right Great Toe Extension 4+ Good+ PT-OP-Q Treatments Start: 09/26/24 16:37 Freq: Status: Active Protocol: Document 10/11/24 07:33 SP (Rec: 10/11/24 08:17 SP Laptop) Therapeutic Exercises Supine Exercises Abduction Supine Exercise Name added to HEP with HO Side bilateral Resistance AROM Reps/Minutes x10 FF Supine Exercise Name added to HEP HO Side bilateral Resistance AROM Reps/Minutes x10 Comments L less range, reports more tension ITB stretch Supine Exercise Name reviewed Side left Reps/Minutes 30-60 sec Comments good response Core Progression Supine Exercise Name reviewed: LTR (stretch today), Reps/Minutes 5 s x 10 Comments Good form Sidelying Exercises openbook Sidelying Exercise Name review Side bilateral Resistance AROM Reps/Minutes x5-10 reps, pause for gentle stretch and TS rotation movement Manual Therapy Treatment Consent Patient gave verbal consent for manual Yes treatment Other Other Manual Treatments Pt supine with head and legs supported: STM and positional release sub occipital release, UT, SCM, L humeral inf & posterior glide, pec, bicep brachialis, R vastus lateralis, ITB, quad. PT-OP-T Assessment and Plan Start: 09/26/24 16:37 Freq: Status: Active Protocol: Document 10/11/24 07:33 SP (Rec: 10/11/24 08:17 SP Laptop) Physical Therapy Assessment Goals 4 Impairment Lack of HEP Panel Cutter Goal (LTG) Pt will perform progressive HEP with I including alignment , flexibility, range, postural , balance and strengthening exercises to improve mobility and pain. LTG Duration 8 weeks 3 Impairment Right greater than left LE weakness Panel Cutter Goal (LTG) Pt will present with B hip flexion, abduction, extension and knee flexion and extension strength to at least 4+/5 to improve functional strength with transfers and gait. LTG Duration 8 weeks 2 Impairment Left shoulder pain Panel Cutter Goal (LTG) Pt will report at least a 50% improvement in left shoulder pain to improve function and quality of life. LTG Duration 8 weeks 1 Impairment Evidence of imbalance Panel Cutter Goal (LTG) Pt will perform TUG with or without LRAD in less than 10 sec to decrease fall risk. LTG Duration 8 weeks Assessment Summary Assessment Pt tolerated manual today, continues to have little tension anterior and near AC jt on left shoulder further into end feel of flexion added today. Physical Therapy Plan Frequency and Duration Frequency of Treatment 2x/Week Duration of treatment (weeks) 8 Plan of Care Start Date 09/27/24 Plan of Care End Date 11/27/24 Therapeutic Interventions Therapeutic Interventions Balance Training,Canalithic Repositioning,Coordination Training,Gait Training,Home Exercise Program,Joint Mobilizations,Manual Therapy, Neuromuscular Re-education, Orthotic/Prosthetic Management ,Patient/Caregiver Education, Self-Care/Home Management,Soft Tissue Mobilization,Taping, Therapeutic Activities, Therapeutic Exercises Modalities Cold Pack/Ice Massage,Electric Stimulation,Hot Packs, Ultrasound Next Visit Focus/Plan Next Note Type Treatment Note Next Visit Plan Continue reivew HEP previous with folder from last PT course, recheck pelvic realignment exercises/open book/hip rolls, LTR and added hooklying FF and HABD lastx. PRogress shoulder exercise and incorporated noodle, thoracic exercise. Manual work to include checking out left shoulder, supraspinatus, upper traps, etc Arm bike when ready, Fascial Counterstrain with primary PT
--- NOTE | 2024-10-14 10:22 | PT.OTN ---
Current Diagnoses Other chronic pain (10/14/24) Pain in left shoulder (10/14/24) Low back pain, unspecified (10/14/24) Physical Therapy Treatment Note PT-OP-A Visit Information Start: 09/26/24 16:37 Freq: Status: Active Protocol: Document 10/14/24 08:15 PG (Rec: 10/14/24 09:18 PG Laptop) Out-Patient Physical Therapy Visit Information Visit Information Visit Type Treatment Note Visit Note Medicare 08/17 before [employer] note by 10/27/24 WALKER Porter provided manual and ther ex instruction while under direction supervision of OTR REFRIGERATED [employer] TRUCK DRIVER Zuleima and pt permission. Visit Start Time 08:15 Visit Stop Time 08:57 Visit Number 5 Number of OTR REFRIGERATED [employer] TRUCK DRIVER Visits 3 Evaluation Information Evaluation Date 09/27/24 PT-OP-B Current Condition Start: 09/26/24 16:37 Freq: Status: Active Protocol: Document 09/27/24 08:12 MB (Rec: 09/27/24 08:51 MB [id number]) Current Condition History of Current Condition Onset Date 12 years ago in left shoulder Current Complaints Pain with using left arm, sleeping on it and flexibility reaching back History of Current Condition PMH includes left shoulder pain and PT treatment about 12 years ago, chronic back pain, lumbar fusions, PD, right TKR and ongoing dysfunction with recent tendnitis of the quadriceps. Pt reports increasing pain left shoulder recently. If he sleeps on it, he can feel the pain and he has trouble abducting and reaching arm up to the left. He is taking two Aleve in the morning and two Aleve at night . These seem to release the tension. He is not icing his shoulder but is icing his right shoulder. He also uses a patch on the right knee. He started using a QC intermittently that he did not bring into clinic. Occ, his left arm awakens him at night time. He denies numbness and tingling. He is seeing another manual PT who will con't to work on him. Pt rates his complaints as 1: right leg pain, 2: LB when walking, 3: Left shoulder Prior Treatments and Tests 08/29/24 left hip x-ray revealed mild OA and right knee x-ray revealed normal TKA Treatment Goals Patient/Caregiver Goals To decrease left shoulder, back and right leg pain. PT-OP-C Subjective Start: 09/26/24 16:37 Freq: Status: Active Protocol: Document 10/14/24 08:15 PG (Rec: 10/14/24 09:18 PG Laptop) OP-PT Subjective Patient Comments Patient Comments Pt states he's been hurting in his R knee after walking. Went to [employer] class on 10/13 and felt the discomfort in his R knee as distance progressed noticed harder stepping, especially while performing forward and backward stepping. He still has tension in R knee when reaches overhead with LUE. PT-OP-G Mobility & Gait Start: 09/26/24 16:37 Freq: Status: Active Protocol: Document 09/27/24 08:12 MB (Rec: 09/27/24 08:51 MB [id number]) OP Gait Assessment Comments Gait Comments Gait in socks: Pt with right SB of head and mild left rotation of head, stiffness in head and shoulders with gait and decreased arm swing and he tends to lead his walking with his head. With stepping, his right knee medially gives way with each step and WB through the right leg and he presents with functional leg length difference with the right leg shorter with gait and he has increased cornelia angle and B supinated feet. PT-OP-J Posture/Palpation/Skin Start: 09/26/24 16:37 Freq: Status: Active Protocol: Document 09/27/24 08:12 MB (Rec: 09/27/24 08:51 MB [id number]) Posture Evaluation Comments Posture Comments Posture in socks: head rests in mild right SB, flattened thoracic kyphosis and convexity to the right lower thoracic spine with ribs/ spinous processes protruding to the left many levels, left iliac crest mildly higher than the right, right leg rests in front and he has mild right knee bend, right elbow with lump. Increased cornelia angle on the right, left tragus in front left AC joint. Lumbar flexion with posterior pelvic shift and knees bent and limited lumbar motion, lumbar extension 5 deg and he feels it in the right knee and in the left shoulder, limited SB 5 deg B and pt feels in left shoulder and right knee with hands on hips. PT-OP-K Range of Motion Start: 09/26/24 16:37 Freq: Status: Active Protocol: Document 09/27/24 08:12 MB (Rec: 09/27/24 08:51 MB [id number]) Cervical Spine Range of Motion Cervical Spine Active Testing Position Standing Flexion 35 Extension 14 Rotation Left 55 Rotation Right 58 Comments Head rests in 6 deg right SB and mild left rotation Shoulder Goniometric Range of Motion Shoulder Left Testing Position Standing Flexion 135 Extension 35 Abduction 140 Internal Rotation Behind Back (text) L3 Comments In supine, PROM left shoulder ER and IR in 90/90: tightness end-range ER to 70 deg and IR to neutral and AC joint c/o pain Right Testing Position Standing Flexion 135 Extension 38 Abduction 140 Internal Rotation Behind Back (text) L1 Comments Pt is right handed In supine, PROM right shoulder ER and IR in 90/90: normal PT-OP-M Strength Start: 09/26/24 16:37 Freq: Status: Active Protocol: Document 09/27/24 08:12 MB (Rec: 09/27/24 08:51 MB [id number]) Shoulder Strength Shoulder Manual Muscle Testing Left Flexion 4+ Good+ Abduction (C5) 5 Normal External Rotation 4+ Good+ Internal Rotation 4+ Good+ Right Flexion 4+ Good+ Abduction (C5) 4+ Good+ External Rotation 4+ Good+ Internal Rotation 4+ Good+ Elbow/Forearm Strength Elbow and Forearm Manual Muscle Testing Left Flexion (C6) 5 Normal Extension (C7) 5 Normal Pronation 4+ Good+ Supination 4+ Good+ Right Flexion (C6) 5 Normal Extension (C7) 5 Normal Pronation 4+ Good+ Supination 4+ Good+ Hip Strength Hip Manual Muscle Testing Left Flexion (L2) 4+ Good+ Abduction 4+ Good+ Right Flexion (L2) 4+ Good+ Abduction 4+ Good+ Knee Strength Knee Manual Muscle Testing Left Flexion (S2) 5 Normal Extension (L3) 5 Normal Comments AROM left knee 3-130 deg Right Flexion (S2) 4+ Good+ Extension (L3) 4+ Good+ Comments AROM right knee 11-112 deg Ankle/Foot Strength Ankle and Foot Manual Muscle Testing Left Dorsiflexion (L4) 5 Normal Right Dorsiflexion (L4) 5 Normal Toe Strength Toe Manual Muscle Testing Left Great Toe Extension 5 Normal Right Great Toe Extension 4+ Good+ PT-OP-Q Treatments Start: 09/26/24 16:37 Freq: Status: Active Protocol: Document 10/14/24 08:15 PG (Rec: 10/14/24 09:18 PG Laptop) Therapeutic Exercises Supine Exercises Abduction Supine Exercise Name Added pool noodle Side bilateral Resistance AROM Reps/Minutes x10 Comments good response FF Supine Exercise Name Added pool noodle Side bilateral Resistance AROM Reps/Minutes x10 Comments L less range, pt reports he felt more tension but no pain ITB stretch Supine Exercise Name Reviewed - encouraged holding for longer at home to help sustain stretch. Side bilateral Equipment Used blue strap Reps/Minutes 30 sec Comments good response Standing Exercises Calf stretch Standing Exercise Name Trialed in PT then added to HEP (declined HO) gastroc & soleus Side right Equipment Used Staircase for UE support Reps/Minutes 30 seconds each Comments VC's to straighten leg to target gastroc and bend knee to target soleus. Gait Training Gait Activity Walking Description Walking, focus on inital contact Device Used 4 point cane Surface Floor/Carpet Distance/Duration multiple laps around gym equipment Treatment Focus decrease eccentric heel strike on R for decreased pain report Comments VC's to lift toes and strike softly with heel. Responded well and no pain, education mindful of carryover community walking longer distances. Manual Therapy Treatment Consent Patient gave verbal consent for manual Yes treatment Other Other Manual Treatments Pt supine with head and legs supported: STM and positional release sub occipital release, UT, SCM, L humeral inf & posterior glide, pec, bicep brachialis, R vastus lateralis, ITB, quad. PT-OP-T Assessment and Plan Start: 09/26/24 16:37 Freq: Status: Active Protocol: Document 10/14/24 08:15 PG (Rec: 10/14/24 09:18 PG Laptop) Physical Therapy Assessment Goals 4 Impairment Lack of HEP Prison Goal (LTG) Pt will perform progressive HEP with I including alignment , flexibility, range, postural , balance and strengthening exercises to improve mobility and pain. LTG Duration 8 weeks 3 Impairment Right greater than left LE weakness Prison Goal (LTG) Pt will present with B hip flexion, abduction, extension and knee flexion and extension strength to at least 4+/5 to improve functional strength with transfers and gait. LTG Duration 8 weeks 2 Impairment Left shoulder pain Prison Goal (LTG) Pt will report at least a 50% improvement in left shoulder pain to improve function and quality of life. LTG Duration 8 weeks 1 Impairment Evidence of imbalance Prison Goal (LTG) Pt will perform TUG with or without LRAD in less than 10 sec to decrease fall risk. LTG Duration 8 weeks Assessment Summary Assessment Pt tolerated manual today. Progressed shoulder FF and abduction in supine with pool noodle, responded well and reported minimal tension in L shoulder at end of ROM. Introduced and added to HEP: gastroc/soleus stretch to improve toe lift with gait. Physical Therapy Plan Frequency and Duration Frequency of Treatment 2x/Week Duration of treatment (weeks) 8 Plan of Care Start Date 09/27/24 Plan of Care End Date 11/27/24 Therapeutic Interventions Therapeutic Interventions Balance Training,Canalithic Repositioning,Coordination Training,Gait Training,Home Exercise Program,Joint Mobilizations,Manual Therapy, Neuromuscular Re-education, Orthotic/Prosthetic Management ,Patient/Caregiver Education, Self-Care/Home Management,Soft Tissue Mobilization,Taping, Therapeutic Activities, Therapeutic Exercises Modalities Cold Pack/Ice Massage,Electric Stimulation,Hot Packs, Ultrasound Next Visit Focus/Plan Next Note Type Treatment Note Next Visit Plan Next start: Arm bike. Review gastroc/soleus stretch and potentially add band for resistance with shlr FF and abd over noodle. Continue R knee mobility and review softer heel strike for walking pain reduction, problem solve R knee pain/tension with LUE OH reaching. Continue review HEP previous with folder from last PT course, recheck pelvic realignment exercises/open book/hip rolls, LTR and added hooklying FF and HABD last tx with noodle. Progress L UE resistance over noodle, thoracic exercise. Manual work to include checking out left shoulder, supraspinatus, upper traps, knee, etc Fascial Counterstrain with primary PT
--- NOTE | 2024-10-17 08:49 | PT.OTN ---
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 Pt reports increasing pain left shoulder recently. If he sleeps on it, he can feel the pain and he has trouble abducting and reaching arm up to the left. He is taking two Aleve in the morning and two Aleve at night . These seem to release the tension. He is not icing his shoulder but is icing his right shoulder. He also uses a patch on the right knee. He started using a QC intermittently that he did not bring into clinic. Occ, his left arm awakens him at night time. He denies numbness and tingling. He is seeing another manual PT who will con't to work on him. Pt rates his complaints as 1: right leg pain, 2: LB when walking, 3: Left shoulder Prior Treatments and Tests 08/29/24 left hip x-ray revealed mild OA and right knee x-ray revealed normal TKA Treatment Goals Patient/Caregiver Goals To decrease left shoulder, back and right leg pain. PT-OP-C Subjective Start: 09/26/24 16:37 Freq: Status: Active Protocol: Document 10/17/24 08:10 MB (Rec: 10/17/24 08:49 MB Desktop) OP-PT Subjective Patient Comments Patient Comments Pt states that his right knee is not bothering him now, but if there is pounding type movement like stepping BIG or walking far, even with hiking sticks, the right patellar area bothers him. PT-OP-G Mobility & Gait Start: 09/26/24 16:37 Freq: Status: Active Protocol: Document 09/27/24 08:12 MB (Rec: 09/27/24 08:51 MB [id number]) OP Gait Assessment Comments Gait Comments Gait in socks: Pt with right SB of head and mild left rotation of head, stiffness in head and shoulders with gait and decreased arm swing and he tends to lead his walking with his head. With stepping, his right knee medially gives way with each step and WB through the right leg and he presents with functional leg length difference with the right leg shorter with gait and he has increased cornelia angle and B supinated feet. PT-OP-J Posture/Palpation/Skin Start: 09/26/24 16:37 Freq: Status: Active Protocol: Document 09/27/24 08:12 MB (Rec: 09/27/24 08:51 MB [id number]) Posture Evaluation Comments Posture Comments Posture in socks: head rests in mild right SB, flattened thoracic kyphosis and convexity to the right lower thoracic spine with ribs/ spinous processes protruding to the left many levels, left iliac crest mildly higher than the right, right leg rests in front and he has mild right knee bend, right elbow with lump. Increased cornelia angle on the right, left tragus in front left AC joint. Lumbar flexion with posterior pelvic shift and knees bent and limited lumbar motion, lumbar extension 5 deg and he feels it in the right knee and in the left shoulder, limited SB 5 deg B and pt feels in left shoulder and right knee with hands on hips. PT-OP-K Range of Motion Start: 09/26/24 16:37 Freq: Status: Active Protocol: Document 09/27/24 08:12 MB (Rec: 09/27/24 08:51 MB [id number]) Cervical Spine Range of Motion Cervical Spine Active Testing Position Standing Flexion 35 Extension 14 Rotation Left 55 Rotation Right 58 Comments Head rests in 6 deg right SB and mild left rotation Shoulder Goniometric Range of Motion Shoulder Left Testing Position Standing Flexion 135 Extension 35 Abduction 140 Internal Rotation Behind Back (text) L3 Comments In supine, PROM left shoulder ER and IR in : tightness end-range ER to 70 deg and IR to neutral and AC joint c/o pain Right Testing Position Standing Flexion 135 Extension 38 Abduction 140 Internal Rotation Behind Back (text) L1 Comments Pt is right handed In supine, PROM right shoulder ER and IR in : normal PT-OP-M Strength Start: 09/26/24 16:37 Freq: Status: Active Protocol: Document 09/27/24 08:12 MB (Rec: 09/27/24 08:51 MB [id number]) Shoulder Strength Shoulder Manual Muscle Testing Left Flexion 4+ Good+ Abduction (C5) 5 Normal External Rotation 4+ Good+ Internal Rotation 4+ Good+ Right Flexion 4+ Good+ Abduction (C5) 4+ Good+ External Rotation 4+ Good+ Internal Rotation 4+ Good+ Elbow/Forearm Strength Elbow and Forearm Manual Muscle Testing Left Flexion (C6) 5 Normal Extension (C7) 5 Normal Pronation 4+ Good+ Supination 4+ Good+ Right Flexion (C6) 5 Normal Extension (C7) 5 Normal Pronation 4+ Good+ Supination 4+ Good+ Hip Strength Hip Manual Muscle Testing Left Flexion (L2) 4+ Good+ Abduction 4+ Good+ Right Flexion (L2) 4+ Good+ Abduction 4+ Good+ Knee Strength Knee Manual Muscle Testing Left Flexion (S2) 5 Normal Extension (L3) 5 Normal Comments AROM left knee 3-130 deg Right Flexion (S2) 4+ Good+ Extension (L3) 4+ Good+ Comments AROM right knee 11-112 deg Ankle/Foot Strength Ankle and Foot Manual Muscle Testing Left Dorsiflexion (L4) 5 Normal Right Dorsiflexion (L4) 5 Normal Toe Strength Toe Manual Muscle Testing Left Great Toe Extension 5 Normal Right Great Toe Extension 4+ Good+ PT-OP-Q Treatments Start: 09/26/24 16:37 Freq: Status: Active Protocol: Document 10/17/24 08:10 MB (Rec: 10/17/24 08:49 MB Desktop) Therapeutic Exercises Standing Exercises Calf stretch Standing Exercise Name Pt has in folder from previous PT course Comments Ed for 30 sec each leg Gait Training Gait Activity 6MWT Comments Right inferior patellar pain 1 -2 before gait, gait with SPC left hand and pt has trouble coordinating moving cane in left hand with each right step . Pt's gait is antalgic. Stopped testing after less than 2 min d/t discomfort, ongoing buckle-type presentation of right leg, functional leg shortness on the right Walking Comments Gait with SPC left hand and right knee KT support: mild right knee buckle and mostly because slowing gait and using AD opp side each step on the right Gait with KT and B hiking sticks: shortened steps and cues to picker/puller opp with each step and pt does not tend to use with each step Manual Therapy Treatment Consent Patient gave verbal consent for manual Yes treatment Manual Techniques KT Comments Black KT right knee with c strip under knee and B I strips medial and lateral knee Other Other Manual Treatments Pt supine with head and legs supported: STM B upper traps, left first rib mob grade I-II, STM left pect major and minor , left infraspinatus PT-OP-T Assessment and Plan Start: 09/26/24 16:37 Freq: Status: Active Protocol: Document 10/17/24 08:10 MB (Rec: 10/17/24 08:49 MB Desktop) Physical Therapy Assessment Goals 4 Impairment Lack of HEP Alf Goal (LTG) Pt will perform progressive HEP with I including alignment , flexibility, range, postural , balance and strengthening exercises to improve mobility and pain. LTG Duration 8 weeks 3 Impairment Right greater than left LE weakness Alf Goal (LTG) Pt will present with B hip flexion, abduction, extension and knee flexion and extension strength to at least 4+/5 to improve functional strength with transfers and gait. LTG Duration 8 weeks 2 Impairment Left shoulder pain It Network Engineer Goal (LTG) Pt will report at least a 50% improvement in left shoulder pain to improve function and quality of life. LTG Duration 8 weeks 1 Impairment Evidence of imbalance It Network Engineer Goal (LTG) Pt will perform TUG with or without LRAD in less than 10 sec to decrease fall risk. LTG Duration 8 weeks Assessment Summary Assessment Pt has a hard time coordinating cane and hiking sticks well with opp foot with gait and so they do not yet optimally help opp leg. PT feels pt may have right knee anatomical change, leg length difference and spinal issue contributing to his right knee symptoms. Physical Therapy Plan Frequency and Duration Frequency of Treatment 2x/Week Duration of treatment (weeks) 8 Plan of Care Start Date 09/27/24 Plan of Care End Date 11/27/24 Therapeutic Interventions Therapeutic Interventions Balance Training,Canalithic Repositioning,Coordination Training,Gait Training,Home Exercise Program,Joint Mobilizations,Manual Therapy, Neuromuscular Re-education, Orthotic/Prosthetic Management ,Patient/Caregiver Education, Self-Care/Home Management,Soft Tissue Mobilization,Taping, Therapeutic Activities, Therapeutic Exercises Modalities Cold Pack/Ice Massage,Electric Stimulation,Hot Packs, Ultrasound Other Referrals/Consults Referrals/Consults Recommended Orthopedist referral for right knee Next Visit Focus/Plan Next Note Type Treatment Note Next Visit Plan Consider arm bike and resistance with shlr FF and abd over noodle. Continue R knee mobility and review softer heel strike for walking pain reduction, problem solve R knee pain/tension with URIEL GOMEZ reaching. Con't to revise handouts in his HEP folder from this and previous PT course.
--- NOTE | 2024-10-19 08:11 | PT.OTN ---
Current Diagnoses Other chronic pain (10/19/24) Pain in left shoulder (10/19/24) Low back pain, unspecified (10/19/24) Physical Therapy Treatment Note PT-OP-A Visit Information Start: 09/26/24 16:37 Freq: Status: Active Protocol: Document 10/19/24 07:31 PG (Rec: 10/19/24 08:49 PG [id number]) Out-Patient Physical Therapy Visit Information Visit Information Visit Type Treatment Note Visit Note Medicare 01/14 before [employer] note by 10/27/24 Charlotte CARDOSO instructed ther ex activities and used manual therapy with permission of pt and direct supervision from Zuleima SEPULVEDA. 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 Pt reports increasing pain left shoulder recently. If he sleeps on it, he can feel the pain and he has trouble abducting and reaching arm up to the left. He is taking two Aleve in the morning and two Aleve at night . These seem to release the tension. He is not icing his shoulder but is icing his right shoulder. He also uses a patch on the right knee. He started using a QC intermittently that he did not bring into clinic. Occ, his left arm awakens him at night time. He denies numbness and tingling. He is seeing another manual PT who will con't to work on him. Pt rates his complaints as 1: right leg pain, 2: LB when walking, 3: Left shoulder Prior Treatments and Tests 08/29/24 left hip x-ray revealed mild OA and right knee x-ray revealed normal TKA Treatment Goals Patient/Caregiver Goals To decrease left shoulder, back and right leg pain. PT-OP-C Subjective Start: 09/26/24 16:37 Freq: Status: Active Protocol: Document 10/19/24 07:31 PG (Rec: 10/19/24 08:49 PG [id number]) OP-PT Subjective Patient Comments Patient Comments Pt states his left shoulder is feeling fine, he has been using a 6inch pool noodle at home that forces him to engage him core while working on his HEP. He is unsure if KT tape helped relieve any R knee discomfort. After 5-10 minutes of walking, feels discomfort at the front of the R knee. Made an appt with physician, x-rays came back clear but PA said it could be tendinitis. Continues to feel a sharp pain in the front of his R knee when flexing L arm OH. Finds discomfort with many standing BIG exercises. PT-OP-G Mobility & Gait Start: 09/26/24 16:37 Freq: Status: Active Protocol: Document 09/27/24 08:12 MB (Rec: 09/27/24 08:51 MB [id number]) OP Gait Assessment Comments Gait Comments Gait in socks: Pt with right SB of head and mild left rotation of head, stiffness in head and shoulders with gait and decreased arm swing and he tends to lead his walking with his head. With stepping, his right knee medially gives way with each step and WB through the right leg and he presents with functional leg length difference with the right leg shorter with gait and he has increased cornelia angle and B supinated feet. PT-OP-J Posture/Palpation/Skin Start: 09/26/24 16:37 Freq: Status: Active Protocol: Document 09/27/24 08:12 MB (Rec: 09/27/24 08:51 MB [id number]) Posture Evaluation Comments Posture Comments Posture in socks: head rests in mild right SB, flattened thoracic kyphosis and convexity to the right lower thoracic spine with ribs/ spinous processes protruding to the left many levels, left iliac crest mildly higher than the right, right leg rests in front and he has mild right knee bend, right elbow with lump. Increased cornelia angle on the right, left tragus in front left AC joint. Lumbar flexion with posterior pelvic shift and knees bent and limited lumbar motion, lumbar extension 5 deg and he feels it in the right knee and in the left shoulder, limited SB 5 deg B and pt feels in left shoulder and right knee with hands on hips. PT-OP-K Range of Motion Start: 09/26/24 16:37 Freq: Status: Active Protocol: Document 09/27/24 08:12 MB (Rec: 09/27/24 08:51 MB [id number]) Cervical Spine Range of Motion Cervical Spine Active Testing Position Standing Flexion 35 Extension 14 Rotation Left 55 Rotation Right 58 Comments Head rests in 6 deg right SB and mild left rotation Shoulder Goniometric Range of Motion Shoulder Left Testing Position Standing Flexion 135 Extension 35 Abduction 140 Internal Rotation Behind Back (text) L3 Comments In supine, PROM left shoulder ER and IR in 90/90: tightness end-range ER to 70 deg and IR to neutral and AC joint c/o pain Right Testing Position Standing Flexion 135 Extension 38 Abduction 140 Internal Rotation Behind Back (text) L1 Comments Pt is right handed In supine, PROM right shoulder ER and IR in 90/90: normal PT-OP-M Strength Start: 09/26/24 16:37 Freq: Status: Active Protocol: Document 09/27/24 08:12 MB (Rec: 09/27/24 08:51 MB [id number]) Shoulder Strength Shoulder Manual Muscle Testing Left Flexion 4+ Good+ Abduction (C5) 5 Normal External Rotation 4+ Good+ Internal Rotation 4+ Good+ Right Flexion 4+ Good+ Abduction (C5) 4+ Good+ External Rotation 4+ Good+ Internal Rotation 4+ Good+ Elbow/Forearm Strength Elbow and Forearm Manual Muscle Testing Left Flexion (C6) 5 Normal Extension (C7) 5 Normal Pronation 4+ Good+ Supination 4+ Good+ Right Flexion (C6) 5 Normal Extension (C7) 5 Normal Pronation 4+ Good+ Supination 4+ Good+ Hip Strength Hip Manual Muscle Testing Left Flexion (L2) 4+ Good+ Abduction 4+ Good+ Right Flexion (L2) 4+ Good+ Abduction 4+ Good+ Knee Strength Knee Manual Muscle Testing Left Flexion (S2) 5 Normal Extension (L3) 5 Normal Comments AROM left knee 3-130 deg Right Flexion (S2) 4+ Good+ Extension (L3) 4+ Good+ Comments AROM right knee 11-112 deg Ankle/Foot Strength Ankle and Foot Manual Muscle Testing Left Dorsiflexion (L4) 5 Normal Right Dorsiflexion (L4) 5 Normal Toe Strength Toe Manual Muscle Testing Left Great Toe Extension 5 Normal Right Great Toe Extension 4+ Good+ PT-OP-Q Treatments Start: 09/26/24 16:37 Freq: Status: Active Protocol: Document 10/19/24 07:31 PG (Rec: 10/19/24 08:49 PG [id number]) Cardio Equipment Upper Body Ergometer (UBE) Duration (Minutes) 8 RPM 50 Seat Position 13 Height 3 Other Fwrd/bckwrd every 30 seconds Therapeutic Exercises Supine Exercises Abduction Supine Exercise Name over pool noodle added 2lb dumbells Side bilateral Resistance AROM Reps/Minutes 2x10 Comments good response FF Supine Exercise Name over pool noodle added 2lb dumbells Side bilateral Equipment Used 2lb dumbells Reps/Minutes 2x10 Comments good response, pt reports little tension in L shoulder at end range Standing Exercises Calf stretch Standing Exercise Name Reviewed after walking around clinic Side right Resistance Gastroc Equipment Used Staircase for UE support Reps/Minutes 30 seconds each Comments Pt mentioned holding stretch for a few seconds, encouraged 30 or < Gait Training Gait Activity Walking Description Walking, focus on inital contact Device Used 4 point cane Surface Floor/Carpet Distance/Duration 2 laps around outpt clinic Treatment Focus Soften inital contact on R for decreased pain report Comments VC's to lift toes and softly strike heel. No report of increased pain. Manual Therapy Treatment Consent Patient gave verbal consent for manual Yes treatment Other Other Manual Treatments Pt supine with head and legs supported: R vastus lateralis, ITB, quad. PT-OP-T Assessment and Plan Start: 09/26/24 16:37 Freq: Status: Active Protocol: Document 10/19/24 07:31 PG (Rec: 10/19/24 08:49 PG [id number]) Physical Therapy Assessment Goals 4 Impairment Lack of HEP Supervisor [employer] Goal (LTG) Pt will perform progressive HEP with I including alignment , flexibility, range, postural , balance and strengthening exercises to improve mobility and pain. LTG Duration 8 weeks 3 Impairment Right greater than left LE weakness Intermediate Goal (LTG) Pt will present with B hip flexion, abduction, extension and knee flexion and extension strength to at least 4+/5 to improve functional strength with transfers and gait. LTG Duration 8 weeks 2 Impairment Left shoulder pain Supervisor [employer] Goal (LTG) Pt will report at least a 50% improvement in left shoulder pain to improve function and quality of life. LTG Duration 8 weeks 1 Impairment Evidence of imbalance Intermediate Goal (LTG) Pt will perform TUG with or without LRAD in less than 10 sec to decrease fall risk. LTG Duration 8 weeks Assessment Summary Assessment Pt tolerated addition of arm bike and progressed shoulder FF and abduction in supine on a pool noodle with 2lb dumbbells' with no increase in left shoulder discomfort. Pt was able to walk 2 laps around clinic with no increase in knee discomfort but continued to display less toe lift with gait in R LE compared to L LE. Continued to instruct controlled heel strike and gastroc stretch to improve toe lift for improved ambulation through the community. Physical Therapy Plan Frequency and Duration Frequency of Treatment 2x/Week Duration of treatment (weeks) 8 Plan of Care Start Date 09/27/24 Plan of Care End Date 11/27/24 Therapeutic Interventions Therapeutic Interventions Balance Training,Canalithic Repositioning,Coordination Training,Gait Training,Home Exercise Program,Joint Mobilizations,Manual Therapy, Neuromuscular Re-education, Orthotic/Prosthetic Management ,Patient/Caregiver Education, Self-Care/Home Management,Soft Tissue Mobilization,Taping, Therapeutic Activities, Therapeutic Exercises Modalities Cold Pack/Ice Massage,Electric Stimulation,Hot Packs, Ultrasound Other Referrals/Consults Referrals/Consults Recommended Orthopedist referral for right knee Next Visit Focus/Plan Next Note Type Treatment Note Next Visit Plan Next, ER or rows with low resistance? Continue R knee mobility and review softer heel strike for walking pain reduction, problem solve R knee pain/tension with URIEL GOMEZ reaching. Con't to revise handouts in his HEP folder from this and previous PT course.
--- NOTE | 2024-10-25 08:17 | PT.OTN ---
Current Diagnoses Other chronic pain (10/25/24) Pain in left shoulder (10/25/24) Low back pain, unspecified (10/25/24) Physical Therapy Treatment Note PT-OP-A Visit Information Start: 09/26/24 16:37 Freq: Status: Active Protocol: Document 10/25/24 07:31 PG (Rec: 10/25/24 08:54 PG [id number]) Out-Patient Physical Therapy Visit Information Visit Information Visit Type Treatment Note Visit Note Medicare 02/14 before [employer] note by 10/27/24 Charlotte CARDOSO instructed ther ex activities and used manual therapy with permission of pt and direct supervision from Zuleima SEPULVEDA. 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 Pt reports increasing pain left shoulder recently. If he sleeps on it, he can feel the pain and he has trouble abducting and reaching arm up to the left. He is taking two Aleve in the morning and two Aleve at night . These seem to release the tension. He is not icing his shoulder but is icing his right shoulder. He also uses a patch on the right knee. He started using a QC intermittently that he did not bring into clinic. Occ, his left arm awakens him at night time. He denies numbness and tingling. He is seeing another manual PT who will con't to work on him. Pt rates his complaints as 1: right leg pain, 2: LB when walking, 3: Left shoulder Prior Treatments and Tests 08/29/24 left hip x-ray revealed mild OA and right knee x-ray revealed normal TKA Treatment Goals Patient/Caregiver Goals To decrease left shoulder, back and right leg pain. PT-OP-C Subjective Start: 09/26/24 16:37 Freq: Status: Active Protocol: Document 10/25/24 07:31 PG (Rec: 10/25/24 08:54 PG [id number]) OP-PT Subjective Patient Comments Patient Comments Pt states that his shoulder is feeling fine and his R knee continues to bother him and get achy after about 5-10 minutes of walking or toward the end of the day. While shopping, he often has to lean against the cart to decrease weight bearing in his right leg and relieve discomfort in his knee. PT-OP-G Mobility & Gait Start: 09/26/24 16:37 Freq: Status: Active Protocol: Document 09/27/24 08:12 MB (Rec: 09/27/24 08:51 MB [id number]) OP Gait Assessment Comments Gait Comments Gait in socks: Pt with right SB of head and mild left rotation of head, stiffness in head and shoulders with gait and decreased arm swing and he tends to lead his walking with his head. With stepping, his right knee medially gives way with each step and WB through the right leg and he presents with functional leg length difference with the right leg shorter with gait and he has increased cornelia angle and B supinated feet. PT-OP-J Posture/Palpation/Skin Start: 09/26/24 16:37 Freq: Status: Active Protocol: Document 09/27/24 08:12 MB (Rec: 09/27/24 08:51 MB [id number]) Posture Evaluation Comments Posture Comments Posture in socks: head rests in mild right SB, flattened thoracic kyphosis and convexity to the right lower thoracic spine with ribs/ spinous processes protruding to the left many levels, left iliac crest mildly higher than the right, right leg rests in front and he has mild right knee bend, right elbow with lump. Increased cornelia angle on the right, left tragus in front left AC joint. Lumbar flexion with posterior pelvic shift and knees bent and limited lumbar motion, lumbar extension 5 deg and he feels it in the right knee and in the left shoulder, limited SB 5 deg B and pt feels in left shoulder and right knee with hands on hips. PT-OP-K Range of Motion Start: 09/26/24 16:37 Freq: Status: Active Protocol: Document 09/27/24 08:12 MB (Rec: 09/27/24 08:51 MB [id number]) Cervical Spine Range of Motion Cervical Spine Active Testing Position Standing Flexion 35 Extension 14 Rotation Left 55 Rotation Right 58 Comments Head rests in 6 deg right SB and mild left rotation Shoulder Goniometric Range of Motion Shoulder Left Testing Position Standing Flexion 135 Extension 35 Abduction 140 Internal Rotation Behind Back (text) L3 Comments In supine, PROM left shoulder ER and IR in 90/90: tightness end-range ER to 70 deg and IR to neutral and AC joint c/o pain Right Testing Position Standing Flexion 135 Extension 38 Abduction 140 Internal Rotation Behind Back (text) L1 Comments Pt is right handed In supine, PROM right shoulder ER and IR in 90/90: normal PT-OP-M Strength Start: 09/26/24 16:37 Freq: Status: Active Protocol: Document 09/27/24 08:12 MB (Rec: 09/27/24 08:51 MB [id number]) Shoulder Strength Shoulder Manual Muscle Testing Left Flexion 4+ Good+ Abduction (C5) 5 Normal External Rotation 4+ Good+ Internal Rotation 4+ Good+ Right Flexion 4+ Good+ Abduction (C5) 4+ Good+ External Rotation 4+ Good+ Internal Rotation 4+ Good+ Elbow/Forearm Strength Elbow and Forearm Manual Muscle Testing Left Flexion (C6) 5 Normal Extension (C7) 5 Normal Pronation 4+ Good+ Supination 4+ Good+ Right Flexion (C6) 5 Normal Extension (C7) 5 Normal Pronation 4+ Good+ Supination 4+ Good+ Hip Strength Hip Manual Muscle Testing Left Flexion (L2) 4+ Good+ Abduction 4+ Good+ Right Flexion (L2) 4+ Good+ Abduction 4+ Good+ Knee Strength Knee Manual Muscle Testing Left Flexion (S2) 5 Normal Extension (L3) 5 Normal Comments AROM left knee 3-130 deg Right Flexion (S2) 4+ Good+ Extension (L3) 4+ Good+ Comments AROM right knee 11-112 deg Ankle/Foot Strength Ankle and Foot Manual Muscle Testing Left Dorsiflexion (L4) 5 Normal Right Dorsiflexion (L4) 5 Normal Toe Strength Toe Manual Muscle Testing Left Great Toe Extension 5 Normal Right Great Toe Extension 4+ Good+ PT-OP-Q Treatments Start: 09/26/24 16:37 Freq: Status: Active Protocol: Document 10/25/24 07:31 PG (Rec: 10/25/24 08:54 PG [id number]) Cardio Equipment Upper Body Ergometer (UBE) Duration (Minutes) 8 RPM 50 Seat Position 13 Height 3 Other Fwrd/bckwrd every 30 seconds Therapeutic Exercises Sidelying Exercises openbook Sidelying Exercise Name Reviewed Side bilateral Reps/Minutes x5 each side Comments v/c's to lay SLing,stack hips, and rotate trunk with arms extended Other Exercises Shoulder extension Other Exercise Name Added to HEP with HO Side bilateral Resistance light tb (orange on wall) Reps/Minutes x10 Comments cues for posture, chin tuck, scap retraction, controlled eccentric mvmnt Shoulder ER Other Exercise Name Next tx Rows Other Exercise Name Added to HEP with HO Side bilateral Resistance light tb (orange on wall) Reps/Minutes x10 Comments cues for posture, chin tuck, scap retraction, controlled eccentric mvmnt Manual Therapy Treatment Consent Patient gave verbal consent for manual Yes treatment Other Other Manual Treatments Pt supine with head and legs supported: STM to R vastus lateralis, ITB, quad. R Knee Jnt mobs: patellar (Inf /sup/med/lat), and anterior tib mob's. R Ankle Jnt mobs: calcaneal distraction (med/lat), [place] PA's PT-OP-T Assessment and Plan Start: 09/26/24 16:37 Freq: Status: Active Protocol: Document 10/25/24 07:31 PG (Rec: 10/25/24 08:54 PG [id number]) Physical Therapy Assessment Goals 4 Impairment Lack of HEP Intermediate Goal (LTG) Pt will perform progressive HEP with I including alignment , flexibility, range, postural , balance and strengthening exercises to improve mobility and pain. LTG Duration 8 weeks 3 Impairment Right greater than left LE weakness Consultative Sales Associate Goal (LTG) Pt will present with B hip flexion, abduction, extension and knee flexion and extension strength to at least 4+/5 to improve functional strength with transfers and gait. LTG Duration 8 weeks 2 Impairment Left shoulder pain Intermediate Goal (LTG) Pt will report at least a 50% improvement in left shoulder pain to improve function and quality of life. LTG Duration 8 weeks 1 Impairment Evidence of imbalance Consultative Sales Associate Goal (LTG) Pt will perform TUG with or without LRAD in less than 10 sec to decrease fall risk. LTG Duration 8 weeks Assessment Summary Assessment Pt tolerated knee and ankle mobs during tx today to increase mobility and range with ADLs and ambulation through the community. Pt reported decreased tension in R knee with open book exercise for thoracic mobility and stretch through the upper extremities and back. Pt tolerated addition of HEP standing scapular stabilization exercises to further strengthen, stabilize and improve function of L shoulder. Required v/c's for scapula retraction and to control eccentric movements. Physical Therapy Plan Frequency and Duration Frequency of Treatment 2x/Week Duration of treatment (weeks) 8 Plan of Care Start Date 09/27/24 Plan of Care End Date 11/27/24 Therapeutic Interventions Therapeutic Interventions Balance Training,Canalithic Repositioning,Coordination Training,Gait Training,Home Exercise Program,Joint Mobilizations,Manual Therapy, Neuromuscular Re-education, Orthotic/Prosthetic Management ,Patient/Caregiver Education, Self-Care/Home Management,Soft Tissue Mobilization,Taping, Therapeutic Activities, Therapeutic Exercises Modalities Cold Pack/Ice Massage,Electric Stimulation,Hot Packs, Ultrasound Other Referrals/Consults Referrals/Consults Recommended Orthopedist referral for right knee Next Visit Focus/Plan Next Note Type Treatment Note Next Visit Plan Next, How was response to knee and ankle mobs? Review standing rows and shldr ext ex 's. Review past [place] ex's for LE strengthening. Continue R knee mobility. Con 't to revise handouts in his HEP folder from this and previous PT course.
--- NOTE | 2024-10-27 08:12 | PT.OTN ---
Current Diagnoses Other chronic pain (10/27/24) Pain in left shoulder (10/27/24) Low back pain, unspecified (10/27/24) Physical Therapy Treatment Note PT-OP-A Visit Information Start: 09/26/24 16:37 Freq: Status: Active Protocol: Document 10/27/24 07:32 PG (Rec: 10/27/24 08:29 PG Laptop) Out-Patient Physical Therapy Visit Information Visit Information Visit Type Treatment Note Visit Note Medicare 03/17 before [employer] note on 10/31/24 Charlotte CARDOSO instructed ther ex activities and used manual therapy with permission of pt and direct supervision from Zuleima SEPULVEDA. 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 Pt reports increasing pain left shoulder recently. If he sleeps on it, he can feel the pain and he has trouble abducting and reaching arm up to the left. He is taking two Aleve in the morning and two Aleve at night . These seem to release the tension. He is not icing his shoulder but is icing his right shoulder. He also uses a patch on the right knee. He started using a QC intermittently that he did not bring into clinic. Occ, his left arm awakens him at night time. He denies numbness and tingling. He is seeing another manual PT who will con't to work on him. Pt rates his complaints as 1: right leg pain, 2: LB when walking, 3: Left shoulder Prior Treatments and Tests 08/29/24 left hip x-ray revealed mild OA and right knee x-ray revealed normal TKA Treatment Goals Patient/Caregiver Goals To decrease left shoulder, back and right leg pain. PT-OP-C Subjective Start: 09/26/24 16:37 Freq: Status: Active Protocol: Document 10/27/24 07:32 PG (Rec: 10/27/24 08:29 PG Laptop) OP-PT Subjective Patient Comments Patient Comments Pt states shoulder is feeling good, but R knee is not feeling any better. Pt weeded his front yard yesterday that started to bother his R knee after 10-15min. PT-OP-G Mobility & Gait Start: 09/26/24 16:37 Freq: Status: Active Protocol: Document 09/27/24 08:12 MB (Rec: 09/27/24 08:51 MB [id number]) OP Gait Assessment Comments Gait Comments Gait in socks: Pt with right SB of head and mild left rotation of head, stiffness in head and shoulders with gait and decreased arm swing and he tends to lead his walking with his head. With stepping, his right knee medially gives way with each step and WB through the right leg and he presents with functional leg length difference with the right leg shorter with gait and he has increased cornelia angle and B supinated feet. PT-OP-J Posture/Palpation/Skin Start: 09/26/24 16:37 Freq: Status: Active Protocol: Document 09/27/24 08:12 MB (Rec: 09/27/24 08:51 MB [id number]) Posture Evaluation Comments Posture Comments Posture in socks: head rests in mild right SB, flattened thoracic kyphosis and convexity to the right lower thoracic spine with ribs/ spinous processes protruding to the left many levels, left iliac crest mildly higher than the right, right leg rests in front and he has mild right knee bend, right elbow with lump. Increased cornelia angle on the right, left tragus in front left AC joint. Lumbar flexion with posterior pelvic shift and knees bent and limited lumbar motion, lumbar extension 5 deg and he feels it in the right knee and in the left shoulder, limited SB 5 deg B and pt feels in left shoulder and right knee with hands on hips. PT-OP-K Range of Motion Start: 09/26/24 16:37 Freq: Status: Active Protocol: Document 09/27/24 08:12 MB (Rec: 09/27/24 08:51 MB [id number]) Cervical Spine Range of Motion Cervical Spine Active Testing Position Standing Flexion 35 Extension 14 Rotation Left 55 Rotation Right 58 Comments Head rests in 6 deg right SB and mild left rotation Shoulder Goniometric Range of Motion Shoulder Left Testing Position Standing Flexion 135 Extension 35 Abduction 140 Internal Rotation Behind Back (text) L3 Comments In supine, PROM left shoulder ER and IR in : tightness end-range ER to 70 deg and IR to neutral and AC joint c/o pain Right Testing Position Standing Flexion 135 Extension 38 Abduction 140 Internal Rotation Behind Back (text) L1 Comments Pt is right handed In supine, PROM right shoulder ER and IR in : normal PT-OP-M Strength Start: 09/26/24 16:37 Freq: Status: Active Protocol: Document 09/27/24 08:12 MB (Rec: 09/27/24 08:51 MB [id number]) Shoulder Strength Shoulder Manual Muscle Testing Left Flexion 4+ Good+ Abduction (C5) 5 Normal External Rotation 4+ Good+ Internal Rotation 4+ Good+ Right Flexion 4+ Good+ Abduction (C5) 4+ Good+ External Rotation 4+ Good+ Internal Rotation 4+ Good+ Elbow/Forearm Strength Elbow and Forearm Manual Muscle Testing Left Flexion (C6) 5 Normal Extension (C7) 5 Normal Pronation 4+ Good+ Supination 4+ Good+ Right Flexion (C6) 5 Normal Extension (C7) 5 Normal Pronation 4+ Good+ Supination 4+ Good+ Hip Strength Hip Manual Muscle Testing Left Flexion (L2) 4+ Good+ Abduction 4+ Good+ Right Flexion (L2) 4+ Good+ Abduction 4+ Good+ Knee Strength Knee Manual Muscle Testing Left Flexion (S2) 5 Normal Extension (L3) 5 Normal Comments AROM left knee 3-130 deg Right Flexion (S2) 4+ Good+ Extension (L3) 4+ Good+ Comments AROM right knee 11-112 deg Ankle/Foot Strength Ankle and Foot Manual Muscle Testing Left Dorsiflexion (L4) 5 Normal Right Dorsiflexion (L4) 5 Normal Toe Strength Toe Manual Muscle Testing Left Great Toe Extension 5 Normal Right Great Toe Extension 4+ Good+ PT-OP-Q Treatments Start: 09/26/24 16:37 Freq: Status: Active Protocol: Document 10/27/24 07:32 PG (Rec: 10/27/24 08:29 PG Laptop) Therapeutic Exercises Sitting Exercises Hip adduction Sitting Exercise Name Added to HEP, declined HO Side bilateral Equipment Used small blue ball Reps/Minutes x30 with 3 sec hold Comments cues for posture and looking fwrd Hip abduction Sitting Exercise Name Added to HEP, declined HO Side bilateral Resistance augustine resistance band Comments cues for posture, heels on ground [place] knee extension Sitting Exercise Name Added to HEP, declined HO Side bilateral Resistance 2# Equipment Used ankle weights Reps/Minutes x30 Comments cues for posture, heels on ground Standing Exercises Sit to Stands Standing Exercise Name Added to HEP, declined HO Equipment Used mesh chair Reps/Minutes x10 Comments cues to incorporate BIG amplitude arms when standing [place] hip extension Standing Exercise Name Trialed Resistance 2# Equipment Used ankle weights, mesh chair Comments discontinued due to knee pain [place] hamstring curl Standing Exercise Name Trialed Resistance 2# Equipment Used ankle weights, mesh chair Comments discontinued due to knee pain [place] hip abduction Standing Exercise Name Trialed Resistance 2# Equipment Used ankle weights, mesh chair Comments discontinued due to knee pain Manual Therapy Treatment Consent Patient gave verbal consent for manual Yes treatment Other Other Manual Treatments Pt supine with head and legs supported: STM to R vastus lateralis, ITB, quad. R Knee Jnt mobs: patellar (Inf /sup/med/lat), and anterior tib mob's. R Ankle Jnt mobs: calcaneal distraction (med/lat), talus PA's PT-OP-T Assessment and Plan Start: 09/26/24 16:37 Freq: Status: Active Protocol: Document 10/27/24 07:32 PG (Rec: 10/27/24 08:29 PG Laptop) Physical Therapy Assessment Goals 4 Impairment Lack of HEP [facility] Goal (LTG) Pt will perform progressive HEP with I including alignment , flexibility, range, postural , balance and strengthening exercises to improve mobility and pain. LTG Duration 8 weeks 3 Impairment Right greater than left LE weakness [employer] Goal (LTG) Pt will present with B hip flexion, abduction, extension and knee flexion and extension strength to at least 4+/5 to improve functional strength with transfers and gait. LTG Duration 8 weeks 2 Impairment Left shoulder pain [employer] Goal (LTG) Pt will report at least a 50% improvement in left shoulder pain to improve function and quality of life. LTG Duration 8 weeks 1 Impairment Evidence of imbalance [employer] Goal (LTG) Pt will perform TUG with or without LRAD in less than 10 sec to decrease fall risk. LTG Duration 8 weeks Assessment Summary Assessment Trialed standing [place] exercises behind mesh chair with 2# ankle weights. Pt reported feeling pain in R knee while performing standing LE exercises. Modified to a sitting position to eliminate weightbearing in R LE and prevent increased R knee pain, while continuing to strengthen LE's bilaterally. Pt tolerated all sitting exercises well, added to HEP ( pt declined HO). Pt was able to complete 10 sit to stands with no complaints, suggested breaking [place]'s 30 rep sit to stands with no hands into 3 sets of 10 during the day to avoid R knee pain. Physical Therapy Plan Frequency and Duration Frequency of Treatment 2x/Week Duration of treatment (weeks) 8 Plan of Care Start Date 09/27/24 Plan of Care End Date 11/27/24 Therapeutic Interventions Therapeutic Interventions Balance Training,Canalithic Repositioning,Coordination Training,Gait Training,Home Exercise Program,Joint Mobilizations,Manual Therapy, Neuromuscular Re-education, Orthotic/Prosthetic Management ,Patient/Caregiver Education, Self-Care/Home Management,Soft Tissue Mobilization,Taping, Therapeutic Activities, Therapeutic Exercises Modalities Cold Pack/Ice Massage,Electric Stimulation,Hot Packs, Ultrasound Other Referrals/Consults Referrals/Consults Recommended Orthopedist referral for right knee Next Visit Focus/Plan Next Note Type Treatment Note Next Visit Plan Next, Has pt contacted physician about R knee? Review standing rows and shldr ext ex's. Trial supine or prone HS curl. Continue R knee mobility. Con 't to revise handouts in his HEP folder from this and previous PT course.
--- NOTE | 2024-10-31 08:08 | PT.OTN ---
Current Diagnoses Other chronic pain (10/31/24) Pain in left shoulder (10/31/24) Low back pain, unspecified (10/31/24) Physical Therapy Treatment Note PT-OP-A Visit Information Start: 09/26/24 16:37 Freq: Status: Active Protocol: Document 10/31/24 07:25 MB (Rec: 10/31/24 08:08 MB Desktop) Out-Patient Physical Therapy Visit Information Visit Information Visit Type Progress Note Visit Note 04/16 before KX Visit Start Time 07:30 Visit Stop Time 08:10 Visit Number 10 Number of BUNCH TRIMMER MOLD Visits 0 Evaluation Information Evaluation Date 09/27/24 PT-OP-B Current Condition Start: 09/26/24 16:37 Freq: Status: Active Protocol: Document 09/27/24 08:12 MB (Rec: 09/27/24 08:51 MB [id number]) Current Condition History of Current Condition Onset Date 12 years ago in left shoulder Current Complaints Pain with using left arm, sleeping on it and flexibility reaching back History of Current Condition PMH includes left shoulder pain and PT treatment about 12 years ago, chronic back pain, lumbar fusions, PD, right TKR and ongoing dysfunction with recent tendnitis of the quadriceps. Pt reports increasing pain left shoulder recently. If he sleeps on it, he can feel the pain and he has trouble abducting and reaching arm up to the left. He is taking two Aleve in the morning and two Aleve at night . These seem to release the tension. He is not icing his shoulder but is icing his right shoulder. He also uses a patch on the right knee. He started using a QC intermittently that he did not bring into clinic. Occ, his left arm awakens him at night time. He denies numbness and tingling. He is seeing another manual PT who will con't to work on him. Pt rates his complaints as 1: right leg pain, 2: LB when walking, 3: Left shoulder Prior Treatments and Tests 08/29/24 left hip x-ray revealed mild OA and right knee x-ray revealed normal TKA Treatment Goals Patient/Caregiver Goals To decrease left shoulder, back and right leg pain. PT-OP-C Subjective Start: 09/26/24 16:37 Freq: Status: Active Protocol: Document 10/31/24 07:25 MB (Rec: 10/31/24 08:08 MB Desktop) OP-PT Subjective Patient Comments Patient Comments Pt states his left shoulder feels looser and his right knee is the same. Even if he goes to the store and picks up one thing, he feels like he needs a cart. His orthopedic appointment for right knee is December 01 at [facility]. Pt states that exercises are going good. When he does the BIG program, he can do all the sitting exercises but the standing ones are a no. He takes two Aleve in the morning. Pt con't to report right knee pain when he is up on it. Even standing and taking a shower can irritate it. Pt has not been able to go on walks with friends d/t right knee pain. PT-OP-G Mobility & Gait Start: 09/26/24 16:37 Freq: Status: Active Protocol: Document 09/27/24 08:12 MB (Rec: 09/27/24 08:51 MB [id number]) OP Gait Assessment Comments Gait Comments Gait in socks: Pt with right SB of head and mild left rotation of head, stiffness in head and shoulders with gait and decreased arm swing and he tends to lead his walking with his head. With stepping, his right knee medially gives way with each step and WB through the right leg and he presents with functional leg length difference with the right leg shorter with gait and he has increased cornelia angle and B supinated feet. PT-OP-J Posture/Palpation/Skin Start: 09/26/24 16:37 Freq: Status: Active Protocol: Document 09/27/24 08:12 MB (Rec: 09/27/24 08:51 MB [id number]) Posture Evaluation Comments Posture Comments Posture in socks: head rests in mild right SB, flattened thoracic kyphosis and convexity to the right lower thoracic spine with ribs/ spinous processes protruding to the left many levels, left iliac crest mildly higher than the right, right leg rests in front and he has mild right knee bend, right elbow with lump. Increased cornelia angle on the right, left tragus in front left AC joint. Lumbar flexion with posterior pelvic shift and knees bent and limited lumbar motion, lumbar extension 5 deg and he feels it in the right knee and in the left shoulder, limited SB 5 deg B and pt feels in left shoulder and right knee with hands on hips. PT-OP-K Range of Motion Start: 09/26/24 16:37 Freq: Status: Active Protocol: Document 09/27/24 08:12 MB (Rec: 09/27/24 08:51 MB [id number]) Cervical Spine Range of Motion Cervical Spine Active Testing Position Standing Flexion 35 Extension 14 Rotation Left 55 Rotation Right 58 Comments Head rests in 6 deg right SB and mild left rotation Shoulder Goniometric Range of Motion Shoulder Left Testing Position Standing Flexion 135 Extension 35 Abduction 140 Internal Rotation Behind Back (text) L3 Comments In supine, PROM left shoulder ER and IR in 90/90: tightness end-range ER to 70 deg and IR to neutral and AC joint c/o pain Right Testing Position Standing Flexion 135 Extension 38 Abduction 140 Internal Rotation Behind Back (text) L1 Comments Pt is right handed In supine, PROM right shoulder ER and IR in 90/90: normal PT-OP-M Strength Start: 09/26/24 16:37 Freq: Status: Active Protocol: Document 09/27/24 08:12 MB (Rec: 09/27/24 08:51 MB [id number]) Shoulder Strength Shoulder Manual Muscle Testing Left Flexion 4+ Good+ Abduction (C5) 5 Normal External Rotation 4+ Good+ Internal Rotation 4+ Good+ Right Flexion 4+ Good+ Abduction (C5) 4+ Good+ External Rotation 4+ Good+ Internal Rotation 4+ Good+ Elbow/Forearm Strength Elbow and Forearm Manual Muscle Testing Left Flexion (C6) 5 Normal Extension (C7) 5 Normal Pronation 4+ Good+ Supination 4+ Good+ Right Flexion (C6) 5 Normal Extension (C7) 5 Normal Pronation 4+ Good+ Supination 4+ Good+ Hip Strength Hip Manual Muscle Testing Left Flexion (L2) 4+ Good+ Abduction 4+ Good+ Right Flexion (L2) 4+ Good+ Abduction 4+ Good+ Knee Strength Knee Manual Muscle Testing Left Flexion (S2) 5 Normal Extension (L3) 5 Normal Comments AROM left knee 3-130 deg Right Flexion (S2) 4+ Good+ Extension (L3) 4+ Good+ Comments AROM right knee 11-112 deg Ankle/Foot Strength Ankle and Foot Manual Muscle Testing Left Dorsiflexion (L4) 5 Normal Right Dorsiflexion (L4) 5 Normal Toe Strength Toe Manual Muscle Testing Left Great Toe Extension 5 Normal Right Great Toe Extension 4+ Good+ PT-OP-Q Treatments Start: 09/26/24 16:37 Freq: Status: Active Protocol: Document 10/31/24 07:25 MB (Rec: 10/31/24 08:08 MB Desktop) Therapeutic Exercises Supine Exercises ITB stretch Supine Exercise Name Reviwed from HEP, has handout, wants to keep Side bilateral Equipment Used Gait belt around foot Reps/Minutes 2 reps hamstring, 2 reps ITB eah leg pelvic realignment Supine Exercise Name HEP review today, pt has handout and to keep these Side bilateral Equipment Used Blue ball Reps/Minutes 5 reps, 3 sec hold all exercises in order Comments Feet together ball squeeze iso , knee opp ankle iso, thigh press down iso Sidelying Exercises openbook Sidelying Exercise Name Reviewed from HEP, to keep handout and performing Side bilateral Equipment Used Pillow support under head and foam roller between legs Reps/Minutes 5 reps each side Comments Cues for form Other Exercises Foam roller exercises Other Exercise Name HEP review, has handout, would like to keep Side bilateral Reps/Minutes Several reps active range-- uses 5 lb weight for FF at home Comments Cues core tight and pelvic tilt, pect stretchx1 HEP review Comments Reviewed several exercises during progress note today Neuro Re-Education Treatment Balance Activities TUG Comments TUG without cane in 11 sec today PT-OP-T Assessment and Plan Start: 09/26/24 16:37 Freq: Status: Active Protocol: Document 10/31/24 07:25 MB (Rec: 10/31/24 08:08 MB Desktop) Physical Therapy Assessment Goals 4 Impairment Lack of HEP [employer] Goal (LTG) Pt will perform progressive HEP with I including alignment , flexibility, range, postural , balance and strengthening exercises to improve mobility and pain. 10/31/24: Pt states that he and BUNCH TRIMMER MOLD have not yet started taking exercises out of folder and he is doing open book, band exercises in doorway, foam roller exercises, and he occ does pelvic realignment exercises and strap stretch exercise. LTG Duration 8 weeks 3 Impairment Right greater than left LE weakness [employer] Goal (LTG) Pt will present with B hip flexion, abduction, extension and knee flexion and extension strength to at least 4+/5 to improve functional strength with transfers and gait. 10/31/24: Hip flexion left 4/5, hip abduction left 4/5, hip extension left 4/5; left knee extension and flexion 5/5; hip flexion right 4/5, hip abduction right 4+/5; hip extension right 4-/5; knee extension right 4+/5, knee flexion right 5/5 LTG Duration 8 weeks 2 Impairment Left shoulder pain [employer] Goal (LTG) Pt will report at least a 50% improvement in left shoulder pain to improve function and quality of life. 10/31/24: Pt reports greater than 50% improvement in left shoulder pain since starting PT. He thinks the arm bike and home exercises really help. LTG Duration Met 1 Impairment Evidence of imbalance Alf Goal (LTG) Pt will perform TUG with or without LRAD in less than 10 sec to decrease fall risk. 10/31/24: TUG in 11 sec LTG Duration 8 weeks Assessment Summary Assessment Pt has met left shoulder goal and has not made any improvements in his right knee since starting PT. His LE strength is grossly symmetrical in supine. TUG without AD in 11 sec today. Pt to see orthopedist for right knee in November. He has three more PT appointments, will revise HEP and provide any other training as needed. Physical Therapy Plan Frequency and Duration Frequency of Treatment 2x/Week Duration of treatment (weeks) 8 Plan of Care Start Date 09/27/24 Plan of Care End Date 11/27/24 Therapeutic Interventions Therapeutic Interventions Balance Training,Canalithic Repositioning,Coordination Training,Gait Training,Home Exercise Program,Joint Mobilizations,Manual Therapy, Neuromuscular Re-education, Orthotic/Prosthetic Management ,Patient/Caregiver Education, Self-Care/Home Management,Soft Tissue Mobilization,Taping, Therapeutic Activities, Therapeutic Exercises Modalities Cold Pack/Ice Massage,Electric Stimulation,Hot Packs, Ultrasound Other Referrals/Consults Referrals/Consults Recommended Orthopedist referral for right knee--set for early November Next Visit Focus/Plan Next Note Type Treatment Note Next Visit Plan Con't to go through his exercise folder, have him perform exercises and take some out as needed--do not need to do the ones already reviewed in PT prog note previous date, 3 more treatments and d/c
--- NOTE | 2024-11-02 08:15 | PT.OTN ---
Current Diagnoses Other chronic pain (11/02/24) Pain in left shoulder (11/02/24) Low back pain, unspecified (11/02/24) Physical Therapy Treatment Note PT-OP-A Visit Information Start: 09/26/24 16:37 Freq: Status: Active Protocol: Document 11/02/24 07:33 PG (Rec: 11/02/24 08:55 PG Laptop) Out-Patient Physical Therapy Visit Information Visit Information Visit Type Treatment Note Visit Note 05/17 before KX WALKER Porter led tx with permission of pt and direct supervision of Zuleima SEPULVEDA. Visit Start Time 07:33 Visit Stop Time 08:15 Visit Number 11 Number of CLOTH WORKER Visits 1 Evaluation Information Evaluation Date 09/27/24 PT-OP-B Current Condition Start: 09/26/24 16:37 Freq: Status: Active Protocol: Document 09/27/24 08:12 MB (Rec: 09/27/24 08:51 MB [id number]) Current Condition History of Current Condition Onset Date 12 years ago in left shoulder Current Complaints Pain with using left arm, sleeping on it and flexibility reaching back History of Current Condition PMH includes left shoulder pain and PT treatment about 12 years ago, chronic back pain, lumbar fusions, PD, right TKR and ongoing dysfunction with recent tendnitis of the quadriceps. Pt reports increasing pain left shoulder recently. If he sleeps on it, he can feel the pain and he has trouble abducting and reaching arm up to the left. He is taking two Aleve in the morning and two Aleve at night . These seem to release the tension. He is not icing his shoulder but is icing his right shoulder. He also uses a patch on the right knee. He started using a QC intermittently that he did not bring into clinic. Occ, his left arm awakens him at night time. He denies numbness and tingling. He is seeing another manual PT who will con't to work on him. Pt rates his complaints as 1: right leg pain, 2: LB when walking, 3: Left shoulder Prior Treatments and Tests 08/29/24 left hip x-ray revealed mild OA and right knee x-ray revealed normal TKA Treatment Goals Patient/Caregiver Goals To decrease left shoulder, back and right leg pain. PT-OP-C Subjective Start: 09/26/24 16:37 Freq: Status: Active Protocol: Document 11/02/24 07:33 PG (Rec: 11/02/24 08:55 PG Laptop) OP-PT Subjective Patient Comments Patient Comments Pt states L should is good, back and R knee are about the same. PT-OP-G Mobility & Gait Start: 09/26/24 16:37 Freq: Status: Active Protocol: Document 09/27/24 08:12 MB (Rec: 09/27/24 08:51 MB [id number]) OP Gait Assessment Comments Gait Comments Gait in socks: Pt with right SB of head and mild left rotation of head, stiffness in head and shoulders with gait and decreased arm swing and he tends to lead his walking with his head. With stepping, his right knee medially gives way with each step and WB through the right leg and he presents with functional leg length difference with the right leg shorter with gait and he has increased cornelia angle and B supinated feet. PT-OP-J Posture/Palpation/Skin Start: 09/26/24 16:37 Freq: Status: Active Protocol: Document 09/27/24 08:12 MB (Rec: 09/27/24 08:51 MB [id number]) Posture Evaluation Comments Posture Comments Posture in socks: head rests in mild right SB, flattened thoracic kyphosis and convexity to the right lower thoracic spine with ribs/ spinous processes protruding to the left many levels, left iliac crest mildly higher than the right, right leg rests in front and he has mild right knee bend, right elbow with lump. Increased cornelia angle on the right, left tragus in front left AC joint. Lumbar flexion with posterior pelvic shift and knees bent and limited lumbar motion, lumbar extension 5 deg and he feels it in the right knee and in the left shoulder, limited SB 5 deg B and pt feels in left shoulder and right knee with hands on hips. PT-OP-K Range of Motion Start: 09/26/24 16:37 Freq: Status: Active Protocol: Document 09/27/24 08:12 MB (Rec: 09/27/24 08:51 MB [id number]) Cervical Spine Range of Motion Cervical Spine Active Testing Position Standing Flexion 35 Extension 14 Rotation Left 55 Rotation Right 58 Comments Head rests in 6 deg right SB and mild left rotation Shoulder Goniometric Range of Motion Shoulder Left Testing Position Standing Flexion 135 Extension 35 Abduction 140 Internal Rotation Behind Back (text) L3 Comments In supine, PROM left shoulder ER and IR in : tightness end-range ER to 70 deg and IR to neutral and AC joint c/o pain Right Testing Position Standing Flexion 135 Extension 38 Abduction 140 Internal Rotation Behind Back (text) L1 Comments Pt is right handed In supine, PROM right shoulder ER and IR in : normal PT-OP-M Strength Start: 09/26/24 16:37 Freq: Status: Active Protocol: Document 09/27/24 08:12 MB (Rec: 09/27/24 08:51 MB [id number]) Shoulder Strength Shoulder Manual Muscle Testing Left Flexion 4+ Good+ Abduction (C5) 5 Normal External Rotation 4+ Good+ Internal Rotation 4+ Good+ Right Flexion 4+ Good+ Abduction (C5) 4+ Good+ External Rotation 4+ Good+ Internal Rotation 4+ Good+ Elbow/Forearm Strength Elbow and Forearm Manual Muscle Testing Left Flexion (C6) 5 Normal Extension (C7) 5 Normal Pronation 4+ Good+ Supination 4+ Good+ Right Flexion (C6) 5 Normal Extension (C7) 5 Normal Pronation 4+ Good+ Supination 4+ Good+ Hip Strength Hip Manual Muscle Testing Left Flexion (L2) 4+ Good+ Abduction 4+ Good+ Right Flexion (L2) 4+ Good+ Abduction 4+ Good+ Knee Strength Knee Manual Muscle Testing Left Flexion (S2) 5 Normal Extension (L3) 5 Normal Comments AROM left knee 3-130 deg Right Flexion (S2) 4+ Good+ Extension (L3) 4+ Good+ Comments AROM right knee 11-112 deg Ankle/Foot Strength Ankle and Foot Manual Muscle Testing Left Dorsiflexion (L4) 5 Normal Right Dorsiflexion (L4) 5 Normal Toe Strength Toe Manual Muscle Testing Left Great Toe Extension 5 Normal Right Great Toe Extension 4+ Good+ PT-OP-Q Treatments Start: 09/26/24 16:37 Freq: Status: Active Protocol: Document 11/02/24 07:33 PG (Rec: 11/02/24 08:55 PG Laptop) Cardio Equipment Upper Body Ergometer (UBE) Duration (Minutes) 8 RPM 50 Seat Position 13 Height 3 Other Fwrd/bckwrd every 30 seconds Therapeutic Exercises Supine Exercises Hip rotator stretch Supine Exercise Name Reviewed off pt's HO: kept, modified R side due to R knee pn:knee>opp shldr Side bilateral Reps/Minutes 30 sec Comments cued to relax head on pillow for neutral c/s Clamshells Supine Exercise Name Reviewed off pt's HO: added bridge and hold Resistance [place], lvl 3 TB Reps/Minutes 5x w/ 5 sec hold Comments cued for TA brace, engaging glutes Core Progression Supine Exercise Name Revwd off pt's HO: LTR & SBKFO 's within R knee pn free range Comments DC: marches, heel slides. Progressed bridges with clamshell. Standing Exercises Pec Stretch Standing Exercise Name Reviewed off of pt's HO, pt would like to hold off until R knee pn improves Side bilateral Reps/Minutes 30 secs Comments Cued for LE's to be in alignmt with door frame to decre R knee pn Calf stretch Standing Exercise Name Reviewed off of pt's HO, keep and perform as needed Side bilateral Resistance Staircase for UE support Reps/Minutes 30 seconds each Comments Cued to hold stretch for longer then a few seconds Other Exercises HEP review Comments Continued to review several exercises during treatment PT-OP-T Assessment and Plan Start: 09/26/24 16:37 Freq: Status: Active Protocol: Document 11/02/24 07:33 PG (Rec: 11/02/24 08:55 PG Laptop) Physical Therapy Assessment Goals 4 Impairment Lack of HEP Usp Goal (LTG) Pt will perform progressive HEP with I including alignment , flexibility, range, postural , balance and strengthening exercises to improve mobility and pain. 10/31/24: Pt states that he and CLOTH WORKER have not yet started taking exercises out of folder and he is doing open book, band exercises in doorway, foam roller exercises, and he occ does pelvic realignment exercises and strap stretch exercise. LTG Duration 8 weeks 3 Impairment Right greater than left LE weakness Landscaping Manager Goal (LTG) Pt will present with B hip flexion, abduction, extension and knee flexion and extension strength to at least 4+/5 to improve functional strength with transfers and gait. 10/31/24: Hip flexion left 4/5, hip abduction left 4/5, hip extension left 4/5; left knee extension and flexion 5/5; hip flexion right 4/5, hip abduction right 4+/5; hip extension right 4-/5; knee extension right 4+/5, knee flexion right 5/5 LTG Duration 8 weeks 1 Impairment Evidence of imbalance Landscaping Manager Goal (LTG) Pt will perform TUG with or without LRAD in less than 10 sec to decrease fall risk. 10/31/24: TUG in 11 sec LTG Duration 8 weeks Assessment Summary Assessment Continued to review HEP HO's, pt went through core progression exercises. Required cueing for TA brace to protect lumbar spine and prevent LBP during all activities. SBKFO's and lumbar rotation created some discomfort in pt's R knee, encouraged to only perform in the ROM that was comfortable to continue getting mobility in low back. Combined supine bridges and clamshells for progressed supine LE strengthening with no increased pn in pt's R knee. Will continue to review seated and standing LE strengthening ex's next tx with feedback from pt. Physical Therapy Plan Frequency and Duration Frequency of Treatment 2x/Week Duration of treatment (weeks) 8 Plan of Care Start Date 09/27/24 Plan of Care End Date 11/27/24 Therapeutic Interventions Therapeutic Interventions Balance Training,Canalithic Repositioning,Coordination Training,Gait Training,Home Exercise Program,Joint Mobilizations,Manual Therapy, Neuromuscular Re-education, Orthotic/Prosthetic Management ,Patient/Caregiver Education, Self-Care/Home Management,Soft Tissue Mobilization,Taping, Therapeutic Activities, Therapeutic Exercises Modalities Cold Pack/Ice Massage,Electric Stimulation,Hot Packs, Ultrasound Other Referrals/Consults Referrals/Consults Recommended Orthopedist referral for right knee--set for early November Next Visit Focus/Plan Next Note Type Treatment Note Next Visit Plan Next: Review sitting LE exercises, STS's, reassess limited standing OTAGO ex's for HEP. Con't to go through his exercise folder, have him perform exercises and take some out as needed--do not need to do the ones already reviewed in PT prog note previous date, 2 more treatments and d/c
--- NOTE | 2024-11-07 08:13 | PT.OTN ---
Current Diagnoses Other chronic pain (11/07/24) Pain in left shoulder (11/07/24) Low back pain, unspecified (11/07/24) Physical Therapy Treatment Note PT-OP-A Visit Information Start: 09/26/24 16:37 Freq: Status: Active Protocol: Document 11/07/24 07:32 PG (Rec: 11/07/24 08:21 PG [id number]) Out-Patient Physical Therapy Visit Information Visit Information Visit Type Treatment Note Visit Note 06/16 before [facility] WALK[facility] Porter led tx with permission of pt and direct supervision of Zuleima SEPULVEDA. Visit Start Time 07:32 Visit Stop Time 08:13 Visit Number 12 Number of FITTER ARMAMENT Visits 2 Evaluation Information Evaluation Date 09/27/24 PT-OP-B Current Condition Start: 09/26/24 16:37 Freq: Status: Active Protocol: Document 09/27/24 08:12 MB (Rec: 09/27/24 08:51 MB [id number]) Current Condition History of Current Condition Onset Date 12 years ago in left shoulder Current Complaints Pain with using left arm, sleeping on it and flexibility reaching back History of Current Condition PMH includes left shoulder pain and PT treatment about 12 years ago, chronic back pain, lumbar fusions, PD, right TKR and ongoing dysfunction with recent tendnitis of the quadriceps. Pt reports increasing pain left shoulder recently. If he sleeps on it, he can feel the pain and he has trouble abducting and reaching arm up to the left. He is taking two Aleve in the morning and two Aleve at night . These seem to release the tension. He is not icing his shoulder but is icing his right shoulder. He also uses a patch on the right knee. He started using a QC intermittently that he did not bring into clinic. Occ, his left arm awakens him at night time. He denies numbness and tingling. He is seeing another manual PT who will con't to work on him. Pt rates his complaints as 1: right leg pain, 2: LB when walking, 3: Left shoulder Prior Treatments and Tests 08/29/24 left hip x-ray revealed mild OA and right knee x-ray revealed normal TKA Treatment Goals Patient/Caregiver Goals To decrease left shoulder, back and right leg pain. PT-OP-C Subjective Start: 09/26/24 16:37 Freq: Status: Active Protocol: Document 11/07/24 07:32 PG (Rec: 11/07/24 08:21 PG [id number]) OP-PT Subjective Patient Comments Patient Comments Pt is doing well, had a nice weekend. His shoulder is feeling good but R knee is about the same. Pt's knee will walk a short distance and feet his knee become inflamed, most weightbearing activities will cause this feeling. PT-OP-G Mobility & Gait Start: 09/26/24 16:37 Freq: Status: Active Protocol: Document 09/27/24 08:12 MB (Rec: 09/27/24 08:51 MB [id number]) OP Gait Assessment Comments Gait Comments Gait in socks: Pt with right SB of head and mild left rotation of head, stiffness in head and shoulders with gait and decreased arm swing and he tends to lead his walking with his head. With stepping, his right knee medially gives way with each step and WB through the right leg and he presents with functional leg length difference with the right leg shorter with gait and he has increased cornelia angle and B supinated feet. PT-OP-J Posture/Palpation/Skin Start: 09/26/24 16:37 Freq: Status: Active Protocol: Document 09/27/24 08:12 MB (Rec: 09/27/24 08:51 MB [id number]) Posture Evaluation Comments Posture Comments Posture in socks: head rests in mild right SB, flattened thoracic kyphosis and convexity to the right lower thoracic spine with ribs/ spinous processes protruding to the left many levels, left iliac crest mildly higher than the right, right leg rests in front and he has mild right knee bend, right elbow with lump. Increased cornelia angle on the right, left tragus in front left AC joint. Lumbar flexion with posterior pelvic shift and knees bent and limited lumbar motion, lumbar extension 5 deg and he feels it in the right knee and in the left shoulder, limited SB 5 deg B and pt feels in left shoulder and right knee with hands on hips. PT-OP-K Range of Motion Start: 09/26/24 16:37 Freq: Status: Active Protocol: Document 09/27/24 08:12 MB (Rec: 09/27/24 08:51 MB [id number]) Cervical Spine Range of Motion Cervical Spine Active Testing Position Standing Flexion 35 Extension 14 Rotation Left 55 Rotation Right 58 Comments Head rests in 6 deg right SB and mild left rotation Shoulder Goniometric Range of Motion Shoulder Left Testing Position Standing Flexion 135 Extension 35 Abduction 140 Internal Rotation Behind Back (text) L3 Comments In supine, PROM left shoulder ER and IR in : tightness end-range ER to 70 deg and IR to neutral and AC joint c/o pain Right Testing Position Standing Flexion 135 Extension 38 Abduction 140 Internal Rotation Behind Back (text) L1 Comments Pt is right handed In supine, PROM right shoulder ER and IR in : normal PT-OP-M Strength Start: 09/26/24 16:37 Freq: Status: Active Protocol: Document 09/27/24 08:12 MB (Rec: 09/27/24 08:51 MB [id number]) Shoulder Strength Shoulder Manual Muscle Testing Left Flexion 4+ Good+ Abduction (C5) 5 Normal External Rotation 4+ Good+ Internal Rotation 4+ Good+ Right Flexion 4+ Good+ Abduction (C5) 4+ Good+ External Rotation 4+ Good+ Internal Rotation 4+ Good+ Elbow/Forearm Strength Elbow and Forearm Manual Muscle Testing Left Flexion (C6) 5 Normal Extension (C7) 5 Normal Pronation 4+ Good+ Supination 4+ Good+ Right Flexion (C6) 5 Normal Extension (C7) 5 Normal Pronation 4+ Good+ Supination 4+ Good+ Hip Strength Hip Manual Muscle Testing Left Flexion (L2) 4+ Good+ Abduction 4+ Good+ Right Flexion (L2) 4+ Good+ Abduction 4+ Good+ Knee Strength Knee Manual Muscle Testing Left Flexion (S2) 5 Normal Extension (L3) 5 Normal Comments AROM left knee 3-130 deg Right Flexion (S2) 4+ Good+ Extension (L3) 4+ Good+ Comments AROM right knee 11-112 deg Ankle/Foot Strength Ankle and Foot Manual Muscle Testing Left Dorsiflexion (L4) 5 Normal Right Dorsiflexion (L4) 5 Normal Toe Strength Toe Manual Muscle Testing Left Great Toe Extension 5 Normal Right Great Toe Extension 4+ Good+ PT-OP-Q Treatments Start: 09/26/24 16:37 Freq: Status: Active Protocol: Document 11/07/24 07:32 PG (Rec: 11/07/24 08:21 PG [id number]) Therapeutic Exercises Sitting Exercises Heel raises Sitting Exercise Name Added to HEP, declined HO Side bilateral Resistance 2# ankle weights Reps/Minutes x30 HS curls Sitting Exercise Name Added to HEP in place of standing HS curl, declined HO Resistance lvl 3 ([place]) tb Comments cued for bottom back in seat Hip adduction Sitting Exercise Name Reviewed, added LAQ's with ball squeeze for HEP progression Equipment Used small ball Reps/Minutes x10 each, 3 sec hold Comments cued for ball squeeze, knee ext for 3 sec Hip abduction Sitting Exercise Name Reviewed, increased reps for HEP progression Resistance lvl 3 ([place]) tb Reps/Minutes x20 with 5 sec hold [place] knee extension Sitting Exercise Name Reviewed Resistance 2# ankle weights > Comments cued for bottom back in seat, hold at end Standing Exercises Heel raises Standing Exercise Name Trailed Comments stopped due to pn in R knee due to weight bearing. Sit to Stands Standing Exercise Name Reviewed, 10 reps 3x during the day for progressed HEP Equipment Used mesh chair Reps/Minutes x10 Comments cues to incorporate BIG amplitude arms when standing [place] hamstring curl Standing Exercise Name Reviewed Comments stopped due to R knee pn with weight bearing Other Exercises HEP review Comments Continued to review several exercises during treatment PT-OP-T Assessment and Plan Start: 09/26/24 16:37 Freq: Status: Active Protocol: Document 11/07/24 07:32 PG (Rec: 11/07/24 08:21 PG [id number]) Physical Therapy Assessment Goals 4 Impairment Lack of HEP Residential Goal (LTG) Pt will perform progressive HEP with I including alignment , flexibility, range, postural , balance and strengthening exercises to improve mobility and pain. 10/31/24: Pt states that he and FITTER ARMAMENT have not yet started taking exercises out of folder and he is doing open book, band exercises in doorway, foam roller exercises, and he occ does pelvic realignment exercises and strap stretch exercise. LTG Duration 8 weeks 3 Impairment Right greater than left LE weakness Residential Goal (LTG) Pt will present with B hip flexion, abduction, extension and knee flexion and extension strength to at least 4+/5 to improve functional strength with transfers and gait. 10/31/24: Hip flexion left 4/5, hip abduction left 4/5, hip extension left 4/5; left knee extension and flexion 5/5; hip flexion right 4/5, hip abduction right 4+/5; hip extension right 4-/5; knee extension right 4+/5, knee flexion right 5/5 LTG Duration 8 weeks 1 Impairment Evidence of imbalance Director Export Goal (LTG) Pt will perform TUG with or without LRAD in less than 10 sec to decrease fall risk. 10/31/24: TUG in 11 sec LTG Duration 8 weeks Assessment Summary Assessment Reviewed and progressed LE strengthening exercise for HEP that wouldn't further increase pt's R knee pain. Pt tends to have increased pain with most weight bearing activities. Combined seated hip adduction ball squeeze with LAQ's to work hip adductors and knee extensors at one and increase challenge, good response from pt. Trialed heel raises in standing but discontinued due to increased R knee pain even while bearing more weight in LLE. Modified heel raises to seated with 2# ankle weights x 30 reps, good response from pt. Physical Therapy Plan Frequency and Duration Frequency of Treatment 2x/Week Duration of treatment (weeks) 8 Plan of Care Start Date 09/27/24 Plan of Care End Date 11/27/24 Therapeutic Interventions Therapeutic Interventions Balance Training,Canalithic Repositioning,Coordination Training,Gait Training,Home Exercise Program,Joint Mobilizations,Manual Therapy, Neuromuscular Re-education, Orthotic/Prosthetic Management ,Patient/Caregiver Education, Self-Care/Home Management,Soft Tissue Mobilization,Taping, Therapeutic Activities, Therapeutic Exercises Modalities Cold Pack/Ice Massage,Electric Stimulation,Hot Packs, Ultrasound Other Referrals/Consults Referrals/Consults Recommended Orthopedist referral for right knee--set for early November Next Visit Focus/Plan Next Note Type Treatment Note Next Visit Plan Next: Plan was to discharge, review LE strengthening progression exercises as needed.
--- NOTE | 2024-11-09 16:28 | PT.OTN ---
Current Diagnoses Other chronic pain (11/09/24) Pain in left shoulder (11/09/24) Low back pain, unspecified (11/09/24) Physical Therapy Treatment Note PT-OP-A Visit Information Start: 09/26/24 16:37 Freq: Status: Active Protocol: Document 11/09/24 15:30 MB (Rec: 11/09/24 16:27 MB Desktop) Out-Patient Physical Therapy Visit Information Visit Information Visit Type Discharge Summary Visit Start Time 15:30 Visit Stop Time 15:59 Visit Number 13 Number of [employer] Visits 0 Evaluation Information Evaluation Date 09/27/24 PT-OP-B Current Condition Start: 09/26/24 16:37 Freq: Status: Active Protocol: Document 09/27/24 08:12 MB (Rec: 09/27/24 08:51 MB [id number]) Current Condition History of Current Condition Onset Date 12 years ago in left shoulder Current Complaints Pain with using left arm, sleeping on it and flexibility reaching back History of Current Condition PMH includes left shoulder pain and PT treatment about 12 years ago, chronic back pain, lumbar fusions, PD, right TKR and ongoing dysfunction with recent tendnitis of the quadriceps. Pt reports increasing pain left shoulder recently. If he sleeps on it, he can feel the pain and he has trouble abducting and reaching arm up to the left. He is taking two Aleve in the morning and two Aleve at night . These seem to release the tension. He is not icing his shoulder but is icing his right shoulder. He also uses a patch on the right knee. He started using a QC intermittently that he did not bring into clinic. Occ, his left arm awakens him at night time. He denies numbness and tingling. He is seeing another manual PT who will con't to work on him. Pt rates his complaints as 1: right leg pain, 2: LB when walking, 3: Left shoulder Prior Treatments and Tests 08/29/24 left hip x-ray revealed mild OA and right knee x-ray revealed normal TKA Treatment Goals Patient/Caregiver Goals To decrease left shoulder, back and right leg pain. PT-OP-C Subjective Start: 09/26/24 16:37 Freq: Status: Active Protocol: Document 11/09/24 15:30 MB (Rec: 11/09/24 16:27 MB Desktop) OP-PT Subjective Patient Comments Patient Comments Pt has orthopedist appointment 12/01/24. His left shoulder is a lot better and his right knee is about the same. His back is a little better. His manual PT would like for him to do more hip exercises. PT-OP-G Mobility & Gait Start: 09/26/24 16:37 Freq: Status: Active Protocol: Document 09/27/24 08:12 MB (Rec: 09/27/24 08:51 MB [id number]) OP Gait Assessment Comments Gait Comments Gait in socks: Pt with right SB of head and mild left rotation of head, stiffness in head and shoulders with gait and decreased arm swing and he tends to lead his walking with his head. With stepping, his right knee medially gives way with each step and WB through the right leg and he presents with functional leg length difference with the right leg shorter with gait and he has increased cornelia angle and B supinated feet. PT-OP-J Posture/Palpation/Skin Start: 09/26/24 16:37 Freq: Status: Active Protocol: Document 09/27/24 08:12 MB (Rec: 09/27/24 08:51 MB [id number]) Posture Evaluation Comments Posture Comments Posture in socks: head rests in mild right SB, flattened thoracic kyphosis and convexity to the right lower thoracic spine with ribs/ spinous processes protruding to the left many levels, left iliac crest mildly higher than the right, right leg rests in front and he has mild right knee bend, right elbow with lump. Increased cornelia angle on the right, left tragus in front left AC joint. Lumbar flexion with posterior pelvic shift and knees bent and limited lumbar motion, lumbar extension 5 deg and he feels it in the right knee and in the left shoulder, limited SB 5 deg B and pt feels in left shoulder and right knee with hands on hips. PT-OP-K Range of Motion Start: 09/26/24 16:37 Freq: Status: Active Protocol: Document 09/27/24 08:12 MB (Rec: 09/27/24 08:51 MB [id number]) Cervical Spine Range of Motion Cervical Spine Active Testing Position Standing Flexion 35 Extension 14 Rotation Left 55 Rotation Right 58 Comments Head rests in 6 deg right SB and mild left rotation Shoulder Goniometric Range of Motion Shoulder Left Testing Position Standing Flexion 135 Extension 35 Abduction 140 Internal Rotation Behind Back (text) L3 Comments In supine, PROM left shoulder ER and IR in /: tightness end-range ER to 70 deg and IR to neutral and AC joint c/o pain Right Testing Position Standing Flexion 135 Extension 38 Abduction 140 Internal Rotation Behind Back (text) L1 Comments Pt is right handed In supine, PROM right shoulder ER and IR in /90: normal PT-OP-M Strength Start: 09/26/24 16:37 Freq: Status: Active Protocol: Document 09/27/24 08:12 MB (Rec: 09/27/24 08:51 MB [id number]) Shoulder Strength Shoulder Manual Muscle Testing Left Flexion 4+ Good+ Abduction (C5) 5 Normal External Rotation 4+ Good+ Internal Rotation 4+ Good+ Right Flexion 4+ Good+ Abduction (C5) 4+ Good+ External Rotation 4+ Good+ Internal Rotation 4+ Good+ Elbow/Forearm Strength Elbow and Forearm Manual Muscle Testing Left Flexion (C6) 5 Normal Extension (C7) 5 Normal Pronation 4+ Good+ Supination 4+ Good+ Right Flexion (C6) 5 Normal Extension (C7) 5 Normal Pronation 4+ Good+ Supination 4+ Good+ Hip Strength Hip Manual Muscle Testing Left Flexion (L2) 4+ Good+ Abduction 4+ Good+ Right Flexion (L2) 4+ Good+ Abduction 4+ Good+ Knee Strength Knee Manual Muscle Testing Left Flexion (S2) 5 Normal Extension (L3) 5 Normal Comments AROM left knee 3-130 deg Right Flexion (S2) 4+ Good+ Extension (L3) 4+ Good+ Comments AROM right knee 11-112 deg Ankle/Foot Strength Ankle and Foot Manual Muscle Testing Left Dorsiflexion (L4) 5 Normal Right Dorsiflexion (L4) 5 Normal Toe Strength Toe Manual Muscle Testing Left Great Toe Extension 5 Normal Right Great Toe Extension 4+ Good+ PT-OP-Q Treatments Start: 09/26/24 16:37 Freq: Status: Active Protocol: Document 11/09/24 15:30 MB (Rec: 11/09/24 16:27 MB Desktop) Gait Training Gait Activity Walking Comments Gait training with SPC vs QC in left hand and ed pt that hurry cane bottom might be best to try, researched on [employer] and then talked about [employer]. Self-Care/Home Management Treatment Education Patient Education Body Mechanics,Fall Risk,Home Exercise Program,Joint Protection,Pain Management, Posture,Safety Other Education Discussion and education about benefits of following up with orthopedist before progressing hip and other strengthening when pt asks about this, benefits of SPC vs hurry cane as opposed to more bulky QC, modifications for BIG exercises for class, follow-up with PT in the future as right knee pain is improved PT-OP-T Assessment and Plan Start: 09/26/24 16:37 Freq: Status: Active Protocol: Document 11/09/24 15:30 MB (Rec: 11/09/24 16:27 MB Desktop) Physical Therapy Assessment Goals 4 Impairment Lack of HEP Pick Up Attendant Goal (LTG) Pt will perform progressive HEP with I including alignment , flexibility, range, postural , balance and strengthening exercises to improve mobility and pain. 10/31/24: Pt states that he and [employer] have not yet started taking exercises out of folder and he is doing open book, band exercises in doorway, foam roller exercises, and he occ does pelvic realignment exercises and strap stretch exercise. 11/09/24: Pt is performing some exercises everyday, attending weekly [employer] class but has trouble with standing exercises and gait, is no longer taking weekly walks with friends and has to use the cart to walk at the store. Discussed possibility of pool therapy LTG Duration 8 weeks 3 Impairment Right greater than left LE weakness Pick Up Attendant Goal (LTG) Pt will present with B hip flexion, abduction, extension and knee flexion and extension strength to at least 4+/5 to improve functional strength with transfers and gait. 10/31/24: Hip flexion left 4/5, hip abduction left 4/5, hip extension left 4/5; left knee extension and flexion 5/5; hip flexion right 4/5, hip abduction right 4+/5; hip extension right 4-/5; knee extension right 4+/5, knee flexion right 5/5 11/09/24: Testing in supine: Left hip flexion, abduction, extension and knee flexion and extension 5/5; right knee extension 5/5, knee flexion 4+ /5, hip flexion 4/5, abduction 5/5, extension 5/5 LTG Duration 8 weeks 1 Impairment Evidence of imbalance Longterm Goal (LTG) Pt will perform TUG with or without LRAD in less than 10 sec to decrease fall risk. 10/31/24: TUG in 11 sec 11/09/24 TU sec; 10 sec; 9 sec LTG Duration 8 weeks Assessment Summary Assessment Pt progressed towards PT goals including TUG, LE strengthening and HEP. He has continued with right knee buckling with each step with gait and ongoing left knee pain that feels like pinching. Pt has currently maximized PT potential and is ready to d/c PT.
== END 2024-11-25 13:35 | disposition home or self-care (01) ==
LOC: PHYS 15:30
PROVIDERS: Family Provider Family Medicine; PCP Family Medicine; Referring Provider Family Medicine; Visit Provider Family Medicine
DX: M54.50 Low back pain, unspecified (principal); G89.29 Other chronic pain; M25.512 Pain in left shoulder
CPT/HCPCS: 97110; 97116; 97140; 97162; 97535

== ENCOUNTER → 2024-12-01 10:32 | Outpatient (CLI) | payer MEDICARE, OTHER, SELFPAY ==
[2021-02-11 12:26] VITALS: BMI 32.5
[2024-12-01 11:20] LABS: Add Manual Diff / Slide Review NO; Basophils Absolute Auto 100 /uL (0-100); Basophils Percent Auto 0.6 % (0-2); Eosinophils Absolute Auto 100 /uL (0-450); Eosinophils Percent Auto 1.5 % (2-4); Hematocrit 41.5 % (41-53); Hemoglobin 14.3 g/dL (13.5-17.5); Lymphocytes Absolute Auto 1000 /uL (1100-4500); Lymphocytes Percent Auto 12.6 % (25-40); Mean Corpuscular HGB Conc 34.5 % (30-36); Mean Corpuscular Hemoglobin 32.4 PG (26-34); Mean Corpuscular Volume 93.9 fL (80-100); Monocytes Absolute Auto 500 /uL (0-900); Monocytes Percent Auto 5.8 % (3-14); Neutrophils Absolute Auto 6500 /uL (1500-7000); Neutrophils Percent Auto 79.5 % (50-75); Platelet Count 249 X10^3/uL (150-400); Red Blood Cell Count 4.42 X10^6/uL (4.5-5.9); Red Cell Distribution Width 13.1 % (11.6-14.8); White Blood Cell Count 8.2 X10^3/uL (4.5-11.0)
[2024-12-01 11:40] LABS: C-Reactive Protein Quant < 0.5 mg/dL (<1.0)
[2024-12-01 12:02] LABS: Erythrocyte Sedimentation Rate 5 MM/HR (0-15)
== END ==
PROVIDERS: Family Provider Family Medicine; PCP Family Medicine; Referring Provider Orthopaedic Surgery Foot and Ankle Surgery; Visit Provider Orthopaedic Surgery Foot and Ankle Surgery
DX: M25.561 Pain in right knee (principal); Z96.651 Presence of right artificial knee joint
CPT/HCPCS: 36415; 85025; 85651; 86140

== ENCOUNTER → 2025-01-12 09:46 | Outpatient (CLI) | payer MEDICARE, OTHER, SELFPAY ==
[2021-02-11 12:26] VITALS: BMI 32.5
--- NOTE | 2025-01-12 09:47 | DI.NM.S_ITS ---
PROCEDURE: NM BONE 3 PHASE RADIOPHARMACEUTICAL: 22 mCi Tc-99m MDP IV. INDICATIONS: Knee Pain TECHNIQUE: Multiple bone scintigrams were obtained after intravenous injection of Tc-99m MDP, including flow, blood pool, and delayed images centered to the region of interest. COMPARISON: None. FINDINGS: No significant radiotracer uptake about the right total knee arthroplasty. Mild delayed radiotracer uptake of the left lateral femoral condyle, likely degenerative. IMPRESSION: No evidence of hardware loosening or infection. Dictated by: Karson Huang M.D. on 01/12/2025 at 16:40 Approved by: Karson Huang M.D. on 01/12/2025 at 16:41
== END ==
LOC: NUCM 09:46
PROVIDERS: Family Provider Family Medicine; PCP Family Medicine; Referring Provider Orthopaedic Surgery Foot and Ankle Surgery; Visit Provider Orthopaedic Surgery Foot and Ankle Surgery
DX: T84.84XA Pain due to internal orthopedic prosthetic devices, implants and grafts, initial encounter (principal)
CPT/HCPCS: 78315; A9503

== ENCOUNTER → 2025-01-30 09:39 | Outpatient (CLI) | payer MEDICARE, OTHER, SELFPAY ==
[2021-02-11 12:26] VITALS: BMI 32.5
--- NOTE | 2025-01-30 09:41 | DI.NM.S_ITS ---
PROCEDURE: NM BONE SCAN WHOLE BODY RADIOPHARMACEUTICAL: 22 mCi Tc-99m MDP IV. INDICATIONS: pain TECHNIQUE: Delayed whole-body scintigrams were obtained approximately 3-4 hours after intravenous injection of radiotracer. Anterior and posterior views were acquired from vertex to feet. Additional left and right oblique views of the pelvis were obtained. COMPARISON: None. FINDINGS: Degenerative uptake noted in the right midfoot. Degenerative uptake in the glenohumeral and acromioclavicular joints. Degenerative uptake of the lateral femoral condyle. IMPRESSION: Degenerative uptake , most prominent in the right midfoot. Correlate with symptoms. Dictated by: Karson Huang M.D. on 01/31/2025 at 11:48 Approved by: Karson Huang M.D. on 01/31/2025 at 11:49
== END ==
PROVIDERS: Family Provider Family Medicine; PCP Family Medicine; Referring Provider Family Medicine; Visit Provider Orthopaedic Surgery Foot and Ankle Surgery
DX: M79.604 Pain in right leg (principal)
CPT/HCPCS: 78306; A9503